=== PATIENT | male | born 1950 | race Caucasian/White ===

== ENCOUNTER → 2017-12-21 10:46 | Outpatient (CLI) | payer OTHER, SELFPAY | PROVIDERS: PCP Internal Medicine; Visit Provider Internal Medicine Pulmonary Disease | DX: R05 Cough (principal); J47.9 Bronchiectasis, uncomplicated | CPT/HCPCS: 87070; 87116; 87205 ==

== ENCOUNTER 2018-02-10 09:55 | Emergency (ER) | payer OTHER, SELFPAY ==
[2018-02-10 10:18] VITALS: BP 127/76; PULSE 91; RESP 18; TEMP 37.2; O2SAT 96; BMI 28.5
[2018-02-10 12:12] VITALS: BP 132/64; PULSE 65; RESP 16; O2SAT 98
--- NOTE | 2018-02-10 12:30 | ED.SKABFB ---
HPI - Skin/Abscess/Foreign Bdy <NIURKA Nair - Last Filed: 02/10/18 21:26> General Chief complaint: Skin/Abscess/Foreign Body Stated complaint: finger laceration Time Seen by Provider: 02/10/18 12:32 Source: patient Mode of arrival: ambulatory Limitations: no limitations History of Present Illness HPI narrative: 67-year-old male here for complaint of laceration to his left index finger. He states that he was cutting shrubs when the blade he was using slipped and caused a laceration to his left index finger slightly prior to arrival. He denies any other injuries. He does report that his tetanus is up-to-date as he just had his tetanus given to him last year. Bleeding is controlled. No other concerns or complaints at this time. MD complaint: laceration Related Data Previous Rx's Medication Instructions Recorded atorvastatin [Lipitor] 20 mg PO HS #90 10/28/12 azithromycin [Zithromax] 250 mg PO QDAY 5 Days #0 tab 02/10/16 ondansetron [Zofran ODT] 4 mg SUBLINGUAL Q6HP PRN #20 odt 02/10/16 doxycycline hyclate 100 mg PO Q12H 7 Days #0 cap 11/29/16 Allergies Allergy/AdvReac Type Severity Reaction Status Date / Time amoxicillin AdvReac Mild NAUSEA Verified 02/10/18 10:22 levofloxacin AdvReac Mild GI UPSET Verified 02/10/18 10:22 Review of Systems <NIURKA Nair - Last Filed: 02/10/18 21:26> Constitutional Denies chills, Denies fever(s), Denies lethargy and Denies weakness Eyes Denies change in vision, Denies eye discharge, Denies irritation and Denies loss of vision ENT Ears, Nose, Mouth, and Throat: Denies change in voice, Denies neck pain and Denies sore throat Cardiovascular Denies chest pain, Denies irregular heart rhythm, Denies lightheadedness, Denies palpitations, Denies dyspnea, Denies dyspnea on exertion and Denies orthopnea Respiratory Denies cough, Denies dyspnea, Denies dyspnea on exertion and Denies wheezing Gastrointestinal Gastrointestinal: Denies abdominal pain, Denies change in bowel habits, Denies diarrhea, Denies nausea and Denies vomiting Genitourinary Denies hematuria, Denies flank pain, Denies urinary incontinence and Denies urinary urgency Musculoskeletal Denies neck pain Comments: Laceration to left index finger Integumentary/Breasts Denies pruritus, Denies erythema, Denies rash and Denies wounds Neurologic Denies confusion, Denies loss of vision and Denies weakness Psychiatric Denies anxiety, Denies confusion, Denies depression, Denies homicidal ideation and Denies suicidal ideation Endocrine Denies palpitations Allergic/Immunologic Denies wheezing Exam <NIURKA Nair - Last Filed: 02/10/18 21:26> Initial Vital Signs Initial Vital Signs: Vital Signs Temperature 98.9 F 02/10/18 10:18 Pulse Rate 91 H 02/10/18 10:18 Respiratory Rate 18 02/10/18 10:18 Blood Pressure 127/76 H 02/10/18 10:18 Pulse Oximetry 96 02/10/18 10:18 Const General: cooperative and well developed Nutritional Appearance: well nourished Orientation: alert, awake, oriented x3 and not confused HENMT Mouth: oral mucosae normal and moist mucous membranes Eyes Conjunctivae: conjunctivae normal Sclera: sclerae normal Pupils: PERRL EOM: EOM intact bilaterally Resp Effort & Inspection: normal respiratory effort, able to speak in complete sentences, no respiratory distress and no use of accessory muscles Auscultation: clear to auscultation bilaterally, no rales, no rhonchi and no wheezes Cardio Rate: regular rate Rhythm: regular rhythm Heart Sounds: no click, no gallops, no murmurs and no rubs Pulses: normal peripheral pulses Skin General: No jaundice and No petechiae Neuro General: alert, oriented x3, gait normal and no focal motor deficits Speech: speech normal Extrem Other: 3 cm laceration to the left index finger radial aspect. Distal sensation is intact. Full range of motion. Distal cap refill less than 2 sec. <Pedro Rodriguez MD - Last Filed: 02/11/18 08:41> Initial Vital Signs Initial Vital Signs: Vital Signs Temperature 98.9 F 02/10/18 10:18 Pulse Rate 91 H 02/10/18 10:18 Respiratory Rate 18 02/10/18 10:18 Blood Pressure 127/76 H 02/10/18 10:18 Pulse Oximetry 96 02/10/18 10:18 Procedures <NIURKA Nair - Last Filed: 02/10/18 21:26> Laceration Repair Laceration 1: Site: other (Left index finger) Side (If applicable): left Size (cm): 3 Description: irregular Depth: simple, single layer Local Anesthetic: lidocaine 1% Amount of anesthesia used (mL): 2.5 Pre-repair: wound explored and irrigated extensively Skin layer closed with: nylon Size (cm): 5-0 Number of sutures: 9 Technique: simple, interrupted Course <NIURKA Nair - Last Filed: 02/10/18 21:26> Vital Signs - 8 hr 02/10/18 13:30 Pulse Rate 83 Respiratory Rate 16 Blood Pressure [Right Arm] 131/83 H Pulse Oximetry 98 <Pedro Rodriguez MD - Last Filed: 02/11/18 08:41> Vital Signs - 8 hr 02/10/18 13:30 Pulse Rate 83 Respiratory Rate 16 Blood Pressure [Right Arm] 131/83 H Pulse Oximetry 98 MDM - Skin/Abscess/Foreign Bdy <NIURKA Nair - Last Filed: 02/10/18 21:26> MDM Narrative Medical decision making narrative: Laceration of left index finger was closed with 9 5-0 nylon sutures with good wound closure obtained. Wound dressed with bacitracin and a dressing. Keep her original dressing on clean and dry for the next 36 hr. After this timeframe a shower briefly. Pat wound dry after shower and redressed with bacitracin dressing. Dress wound daily with bacitracin and dressing until healed. Sutures removed in 7-10 days. No swimming or baths until healed. Follow up with primary care provider. Tetanus is up-to-date. [id number] Tylenol Motrin as needed for any discomfort. Return emergency room for any worsening symptoms. Discharge Plan Departure Patient Disposition: Home Clinical Impression: Laceration of left index finger Discharge Date/Time: 02/10/18 13:43 Interventions: ED Discharge Assessment Last Done: 02/10/18 13:42 Instructions: DI for Laceration Repair -- Finger Activity Restrictions/Additional Instructions: Laceration of left index finger was closed with 9 sutures. Keep her original dressing on clean and dry for the next 36 hr. After this timeframe you may shower briefly. Pat wound dry after shower and redress with bacitracin and dressing. Dress wound daily with bacitracin and dressing until healed. Sutures removed in 7-10 days. No swimming or baths until healed. Follow up with primary care provider. Tetanus is up-to-date. [id number] Tylenol Motrin as needed for any discomfort. Return emergency room for any worsening symptoms. Prescriptions: No Action atorvastatin [Lipitor] 20 MG tablet 20 mg PO HS Qty: 90 RF: 3 azithromycin [Zithromax] 250 MG tablet 250 mg PO QDAY 5 Days Qty: 0 RF: 0 ondansetron [Zofran ODT] 4 MG tablet,disintegrating 4 mg Sublingual Q6HP PRNQty: 20 RF: 0 doxycycline hyclate 100 MG capsule 100 mg PO Q12H 7 Days Qty: 0 RF: 0 Referrals: Carolina Pepper MD [Primary Care Provider] - <Pedro Rodriguez MD - Last Filed: 02/11/18 08:41> Sign Out Provider Sign Out Attestation: The PA/UNDER WATER ASSISTANT functioned independently for the care of this pt, I was available, but not asked to participate in care. I am unable to determine appropriateness of management without personally examining the pt.
[2018-02-10 13:30] VITALS: BP 131/83; PULSE 83; RESP 16; O2SAT 98
== END 2018-02-10 13:43 | disposition home or self-care (01) ==
PROVIDERS: Emergency Provider Nurse Practitioner Family; Family Provider Internal Medicine; PCP Internal Medicine
DX: S61.211A Laceration without foreign body of left index finger without damage to nail, initial encounter (principal); W26.9XXA Contact with unspecified sharp object(s), initial encounter
CPT/HCPCS: 12002; 99282; 99283

== ENCOUNTER 2018-03-09 16:27 | Emergency (ER) | payer OTHER, SELFPAY ==
[2018-03-09 16:30] VITALS: BP 114/73; PULSE 97; RESP 20; TEMP 36.7; O2SAT 96; BMI 28.5
--- NOTE | 2018-03-09 17:05 | DI.RAD.S_ITS ---
PROCEDURE: XR CHEST 1V INDICATIONS: pain in chest and neck TECHNIQUE: One view of the chest was acquired. COMPARISON: [facility], CT, CT CHEST WO CON, 06/22/2015, 13:15. [facility], CR, CHEST 1 VIEW, 02/10/2016, 3:45. FINDINGS: Surgical changes and devices: None. Lungs and pleura: Opacity in the left lower lobe may be consolidation or atelectasis. The apical scars are present. There is right basilar atelectasis. No pleural effusions or pneumothorax. Mediastinum: Mediastinal contours appear normal. Heart size is normal. Bones and chest wall: No suspicious bony lesions. Overlying soft tissues appear unremarkable. IMPRESSION: 1. Left basilar opacity may be pneumonia or atelectasis. 2. Biapical scars and left lower lobe atelectasis. Dictated by: Samuel Aquino M.D. on 03/09/2018 at 17:53 Approved by: Samuel Aquino M.D. on 03/09/2018 at 17:56
[2018-03-09 17:10] VITALS: BP 116/89; PULSE 143; RESP 17; O2SAT 96
--- NOTE | 2018-03-09 17:17 | ED.CHESTPAIN ---
HPI - Chest Pain General Chief Complaint: Chest Pain Stated Complaint: PAIN IN CHEST AND NECK Time Seen by Provider: 03/09/18 17:05 Related Data Previous Rx's Medication Instructions Recorded atorvastatin [Lipitor] 20 mg PO HS #90 10/28/12 azithromycin [Zithromax] 250 mg PO QDAY 5 Days #0 tab 02/10/16 ondansetron [Zofran ODT] 4 mg SUBLINGUAL Q6HP PRN #20 odt 02/10/16 doxycycline hyclate 100 mg PO Q12H 7 Days #0 cap 11/29/16 Allergies Allergy/AdvReac Type Severity Reaction Status Date / Time amoxicillin AdvReac Mild NAUSEA Verified 02/10/18 10:22 levofloxacin AdvReac Mild GI UPSET Verified 02/10/18 10:22 PFS Social History Smoking Status: Never smoker Exam Initial Vital Signs Initial Vital Signs: Vital Signs Temperature 98.0 F 03/09/18 16:30 Pulse Rate 97 H 03/09/18 16:30 Respiratory Rate 20 03/09/18 16:30 Blood Pressure 114/73 03/09/18 16:30 Pulse Oximetry 96 03/09/18 16:30 Course Orders Ordered: ED Orders 03/09/18 17:05 XR chest 1V Stat Basic Metabolic Panel Stat Complete Blood Count AUTO DIFF Stat Magnesium Stat Partial Thromboplastin Time Stat Prothrombin Time INR Stat Thyroid Stimulating Hormone Stat Troponin & CK Cardiac Panel Stat EKG-12 Lead Stat Sodium Chloride (Normal Saline 0.9%) 1,000 mls @ 150 mls/hr IV CONT RAKESH Sodium Chloride (Normal Saline 0.9%) 1,000 mls @ 1,000 mls/hr IV BOLUS ONE Stop: 03/09/18 18:11 Discontinued Medications Aspirin (Aspirin Chew) 324 mg PO NOW ONE Stop: 03/09/18 17:06 Diltiazem HCl (Cardizem) 10 mg IV NOW ONE Stop: 03/09/18 17:13 Vital Signs - 8 hr 03/09/18 16:30 Temperature 98.0 F Pulse Rate 97 H Respiratory Rate 20 Blood Pressure 114/73 Pulse Oximetry 96 Discharge Plan Departure Prescriptions: No Action atorvastatin [Lipitor] 20 MG tablet 20 mg PO HS Qty: 90 RF: 3 azithromycin [Zithromax] 250 MG tablet 250 mg PO QDAY 5 Days Qty: 0 RF: 0 ondansetron [Zofran ODT] 4 MG tablet,disintegrating 4 mg Sublingual Q6HP PRNQty: 20 RF: 0 doxycycline hyclate 100 MG capsule 100 mg PO Q12H 7 Days Qty: 0 RF: 0
[2018-03-09] MEDS: SODIUM CHLORIDE 0.9% 1,000 ML 1000 ML IV (17:55)
[2018-03-09 18:00] VITALS: BP 130/79; PULSE 91; RESP 13; O2SAT 97
[2018-03-09 18:13] LABS: Hemoglobin 13.1 g/dL (13.5-17.5); Mean Corpuscular HGB Conc 33.4 % (30-36); Mean Corpuscular Hemoglobin 31.7 PG (26-34); Mean Corpuscular Volume 94.7 fL (80-100); Platelet Count 195 X10^3/uL (150-400); Red Blood Cell Count 4.12 X10^6/uL (4.5-5.9); Red Cell Distribution Width 17.9 % (11.6-14.8); White Blood Cell Count 9.4 X10^3/uL (4.5-11.0)
[2018-03-09 18:14] LABS: Prothrombin Time 10.8 SECONDS (10.1-12.7)
[2018-03-09 18:16] LABS: BUN Creatinine Ratio 21.7 (6-22); Blood Urea Nitrogen 26 mg/dL (9-20); Carbon Dioxide 26 mmol/L (22-32); Chloride 104 mmol/L (98-107); Creatine Kinase 59 U/L (55-170); Estimated Glomerular Filt Rate > 60.0 mL/min (>60); Glucose 199 mg/dL (80-110); HEMOLYSIS 22 (0-50); Magnesium 2.1 mg/dL (1.6-2.3); Potassium 4.6 mmol/L (3.4-5.1); Sodium 142 mmol/L (137-145)
--- NOTE | 2018-03-09 18:16 | ED_ITS ---
HPI - Chest Pain General Chief Complaint: Chest Pain Stated Complaint: PAIN IN CHEST AND NECK Time Seen by Provider: 03/09/18 17:05 Source: patient Mode of arrival: ambulatory Limitations: no limitations History of Present Illness HPI narrative: Patient is a 67-year-old male with a history of coronary artery disease and stent placement without a history of atrial fibrillation here for evaluation of palpitations. Patient states that sometimes prior to arrival he started feeling like his heart was beating fast. States he felt a pressure and also radiation to his neck. Unsure exactly how long the symptoms lasted. Has had a stent placed in the plaster has never had a heart attack. No prior history of atrial fibrillation. Related Data Previous Rx's Medication Instructions Recorded atorvastatin [Lipitor] 20 mg PO HS #90 10/28/12 azithromycin [Zithromax] 250 mg PO QDAY 5 Days #0 tab 02/10/16 ondansetron [Zofran ODT] 4 mg SUBLINGUAL Q6HP PRN #20 odt 02/10/16 doxycycline hyclate 100 mg PO Q12H 7 Days #0 cap 11/29/16 Allergies Allergy/AdvReac Type Severity Reaction Status Date / Time amoxicillin AdvReac Mild NAUSEA Verified 02/10/18 10:22 levofloxacin AdvReac Mild GI UPSET Verified 02/10/18 10:22 Review of Systems Constitutional Denies chills and Denies fever(s) ENT Ears, Nose, Mouth, and Throat: Denies vertigo and Denies dizziness Cardiovascular Reports chest pain, Denies diaphoresis, Denies syncope, Reports rapid heart rate , Denies lightheadedness, Reports palpitations and Denies dyspnea Respiratory Denies chest congestion and Denies dyspnea Gastrointestinal Gastrointestinal: Denies abdominal pain, Denies nausea and Denies vomiting Musculoskeletal Denies myalgias and Denies arthralgias Integumentary/Breasts Denies lesions and Denies rash Neurologic Denies vertigo, Denies dizziness and Denies syncope Endocrine Reports palpitations Hematologic/Lymphatic Denies easy bleeding and Denies easy bruising [facility] Medical History Kidney stone (Acute) Coronary artery disease (Acute) Surgical History History of coronary artery stent placement (Acute) Social History Smoking Status: Never smoker Exam Initial Vital Signs Initial Vital Signs: Vital Signs Temperature 98.0 F 03/09/18 16:30 Pulse Rate 97 H 03/09/18 16:30 Respiratory Rate 20 03/09/18 16:30 Blood Pressure 114/73 03/09/18 16:30 Pulse Oximetry 96 03/09/18 16:30 Const General: cooperative, healthy appearing, comfortable, well developed and well groomed Orientation: alert, awake and oriented x3 HENMT Head: normal to inspection and normocephalic Resp Effort & Inspection: normal respiratory effort Auscultation: clear to auscultation bilaterally Cardio Rate: regular rate Rhythm: regular rhythm Heart Sounds: no murmurs Pulses: radial pulses present GI Inspection: non-distended Palpation: soft and No tender Skin Lesions: no lesions Rashes: no rashes Neuro General: alert, awake and oriented x3 Extrem General: normal to inspection, capillary refill normal and No edema Psych Appearance: grossly normal and well kempt Course Orders Ordered: ED Orders 03/09/18 21:03 Troponin I Stat 03/09/18 23:55 Troponin I Stat Discontinued Medications Aspirin (Aspirin Chew) 324 mg PO NOW ONE Stop: 03/09/18 17:06 Last Admin: 03/09/18 18:20 Dose: Diltiazem HCl (Cardizem) 10 mg IV NOW ONE Stop: 03/09/18 17:13 Last Admin: 03/09/18 18:31 Dose: Sodium Chloride (Normal Saline 0.9%) 1,000 mls @ 150 mls/hr IV CONT RAKESH Last Admin: 03/09/18 18:31 Dose: Sodium Chloride (Normal Saline 0.9%) 1,000 mls @ 1,000 mls/hr IV BOLUS ONE Stop: 03/09/18 18:11 Last Infusion: 03/09/18 18:59 Dose: 0 mls/hr Admin: 03/09/18 17:55 Dose: 1,000 mls/hr Vital Signs - 8 hr 03/09/18 19:58 03/09/18 21:30 03/09/18 23:29 Temperature Pulse Rate 72 65 79 Respiratory Rate 16 13 16 Blood Pressure Blood Pressure [Left Arm] 119/72 132/76 140/84 Pulse Oximetry 99 97 97 03/10/18 00:18 03/10/18 00:56 Temperature 98.4 F Pulse Rate 78 85 Respiratory Rate 15 22 Blood Pressure 146/74 H Blood Pressure [Left Arm] 144/78 H Pulse Oximetry 98 98 MDM - Chest Pain Lab Data Attestation: I reviewed the patient's lab results. Result diagrams: 03/09/18 17:55 03/09/18 17:55 Lab Results 03/09/18 03/09/18 03/09/18 Range/Units 17:55 17:55 17:55 WBC 9.4 (4.5-11.0) X10^3/uL RBC 4.12 L (4.5-5.9) X10^6/uL Hgb 13.1 L (13.5-17.5) g/dL Hct 39.0 L (41-53) % MCV 94.7 (80-100) fL MCH 31.7 (26-34) PG MCHC 33.4 (30-36) % RDW 17.9 H (11.6-14.8) % Plt Count 195 (150-400) X10^3/uL Neut % (Auto) Not Reportable Lymph % (Auto) Not Reportable [place] % (Auto) Not Reportable Eos % (Auto) Not Reportable Baso % (Auto) Not Reportable Total Counted 100 Seg Neutrophils % 76.0 H (38-70) % Band Neutrophils % 8.0 H (3-7) % Lymphocytes % (Manual) 6.0 L (25-45) % Monocytes % (Manual) 6.0 (2-11) % Eosinophils % (Manual) 1.0 L (2-4) % Basophils % (Manual) 1.0 (0-1) % Metamyelocytes % 2.0 H (-0) % Neutrophils # (Manual) 7896 H (3163-0817) /uL RBC Morphology Normal morphology PT 10.8 (10.1-12.7) SECONDS INR 1.0 (0.9-1.3) APTT 27 (26.4-36.2) SECONDS Sodium 142 (137-145) mmol/L Potassium 4.6 (3.4-5.1) mmol/L Chloride 104 (98-107) mmol/L Carbon Dioxide 26 (22-32) mmol/L BUN 26 H (9-20) mg/dL Creatinine 1.20 (0.66-1.25) mg/dL Estimated GFR > 60.0 (>60) mL/min BUN/Creatinine Ratio 21.7 (6-22) Glucose 199 H (80-110) mg/dL Calcium 10.0 (8.4-10.2) mg/dL Magnesium 2.1 (1.6-2.3) mg/dL Total Creatine Kinase 59 (55-170) U/L CK-MB (CK-2) TNP Troponin I < 0.012 (0.01-0.034) ng/mL TSH (0.47-4.68) uIU/mL 03/09/18 03/09/18 03/09/18 Range/Units 17:55 21:03 23:55 WBC (4.5-11.0) X10^3/uL RBC (4.5-5.9) X10^6/uL Hgb (13.5-17.5) g/dL Hct (41-53) % MCV (80-100) fL MCH (26-34) PG MCHC (30-36) % RDW (11.6-14.8) % Plt Count (150-400) X10^3/uL Neut % (Auto) Lymph % (Auto) [place] % (Auto) Eos % (Auto) Baso % (Auto) Total Counted Seg Neutrophils % (38-70) % Band Neutrophils % (3-7) % Lymphocytes % (Manual) (25-45) % Monocytes % (Manual) (2-11) % Eosinophils % (Manual) (2-4) % Basophils % (Manual) (0-1) % Metamyelocytes % (-0) % Neutrophils # (Manual) (2376-3121) /uL RBC Morphology PT (10.1-12.7) SECONDS INR (0.9-1.3) APTT (26.4-36.2) SECONDS Sodium (137-145) mmol/L Potassium (3.4-5.1) mmol/L Chloride (98-107) mmol/L Carbon Dioxide (22-32) mmol/L BUN (9-20) mg/dL Creatinine (0.66-1.25) mg/dL Estimated GFR (>60) mL/min BUN/Creatinine Ratio (6-22) Glucose (80-110) mg/dL Calcium (8.4-10.2) mg/dL Magnesium (1.6-2.3) mg/dL Total Creatine Kinase (55-170) U/L CK-MB (CK-2) Troponin I 0.015 0.016 (0.01-0.034) ng/mL TSH 1.79 (0.47-4.68) uIU/mL Imaging Data Chest x-ray: Radiologist's impression: [address] [address] XRay Report Signed Patient: Deangelo Hudson [facility]#: [id number] : 9Acct:[id number] Age/Sex: 67 / MDate of Service: 03/09/18 Loc: ED Accession Number: [id number] Procedure: XR chest 1V Ordering Provider: Dior Ureña D.O. PROCEDURE: XR CHEST 1V INDICATIONS: pain in chest and neck TECHNIQUE: One view of the chest was acquired. COMPARISON: [facility]ed [facility], CT, CT CHEST WO CON, 06/22/2015, 13:15. [facility], CR, CHEST 1 VIEW, 02/10/2016, 3:45. FINDINGS: Surgical changes and devices: None. Lungs and pleura: Opacity in the left lower lobe may be consolidation or atelectasis. The apical scars are present. There is right basilar atelectasis. No pleural effusions or pneumothorax. Mediastinum: Mediastinal contours appear normal. Heart size is normal. Bones and chest wall: No suspicious bony lesions. Overlying soft tissues appear unremarkable. IMPRESSION: 1. Left basilar opacity may be pneumonia or atelectasis. 2. Biapical scars and left lower lobe atelectasis. Dictated by: Samuel Aquino M.D. on 03/09/2018 at 17:53 Approved by: Samuel Aquino M.D. on 03/09/2018 at 17:56 ECG Data Attestation: I personally reviewed and interpreted this ECG as follows: Prior ECG tracings: not available for review Interpretation: 09 March time 0434 p.m. Atrial fibrillation Ventricular rate of 147 Normal QRS Normal QTC Normal axis No ST T wave changes Repeat EKG time 1823 hr Sinus rhythm Ventricular rate of 94 As needed oval 153 milliseconds Normal QRS Normal QTC No ST T wave changes MDM Narrative Medical decision making narrative: Patient converted to sinus rhythm without intervention here in the emergency department. Has not had any chest pain or neck pain since the symptoms started earlier this afternoon. Initial troponin was negative. Given his history of coronary artery disease and stent placement and the fact that he was having chest pain he was kept here for repeat troponin. The 2nd troponin was in the detectable but negative range. After discussion he did agree to stay here for 3rd troponin which again was in the detectable but negative range in unchanged from the 2nd. He has remained in normal sinus rhythm and asymptomatic since being here in the emergency department. When a long discussion with his symptoms. He does have a healthcare interpreter in the area. No signs of heart failure. Doubt ACS currently. Patient was given return precautions. He will contact his healthcare interpreter primary doctor on Sunday for follow-up. Patient expressed understanding and agreement with plan. Discharge Plan Departure Patient Disposition: Home Clinical Impression: New onset a-fib Discharge Date/Time: 03/10/18 00:55 Interventions: ED Discharge Assessment Last Done: 03/10/18 00:56 Instructions: DI for Atrial Fibrillation Activity Restrictions/Additional Instructions: On Sunday recommend you contact your primary care doctor and also your healthcare interpreter to discuss follow-up. Return to the emergency department for any new or worsening symptoms Prescriptions: No Action atorvastatin [Lipitor] 20 MG tablet 20 mg PO HS Qty: 90 RF: 3 azithromycin [Zithromax] 250 MG tablet 250 mg PO QDAY 5 Days Qty: 0 RF: 0 ondansetron [Zofran ODT] 4 MG tablet,disintegrating 4 mg Sublingual Q6HP PRNQty: 20 RF: 0 doxycycline hyclate 100 MG capsule 100 mg PO Q12H 7 Days Qty: 0 RF: 0
[2018-03-09 18:17] LABS: PTT Partial Thromboplastin Tim 27 SECONDS (26.4-36.2)
[2018-03-09 18:29] LABS: Troponin I < 0.012 ng/mL (0.01-0.034)
[2018-03-09 18:32] LABS: Add Manual Diff / Slide Review YES
[2018-03-09 18:33] LABS: Neutrophils Absolute Manual 7896 /uL (3000-5900); Total Cells Counted 100
[2018-03-09 18:34] LABS: RBC Morphology Normal Morphology
[2018-03-09 19:12] LABS: Thyroid Stimulating Hormone 1.79 uIU/mL (0.47-4.68)
[2018-03-09 19:58] VITALS: BP 119/72; PULSE 72; RESP 16; O2SAT 99
[2018-03-09 21:30] VITALS: BP 132/76; PULSE 65; RESP 13; O2SAT 97
[2018-03-09 21:31] LABS: Troponin I 0.015 ng/mL (0.01-0.034)
[2018-03-09 23:29] VITALS: BP 140/84; PULSE 79; RESP 16; O2SAT 97
[2018-03-10 00:18] VITALS: BP 144/78; PULSE 78; RESP 15; O2SAT 98
[2018-03-10 00:27] LABS: Troponin I 0.016 ng/mL (0.01-0.034)
[2018-03-10 00:56] VITALS: BP 146/74; PULSE 85; RESP 22; TEMP 36.9; O2SAT 98
== END 2018-03-10 00:55 | disposition home or self-care (01) ==
PROVIDERS: Emergency Medicine; Emergency Provider Emergency Medicine; Family Provider Internal Medicine; PCP Internal Medicine
DX: I48.91 Unspecified atrial fibrillation (principal)
CPT/HCPCS: 36415; 36591; 71045; 80048; 82550; 83735; 84443; 84484; 85025; 85610; 85730; 93005; 96360; 99284; 99285

== ENCOUNTER → 2018-04-19 09:37 | Outpatient (CLI) | payer OTHER, SELFPAY ==
[2018-04-19 10:28] LABS: Alanine Aminotransferase 27 IU/L (21-72); Aspartate Aminotransferase 17 IU/L (17-59); BUN Creatinine Ratio 24.7 (6-22); Blood Urea Nitrogen 37 mg/dL (9-20); Calcium 10.1 mg/dL (8.4-10.2); Carbon Dioxide 29 mmol/L (22-32); Chloride 103 mmol/L (98-107); Cholesterol 161 mg/dL (140-199); Estimated Glomerular Filt Rate 46.4 mL/min (>60); Glucose 93 mg/dL (80-110); HDL Cholesterol 45 mg/dL (40-60); HEMOLYSIS < 15 (0-50); LDL Cholesterol Calculated 83 mg/dL (<100); Potassium 3.8 mmol/L (3.4-5.1); Sodium 142 mmol/L (137-145); Triglycerides 165 mg/dL (35-150)
== END ==
PROVIDERS: Family Provider Internal Medicine; PCP Internal Medicine; Visit Provider Internal Medicine
DX: I10 Essential (primary) hypertension (principal); E78.5 Hyperlipidemia, unspecified
CPT/HCPCS: 36415; 80048; 80061; 84450; 84460

== ENCOUNTER → 2018-05-22 10:03 | Outpatient (CLI) | payer OTHER, SELFPAY ==
[2018-05-22 11:24] LABS: BUN Creatinine Ratio 22.1 (6-22); Blood Urea Nitrogen 31 mg/dL (9-20); Calcium 9.9 mg/dL (8.4-10.2); Carbon Dioxide 27 mmol/L (22-32); Chloride 100 mmol/L (98-107); Estimated Glomerular Filt Rate 50.2 mL/min (>60); Glucose 108 mg/dL (80-110); HEMOLYSIS < 15 (0-50); Potassium 3.7 mmol/L (3.4-5.1); Sodium 137 mmol/L (137-145)
== END ==
PROVIDERS: PCP Internal Medicine; Visit Provider Nurse Practitioner
DX: I10 Essential (primary) hypertension (principal)
CPT/HCPCS: 36415; 80048

== ENCOUNTER → 2018-08-09 09:49 | Outpatient (CLI) | payer OTHER, SELFPAY ==
[2018-08-09 11:10] LABS: BUN Creatinine Ratio 17.7 (6-22); Blood Urea Nitrogen 23 mg/dL (9-20); Calcium 9.4 mg/dL (8.4-10.2); Carbon Dioxide 25 mmol/L (22-32); Chloride 102 mmol/L (98-107); Estimated Glomerular Filt Rate 54.7 mL/min (>60); Glucose 159 mg/dL (80-110); HEMOLYSIS < 15 (0-50); Potassium 3.6 mmol/L (3.4-5.1); Sodium 136 mmol/L (137-145)
== END ==
PROVIDERS: Family Provider Internal Medicine; PCP Internal Medicine; Visit Provider Internal Medicine Pulmonary Disease
DX: D64.9 Anemia, unspecified (principal); J47.9 Bronchiectasis, uncomplicated; R07.9 Chest pain, unspecified; R05 Cough
CPT/HCPCS: 36415; 80048

== ENCOUNTER → 2018-09-13 16:09 | Outpatient (CLI) | payer OTHER, SELFPAY ==
--- NOTE | 2018-09-13 | DI.RAD.S_ITS ---
PROCEDURE: XR CHEST 2V INDICATIONS: DYSPNEA ON EXERTION TECHNIQUE: 2 views of the chest were acquired. COMPARISON: [facility], CR, XR CHEST 1V, 03/09/2018, 17:18. FINDINGS: Surgical changes and devices: None. Lungs and pleura: No acute consolidation. Scattered subsegmental atelectasis and/or scarring. Left apical presumed scarring unchanged. Platelike atelectasis projects in the left lung base as before. No pleural effusions or pneumothorax. Mediastinum: Mediastinal contours are normal. Heart size is normal. Bones and chest wall: No suspicious bony abnormalities. Soft tissues appear unremarkable. IMPRESSION: No acute disease or interval change. Scattered scarring/atelectasis as before. Dictated by: Anibal Erickson M.D. on 09/13/2018 at 16:48 Approved by: Anibal Erickson M.D. on 09/13/2018 at 16:49
[2018-09-13 16:58] LABS: BUN Creatinine Ratio 18.6 (6-22); Blood Urea Nitrogen 26 mg/dL (9-20); Calcium 10.3 mg/dL (8.4-10.2); Carbon Dioxide 27 mmol/L (22-32); Chloride 101 mmol/L (98-107); Estimated Glomerular Filt Rate 50.2 mL/min (>60); Glucose 144 mg/dL (80-110); HEMOLYSIS < 15 (0-50); Hematocrit 38.5 % (41-53); Hemoglobin 12.3 g/dL (13.5-17.5); Mean Corpuscular HGB Conc 31.8 % (30-36); Mean Corpuscular Hemoglobin 30.9 PG (26-34); Mean Corpuscular Volume 97.1 fL (80-100); Platelet Count 173 X10^3/uL (150-400); Potassium 4.3 mmol/L (3.4-5.1); Red Blood Cell Count 3.97 X10^6/uL (4.5-5.9); Red Cell Distribution Width 14.5 % (11.6-14.8); Sodium 138 mmol/L (137-145); White Blood Cell Count 10.1 X10^3/uL (4.5-11.0)
[2018-09-13 16:59] LABS: Add Manual Diff / Slide Review YES
[2018-09-13 17:20] LABS: B Type Natriuretic Peptide < 100 (<100)
[2018-09-13 17:25] LABS: RBC Morphology Normal Morphology
== END ==
PROVIDERS: PCP Internal Medicine; Visit Provider Internal Medicine
DX: R06.09 Other forms of dyspnea (principal)
CPT/HCPCS: 36415; 71046; 80048; 83880; 85025

== ENCOUNTER → 2018-11-26 15:55 | Outpatient (CLI) | payer OTHER, SELFPAY ==
--- NOTE | 2018-11-26 | DI.MRI.S_ITS ---
PROCEDURE: MR ORBITS FACE NECK WO/W CON INDICATIONS: LOCALIZED SWELLLING, MASS AND LUMP - NECK TECHNIQUE: Sagittal/axial/coronal T1 spin echo and STIR. After the administration of contrast, axial/coronal/sagittal T1 fast spin echo with fat saturation through the neck. COMPARISON: None. FINDINGS: Image quality: This examination is limited by involuntary motion artifact. Lymph nodes: No enlarged nodes are seen throughout the neck. Vessels: Visualized vasculature appears normal, with normal flow voids and enhancement. Neck spaces: In this patient with this given history, scrutiny is given to the area of clinical concern involving the anterior neck just superior to the manubrium. No masses or abnormal enhancement can be seen at this site. The oropharynx, nasopharynx and pharynx are unremarkable, without mucosal lesions seen. Vocal cords, false vocal cords, pyriform sinuses, epiglottis, vallecula, and tongue base all appear normal. Extramucosal spaces of the neck also appear unremarkable. Glands: The parotid and submandibular glands appear normal. Thyroid gland demonstrates no significant MRI abnormality. Miscellaneous: Visualized brain and orbits appear normal. Lung apices appear clear. Superficial soft tissues appear normal. Visualized sinuses and mastoids appear clear. Bones: Marrow has normal overall signal. Age-appropriate bony degenerative changes are seen. IMPRESSION: Limited study, without an imaging explanation found for the patient's clinical lump just superior to the manubrium. If clinically appropriate, please consider a dedicated neck CT with IV contrast for further evaluation. Dictated by: Carlitos Camp M.D. on 11/26/2018 at 17:12 Approved by: Carlitos Camp M.D. on 11/26/2018 at 17:14
== END ==
PROVIDERS: PCP Internal Medicine; Visit Provider Internal Medicine
DX: R22.1 Localized swelling, mass and lump, neck (principal)
CPT/HCPCS: 70543; A9579

== ENCOUNTER → 2019-03-18 12:51 | Outpatient (CLI) | payer OTHER, SELFPAY ==
[2019-03-18 13:26] LABS: Add Manual Diff / Slide Review NO; Basophils Absolute Auto 100 /uL (0-100); Basophils Percent Auto 0.6 % (0-2); Eosinophils Absolute Auto 200 /uL (0-450); Eosinophils Percent Auto 2.2 % (2-4); Hemoglobin 12.8 g/dL (13.5-17.5); Lymphocytes Absolute Auto 1300 /uL (1100-4500); Lymphocytes Percent Auto 12.2 % (25-40); Mean Corpuscular HGB Conc 32.9 % (30-36); Mean Corpuscular Hemoglobin 30.4 PG (26-34); Mean Corpuscular Volume 92.3 fL (80-100); Monocytes Absolute Auto 900 /uL (0-900); Monocytes Percent Auto 8.5 % (3-14); Neutrophils Absolute Auto 8300 /uL (1500-7000); Neutrophils Percent Auto 76.5 % (50-75); Platelet Count 175 X10^3/uL (150-400); Red Blood Cell Count 4.22 X10^6/uL (4.5-5.9); Red Cell Distribution Width 15.2 % (11.6-14.8); White Blood Cell Count 10.9 X10^3/uL (4.5-11.0)
[2019-03-18 14:04] LABS: Carbon Dioxide 27 mmol/L (22-32); Chloride 101 mmol/L (98-107); HEMOLYSIS < 15 (0-50); Potassium 3.9 mmol/L (3.4-5.1); Sodium 139 mmol/L (137-145)
== END ==
PROVIDERS: PCP Internal Medicine; Visit Provider Orthopaedic Surgery
DX: Z01.818 Encounter for other preprocedural examination (principal); Z01.812 Encounter for preprocedural laboratory examination
CPT/HCPCS: 36415; 80051; 85025; 93005; 93010

== ENCOUNTER 2019-04-04 09:44 | Day surgery (SDC) | payer OTHER, SELFPAY ==
[2019-04-02 14:44] VITALS: BMI 30.4
[2019-04-04] VITALS (14 sets, daily range): BP systolic 95–156; BP diastolic 59–101; PULSE 85–119; RESP 14–20; TEMP 36–37.6; O2SAT 92–96; BMI 28.6
--- NOTE | 2019-04-04 06:00 | DI.RAD.S_ITS ---
PROCEDURE: XR KNEE RT 1TO2V INDICATIONS: post op films TECHNIQUE: 3 view(s) of the knee acquired. COMPARISON: [facility], [facility], XR KNEE ARTHRITIC SERIES RT, 01/03/2019, 9:28. FINDINGS: Bones: Patient is status post knee joint medial hemiarthroplasty. Hardware components are in expected positions. Visualized bony structures are intact. Soft tissues: Overlying postoperative changes are noted. IMPRESSION: Right knee prosthesis in anatomic alignment. Dictated by: Samuel Aquion M.D. on 04/04/2019 at 18:03 Approved by: Samuel Aquino M.D. on 04/04/2019 at 18:04
--- NOTE | 2019-04-04 10:01 | P.OP_ITS ---
Operative Date/Time/Diagnoses Date of procedure: 04/04/19 Time of procedure: 12:09 Pre-op diagnosis: Right knee medial compartment osteoarthritis Post-op diagnosis: same Procedure & Clinicians Procedure: Right knee medial compartment arthroplasty Same procedure as scheduled: Yes Indications: The patient presents today for medial compartment knee arthroplasty after failure of conservative treatment. The nature of the procedure including the risks and benefits, alternatives, postoperative course and expected outcome were discussed and all questions answered. Consent was obtained. Operative site confirmed and marked. Surgeon: Airel Farris Chief Knowledge Officer: Jean Marie Boo Anesthesia Type: General Operative Notes Findings: Severe medial compartment osteoarthritis. Closure Type: primary Specimen(s): none sent Prosthetic devices, grafts, tissues, transplants, or devices: ZUK E femoral component, 3 tibial compartment and 10 mm polyethylene spacer. Applied: implant(s) Estimated Blood Loss (mL): 5 Blood products transfused: none Tourniquet time (min): 37 Procedure in detail: The patient was taken to the operative suite and placed under general anesthesia. The patient received prophylactic antibiotics 1 g of IV tranexamic acid prior to surgery. The lateral aspect of the leg was prepped and the knee injected with 20 mL of 1% lidocaine with epinephrine. The leg was prepped and draped in usual sterile fashion. The leg was exsanguinated with an Esmarch dressing and the tourniquet raised to 250 torr. A 10 cm medial parapatellar incision and arthrotomy was then made. The anterior aspect of the fat pad and medial meniscus was resected. A small amount of anterior tibial boss was resected with a oscillating saw. The knee was then extended and the alignment guide placed. The distal femoral and proximal tibial cutting guides were then pinned into place. The distal femoral cut was made in extension. The proximal tibial cut was made in flexion. All remaining meniscus was excised. Gaps were checked with blocks. Soft tissues were then injected with a combination of 40 mL of quarter percent Marcaine with epinephrine, 20 mL of Expa rel. The femur was sized and the appropriate cutting guide placed. The peg holes were drilled and chamfer cuts made. Next the tibia was sized and drilled. Trial components were then placed. The knee had good yazidism of soft tissue tension without over correction. Range of motion was full. The trial components were removed. The knee was cleansed with Pulsavac irrigation and dried. The components were then cemented with high viscosity vacuum mixed bone cement. The knee was held in extension until the cement had adequately cured. The knee was then irrigated and inspected for any further debris. The extensor mechanism was closed at 90? of flexion with a few interrupted #1 Vicryl sutures and a running O V-LOC suture. The knee was then filled with 50 mL of solution containing 1 g of tranexamic acid and 10 mL of 0.5% Marcaine. The subcutaneous tissue was closed with 2-0 Vicryl. The skin was closed with a running 3 0 V-LOC suture and surgical adhesive. An Aquacel dressing was applied. The leg was then wrapped with an Bert which will be kept on for the first 24 hours. The patient tolerated the procedure well and was returned to recovery room in good condition. Complications: none Post-operative Condition: stable Disposition: same day surgery Plan for aftercare: Routine postoperative protocol for medial compartment arthroplasty.
--- NOTE | 2019-04-04 10:01 | PM.PREOP ---
Pre-operative Note Interval Note History & Physical reviewed/Exam performed by Physician: Yes Changes to H&P: No
[2019-04-04] MEDS: LACTATED RINGERS 1,000 ML 42 ML IV (10:05)
[2019-04-04] MEDS: PREGABALIN 75 MG CAPSULE PO (10:24)
[2019-04-04] MEDS: ACETAMINOPHEN 325 MG TABLET 975 MG PO (10:24)
[2019-04-04] MEDS: CELECOXIB 200 MG CAPSULE PO (10:24)
[2019-04-04] MEDS: ALBUTEROL 2.5 MG/3 ML NEB (ADULT) INH (10:54)
[2019-04-04] MEDS: CEFAZOLIN 2 GM/100 ML FROZ.PIGGY IV (11:05)
[2019-04-04] MEDS: TRANEXAMIC ACID 1,000 MG VIAL 1000 MG INJ (11:20)
[2019-04-04] MEDS: LIDOCAINE 1% W/EPI 20 ML INJ (11:20)
--- NOTE | 2019-04-04 11:30 | SUR.OPER ---
Supine on padded OR bed. Pillow under head, arms secured on padded armboards <90 degree abduction. Safety belt across torso. Non-operative leg secured with tape over blanket over lower leg. Operative leg secured in DeMayo/Carlitos positioner. Foam padded brace at thigh of operative leg.
[2019-04-04] MEDS: BUPIVACAINE 0.5% W/ EPI (PF) 20 ML, BUPIVACAINE LIPOSOME 266 MG, SODIUM CHLORIDE 0.9% 2... INJ (11:35)
[2019-04-04] MEDS: BUPIVACAINE 0.5% W/ EPI (PF) 10 ML, TRANEXAMIC ACID 1,000 MG, SODIUM CHLORIDE 0.9% 20 ML INJ (11:36)
[2019-04-04] MEDS: SODIUM CHLORIDE IRRIG SOLUTION 250 ML, POVIDONE-IODINE SPONGE STICKS 1 APPLIC IRR (11:37)
--- NOTE | 2019-04-04 12:28 | SUR.PHASEI ---
Report given to Fabian
--- NOTE | 2019-04-04 12:50 | SUR.PHASEI ---
metoprolol 5mg IV per Dr. Bae.
[2019-04-04] MEDS: OXYCODONE IR 5 MG TABLET PO (14:59)
--- NOTE | 2019-04-04 15:38 | SUR.PHASEII ---
pt ambulated to restroom to get dressed with sba. No difficulties observed, pt tolerated well.
== END 2019-04-04 15:30 | disposition home or self-care (01) ==
PROVIDERS: PCP Internal Medicine; Visit Provider Orthopaedic Surgery
PROC: (CPT 27446; principal; 2019-04-04 11:45)
DX: M17.11 Unilateral primary osteoarthritis, right knee (principal); I10 Essential (primary) hypertension; I25.10 Atherosclerotic heart disease of native coronary artery without angina pectoris
CPT/HCPCS: 27446; 73560; C1776; C9290; J0690; J1100; J2250; J2405; J2704; J3010; J7613

== ENCOUNTER 2019-06-01 14:20 | Emergency (ER) | payer OTHER, SELFPAY ==
--- NOTE | 2019-06-01 14:57 | DI.RAD.S_ITS ---
PROCEDURE: XR CHEST 2V INDICATIONS: shortness of breath TECHNIQUE: 2 views of the chest were acquired. COMPARISON: [facility], CR, CHEST 2 VIEW, 09/15/2013, 11:33. [facility], CT, CT CHEST WO CON, 06/22/2015, 13:15. [facility], CR, XR CHEST 1V, 03/09/2018, 17:18. [facility], CR, CHEST 1 VIEW, 02/10/2016, 3:45. [facility], CR, XR CHEST 2V, 09/13/2018, 16:23. FINDINGS: Surgical changes and devices: None. Lungs and pleura: Linear opacities consistent with scarring redemonstrated in the lung bases, left greater than right. There is mild interstitial prominence which appears unchanged and is likely chronic. There is apical scarring redemonstrated bilaterally, with asymmetric thickening in the left apex again noted. There is hyperinflation of the lungs with flattening of the hemidiaphragms compatible with COPD. No pleural effusions or pneumothorax. Mediastinum: Mediastinal contours are unchanged. Heart size is normal. Bones and chest wall: No suspicious bony abnormalities. Soft tissues appear unremarkable. IMPRESSION: 1. Bilateral scarring redemonstrated in the lung bases and apices. This includes asymmetric thickening in the left apex which appears similar to the prior studies. 2. Findings compatible with COPD redemonstrated. 3. Mild interstitial prominence likely represent chronic changes. Dictated by: Ariel Hernandez M.D. on 06/01/2019 at 14:59 Approved by: Ariel Hernandez M.D. on 06/01/2019 at 15:04
[2019-06-01 14:58] VITALS: BP 142/88; PULSE 124; RESP 18; TEMP 37.3; O2SAT 96; BMI 31.5
[2019-06-01 15:19] VITALS: PULSE 112; RESP 31; O2SAT 99
[2019-06-01] MEDS: ALBUTEROL 2.5 MG/3 ML NEB (ADULT) INH (15:19)
[2019-06-01 15:35] LABS: Add Manual Diff / Slide Review NO; Alanine Aminotransferase 20 IU/L (<50); Albumin 4.4 g/dL (3.5-5.0); Albumin Globulin Ratio 1.6 (1.0-2.8); Alkaline Phosphatase 65 U/L (38-126); Aspartate Aminotransferase 22 IU/L (17-59); BUN Creatinine Ratio 13.3 (6-22); Basophils Absolute Auto 100 /uL (0-100); Basophils Percent Auto 0.6 % (0-2); Bilirubin Total 0.7 mg/dL (0.2-1.3); Blood Urea Nitrogen 16 mg/dL (9-20); Calcium 10.7 mg/dL (8.4-10.2); Carbon Dioxide 26 mmol/L (22-32); Chloride 102 mmol/L (98-107); Eosinophils Absolute Auto 100 /uL (0-450); Eosinophils Percent Auto 0.7 % (2-4); Estimated Glomerular Filt Rate 59.9 mL/min (>60); Globulin 2.7 g/dL (1.7-4.1); Glucose 124 mg/dL (80-110); HEMOLYSIS < 15 (0-50); Hematocrit 37.3 % (41-53); Hemoglobin 12.3 g/dL (13.5-17.5); Lymphocytes Absolute Auto 1000 /uL (1100-4500); Lymphocytes Percent Auto 8.5 % (25-40); Mean Corpuscular HGB Conc 32.8 % (30-36); Mean Corpuscular Hemoglobin 30.3 PG (26-34); Mean Corpuscular Volume 92.2 fL (80-100); Monocytes Absolute Auto 700 /uL (0-900); Monocytes Percent Auto 6.4 % (3-14); Neutrophils Absolute Auto 9700 /uL (1500-7000); Neutrophils Percent Auto 83.8 % (50-75); Platelet Count 165 X10^3/uL (150-400); Potassium 4.2 mmol/L (3.4-5.1); Red Blood Cell Count 4.05 X10^6/uL (4.5-5.9); Red Cell Distribution Width 15.7 % (11.6-14.8); Sodium 137 mmol/L (137-145); Total Protein 7.1 g/dL (6.3-8.2); White Blood Cell Count 11.6 X10^3/uL (4.5-11.0)
[2019-06-01 16:25] VITALS: BP 161/94; PULSE 125; RESP 26; O2SAT 97
--- NOTE | 2019-06-01 17:39 | ED.SOB ---
HPI - SOB/Dyspnea General Chief Complaint: Shortness of Breath/Dyspnea Stated Complaint: sob/ lung congestion/ poss pneumonia Time Seen by Provider: 06/01/19 15:18 Source: patient and family Mode of arrival: Ambulatory Limitations: no limitations History of Present Illness HPI Narrative: Patient comes emergency department complaining of shortness of breath and worsening cough over the last several days. Patient has a history of Catia's granulomatosis and bronchiectasis. He states he was started on antibiotics in the form of doxycycline 3 weeks ago for a bronchitis. He states that his shortness of breath is slightly worse than his baseline but not much. He states he is mainly concerned because the cough seems to be worse than usual and he is afraid he may need antibiotics again. 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 He states that his supervisor covering and lining has mild low dose of steroid, but does not like him to be on a higher dose unless absolutely necessary. He denies fevers or chills. No chest pain. No abdominal pain, nausea or vomiting. No other complaints at this time. Related Data Home Medications Medication Instructions Recorded Confirmed Eliquis 5 mg PO BID 04/02/19 04/04/19 atorvastatin [Lipitor] 40 mg PO HS 04/02/19 04/04/19 diphenhydramine-acetaminophen 2 tab PO BEDTIME PRN 04/02/19 04/04/19 [Tylenol PM Extra Strength] doxazosin 8 mg PO DAILY 04/02/19 04/04/19 fluticasone propionate 1 spray INTRANASAL DAILY 04/02/19 04/04/19 folic acid 2 mg PO DAILY 04/02/19 04/04/19 levalbuterol tartrate [Xopenex HFA] 1 puff INHALATION Q4-6H PRN 04/02/19 04/04/19 levofloxacin 500 mg PO DAILY 04/02/19 04/04/19 meloxicam [Mobic] 15 mg PO DAILY 04/02/19 04/04/19 metoprolol succinate 50 mg PO DAILY 04/02/19 04/04/19 omeprazole 40 mg PO DAILY 04/02/19 04/04/19 prednisone 10 mg PO DAILY 04/02/19 04/04/19 sulfamethoxazole-trimethoprim 1 tab PO QMWF 04/02/19 04/04/19 [Bactrim DS] tramadol 100 mg PO BEDTIME 04/02/19 04/04/19 Previous Rx's Medication Instructions Recorded oxycodone 10 mg PO Q4H PRN #40 tab 04/04/19 azithromycin [Zithromax Z-Lamonte] See Rx Instructions .ROUTE 06/01/19 .COMPLEX #6 tab Allergies Allergy/AdvReac Type Severity Reaction Status Date / Time amoxicillin AdvReac Mild NAUSEA Verified 02/10/18 10:22 levofloxacin AdvReac Mild GI UPSET Verified 02/10/18 10:22 Review of Systems Constitutional Constitutional: Denies chills, Denies fatigue, Denies fever(s), Denies frequent falls, Denies lethargy and Denies weakness Eyes Eyes: Denies change in vision, Denies eye discharge, Denies irritation and Denies loss of vision ENT Ears, Nose, Mouth, and Throat: Denies change in voice, Denies dizziness, Denies neck pain, Denies sore throat and Denies throat swelling Cardiovascular Cardiovascular: Denies chest pain, Denies irregular heart rhythm, Denies lightheadedness, Denies palpitations, Reports dyspnea, Reports dyspnea on exertion and Denies orthopnea Respiratory Respiratory: Reports cough, Reports dyspnea, Reports dyspnea on exertion and Denies wheezing Gastrointestinal Gastrointestinal: Denies abdominal pain, Denies change in bowel habits, Denies diarrhea, Denies nausea and Denies vomiting Genitourinary Genitourinary: Denies hematuria, Denies flank pain, Denies urinary incontinence and Denies urinary urgency Musculoskeletal Musculoskeletal: Denies back pain, Denies muscle weakness, Denies neck pain, Denies numbness and Denies tingling Integumentary/Breasts Skin/Breast: Denies pruritus, Denies erythema, Denies rash and Denies wounds Neurologic Neurologic: Denies behavioral changes, Denies confusion, Denies dizziness, Denies frequent falls, Denies loss of vision, Denies numbness, Denies tingling and Denies weakness Psychiatric Psychiatric: Denies anxiety, Denies behavioral changes, Denies confusion, Denies depression, Denies homicidal ideation and Denies suicidal ideation Endocrine Endocrine: Denies fatigue, Denies flushing and Denies palpitations Hematologic/Lymphatic Hematologic/Lymphatic: Denies easy bruising Allergic/Immunologic Allergic/Immunologic: Denies urticaria, Denies throat swelling and Denies wheezing Patient History Medical History (Updated 06/01/19 @ 17:38 by Kyung Moses MD) Arthritis (Acute) Atypical chest pain (Acute) BPH (benign prostatic hyperplasia) (Acute) Bronchiectasis (Acute) Coronary artery disease (Acute) DJD (degenerative joint disease) (Acute) Dyspnea (Acute) GERD (gastroesophageal reflux disease) (Acute) Kidney stone (Acute ~2016) Microscopic polyangiitis (Acute) Mycobacterium chelonae infection (Acute) Non-productive cough (Acute) Paroxysmal A-fib (Acute 03/09/18) Pneumonia (Acute ~07/2013) Vasculitis (Acute) Surgical History (Updated 04/02/19 @ 15:10 by Mikayla Lamb RN) History of colonoscopy (Acute ~2015) History of coronary artery stent placement (Acute ~06/2012) Social History household members: spouse Smoking Status: Never smoker alcohol intake: current Smoking Status: Never smoker alcohol intake frequency: holidays/special occasions only Substance Use Type: does not use Exam Initial Vital Signs Initial Vital Signs: Vital Signs Temperature 99.1 F 06/01/19 14:58 Pulse Rate 124 H 06/01/19 14:58 Respiratory Rate 18 06/01/19 14:58 Blood Pressure 142/88 H 06/01/19 14:58 Pulse Oximetry 96 06/01/19 14:58 Const General: cooperative and well developed Nutritional Appearance: well nourished Orientation: alert, awake, oriented x3 and not confused [facility] Head: normocephalic and atraumatic Ears: external ears normal and TM's normal bilaterally Nose: external nose normal and No nasal discharge Face and sinus: sinuses nontender, face symmetric, no sinus tenderness and No dry mucous membranes Mouth: oral mucosae normal and moist mucous membranes Teeth and gingiva: dentition normal Throat: tonsils normal and uvula midline Eyes General: appearance normal, both eyes and all related structures Eyelids: eyelids normal Conjunctivae: conjunctivae normal Sclera: sclerae normal Pupils: PERRL EOM: EOM intact bilaterally Neck Neck: normal visual inspection, trachea midline, No lymphadenopathy, No midline deformity and No JVD Lymphatic: No lymphedema Chest Chest: normal inspection of the chest Resp Effort & Inspection: able to speak in complete sentences, labored (Mild), no respiratory distress and no use of accessory muscles Auscultation: clear to auscultation bilaterally, no rales, no rhonchi and no wheezes Cardio Rate: regular rate Rhythm: regular rhythm Heart Sounds: no click, no gallops, no murmurs and no rubs Pulses: normal peripheral pulses GI Inspection: non-distended Palpation: soft, no hepatosplenomegaly, No guarding, No pulsatile mass and No tender Auscultation: normal bowel sounds Back/Spine/Pelvis Back: No CVA tenderness Cervical Spine: cervical ROM normal and No pain with cervical ROM Thoracic/Lumbar Spine: thoracic and lumbar spine normal to inspection Skin General: no rashes or lesions noted, No jaundice and No petechiae Neuro General: alert, oriented x3, gait normal and no focal motor deficits Speech: speech normal Extrem General: full ROM, no clubbing, cyanosis or edema, no pedal edema and no calf tenderness Psych Appearance: well kempt Mental Status: mental status grossly normal Attitude: cooperative Thought Content: normal and suicidality Judgment: judgment good Course Course Course Narrative: Patient was worked up with labs, and chest x-ray, all of which were unremarkable. I did place the patient on Zithromax, as he states this has worked well for him in the past and the patient does have significant risk for bacterial infection, given his bronchiectasis history. The patient was advised to call his supervisor covering and lining to discuss his progressively worsening sense of shortness of breath. The patient and his are agreeable to this plan. Orders Ordered: Discontinued Medications Albuterol (Ventolin) 2.5 mg INH NOW ONE Stop: 06/01/19 15:16 Last Admin: 06/01/19 15:19 Dose: 2.5 mg Documented by: SHRUTI Azithromycin (Zithromax) 500 mg PO NOW ONE Stop: 06/01/19 17:36 Last Admin: 06/01/19 17:42 Dose: 500 mg Documented by: ZACHARY Vital Signs Vital signs: Vital Signs - 8 hr 06/01/19 14:58 06/01/19 15:19 06/01/19 16:25 Temperature 99.1 F Pulse Rate 124 H 112 H 125 H Respiratory Rate 18 31 H 26 H Blood Pressure 142/88 H Blood Pressure [Left Arm] 161/94 H Pulse Oximetry 96 99 97 MDM - SOB/Dyspnea Medical Records Attestation: I reviewed the patient's medical records. Lab Data Attestation: I reviewed the patient's lab results. Result diagrams: 06/01/19 15:00 06/01/19 15:00 Labs: Lab Results 06/01/19 06/01/19 06/01/19 Range/Units 15:00 15:00 15:00 WBC 11.6 H (4.5-11.0) X10^3/uL RBC 4.05 L (4.5-5.9) X10^6/uL Hgb 12.3 L (13.5-17.5) g/dL Hct 37.3 L (41-53) % MCV 92.2 (80-100) fL MCH 30.3 (26-34) PG MCHC 32.8 (30-36) % RDW 15.7 H (11.6-14.8) % Plt Count 165 (150-400) X10^3/uL Neut % (Auto) 83.8 H (50-75) % Lymph % (Auto) 8.5 L (25-40) % [place] % (Auto) 6.4 (3-14) % Eos % (Auto) 0.7 L (2-4) % Baso % (Auto) 0.6 (0-2) % Neut # (Auto) 9700 H (9236-7247) /uL Lymph # (Auto) 1000 L (4046-3126) /uL [place] # (Auto) 700 (0-900) /uL Eos # (Auto) 100 (0-450) /uL Baso # (Auto) 100 (0-100) /uL Sodium 137 (137-145) mmol/L Potassium 4.2 (3.4-5.1) mmol/L Chloride 102 (98-107) mmol/L Carbon Dioxide 26 (22-32) mmol/L BUN 16 (9-20) mg/dL Creatinine 1.20 (0.66-1.25) mg/dL Estimated GFR 59.9 L (>60) mL/min BUN/Creatinine Ratio 13.3 (6-22) Glucose 124 H (80-110) mg/dL Lactate 2.0 (0.7-2.1) mmol/L Calcium 10.7 H (8.4-10.2) mg/dL Total Bilirubin 0.7 (0.2-1.3) mg/dL AST 22 (17-59) IU/L ALT 20 (<50) IU/L Alkaline Phosphatase 65 (38-126) U/L Total Protein 7.1 (6.3-8.2) g/dL Albumin 4.4 (3.5-5.0) g/dL Globulin 2.7 (1.7-4.1) g/dL Albumin/Globulin Ratio 1.6 (1.0-2.8) Imaging Data Chest x-ray: Radiologist's impression: PROCEDURE: XR CHEST 2V INDICATIONS: shortness of breath TECHNIQUE: 2 views of the chest were acquired. COMPARISON: [facility], CR, CHEST 2 VIEW, 09/15/2013, 11:33. [facility], CT, CT CHEST WO CON, 06/22/2015, 13:15. [facility], CR, XR CHEST 1V, 03/09/2018, 17:18. [facility], CR, CHEST 1 VIEW, 02/10/2016, 3:45. [facility], CR, XR CHEST 2V, 09/13/2018, 16:23. FINDINGS: Surgical changes and devices: None. Lungs and pleura: Linear opacities consistent with scarring redemonstrated in the lung bases, left greater than right. There is mild interstitial prominence which appears unchanged and is likely chronic. There is apical scarring redemonstrated bilaterally, with asymmetric thickening in the left apex again noted. There is hyperinflation of the lungs with flattening of the hemidiaphragms compatible with COPD. No pleural effusions or pneumothorax. Mediastinum: Mediastinal contours are unchanged. Heart size is normal. Bones and chest wall: No suspicious bony abnormalities. Soft tissues appear unremarkable. IMPRESSION: 1. Bilateral scarring redemonstrated in the lung bases and apices. This includes asymmetric thickening in the left apex which appears similar to the prior studies. 2. Findings compatible with COPD redemonstrated. 3. Mild interstitial prominence likely represent chronic changes. Dictated by: Ariel Hernandez M.D. on 06/01/2019 at 14:59 Approved by: Ariel Hernandez M.D. on 06/01/2019 at 15:04 Discharge Plan Departure Patient Disposition: Home Clinical Impression: Bronchitis Discharge Date/Time: 12/08/19 18:16 Instructions: DI for Acute Bronchitis Activity Restrictions/Additional Instructions: Your chest x-ray does not show any evidence of pneumonia at this time. Your white blood cell count is slightly elevated at 11.6. We will start you on azithromycin to treat the presumed bronchitis. Please call your supervisor covering and lining 1st thing tomorrow morning to set up a follow-up appointment and come up with a plan for after your antibiotic course is done. Prescriptions: New azithromycin [Zithromax Z-Lamonte] 250 mg tablet See Rx Instructions .ROUTE .COMPLEX Qty: 6 RF: 0 No Action prednisone 10 mg Tablet 10 mg PO DAILY RF: 0 metoprolol succinate 50 mg Tablet Extended Release 24 Hr 50 mg PO DAILY RF: 0 meloxicam [Mobic] 15 mg Tablet 15 mg PO DAILY RF: 0 sulfamethoxazole-trimethoprim [Bactrim DS] 800-160 mg Tablet 1 tab PO QMWF RF: 0 omeprazole 40 mg Capsule,Delayed Release(Dr/Ec) 40 mg PO DAILY RF: 0 tramadol 50 mg Tablet 100 mg PO BEDTIME RF: 0 doxazosin 8 mg Tablet 8 mg PO DAILY RF: 0 folic acid 1 mg Tablet 2 mg PO DAILY RF: 0 levofloxacin 500 mg Tablet 500 mg PO DAILY RF: 0 diphenhydramine-acetaminophen [Tylenol PM Extra Strength] 25-500 mg Tablet 2 tab PO BEDTIME PRN (Reason: Sleep) RF: 0 fluticasone propionate 50 mcg/actuation [place],Suspension 1 spray INTRANASAL DAILY RF: 0 levalbuterol tartrate [Xopenex HFA] 45 mcg/actuation Hfa Aerosol Inhaler 1 puff INHALATION Q4-6H PRN (Reason: Shortness Of Breath) RF: 0 Eliquis 5 mg Tablet 5 mg PO BID RF: 0 atorvastatin [Lipitor] 20 MG tablet 40 mg PO HS RF: 0 oxycodone 10 mg tablet 10 mg PO Q4H PRN (Reason: pain) Qty: 40 RF: 0 Referrals: Carolina Pepper MD [Primary Care Provider] -
[2019-06-01] MEDS: AZITHROMYCIN 250 MG TABLET 500 MG PO (17:42)
[2019-06-01 18:16] VITALS: BP 139/74; PULSE 104; RESP 16; O2SAT 97
== END 2019-06-01 18:16 | disposition home or self-care (01) ==
PROVIDERS: Emergency Provider Emergency Medicine; PCP Internal Medicine
DX: J40 Bronchitis, not specified as acute or chronic (principal); R06.02 Shortness of breath
CPT/HCPCS: 36415; 71046; 80053; 83605; 85025; 93005; 93010; 94150; 94640; 99283; 99285; J7613

== ENCOUNTER → 2019-07-28 19:00 | Outpatient (CLI) | payer OTHER, SELFPAY ==
[2019-07-31 15:12] LABS: PSA Free % 18 % (calc) (> 25); PSA, Total 2.2 ng/mL (< 4.1)
== END ==
PROVIDERS: PCP Internal Medicine; Visit Provider Internal Medicine
DX: Z12.5 Encounter for screening for malignant neoplasm of prostate (principal)
CPT/HCPCS: 84153; 84154

== ENCOUNTER 2019-08-20 09:18 | Emergency (ER) | payer OTHER, SELFPAY ==
[2019-08-20 09:31] VITALS: BP 112/63; PULSE 103; RESP 18; TEMP 36.5; O2SAT 95
--- NOTE | 2019-08-20 09:52 | PC.NURSE ---
pt takes eliquis
--- NOTE | 2019-08-20 10:55 | ED.EPISTAXIS ---
HPI - Epistaxis General Chief complaint: Nasal Problem Stated complaint: Intermittent nosebleed 4 days Time Seen by Provider: 08/20/19 10:54 Source: patient Mode of arrival: Ambulatory Limitations: no limitations History of Present Illness HPI Narrative: 68-year-old male comes emergency department complaint of intermittent nose bleed for 4 days most prolonged episode was for 4 hours by the time he arrived here it had stopped. He states mostly from the right side but occasionally from the left. Most recent episode he states large amount of blood came out. He states usually it is a very small trickle he can stop the little digital pressure. Patient is healthy felt a little fatigued but denies any other symptoms. No recent upper respiratory congestion no pain. He is on Eliquis which he takes for AFib. Patient states he has not had any intranasal dryness. He has not had any chest pain shortness of breath or lightheadedness. He has not had major nose bleeds in the past this is kind of the 1st episode. No recent trauma or digital trauma. Related Data Home Medications Medication Instructions Recorded Confirmed Eliquis 5 mg PO BID 04/02/19 04/04/19 atorvastatin [Lipitor] 40 mg PO HS 04/02/19 04/04/19 diphenhydramine-acetaminophen 2 tab PO BEDTIME PRN 04/02/19 04/04/19 [Tylenol PM Extra Strength] doxazosin 8 mg PO DAILY 04/02/19 04/04/19 fluticasone propionate 1 spray INTRANASAL DAILY 04/02/19 04/04/19 folic acid 2 mg PO DAILY 04/02/19 04/04/19 levalbuterol tartrate [Xopenex HFA] 1 puff INHALATION Q4-6H PRN 04/02/19 04/04/19 levofloxacin 500 mg PO DAILY 04/02/19 04/04/19 meloxicam [Mobic] 15 mg PO DAILY 04/02/19 04/04/19 metoprolol succinate 50 mg PO DAILY 04/02/19 04/04/19 omeprazole 40 mg PO DAILY 04/02/19 04/04/19 prednisone 10 mg PO DAILY 04/02/19 04/04/19 sulfamethoxazole-trimethoprim 1 tab PO QMWF 04/02/19 04/04/19 [Bactrim DS] tramadol 100 mg PO BEDTIME 04/02/19 04/04/19 Previous Rx's Medication Instructions Recorded oxycodone 10 mg PO Q4H PRN #40 tab 04/04/19 azithromycin [Zithromax Z-Lamonte] See Rx Instructions .ROUTE 06/01/19 .COMPLEX #6 tab Allergies Allergy/AdvReac Type Severity Reaction Status Date / Time amoxicillin AdvReac Mild NAUSEA Verified 02/10/18 10:22 levofloxacin AdvReac Mild GI UPSET Verified 02/10/18 10:22 Review of Systems Review of Systems ROS Unobtainable: All systems reviewed & are unremarkable except as noted in HPI and below Patient History Medical History Arthritis (Acute) Atypical chest pain (Acute) BPH (benign prostatic hyperplasia) (Acute) Bronchiectasis (Acute) Coronary artery disease (Acute) DJD (degenerative joint disease) (Acute) Dyspnea (Acute) GERD (gastroesophageal reflux disease) (Acute) Kidney stone (Acute ~2015) Microscopic polyangiitis (Acute) Mycobacterium chelonae infection (Acute) Non-productive cough (Acute) Paroxysmal A-fib (Acute 03/09/18) Pneumonia (Acute ~07/2013) Vasculitis (Acute) Surgical History History of colonoscopy (Acute ~2015) History of coronary artery stent placement (Acute ~06/2012) Social History household members: spouse Smoking Status: Never smoker alcohol intake: current Smoking Status: Never smoker alcohol intake frequency: holidays/special occasions only Substance Use Type: does not use Exam Narrative Exam Narrative: GEN: well nourished, well appearing male, alert and oriented x 3, patient appears to be in mild distress. HEENT: Atraumatic, pupils are equal round reactive to light, extraocular movements are intact, right ear has dried blood, no active bleeding but patient does have some vessels close to the skin on the septum and the outer air. Does noted on the left, TMs are clear with no fluid, there is no conjunctival pallor. Throat is clear without any exudates, erythema, tonsillar enlargement or uvular deviation HEART: Regular rate and rhythm without murmur, clicks, rubs. Pulses are equal in upper and lower extremities LUNGS:Lungs clear to auscultation, no wheezes, rales, crackles, chest moves symmetrically ABD:bowel sounds normal, soft, non-tender, no guarding, rebound, rigidity, no masses noted, no hepatosplenomegaly :No CVA tenderness MSCL: Non-tender, no muscle atrophy, full range of motion NEURO:CN 2-12 intact, sensation normal. SKIN: No rashes or skin changes noted. Initial Vital Signs Initial Vital Signs: Vital Signs Temperature 97.7 F 08/20/19 09:31 Pulse Rate 103 H 08/20/19 09:31 Respiratory Rate 18 08/20/19 09:31 Blood Pressure 112/63 08/20/19 09:31 Pulse Oximetry 95 08/20/19 09:31 Course Orders Ordered: ED Orders 08/20/19 10:02 EKG-12 Lead Stat Discontinued Medications Oxymetazoline HCl (Afrin) 2 sprays NASAL NOW ONE Stop: 08/20/19 11:08 Last Admin: 08/20/19 11:10 Dose: 2 sprays Documented by: KIRSTIN Vital Signs Vital signs: Vital Signs - 8 hr 08/20/19 11:04 08/20/19 11:50 Pulse Rate 91 H 93 H Respiratory Rate 18 Blood Pressure 145/91 H Blood Pressure [Left Arm] 138/82 Pulse Oximetry 96 97 MDM - Epistaxis Lab Data Result diagrams: 08/20/19 09:47 08/20/19 09:47 Labs: Lab Results 08/20/19 08/20/19 08/20/19 Range/Units 09:47 09:47 09:47 WBC 9.1 (4.5-11.0) X10^3/uL RBC 3.64 L (4.5-5.9) X10^6/uL Hgb 11.0 L (13.5-17.5) g/dL Hct 33.6 L (41-53) % MCV 92.2 (80-100) fL MCH 30.3 (26-34) PG MCHC 32.9 (30-36) % RDW 14.8 (11.6-14.8) % Plt Count 192 (150-400) X10^3/uL Neut % (Auto) Not Reportable Lymph % (Auto) Not Reportable Gila % (Auto) Not Reportable Eos % (Auto) Not Reportable Baso % (Auto) Not Reportable Lymph # (Auto) Not Reportable Gila # (Auto) Not Reportable Baso # (Auto) Not Reportable Total Counted 100 Seg Neutrophils % 56.0 (38-70) % Band Neutrophils % 1.0 L (3-7) % Lymphocytes % (Manual) 24.0 L (25-45) % Atypical Lymphs % 8.0 H ( - 0) % Monocytes % (Manual) 6.0 (2-11) % Eosinophils % (Manual) 2.0 (2-4) % Myelocytes % 3.0 H (-0) % Neutrophils # (Manual) 5187 (6780-4772) /uL RBC Morphology Normal morphology PT 13.3 H (10.1-12.7) SECONDS INR 1.2 (0.9-1.3) APTT 30 D (26.4-36.2) SECONDS Sodium 140 (137-145) mmol/L Potassium 3.4 (3.4-5.1) mmol/L Chloride 103 (98-107) mmol/L Carbon Dioxide 28 (22-32) mmol/L BUN 25 H (9-20) mg/dL Creatinine 1.10 (0.66-1.25) mg/dL Estimated GFR > 60.0 (>60) mL/min BUN/Creatinine Ratio 22.7 H (6-22) Glucose 133 H (80-110) mg/dL Calcium 9.6 (8.4-10.2) mg/dL Blood Type Antibody Screen 08/20/19 Range/Units 09:47 WBC (4.5-11.0) X10^3/uL RBC (4.5-5.9) X10^6/uL Hgb (13.5-17.5) g/dL Hct (41-53) % MCV (80-100) fL MCH (26-34) PG MCHC (30-36) % RDW (11.6-14.8) % Plt Count (150-400) X10^3/uL Neut % (Auto) Lymph % (Auto) Gila % (Auto) Eos % (Auto) Baso % (Auto) Lymph # (Auto) Gila # (Auto) Baso # (Auto) Total Counted Seg Neutrophils % (38-70) % Band Neutrophils % (3-7) % Lymphocytes % (Manual) (25-45) % Atypical Lymphs % ( - 0) % Monocytes % (Manual) (2-11) % Eosinophils % (Manual) (2-4) % Myelocytes % (-0) % Neutrophils # (Manual) ([id number]) /uL RBC Morphology PT (10.1-12.7) SECONDS INR (0.9-1.3) APTT (26.4-36.2) SECONDS Sodium (137-145) mmol/L Potassium (3.4-5.1) mmol/L Chloride (98-107) mmol/L Carbon Dioxide (22-32) mmol/L BUN (9-20) mg/dL Creatinine (0.66-1.25) mg/dL Estimated GFR (>60) mL/min BUN/Creatinine Ratio (6-22) Glucose (80-110) mg/dL Calcium (8.4-10.2) mg/dL Blood Type A Negative Antibody Screen Negative MDM Narrative Medical decision making narrative: Patient's bleeding is stopped Afrin was given. Patient had about 4 hours of bleeding plus other episodes in on Eliquis felt a little fatigued very mildly tachycardic some basic labs were ordered. CBC shows mild anemia hemoglobin was 12.3 is 11 today comparison to May. Coags negative, BUN 25 with otherwise normal labs. Patient states he is feeling fine at this time he has not had any more epistaxis did have several sprays of Afrin to the nose. Given a clamp for home return precautions and into story guidance for his epistaxis. 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 Discharge Plan Departure Patient Disposition: Home Clinical Impression: Epistaxis Discharge Date/Time: 08/20/19 11:51 Instructions: DI for Nosebleed Activity Restrictions/Additional Instructions: Follow-up with the ENT specialist provided. Follow directions as noted below. Return to emergency department if self-care directions do not work and urine able to stop the bleeding, or if you become lightheaded, began vomiting. Use medications as directed. Nosebleed self-care - With the right self-care, most nosebleeds stop on their own. Here's what you should do: 1. Blow your nose. This might increase the bleeding for a moment, but that's OK. 2. Sit or stand while bending forward a little at the waist. DO NOT lie down or tilt your head back. 3. Pinch the soft area towards the bottom of your nose, below the bone (picture 1). DO NOT animal humane agent supervisor the bridge of your nose between your eyes. That will not work. DO NOT press on just 1 side, even if the bleeding is only on 1 side. That will not work either. 4. Squeeze your nose shut for at least 15 minutes. (In children, squeeze for only 5 minutes.) Use a clock to time yourself. Do not release the pressure before the time is up to check if the bleeding has stopped. If you keep checking, you will ruin your chances of getting the bleeding to stop. If you follow these steps, and your nose keeps bleeding, repeat all the steps once more. Apply pressure for a total of at least 30 minutes (or 10 minutes for children). If you are still bleeding, go to the emergency room or an urgent care clinic. What if I get repeated nosebleeds? - Frequent nosebleeds can be caused by: Breathing dry air all the time Using cold or allergy nasal sprays too much Frequent colds Snorting drugs into your nose, such as cocaine In some cases, repeat nosebleeds can be a sign that your blood does not clot like it should. If that is the case, there are often other clues. For instance, people with clotting problems bruise easily and might bleed more than you would expect after a small cut or scrape. Nosebleed treatment - If you end up seeing a doctor or nurse for your nosebleed, he or she will make sure you can breathe OK. Then he or she will try to get the bleeding to stop. To do that, he or she might have to put a device or some packing material up your nose. What can I do to keep from getting nosebleeds? - You can: Use a humidifier (a machine that makes the air less dry) in your bedroom when you sleep Keep the inside of your nose moist with a nasal saline spray or gel Not pick your nose, or at least clip your nails before you do to avoid injury Prescriptions: No Action azithromycin [Zithromax Z-Lamonte] 250 mg tablet See Rx Instructions .ROUTE .COMPLEX Qty: 6 RF: 0 prednisone 10 mg Tablet 10 mg PO DAILY RF: 0 metoprolol succinate 50 mg Tablet Extended Release 24 Hr 50 mg PO DAILY RF: 0 meloxicam [Mobic] 15 mg Tablet 15 mg PO DAILY RF: 0 sulfamethoxazole-trimethoprim [Bactrim DS] 800-160 mg Tablet 1 tab PO QMWF RF: 0 omeprazole 40 mg Capsule,Delayed Release(Dr/Ec) 40 mg PO DAILY RF: 0 tramadol 50 mg Tablet 100 mg PO BEDTIME RF: 0 doxazosin 8 mg Tablet 8 mg PO DAILY RF: 0 folic acid 1 mg Tablet 2 mg PO DAILY RF: 0 levofloxacin 500 mg Tablet 500 mg PO DAILY RF: 0 diphenhydramine-acetaminophen [Tylenol PM Extra Strength] 25-500 mg Tablet 2 tab PO BEDTIME PRN (Reason: Sleep) RF: 0 fluticasone propionate 50 mcg/actuation [place],Suspension 1 spray INTRANASAL DAILY RF: 0 levalbuterol tartrate [Xopenex HFA] 45 mcg/actuation Hfa Aerosol Inhaler 1 puff INHALATION Q4-6H PRN (Reason: Shortness Of Breath) RF: 0 Eliquis 5 mg Tablet 5 mg PO BID RF: 0 atorvastatin [Lipitor] 20 MG tablet 40 mg PO HS RF: 0 oxycodone 10 mg tablet 10 mg PO Q4H PRN (Reason: pain) Qty: 40 RF: 0 Referrals: Greg Ross MD [Physician] - Carolina Pepper MD [Primary Care Provider] -
[2019-08-20 11:04] VITALS: BP 138/82; PULSE 91; RESP 18; O2SAT 96
[2019-08-20 11:06] LABS: INR 1.2 (0.9-1.3); Prothrombin Time 13.3 SECONDS (10.1-12.7)
[2019-08-20 11:08] LABS: PTT Partial Thromboplastin Tim 30 SECONDS (26.4-36.2)
[2019-08-20 11:10] LABS: BUN Creatinine Ratio 22.7 (6-22); Blood Urea Nitrogen 25 mg/dL (9-20); Calcium 9.6 mg/dL (8.4-10.2); Carbon Dioxide 28 mmol/L (22-32); Chloride 103 mmol/L (98-107); Estimated Glomerular Filt Rate > 60.0 mL/min (>60); Glucose 133 mg/dL (80-110); HEMOLYSIS < 15 (0-50); Potassium 3.4 mmol/L (3.4-5.1); Sodium 140 mmol/L (137-145)
[2019-08-20] MEDS: OXYMETAZOLINE NASAL SPRAY 30 ML 2 SPRAYS NASAL (11:10)
[2019-08-20 11:15] LABS: Hematocrit 33.6 % (41-53); Mean Corpuscular HGB Conc 32.9 % (30-36); Mean Corpuscular Hemoglobin 30.3 PG (26-34); Mean Corpuscular Volume 92.2 fL (80-100); Platelet Count 192 X10^3/uL (150-400); Red Blood Cell Count 3.64 X10^6/uL (4.5-5.9); Red Cell Distribution Width 14.8 % (11.6-14.8); White Blood Cell Count 9.1 X10^3/uL (4.5-11.0)
[2019-08-20 11:17] LABS: Add Manual Diff / Slide Review YES
[2019-08-20 11:50] VITALS: BP 145/91; PULSE 93; O2SAT 97
[2019-08-20 11:54] LABS: Neutrophils Absolute Manual 5187 /uL (3000-5900); RBC Morphology Normal Morphology; Total Cells Counted 100
== END 2019-08-20 11:51 | disposition home or self-care (01) ==
PROVIDERS: Emergency Provider Emergency Medicine; PCP Internal Medicine
DX: R04.0 Epistaxis (principal); R53.83 Other fatigue; R00.0 Tachycardia, unspecified
CPT/HCPCS: 36415; 80048; 85025; 85610; 85730; 86850; 86900; 86901; 93005; 99284

== ENCOUNTER → 2019-08-21 15:39 | Outpatient (CLI) | payer OTHER, SELFPAY ==
--- NOTE | 2019-08-21 | DI.MRI.S_ITS ---
PROCEDURE: MR LUMBAR SPINE WO CON INDICATIONS: Low back pain TECHNIQUE: Noncontrast sagittal T1 spin echo and T2 fast echo, sagittal STIR, axial T1 and T2 fast spin echo through the lumbar spine. In cases with scoliosis, additional coronal T2 fast spin echo may be performed. COMPARISON: [facility], CR, XR LUMBAR SPINE 2 OR 3 VIEWS, 08/14/2019, 10:24. [facility], CR, L-SPINE 2-3 VIEWS, 11/11/2011, 22:40. FINDINGS: Image quality: Excellent. Alignment and Curvature: There is normal bony alignment. Bone Marrow: There is a moderate acute or subacute superior endplate compression fracture of the superior endplate of T12, with approximately 30% anterior vertebral body height loss. There is no significant bony retropulsion. There is no canal stenosis. No other compression fractures are seen. Bone marrow signal is otherwise unremarkable. Spinal Cord: Conus medullaris terminates at the L1 level. Visualized cord demonstrates normal signal and size. Paraspinous Soft Tissues: No paravertebral masses. T12-L1: Mild disc bulge. No canal stenosis or foraminal stenosis. L1-L2: Mild disc bulge. No canal stenosis or foraminal stenosis. L2-L3: Mild disc height loss. Mild disc bulge. Mild canal stenosis. No significant foraminal stenosis. L3-L4: Mild disc height loss. Mild disc bulge. Mild facet ligament hypertrophy. Mild canal stenosis. Mild bilateral foraminal narrowing. L4-L5: Moderate disc height loss. Mild disc bulge. Facet and ligament hypertrophy. Moderate canal stenosis. Mild to moderate right foraminal narrowing. L5-S1: Mild disc bulge. Facet and ligament hypertrophy. No significant canal stenosis. Mild left foraminal narrowing. IMPRESSION: 1. Acute or subacute T12 superior endplate compression fracture with approximately 30% anterior vertebral body height loss and no associated canal stenosis. 2. Multilevel degenerative change. 3. Central canal stenosis is mild at L2-L3, mild at L3-L4, and moderate at L4-L5. Dictated by: Franklyn Garcia M.D. on 08/21/2019 at 16:35 Approved by: Franklyn Garcia M.D. on 08/21/2019 at 16:41
== END ==
PROVIDERS: PCP Internal Medicine; Referring Provider Orthopaedic Surgery; Visit Provider Orthopaedic Surgery
DX: M54.5 Low back pain (principal); M48.54XA Collapsed vertebra, not elsewhere classified, thoracic region, initial encounter for fracture; M47.816 Spondylosis without myelopathy or radiculopathy, lumbar region; M47.817 Spondylosis without myelopathy or radiculopathy, lumbosacral region; M48.061 Spinal stenosis, lumbar region without neurogenic claudication
CPT/HCPCS: 72148

== ENCOUNTER 2019-09-15 12:05 | Emergency (ER) | payer OTHER, SELFPAY ==
[2019-09-15 12:12] VITALS: BP 143/96; PULSE 109; RESP 19; TEMP 36.7; O2SAT 95; BMI 29.2
--- NOTE | 2019-09-15 12:18 | ED.BACK ---
HPI - Back Pain/Injury <Nery Austin PA-C - Last Filed: 09/15/19 17:11> General Chief Complaint: Fall Stated Complaint: GLF Time Seen by Provider: 09/15/19 12:08 Source: patient and EMS Mode of arrival: EMS Limitations: no limitations History of Present Illness HPI Narrative: This 68-year-old male with known history of spinal fracture about a month ago comes to ED via EMS secondary to worsening pain after GLF this morning. He states that he has been having increasing pain (taking Flexeril but out of pain medication while awaiting appointment with Orthopedics) gradually since this occurred. He states he has been using a walker which is difficult for him, and this morning it slid out from under him, causing him to pitch forward. He landed on his knees, then his hands, then hit the front of his head on tile. He states his scalp is a little sore where he bumped it, otherwise no headache. He denies nausea, vomiting, or vision change. He states he did not hit his back directly, however has increased pain due to being jolted. He could not get in the car with assistance so EMS was called. He states that he does not have pain in his neck, thinks pain now is mostly in his low back. He states he has not noted weakness in his legs, and thinks difficulty with movement is secondary to pain. He denies any weakness since he fell. He denies any bowel or bladder changes. He he states that the fall was due to slipping, denies any new dyspnea, chest pain, abdominal pain. He denies any other new symptoms on systems review, notes some ongoing left lower scalp area pain for about a month. He had been taking oxycodone along with Flexeril at home previously for pain. Ketamine was given by EMS which did help the temporarily, he states pain is starting to recur Related Data Home Medications Medication Instructions Recorded Confirmed Eliquis 5 mg PO BID 04/02/19 04/04/19 atorvastatin [Lipitor] 40 mg PO HS 04/02/19 04/04/19 diphenhydramine-acetaminophen 2 tab PO BEDTIME PRN 04/02/19 04/04/19 [Tylenol PM Extra Strength] doxazosin 8 mg PO DAILY 04/02/19 04/04/19 fluticasone propionate 1 spray INTRANASAL DAILY 04/02/19 04/04/19 folic acid 2 mg PO DAILY 04/02/19 04/04/19 levalbuterol tartrate [Xopenex HFA] 1 puff INHALATION Q4-6H PRN 04/02/19 04/04/19 levofloxacin 500 mg PO DAILY 04/02/19 04/04/19 meloxicam [Mobic] 15 mg PO DAILY 04/02/19 04/04/19 metoprolol succinate 50 mg PO DAILY 04/02/19 04/04/19 omeprazole 40 mg PO DAILY 04/02/19 04/04/19 prednisone 10 mg PO DAILY 04/02/19 04/04/19 sulfamethoxazole-trimethoprim 1 tab PO QMWF 04/02/19 04/04/19 [Bactrim DS] tramadol 100 mg PO BEDTIME 04/02/19 04/04/19 Previous Rx's Medication Instructions Recorded oxycodone 10 mg PO Q4H PRN #40 tab 04/04/19 azithromycin [Zithromax Z-Lamonte] See Rx Instructions .ROUTE 06/01/19 .COMPLEX #6 tab cyclobenzaprine 10 mg PO Q8H PRN #10 tab 09/15/19 oxycodone 5 mg PO Q6H PRN #14 tab 09/15/19 Allergies Allergy/AdvReac Type Severity Reaction Status Date / Time amoxicillin AdvReac Mild NAUSEA Verified 02/10/18 10:22 levofloxacin AdvReac Mild GI UPSET Verified 02/10/18 10:22 Review of Systems <Nery Austin PA-C - Last Filed: 09/15/19 17:11> Review of Systems ROS Unobtainable: All systems reviewed & are unremarkable except as noted in HPI and below Patient History <Nery Austin PA-C - Last Filed: 09/15/19 17:11> Medical History Arthritis (Acute) Atypical chest pain (Acute) BPH (benign prostatic hyperplasia) (Acute) Bronchiectasis (Acute) Coronary artery disease (Acute) DJD (degenerative joint disease) (Acute) Dyspnea (Acute) GERD (gastroesophageal reflux disease) (Acute) Kidney stone (Acute ~2016) Microscopic polyangiitis (Acute) Mycobacterium chelonae infection (Acute) Non-productive cough (Acute) Paroxysmal A-fib (Acute 03/09/18) Pneumonia (Acute ~07/2013) Vasculitis (Acute) Surgical History History of colonoscopy (Acute ~2015) History of coronary artery stent placement (Acute ~06/2012) Social History household members: spouse Smoking Status: Never smoker alcohol intake: current Smoking Status: Never smoker alcohol intake frequency: holidays/special occasions only Substance Use Type: does not use Exam <Nery Austin PA-C - Last Filed: 09/15/19 17:11> Narrative Exam Narrative: GENERAL APPEARANCE: Patient resting comfortably, in no distress. HEENT: No scalp hematoma or tenderness, PERRL, EOMI, normal nasal and oral mucosa and external ears NECK: Supple PULMONARY: Lungs clear to auscultation bilaterally CV: Regular rhythm regular without murmur, normal S1 and S2, no S3 or S4 MUSCULOSKELETAL: No point tenderness over the thoracic spine. Moderate tenderness over the mid lumbar spine. Tender with trunk movement for exam Lower extremity strength 5/5 bilateral hip flexors, knee extensors, foot plantar flexion. Negative modified straight leg raise NEUROLOGIC: Lower extremity sensation grossly intact Initial Vital Signs Initial Vital Signs: Vital Signs Temperature 98.1 F 09/15/19 12:12 Pulse Rate 109 H 09/15/19 12:12 Respiratory Rate 19 09/15/19 12:12 Blood Pressure 143/96 H 09/15/19 12:12 Pulse Oximetry 95 09/15/19 12:12 <Phil Soriano DO - Last Filed: 09/15/19 17:13> Initial Vital Signs Initial Vital Signs: Vital Signs Temperature 98.1 F 09/15/19 12:12 Pulse Rate 109 H 09/15/19 12:12 Respiratory Rate 19 09/15/19 12:12 Blood Pressure 143/96 H 09/15/19 12:12 Pulse Oximetry 95 09/15/19 12:12 Course <Nery Austin PA-C - Last Filed: 09/15/19 17:11> Course Additional Information: Patient had initial improvement with oxycodone. He has been taking this with Flexeril previously, initially not given Flexeril however after sitting up for a bit he felt like he would have difficulty getting in the car at discharge. He was given Flexeril in addition to his oxycodone. He worked with physical therapy and was feeling much more comfortable and able to ambulate with walker prior to discharge. We did obtain an orthopedics appointment for him in less than 48 hours. Return precautions given. Orders Ordered: ED Orders 09/15/19 12:30 CT head/brain wo con Stat CT lumbar spine wo con Stat CT thoracic spine wo con Stat 09/15/19 14:24 Consult to Physical Therapy Evaluate & Treat Discontinued Medications Cyclobenzaprine HCl (Flexeril) 10 mg PO NOW ONE Stop: 09/15/19 14:10 Last Admin: 09/15/19 14:18 Dose: 10 mg Documented by: JAZMYN Oxycodone HCl (Percolone) 10 mg PO NOW ONE Stop: 09/15/19 12:33 Last Admin: 09/15/19 13:04 Dose: 10 mg Documented by: ABIGAIL Oxycodone HCl (Percolone) 5 mg PO NOW ONE Stop: 09/15/19 14:10 Last Admin: 09/15/19 14:18 Dose: 5 mg Documented by: JAZMYN Vital Signs Vital signs: Vital Signs - 8 hr 09/15/19 12:12 09/15/19 12:30 09/15/19 13:00 Temperature 98.1 F Pulse Rate 109 H 105 H 108 H Respiratory Rate 19 Blood Pressure 143/96 H Blood Pressure [Left Arm] 144/95 H 160/90 H Pulse Oximetry 95 93 92 <Phil Soriano, - Last Filed: 09/15/19 17:13> Orders Ordered: ED Orders 09/15/19 12:30 CT head/brain wo con Stat CT lumbar spine wo con Stat CT thoracic spine wo con Stat 09/15/19 14:24 Consult to Physical Therapy Evaluate & Treat Discontinued Medications Cyclobenzaprine HCl (Flexeril) 10 mg PO NOW ONE Stop: 09/15/19 14:10 Last Admin: 09/15/19 14:18 Dose: 10 mg Documented by: JAZMYN Oxycodone HCl (Percolone) 10 mg PO NOW ONE Stop: 09/15/19 12:33 Last Admin: 09/15/19 13:04 Dose: 10 mg Documented by: ABIGAIL Oxycodone HCl (Percolone) 5 mg PO NOW ONE Stop: 09/15/19 14:10 Last Admin: 09/15/19 14:18 Dose: 5 mg Documented by: JAZMYN Vital Signs Vital signs: Vital Signs - 8 hr 09/15/19 12:12 09/15/19 12:30 09/15/19 13:00 Temperature 98.1 F Pulse Rate 109 H 105 H 108 H Respiratory Rate 19 Blood Pressure 143/96 H Blood Pressure [Left Arm] 144/95 H 160/90 H Pulse Oximetry 95 93 92 Discharge Plan Departure Patient Disposition: Home Clinical Impression: Thoracolumbar back pain, Fall from ground level Compression fx, thoracic spine Qualifiers: Encounter type: initial encounter Thoracic vertebra fracture level: T12 Qualified Code(s): S22.080A - Wedge compression fracture of T11-T12 vertebra, initial encounter for closed fracture Discharge Date/Time: 09/15/19 14:48 Instructions: DI for Vertebral Fracture Activity Restrictions/Additional Instructions: I think that your back pain is explained by the midback fracture (T12 level) that you already knew about, and being out of your pain medication. Your the fall today likely exacerbated the pain, but on your imaging studies no new fracture or other problem was found. Your brain imaging did not show any bleeding or acute problems. Please resume taking your oxycodone (I have prescribed a little bit of this to you to restart while you are waiting to see Orthopedics), along with your Flexeril as needed. As we talked about, you should return if you have any new symptoms such as weakness in your extremities, difficulty urinating, vision change, severe headache, vomiting, etc.. Otherwise please follow-up with orthopedics as soon as you can, and if needed talk with your PCP about refilling pain medication in the interim if you cannot be seen prior to running out of medication We have made an appointment for both you with Dr. Gutierrez (he is a network desktop support specialist) with [facility] for 12:20 on Sunday, 09/16. They will call you to confirm Prescriptions: New oxycodone 5 mg tablet 5 mg PO Q6H PRN (Reason: spine fracture pain) Qty: 14 RF: 0 cyclobenzaprine 5 mg tablet 10 mg PO Q8H PRN (Reason: muscle spasm/back pain) Qty: 10 RF: 0 No Action azithromycin [Zithromax Z-Lamonte] 250 mg tablet See Rx Instructions .ROUTE .COMPLEX Qty: 6 RF: 0 prednisone 10 mg Tablet 10 mg PO DAILY RF: 0 metoprolol succinate 50 mg Tablet Extended Release 24 Hr 50 mg PO DAILY RF: 0 meloxicam [Mobic] 15 mg Tablet 15 mg PO DAILY RF: 0 sulfamethoxazole-trimethoprim [Bactrim DS] 800-160 mg Tablet 1 tab PO QMWF RF: 0 omeprazole 40 mg Capsule,Delayed Release(Dr/Ec) 40 mg PO DAILY RF: 0 tramadol 50 mg Tablet 100 mg PO BEDTIME RF: 0 doxazosin 8 mg Tablet 8 mg PO DAILY RF: 0 folic acid 1 mg Tablet 2 mg PO DAILY RF: 0 levofloxacin 500 mg Tablet 500 mg PO DAILY RF: 0 diphenhydramine-acetaminophen [Tylenol PM Extra Strength] 25-500 mg Tablet 2 tab PO BEDTIME PRN (Reason: Sleep) RF: 0 fluticasone propionate 50 mcg/actuation [place],Suspension 1 spray INTRANASAL DAILY RF: 0 levalbuterol tartrate [Xopenex HFA] 45 mcg/actuation Hfa Aerosol Inhaler 1 puff INHALATION Q4-6H PRN (Reason: Shortness Of Breath) RF: 0 Eliquis 5 mg Tablet 5 mg PO BID RF: 0 atorvastatin [Lipitor] 20 MG tablet 40 mg PO HS RF: 0 oxycodone 10 mg tablet 10 mg PO Q4H PRN (Reason: pain) Qty: 40 RF: 0 Referrals: Carolina Pepper MD [Primary Care Provider] - <Phil Soriano DO - Last Filed: 09/15/19 17:13> [facility] ED Attending [facility], [place] Attestation: Dr Soriano Co-Sign Statement: I was available for consultation during this patient's emergency department visit. This chart is signed by myself for administrative purposes only. I did not have direct contact with this patient during this visit. They were seen independently by the APC.
[2019-09-15 12:30] VITALS: BP 144/95; PULSE 105; O2SAT 93
--- NOTE | 2019-09-15 12:30 | DI.CT.S_ITS ---
PROCEDURE: CT HEAD/BRAIN WO CON INDICATIONS: fall, head contusion, eliquis TECHNIQUE: Noncontrast 4.5 mm thick angled axial sections acquired from the foramen magnum to the vertex, with coronal and sagittal reformats. For radiation dose reduction, the following was used: automated exposure control, adjustment of mA and/or kV according to patient size. COMPARISON: [facility], CT, SINUS SCREEN WO CONTRAST, 10/23/2014, 8:21. [facility], CT, CT THORACIC SPINE WO CON, 09/15/2019, 12:32. [facility], CT, CT LUMBAR SPINE WO CON, 09/15/2019, 12:32. [facility], MR, MR ORBITS FACE NECK WO/W CON, 11/26/2018, 16:24. FINDINGS: Image quality: Excellent. CSF spaces: Basal cisterns are patent. No extra-axial fluid collections. The ventricles are symmetric in size and shape. Brain: No intracranial bleeds or masses. There is cerebral volume loss for age, with resultant ventricular and sulcal prominence. There are periventricular and deep white matter chronic small vessel ischemic changes. There is intracranial internal carotid artery atherosclerosis. Skull and face: Calvarium and visualized facial bones appear intact, without suspicious lesions. A right lens replacement is incidentally noted. Sinuses: Visualized sinuses and mastoids are clear. IMPRESSION: No acute intracranial hemorrhage is seen. No acute intracranial process is seen. Dictated by: Carlitos Camp M.D. on 09/15/2019 at 12:12 Approved by: Carlitos Camp M.D. on 09/15/2019 at 12:14
--- NOTE | 2019-09-15 12:30 | DI.CT.S_ITS ---
PROCEDURE: CT LUMBAR SPINE WO CON INDICATIONS: mid lumbar pain s/p fall TECHNIQUE: Noncontrast 3 mm thick sections acquired from the T12 level to the sacrum. Sagittal and coronal reformats were constructed. For radiation dose reduction, the following was used: automated exposure control. COMPARISON: [facility], CT, ABDOMEN/PELVIS WITH CONTRAST, 03/08/2015, 9:07. [facility], CT, THORAX WITHOUT CONTRAST, 03/19/2014, 11:38. [facility], CT, CT HEAD/BRAIN WO CON, 09/15/2019, 12:32. [facility], CT, CT THORACIC SPINE WO CON, 09/15/2019, 12:32. [facility], MR, MR LUMBAR SPINE WO CON, 08/21/2019, 15:50. FINDINGS: Image quality: Excellent. Bones: No acute vertebral body compression fractures. There is a stable anterior wedge deformity of T12 noted. No suspicious lytic or blastic bony lesions. Central spinal caliber is of normal overall caliber. No pars defects. Mild levoconvex scoliotic curvature is noted. Multiple levels of degenerative change are seen, which are most prominent at the L4-L5 level and are similar to the prior recent MRI examination. Soft tissues: No retroperitoneal masses or hematomas. Visualized aorta is normal in caliber. A simple cyst at the inferior pole the left kidney is partially seen. Nonobstructing left-sided kidney stones are seen, which measure up to 6 mm. IMPRESSION: No acute fractures are seen. Stable anterior wedge deformity of T12. Degenerative changes are seen, which are most prominent at L4-L5. Incidental note is made of: Simple appearing left renal cyst Nonobstructing left-sided kidney stones Dictated by: Carlitos Camp M.D. on 09/15/2019 at 12:14 Approved by: Carlitos Camp M.D. on 09/15/2019 at 12:18
--- NOTE | 2019-09-15 12:30 | DI.CT.S_ITS ---
PROCEDURE: CT THORACIC SPINE WO CON INDICATIONS: pain s/p fall, h/o T12 fx TECHNIQUE: Noncontrast 3 mm thick sections acquired through the region of interest in the thoracic spine. Sagittal and coronal reformats were then constructed. For radiation dose reduction, the following was used: automated exposure control. COMPARISON: [facility], CT, CT HEAD/BRAIN WO CON, 09/15/2019, 12:32. [facility], CT, CT LUMBAR SPINE WO CON, 09/15/2019, 12:32. [facility], MR, MR LUMBAR SPINE WO CON, 08/21/2019, 15:50. [facility], CT, ABDOMEN/PELVIS WITH CONTRAST, 03/08/2015, 9:07. [facility], CT, PE STUDY (CTA CHEST), 08/31/2013, 13:29. FINDINGS: Image quality: Excellent. Bones: There is normal overall bony alignment. There is again seen an anterior wedge deformity of T12, with 30% loss of height anteriorly, which is stable compared to the prior recent MRI examination. No acute vertebral body compression fractures. No suspicious sclerotic or lytic bony lesions. Central spinal canal is of normal overall caliber. Age-appropriate bony degenerative changes are seen. Soft tissues: No paravertebral masses or hematomas. Mild dependent atelectasis is seen. Atherosclerotic calcification can be seen, including coronary artery calcification. IMPRESSION: No acute fractures are seen. Stable anterior wedge deformity of T12. Dictated by: Carlitos Camp M.D. on 09/15/2019 at 12:18 Approved by: Carlitos Camp M.D. on 09/15/2019 at 12:19
[2019-09-15 13:00] VITALS: BP 160/90; PULSE 108; O2SAT 92
[2019-09-15] MEDS: OXYCODONE IR 5 MG TABLET 10 MG PO (13:04)
[2019-09-15] MEDS: OXYCODONE IR 5 MG TABLET PO (14:18)
[2019-09-15] MEDS: CYCLOBENZAPRINE 10 MG TABLET PO (14:18)
--- NOTE | 2019-09-15 15:02 | PT.IIE ---
Surgical History (Last Reviewed 09/15/19 @ 12:43 by Nery Austin PA-C) History of colonoscopy (Acute ~2015) History of coronary artery stent placement (Acute ~06/2012) Medical History (Last Reviewed 09/15/19 @ 12:43 by Nery Austin PA-C) Arthritis (Acute) Atypical chest pain (Acute) BPH (benign prostatic hyperplasia) (Acute) Bronchiectasis (Acute) Coronary artery disease (Acute) DJD (degenerative joint disease) (Acute) Dyspnea (Acute) GERD (gastroesophageal reflux disease) (Acute) Kidney stone (Acute ~2015) Microscopic polyangiitis (Acute) Mycobacterium chelonae infection (Acute) Non-productive cough (Acute) Paroxysmal A-fib (Acute 03/09/18) Pneumonia (Acute ~07/2013) Vasculitis (Acute) Physical Therapy Inpatient Evaluation/Re-Eval M1 PT/OT-IP Prior Functional Status Start: 09/15/19 14:47 Freq: Status: Discharge Protocol: Document 09/15/19 14:30 DCW (Rec: 09/15/19 15:02 DCW [id number]) Medical Review Prior Functional Status Medical History Reviewed Yes Communication WNL Mobility and Gait Began using a 4WW yesterday due to difficulty walking secondary to back pain. Social History Household Members spouse Home Equipment Four Wheel Walker M2 PT-IP Current Condition Start: 09/15/19 14:47 Freq: Status: Discharge Protocol: Document 09/15/19 14:30 DCW (Rec: 09/15/19 15:02 DCW [id number]) Physical Therapy Current Condition Current Condition Evaluation Date 09/15/19 Treatment Diagnosis Gait difficulty, pain Onset Date 09/15/19 Weight Bearing Status Weight Bearing Status Weight Bear as Tolerated M3 PT-IP Subjective Start: 09/15/19 14:47 Freq: Status: Discharge Protocol: Document 09/15/19 14:30 DCW (Rec: 09/15/19 15:02 DCW [id number]) Subjective Physical Therapy Visit Type Type Initial Evaluation Visit Start Time 14:30 Visit Stop Time 14:48 Total Visit Minutes 18 Notes Pt in ED following a GLF earlier today. Pt suffered a spinal fracture ~1 month ago, and is currently waiting for an ortho consult regarding surgical intervention. Pt reports he was using his new 4WW this morning when it got away from me, slid out in front of him, and he suffered a fall. Physical Therapy Visit Comments Patient Comments I didn't really think there was anything to learn about using a walker, but I guess I was wrong. Therapy Pain Assessment Pain When Pain Assessed During Mobility Pain Present Pain Present Pain Reported Location Lower Back Intensity 7 Scale Used Numeric (1 - 10) M4 PT-IP Mobility and Gait Start: 09/15/19 14:47 Freq: Status: Discharge Protocol: Document 09/15/19 14:30 DCW (Rec: 09/15/19 15:02 DCW [id number]) PT-Transfer Assessment Sit to and From Stand Sit to and from Stand Standby Assistance Equipment Transfer Assistive Device Bed Rail,Gait Belt Gait Assessment Gait Gait Assistance Required: Standby Assistance Distance (Feet) 70 Able to Maintain Weight Bearing Status Yes During Gait Assistive Devices Assistive Device Gait Belt,Front Wheeled Walker Gait Deviations General Gait Pattern Antalgic,Flexed Trunk Factors Limiting Gait Function Factors Limiting Gait Function Pain Comments Gait Comments Pt ambulated with facial wincing secondary to back pain . M5 PT-IP Objective Assessments Start: 09/15/19 14:47 Freq: Status: Discharge Protocol: Document 09/15/19 14:30 DCW (Rec: 09/15/19 15:02 DC [id number]) Orientation Orientation/Cognition Level of Alertness Alert Language Function Ability No Deficits Noted Safety Awareness Understands Safety Issues Memory Description No Deficits Noted Gross Range of Motion Lower Extremity ROM Assessment Bilaterally Impaired Impairments Limited secondary to pain Strength Lower Extremity Strength Assessment Within Functional Limits Hip 4+/5 Knee 4+/5 M7 PT-IP Assessment and Plan Start: 09/15/19 14:47 Freq: Status: Discharge Protocol: Document 09/15/19 14:30 DCW (Rec: 09/15/19 15:02 DC [id number]) PT Summary Assessment and Plan Summary Assessment Summary Pt underwent training for FWW and 4WW use, educated on keeping walker handles at proper height, staying inside handles, not overusing UE to push down, which can lead to falling if the walker gets too far ahead. Pt appeared to understand all education, and verbalized appreciation of new knowledge. Pt will likely discharge home later this afternoon, no further in- patient pt indicated at this time. Frequency of Treatment Frequency Of Treatment Discharge Discharge Recommendations PT Discharge Recommendations Home Transportation Needs at Discharge Private Vehicle
== END 2019-09-15 14:48 | disposition home or self-care (01) ==
PROVIDERS: Emergency Provider Internal Medicine; PCP Internal Medicine
DX: S22.080S Wedge compression fracture of T11-T12 vertebra, sequela (principal); M54.6 Pain in thoracic spine; W18.30XA Fall on same level, unspecified, initial encounter; S00.93XA Contusion of unspecified part of head, initial encounter; Z79.01 Long term (current) use of anticoagulants
CPT/HCPCS: 70450; 72128; 72131; 97161; 99283; 99284

== ENCOUNTER 2019-09-23 08:18 | Day surgery (SDC) | payer OTHER, SELFPAY ==
[2019-09-23] VITALS (12 sets, daily range): BP systolic 152–175; BP diastolic 89–99; PULSE 85–96; RESP 13–20; TEMP 36.1–36.8; O2SAT 20–95; BMI 29.8
--- NOTE | 2019-09-23 | PATH_ITS ---
[facility] Accession Number: [id number] . 01 Material submitted: . bone - T-12 BIOPSY . 01 Clinical history: . KYPHOPLASTY . 02 Diagnosis: T12 Vertebrae, Biopsy: Fragments of bone with no diagnostic abnormality. Bone marrow with maturing trilineage hematopoiesis. No evidence of neoplasm. [facility] 09/24/2019 1235 Local . 02 Electronically signed: . Ronal Townsend MD, PhD, Pathologist NPI- [id number] . 01 Gross description: . Received one formalin-filled container, labeled with the patient's name and labeled #1. T-12 biopsy. Scraped from Telfa paper are two johnson-cody portions of possible bone. The first measures 0.2 x 0.2 x 0.2 cm, and the second measures 0.4 x 0.3 x 0.3 cm. The specimen is entirely submitted in one cassette and will be placed in decal for softening. ([id number]) /[facility] 09/24/20197 Local . 02 Pathologist provided ICD-10: S22.080A, M54.5 . 02 CPT . 856246 Performed at: 01 [facility] [address], [place], [place] [id number] MD Ariel Bennett MD Phone: [phone] Performed at: [address] [facility] [address] [place], [place] [id number] MD Maeve Peck MD Phone: [phone]
--- NOTE | 2019-09-23 | DI.RAD.S_ITS ---
PROCEDURE: XR THORACIC SPINE 3V INDICATIONS: T12 KYPHO FINDINGS: 2 limited intraoperative fluoroscopically stored images of the thoracolumbar spine were obtained for intraoperative hardware localization purposes. These images are not meant for diagnostic purposes. Intraoperative findings related to a single level kyphoplasty at the thoracolumbar junction are present. IMPRESSION: Intraoperative images obtained during the patient's kyphoplasty procedure. Dictated by: Willi Mcdonald M.D. on 09/23/2019 at 13:40 Approved by: Willi Mcdonald M.D. on 09/23/2019 at 13:41
[2019-09-23] MEDS: LACTATED RINGERS 1,000 ML 42 ML IV ×2 (09:15→12:55)
--- NOTE | 2019-09-23 12:10 | PM.PREOP ---
Pre-operative Note Interval Note History & Physical reviewed/Exam performed by Physician: Yes Changes to H&P: No
[2019-09-23] MEDS: CEFAZOLIN 1 GM VIAL 2 GM IV (12:51)
--- NOTE | 2019-09-23 12:59 | SUR.OPER ---
Prone on spine table, head in foam head support, padded chest and pelvic supports, gel pad at knees, lower legs supported by pillows; nipples, genitalia and toes free of pressure, arms secured on foam padded arm boards at <90 degrees abduction. Tape over blanket chest and at thigh secured to table.
[2019-09-23] MEDS: BUPIVACAINE 0.25% W/ EPI 30 ML VIAL INJ (13:11)
--- NOTE | 2019-09-23 13:26 | PM.OP.1 ---
Operative Date/Time/Diagnoses Date of procedure: 09/23/19 Time of procedure: 13:26 Pre-op diagnosis: T12 acute compression fracture with back pain Post-op diagnosis: same Procedure & Clinicians Procedure: T12 kyphoplasty Same procedure as scheduled: Yes Indications: 68-year-old male with intractable pain from an acute T12 compression fracture. He had failed 6 weeks conservative management and requested operative intervention. Risks and benefits of surgery discussed and appropriate consent obtained. Surgeon: Dario Gutierrez Click Yes if Unassisted: Yes Anesthesia Type: MAC +/- and Local Operative Notes Findings: None Closure Type: primary Specimen(s): other Prosthetic devices, grafts, tissues, transplants, or devices: T12 biopsy Estimated Blood Loss (mL): 5 Procedure in detail: The patient was brought to the operating room and intubated on the table. They were then rolled over to the well-padded prone position. Time-out was performed. We confirmed positioning with two fluoroscopy views. The back was prepped and draped in the standard sterile fashion. Preoperative antibiotics were given. Using fluoroscopic guidance, the planned incision site was infiltrated with Marcaine with epinephrine and injected down to the entry site of the left pedicle of T12. A small stab incision was made and we advanced a Jamshiedi needle down the left pedicle into the vertebral body. A bone biopsy was harvested from this and sent to pathology. We then passed the DFine osteotome and opened it up to create a void inside the vertebral body. We then began injecting the cement. This was done with frequent fluoroscopy imaging. There was no extravasation, but was not crossing the midline. We then used Marcaine and then a stab incision and under fluoroscopic guidance placed a Jamshidi needle down the right pedicle of T12. We again created a void with the osteotome. We then injected cement from the right side. Once we had good fill of the T12 vertebral body the injection was stopped and the trocars were removed. Final x-rays were taken. The wound was cleaned. Steri-Strips and sterile dressing were placed. Patient was rolled over, extubated, and brought to recovery without complications. Complications: none Post-operative Condition: stable Disposition: PACU Plan for aftercare: Outpatient. Activity as tolerated.
[2019-09-23] MEDS: OXYCODONE IR 5 MG TABLET PO (13:51)
--- NOTE | 2019-09-23 14:09 | SUR.PHASEI ---
Patient awake and alert. States it only hurts when I move. Gave po pain medication for when patient starts moving around.
== END 2019-09-23 14:55 | disposition home or self-care (01) ==
PROVIDERS: PCP Internal Medicine; Referring Provider Orthopaedic Surgery; Visit Provider Orthopaedic Surgery
PROC: (CPT 22513; principal; 2019-09-23 10:00)
DX: S22.080A Wedge compression fracture of T11-T12 vertebra, initial encounter for closed fracture (principal); M54.9 Dorsalgia, unspecified; M19.90 Unspecified osteoarthritis, unspecified site; I10 Essential (primary) hypertension; I25.10 Atherosclerotic heart disease of native coronary artery without angina pectoris
CPT/HCPCS: 22513; 72074; 76000; C1776; J0690; J2704

== ENCOUNTER 2019-11-10 14:10 | Emergency (ER) | payer OTHER, SELFPAY ==
[2019-11-10 14:28] VITALS: BP 135/95; PULSE 116; RESP 20; TEMP 36.9; O2SAT 98
--- NOTE | 2019-11-10 14:37 | ED.GENADULT ---
HPI - General Adult General Chief complaint: Abdominal Pain Stated complaint: ABD Px Time Seen by Provider: 11/10/19 14:18 Source: patient Mode of arrival: Ambulatory Limitations: no limitations History of Present Illness HPI narrative: 68-year-old male here for evaluation of right lower quadrant abdominal pain. Patient states this is been going on for the past 2 weeks. He states that it has been daily however does come and go. Does not seem to be associated with eating or urinating. Does not seem to be associated with having a bowel movement however he does report having looser than normal bowel movements over the past several days/weeks. No fevers. At the start of the symptoms stated that he did think that he had a ?bowel blockage ?he took a [id number] laxative which per his report allowed him to have multiple bowel movements. He denies any urinary symptoms. No vomiting. No prior abdominal surgeries. No testicular pain. Is worse with palpation. Not worse with movement. Related Data Home Medications Medication Instructions Recorded Confirmed Eliquis 5 mg PO BID 04/02/19 09/23/19 atorvastatin [Lipitor] 40 mg PO HS 04/02/19 09/23/19 diphenhydramine-acetaminophen 2 tab PO BEDTIME PRN 04/02/19 09/23/19 [Tylenol PM Extra Strength] doxazosin 8 mg PO DAILY 04/02/19 09/23/19 fluticasone propionate 1 spray INTRANASAL DAILY 04/02/19 09/23/19 folic acid 2 mg PO DAILY 04/02/19 09/23/19 levalbuterol tartrate [Xopenex HFA] 1 puff INHALATION Q4-6H PRN 04/02/19 09/23/19 levofloxacin 500 mg PO DAILY 04/02/19 09/23/19 meloxicam [Mobic] 15 mg PO DAILY 04/02/19 09/23/19 metoprolol succinate 50 mg PO DAILY 04/02/19 09/23/19 omeprazole 40 mg PO DAILY 04/02/19 09/23/19 prednisone 10 mg PO DAILY 04/02/19 09/23/19 sulfamethoxazole-trimethoprim 1 tab PO QMWF 04/02/19 09/23/19 [Bactrim DS] tramadol 100 mg PO BEDTIME 04/02/19 09/23/19 Previous Rx's Medication Instructions Recorded oxycodone 10 mg PO Q4H PRN #40 tab 04/04/19 cyclobenzaprine 10 mg PO Q8H PRN #10 tab 09/15/19 oxycodone 5 mg PO Q6H PRN #14 tab 09/15/19 oxycodone 5 mg PO Q4H PRN #10 tab 09/23/19 Allergies Allergy/AdvReac Type Severity Reaction Status Date / Time amoxicillin AdvReac Mild NAUSEA Verified 09/23/19 08:55 levofloxacin AdvReac Mild GI UPSET Verified 09/23/19 08:55 Review of Systems Constitutional Constitutional: Denies fever(s) Cardiovascular Cardiovascular: Denies chest pain and Denies dyspnea Respiratory Respiratory: Denies dyspnea Gastrointestinal Gastrointestinal: Reports abdominal pain, Denies nausea and Denies vomiting Comments: Loose bowel movements Genitourinary Genitourinary: Denies flank pain, Denies testicular pain, Denies urinary frequency and Denies urinary hesitancy Musculoskeletal Musculoskeletal: Denies myalgias and Denies arthralgias Integumentary/Breasts Skin/Breast: Denies rash Neurologic Neurologic: Denies behavioral changes Psychiatric Psychiatric: Denies behavioral changes Hematologic/Lymphatic Hematologic/Lymphatic: Denies easy bleeding and Denies easy bruising Allergic/Immunologic Allergic/Immunologic: Denies urticaria Patient History Medical History Arthritis (Acute) Atypical chest pain (Acute) BPH (benign prostatic hyperplasia) (Acute) Bronchiectasis (Acute) Coronary artery disease (Acute) DJD (degenerative joint disease) (Acute) Dyspnea (Acute) GERD (gastroesophageal reflux disease) (Acute) Kidney stone (Acute ~2015) Microscopic polyangiitis (Acute) Mycobacterium chelonae infection (Acute) Non-productive cough (Acute) Paroxysmal A-fib (Acute 03/09/18) Pneumonia (Acute ~07/2013) Vasculitis (Acute) Social History household members: spouse Smoking Status: Never smoker alcohol intake: current Smoking Status: Never smoker alcohol intake frequency: holidays/special occasions only Substance Use Type: does not use Exam Initial Vital Signs Initial Vital Signs: Vital Signs Temperature 98.4 F 11/10/19 14:28 Pulse Rate 116 H 11/10/19 14:28 Respiratory Rate 20 11/10/19 14:28 Blood Pressure 135/95 H 11/10/19 14:28 Pulse Oximetry 98 11/10/19 14:28 Const General: cooperative, comfortable and well developed Limitations: mental status not altered HENMT Head: normal to inspection and normocephalic Resp Effort & Inspection: normal respiratory effort Auscultation: clear to auscultation bilaterally Cardio Rate: regular rate Rhythm: regular rhythm GI Inspection: non-distended Palpation: soft, No firm and tender (Right lower quadrant tenderness) Rectal Exam: visual inspection normal, normal sphincter tone, No hemorrhoids, No mass and No tenderness Penis: normal penis Scrotum: scrotum normal Testes: normal Other: No inguinal hernia Back/Spine/Pelvis Back: No CVA tenderness Skin Lesions: no lesions Rashes: no rashes Neuro General: alert and awake Cognition: normal cognition Speech: speech normal Extrem General: normal to inspection and capillary refill normal Psych Appearance: grossly normal and well kempt Scores GCS [place] coma scale eye opening: Spontaneous [place] coma scale verbal response: Orientated [place] coma scale motor response: Obey commands [place] coma scale total score: 15 Course Orders Ordered: ED Orders 11/10/19 14:20 Complete Blood Count AUTO DIFF Stat Comprehensive Metabolic Panel Stat Lipase Stat Partial Thromboplastin Time Stat Prothrombin Time INR Stat 11/10/19 14:32 Lactate (Lactic Acid) Stat 11/10/19 14:38 CT abdomen pelvis w con Stat Discontinued Medications Sodium Chloride (Normal Saline 0.9%) 1,000 mls @ 1,000 mls/hr IV BOLUS ONE Stop: 11/10/19 15:17 Last Infusion: 11/10/19 16:28 Dose: 0 mls/hr Documented by: Admin: 11/10/19 14:39 Dose: 1,000 mls/hr Documented by: [place] Vital Signs Vital signs: Vital Signs - 8 hr 11/10/19 14:28 Temperature 98.4 F Pulse Rate 116 H Respiratory Rate 20 Blood Pressure 135/95 H Pulse Oximetry 98 Medical Decision Making Medical Records Medical records reviewed: Yes I reviewed the patient's medical records. Lab Data Lab results reviewed: Yes I reviewed the patient's lab results. Result diagrams: 11/10/19 14:20 11/10/19 14:20 Labs: Lab Results 11/10/19 11/10/19 11/10/19 Range/Units 14:20 14:20 14:20 WBC 11.8 H (4.5-11.0) X10^3/uL RBC 4.36 L (4.5-5.9) X10^6/uL Hgb 12.2 L (13.5-17.5) g/dL Hct 37.4 L (41-53) % MCV 85.7 (80-100) fL MCH 28.1 (26-34) PG MCHC 32.7 (30-36) % RDW 16.5 H (11.6-14.8) % Plt Count 228 (150-400) X10^3/uL Neut % (Auto) 75.7 H (50-75) % Lymph % (Auto) 16.4 L (25-40) % [place] % (Auto) 6.5 (3-14) % Eos % (Auto) 1.0 L (2-4) % Baso % (Auto) 0.4 (0-2) % Neut # (Auto) 9000 H (0032-3554) /uL Lymph # (Auto) 1900 (5236-9605) /uL [place] # (Auto) 800 (0-900) /uL Eos # (Auto) 100 (0-450) /uL Baso # (Auto) 0 (0-100) /uL PT 12.7 (10.1-12.7) SECONDS INR 1.1 (0.9-1.3) APTT 28 D (26.4-36.2) SECONDS Sodium 138 (137-145) mmol/L Potassium 3.4 (3.4-5.1) mmol/L Chloride 101 (98-107) mmol/L Carbon Dioxide 28 (22-32) mmol/L BUN 19 (9-20) mg/dL Creatinine 1.26 H (0.66-1.25) mg/dL Estimated GFR 56.6 L (>60) mL/min BUN/Creatinine Ratio 15.1 (6-22) Glucose 152 H (80-110) mg/dL Lactate (0.7-2.1) mmol/L Calcium 10.3 H (8.4-10.2) mg/dL Total Bilirubin 0.4 (0.2-1.3) mg/dL AST 24 (17-59) IU/L ALT 21 (<50) IU/L Alkaline Phosphatase 112 (38-126) U/L Total Protein 7.4 (6.3-8.2) g/dL Albumin 4.2 (3.5-5.0) g/dL Globulin 3.2 (1.7-4.1) g/dL Albumin/Globulin Ratio 1.3 (1.0-2.8) Lipase 87 (23-300) U/L /18/20 Range/Units 14:32 WBC (4.5-11.0) X10^3/uL RBC (4.5-5.9) X10^6/uL Hgb (13.5-17.5) g/dL Hct (41-53) % MCV (80-100) fL MCH (26-34) PG MCHC (30-36) % RDW (11.6-14.8) % Plt Count (150-400) X10^3/uL Neut % (Auto) (50-75) % Lymph % (Auto) (25-40) % [place] % (Auto) (3-14) % Eos % (Auto) (2-4) % Baso % (Auto) (0-2) % Neut # (Auto) (9647-6427) /uL Lymph # (Auto) (9222-8886) /uL [place] # (Auto) (0-900) /uL Eos # (Auto) (0-450) /uL Baso # (Auto) (0-100) /uL PT (10.1-12.7) SECONDS INR (0.9-1.3) APTT (26.4-36.2) SECONDS Sodium (137-145) mmol/L Potassium (3.4-5.1) mmol/L Chloride (98-107) mmol/L Carbon Dioxide (22-32) mmol/L BUN (9-20) mg/dL Creatinine (0.66-1.25) mg/dL Estimated GFR (>60) mL/min BUN/Creatinine Ratio (6-22) Glucose (80-110) mg/dL Lactate 1.4 (0.7-2.1) mmol/L Calcium (8.4-10.2) mg/dL Total Bilirubin (0.2-1.3) mg/dL AST (17-59) IU/L ALT (<50) IU/L Alkaline Phosphatase (38-126) U/L Total Protein (6.3-8.2) g/dL Albumin (3.5-5.0) g/dL Globulin (1.7-4.1) g/dL Albumin/Globulin Ratio (1.0-2.8) Lipase (23-300) U/L Imaging Data CT scan - abdomen/pelvis: Radiologist's Impression: [address] [address] [address] Scan Report Signed Patient: Deangelo Hudson [facility]#: [id number] : 9Acct:[id number] Age/Sex: 68 / MDate of Service: 11/10/19 Loc: ED Accession Number: [id number] Procedure: CT abdomen pelvis w con Ordering Provider: Phil Soriano D.O. PROCEDURE: CT ABDOMEN PELVIS W CON INDICATIONS: Right lower quadrant abdominal pain TECHNIQUE: After the administration of intravenous contrast, 5 mm thick sections acquired from the diaphragm to the symphysis. 5 mm coronal and sagittal reformats were acquired. For radiation dose reduction, the following was used: automated exposure control, adjustment of mA and/or kV according to patient size. COMPARISON: [facility], CT, ABDOMEN/PELVIS WITH CONTRAST, 03/08/2015, 9:07. FINDINGS: Image quality: Excellent. ABDOMEN: Lung bases: Lung bases are abnormal with mild patchy pneumonia present within the medial right lung base, moderate alveolar consolidation appears present within the left lung base posteriorly, and cylindrical and varicoid bronchiectasis can be again seen within the lingular segment left upper lobe near the left ventricular apex.. Heart size is normal. Solid organs: Liver is normal in size and enhancement. Gallbladder appears normal. Biliary system is non dilated. Pancreas enhances normally. Spleen is normal in size and enhancement. No adrenal nodules. Kidneys demonstrate normal size and enhancement, without hydronephrosis the liver there is a lower pole exophytic 5.4 cm left renal cortical cysts and a immediate adjacent punctate 2 mm calculus posteriorly, nonobstructive. Peritoneum and bowel: Bowel loops demonstrate normal wall thickness and caliber. No free fluid or air. Nodes and vessels: No retroperitoneal or mesenteric adenopathy by size criteria. Aorta and inferior vena cava are normal in size. Miscellaneous: No ventral hernias. PELVIS: Genitourinary: Bladder wall thickness is normal. Miscellaneous: No inguinal hernias or adenopathy. Bones: No suspicious bony lesions. No vertebral body compression fractures. IMPRESSION: There is a mild patchy pneumonia pattern in the small portion of the lung bases visualized, left greater than right, and also what appears to be chronic lung disease with cylindrical and varicoid bronchiectasis seen at the lingular segment left upper lobe. Beneath the diaphragm no inflammatory process is seen. No diverticulitis is suspected. An exophytic left renal cortical cyst is present without adjacent inflammation or internal hemorrhage. Normal appendix found. Dictated by: Nhan Moon M.D. on 11/10/2019 at 16:05 Approved by: Nhan Moon M.D. on 11/10/2019 at 16:14 MDM Narrative Medical decision making narrative: Patient has had 2 weeks of right lower quadrant abdominal pain. His CT scan today shows no acute pathology. The lung issues seen on the CT scanner not new. I have low suspicion for pneumonia. He is already on a baseline azithromycin on a daily basis for his underlying lung issues. His exam is not consistent with testicular torsion. No hernias were felt on exam. No skin changes. No indication for antibiotics. No indication for surgical consultation. Labs are unremarkable. Unsure the exact etiology is abdominal pain but does not appear to be an emergent surgical or infectious issue. I did discuss this with him. Patient also states that he occasionally has a ?protrusion ?from his rectum when he has bowel movements. He states this is not painful to him. He does have to push it back in. he occasionally gets blood in his stool. He states that he is up-to-date on his colonoscopy. He was told that he needed to come back in 5 years. He does not know when that 5 year fredrick was. Rectal exam today I do not feel any external or internal hemorrhoids. Some concern that potentially this is a non thrombosed internal hemorrhoid verses a rectal prolapse. I do not feel that this is related to his right lower quadrant abdominal pain today. Did inform him that he should contact his primary provider for follow-up to discuss further workup. We did discuss return precautions. He expressed understanding and agreement. Discharge Plan Departure Patient Disposition: Home Clinical Impression: Abdominal pain Qualifiers: Abdominal location: right lower quadrant Qualified Code(s): R10.31 - Right lower quadrant pain Instructions: DI for Abdominal Pain-Adult Activity Restrictions/Additional Instructions: Recommend you contact your primary provider for follow-up return to the emergency department for any new or worsening symptoms like we discussed. Prescriptions: No Action oxycodone 5 mg tablet 5 mg PO Q4H PRN (Reason: pain) Qty: 10 RF: 0 prednisone 10 mg Tablet 10 mg PO DAILY RF: 0 metoprolol succinate 50 mg Tablet Extended Release 24 Hr 50 mg PO DAILY RF: 0 meloxicam [Mobic] 15 mg Tablet 15 mg PO DAILY RF: 0 sulfamethoxazole-trimethoprim [Bactrim DS] 800-160 mg Tablet 1 tab PO QMWF RF: 0 omeprazole 40 mg Capsule,Delayed Release(Dr/Ec) 40 mg PO DAILY RF: 0 tramadol 50 mg Tablet 100 mg PO BEDTIME RF: 0 doxazosin 8 mg Tablet 8 mg PO DAILY RF: 0 folic acid 1 mg Tablet 2 mg PO DAILY RF: 0 levofloxacin 500 mg Tablet 500 mg PO DAILY RF: 0 diphenhydramine-acetaminophen [Tylenol PM Extra Strength] 25-500 mg Tablet 2 tab PO BEDTIME PRN (Reason: Sleep) RF: 0 fluticasone propionate 50 mcg/actuation [place],Suspension 1 spray INTRANASAL DAILY RF: 0 levalbuterol tartrate [Xopenex HFA] 45 mcg/actuation Hfa Aerosol Inhaler 1 puff INHALATION Q4-6H PRN (Reason: Shortness Of Breath) RF: 0 Eliquis 5 mg Tablet 5 mg PO BID RF: 0 atorvastatin [Lipitor] 20 MG tablet 40 mg PO HS RF: 0 oxycodone 10 mg tablet 10 mg PO Q4H PRN (Reason: pain) Qty: 40 RF: 0 oxycodone 5 mg tablet 5 mg PO Q6H PRN (Reason: spine fracture pain) Qty: 14 RF: 0 cyclobenzaprine 5 mg tablet 10 mg PO Q8H PRN (Reason: muscle spasm/back pain) Qty: 10 RF: 0 Referrals: Carolina Pepper MD [Primary Care Provider] -
[2019-11-10 14:39] LABS: INR 1.1 (0.9-1.3); Prothrombin Time 12.7 SECONDS (10.1-12.7)
[2019-11-10] MEDS: SODIUM CHLORIDE 0.9% 1,000 ML 1000 ML IV (14:39)
[2019-11-10 14:42] LABS: PTT Partial Thromboplastin Tim 28 SECONDS (26.4-36.2)
[2019-11-10 14:44] LABS: Add Manual Diff / Slide Review NO; Alanine Aminotransferase 21 IU/L (<50); Albumin 4.2 g/dL (3.5-5.0); Albumin Globulin Ratio 1.3 (1.0-2.8); Alkaline Phosphatase 112 U/L (38-126); Aspartate Aminotransferase 24 IU/L (17-59); BUN Creatinine Ratio 15.1 (6-22); Basophils Absolute Auto 0 /uL (0-100); Basophils Percent Auto 0.4 % (0-2); Bilirubin Total 0.4 mg/dL (0.2-1.3); Blood Urea Nitrogen 19 mg/dL (9-20); Calcium 10.3 mg/dL (8.4-10.2); Carbon Dioxide 28 mmol/L (22-32); Chloride 101 mmol/L (98-107); Eosinophils Absolute Auto 100 /uL (0-450); Estimated Glomerular Filt Rate 56.6 mL/min (>60); Globulin 3.2 g/dL (1.7-4.1); Glucose 152 mg/dL (80-110); HEMOLYSIS < 15 (0-50); Hematocrit 37.4 % (41-53); Hemoglobin 12.2 g/dL (13.5-17.5); Lipase 87 U/L (23-300); Lymphocytes Absolute Auto 1900 /uL (1100-4500); Lymphocytes Percent Auto 16.4 % (25-40); Mean Corpuscular HGB Conc 32.7 % (30-36); Mean Corpuscular Hemoglobin 28.1 PG (26-34); Mean Corpuscular Volume 85.7 fL (80-100); Monocytes Absolute Auto 800 /uL (0-900); Monocytes Percent Auto 6.5 % (3-14); Neutrophils Absolute Auto 9000 /uL (1500-7000); Neutrophils Percent Auto 75.7 % (50-75); Platelet Count 228 X10^3/uL (150-400); Potassium 3.4 mmol/L (3.4-5.1); Red Blood Cell Count 4.36 X10^6/uL (4.5-5.9); Red Cell Distribution Width 16.5 % (11.6-14.8); Sodium 138 mmol/L (137-145); Total Protein 7.4 g/dL (6.3-8.2); White Blood Cell Count 11.8 X10^3/uL (4.5-11.0)
[2019-11-10 14:55] LABS: Lactate (Lactic Acid) 1.4 mmol/L (0.7-2.1)
[2019-11-10 16:45] VITALS: BP 135/95; PULSE 91; RESP 14; O2SAT 94
== END 2019-11-10 16:48 | disposition home or self-care (01) ==
PROVIDERS: Emergency Provider Emergency Medicine; PCP Internal Medicine
DX: R10.31 Right lower quadrant pain (principal)
CPT/HCPCS: 36415; 74177; 80053; 83605; 83690; 85025; 85610; 85730; 96360; 96361; 99284; Q9967

== ENCOUNTER → 2019-11-13 10:26 | Outpatient (CLI) | payer OTHER, SELFPAY ==
[2019-11-13 12:20] LABS: Add Manual Diff / Slide Review NO; Basophils Absolute Auto 100 /uL (0-100); Basophils Percent Auto 0.6 % (0-2); Eosinophils Absolute Auto 100 /uL (0-450); Hematocrit 36.1 % (41-53); Lymphocytes Absolute Auto 1700 /uL (1100-4500); Lymphocytes Percent Auto 15.6 % (25-40); Mean Corpuscular HGB Conc 33.3 % (30-36); Mean Corpuscular Hemoglobin 28.5 PG (26-34); Mean Corpuscular Volume 85.7 fL (80-100); Monocytes Absolute Auto 700 /uL (0-900); Monocytes Percent Auto 6.2 % (3-14); Neutrophils Absolute Auto 8300 /uL (1500-7000); Neutrophils Percent Auto 76.6 % (50-75); Platelet Count 209 X10^3/uL (150-400); Red Blood Cell Count 4.21 X10^6/uL (4.5-5.9); Red Cell Distribution Width 16.5 % (11.6-14.8); White Blood Cell Count 10.8 X10^3/uL (4.5-11.0)
== END ==
PROVIDERS: PCP Internal Medicine; Referring Provider Internal Medicine; Visit Provider Internal Medicine
DX: R19.7 Diarrhea, unspecified (principal); R10.31 Right lower quadrant pain
CPT/HCPCS: 36415; 85025

== ENCOUNTER 2020-05-31 18:29 | Emergency (ER) | payer OTHER, SELFPAY ==
[2020-05-31] VITALS (51 sets, daily range): BP systolic 112–143; BP diastolic 64–86; PULSE 71–156; RESP 14–29; TEMP 36.8; O2SAT 92–98; BMI 28.5
--- NOTE | 2020-05-31 18:58 | DI.RAD.S_ITS ---
PROCEDURE: XR CHEST 1V INDICATIONS: SOB, CP TECHNIQUE: One view of the chest was acquired. COMPARISON: [facility], CR, XR CHEST 2V, 06/01/2019, 15:34. FINDINGS: Surgical changes and devices: None. Lungs and pleura: There is trace left pleural effusion with bibasilar scarring/atelectasis. Chronic appearing right lateral pleural thickening is again seen and unchanged from prior study. No gross pneumothorax. Mediastinum: Mediastinal contours appear normal. Heart size is normal. Bones and chest wall: No suspicious bony lesions. Overlying soft tissues appear unremarkable. IMPRESSION: Trace left pleural effusion and bibasilar scarring/atelectasis. No definite focal infiltrate. No gross pneumothorax. Dictated by: Carlos Bruno M.D. on 05/31/2020 at 18:15 Approved by: Carlos Bruno M.D. on 05/31/2020 at 18:17
--- NOTE | 2020-05-31 18:59 | ED_ITS ---
HPI - Arrhythmia/Palpitations General Chief Complaint: Arrhythmia/Palpitations Stated Complaint: AFIB Time Seen by Provider: 05/31/20 18:45 Source: patient and family Mode of arrival: Wheelchair Limitations: no limitations History of Present Illness HPI narrative: 69-year-old male nonsmoker with history of AFib on Eliquis, coronary artery disease status post stent (2012 without subsequent provocative testing) and pulmonary vasculitis presents with a chief complaint of a sudden onset chest pressure and shortness of breath that started while at rest at about noon. He denies any obvious provocation or palliation. He denies nausea, vomiting or unexplained diaphoresis. He states he feels as if his heart rate is up and he is likely in AFib. Last week he had a bronchoscopy at [facility] and had been off his Eliquis for 3 days. He denies any obvious exposure to known COVID. MD complaint: rapid heart beat, heart racing, palpitations, irregular heart beat and atrial fibrillation Onset (ago): hour(s) Duration: constant Severity: moderate Context: occurred during rest Arrhythmia history: atrial fibrillation and on anti-coagulants Associated symptoms: chest pain and shortness of breath Related Data Home Medications Medication Instructions Recorded Confirmed Eliquis 5 mg PO BID 04/02/19 09/23/19 atorvastatin [Lipitor] 40 mg PO HS 04/02/19 09/23/19 diphenhydramine-acetaminophen 2 tab PO BEDTIME PRN 04/02/19 09/23/19 [Tylenol PM Extra Strength] doxazosin 8 mg PO DAILY 04/02/19 09/23/19 fluticasone propionate 1 spray INTRANASAL DAILY 04/02/19 09/23/19 folic acid 2 mg PO DAILY 04/02/19 09/23/19 levalbuterol tartrate [Xopenex HFA] 1 puff INHALATION Q4-6H PRN 04/02/19 09/23/19 levofloxacin 500 mg PO DAILY 04/02/19 09/23/19 meloxicam [Mobic] 15 mg PO DAILY 04/02/19 09/23/19 metoprolol succinate 50 mg PO DAILY 04/02/19 09/23/19 omeprazole 40 mg PO DAILY 04/02/19 09/23/19 prednisone 10 mg PO DAILY 04/02/19 09/23/19 sulfamethoxazole-trimethoprim 1 tab PO QMWF 04/02/19 09/23/19 [Bactrim DS] tramadol 100 mg PO BEDTIME 04/02/19 09/23/19 Previous Rx's Medication Instructions Recorded oxycodone 10 mg PO Q4H PRN #40 tab 04/04/19 cyclobenzaprine 10 mg PO Q8H PRN #10 tab 09/15/19 oxycodone 5 mg PO Q6H PRN #14 tab 09/15/19 oxycodone 5 mg PO Q4H PRN #10 tab 09/23/19 Allergies Allergy/AdvReac Type Severity Reaction Status Date / Time amoxicillin AdvReac Mild NAUSEA Verified 09/23/19 08:55 levofloxacin AdvReac Mild GI UPSET Verified 09/23/19 08:55 Review of Systems Constitutional Constitutional: Denies chills, Denies fatigue, Denies fever(s), Denies frequent falls, Denies lethargy and Denies weakness Eyes Eyes: Denies change in vision, Denies eye discharge, Denies irritation and Denies loss of vision ENT Ears, Nose, Mouth, and Throat: Denies change in voice, Denies dizziness, Denies neck pain, Denies sore throat and Denies throat swelling Cardiovascular Cardiovascular: Reports chest pain, Reports irregular heart rhythm, Reports lightheadedness, Reports palpitations, Reports dyspnea, Reports dyspnea on exer tion and Denies orthopnea Respiratory Respiratory: Reports cough, Reports dyspnea, Reports dyspnea on exertion and Denies wheezing Gastrointestinal Gastrointestinal: Denies abdominal pain, Denies change in bowel habits, Denies diarrhea, Denies nausea and Denies vomiting Musculoskeletal Musculoskeletal: Denies neck pain and Denies numbness Integumentary/Breasts Skin/Breast: Denies pruritus, Denies erythema, Denies rash and Denies wounds Neurologic Neurologic: Denies behavioral changes, Denies confusion, Denies dizziness, Denies frequent falls, Denies loss of vision, Denies numbness and Denies weak ness Psychiatric Psychiatric: Denies anxiety, Denies behavioral changes, Denies confusion, Denies depression, Denies homicidal ideation and Denies suicidal ideation Endocrine Endocrine: Denies fatigue, Denies flushing and Reports palpitations Hematologic/Lymphatic Hematologic/Lymphatic: Denies easy bruising Allergic/Immunologic Allergic/Immunologic: Denies urticaria, Denies throat swelling and Denies wheezing Patient History Medical History (Updated 06/01/20 @ 00:27 by Monroe Bhatti DO) Arthritis Atypical chest pain BPH (benign prostatic hyperplasia) Bronchiectasis Coronary artery disease DJD (degenerative joint disease) Dyspnea GERD (gastroesophageal reflux disease) Kidney stone (~2015) Microscopic polyangiitis Mycobacterium chelonae infection Non-productive cough Paroxysmal A-fib (03/09/18) Pneumonia (~07/2013) Vasculitis Surgical History History of colonoscopy (~2015) History of coronary artery stent placement (~06/2012) Social History household members: spouse Smoking Status: Never smoker alcohol intake: current Smoking Status: Never smoker alcohol intake frequency: holidays/special occasions only Substance Use Type: does not use Exam Narrative Exam Narrative: GENERAL: [69] year old patient appears stated age. Well- nourished, well-developed patient, in mild distress. HEAD: Atraumatic. Normocephalic. EYES: Pupils equal round and reactive. Extraocular motions intact. No scleral icterus. No injection or drainage. ENT: Nose without bleeding, purulent drainage. Throat without erythema, tonsillar hypertrophy or exudate. Airway patent. NECK: Trachea midline. Non tender CARDIOVASCULAR: Rapid and irregular rhythm without murmurs, gallops, or rubs. RESPIRATORY: Clear to auscultation. Breath sounds equal bilaterally. No wheezes, rales, or rhonchi. GASTROINTESTINAL: Abdomen soft, non-tender, nondistended. EXTREMITIES: No edema or joint tenderness. BACK: Nontender without deformity or crepitance. No flank tenderness. NEURO: AOx3. SKIN: No rash or erythema of visible areas Initial Vital Signs Initial Vital Signs: Vital Signs Temperature 98.3 F 05/31/20 18:53 Pulse Rate 147 H 05/31/20 18:53 Respiratory Rate 20 05/31/20 18:53 Blood Pressure 121/83 05/31/20 18:53 Pulse Oximetry 94 05/31/20 18:53 Course Course Course Narrative: symptoms completely resolved with conversion of AFib to a normal sinus rhythm. He has been asymptomatic for many hours. Chest pressure most likely due to increased HR. CTA without significant findings. Multiple non- ischemic EKGs. Troponin x2 negative. Orders Ordered: ED Orders 05/31/20 20:28 CT angio chest PE protocol Stat 05/31/20 22:00 Troponin I Stat Discontinued Medications Diltiazem HCl (Diltiazem 5 Mg/Ml Sdv) 20 mg IV NOW ONE Stop: 05/31/20 18:59 Last Admin: 05/31/20 19:09 Dose: 20 mg Documented by: LEONIE DILTIAZEM (Diltiazem 125 Mg/125 Ml-D5w) 125 mg in 125 mls @ 5 mls/hr IV TITRATE RAKESH; Protocol Last Titration: 06/01/20 00:01 Dose: 0 mg/hr, 0 mls/hr Documented by: Admin: 05/31/20 19:16 Dose: 5 mg/hr, 5 mls/hr Documented by: LEONIE Sodium Chloride (Normal Saline 0.9%) 1,000 mls @ 150 mls/hr IV CONT RAKESH Last Infusion: 06/01/20 00:50 Dose: 150 mls/hr Documented by: Admin: 05/31/20 19:17 Dose: 150 mls/hr Documented by: LEONIE Vital Signs Vital signs: Vital Signs - 8 hr 05/31/20 20:10 05/31/20 20:15 05/31/20 20:20 Pulse Rate 85 84 83 Respiratory Rate 24 27 H 24 Blood Pressure 129/75 130/75 123/71 Pulse Oximetry 97 97 97 05/31/20 20:25 05/31/20 20:30 05/31/20 20:35 Pulse Rate 82 84 83 Respiratory Rate 27 H 24 29 H Blood Pressure 114/74 125/69 123/67 Pulse Oximetry 98 97 97 05/31/20 20:40 05/31/20 20:45 05/31/20 20:50 Pulse Rate 84 82 81 Respiratory Rate 24 29 H 22 Blood Pressure 125/69 126/76 119/68 Pulse Oximetry 95 96 98 05/31/20 20:55 05/31/20 21:13 05/31/20 21:30 Pulse Rate 80 115 H 75 Respiratory Rate 21 27 H Blood Pressure 120/67 Pulse Oximetry 98 92 95 05/31/20 22:00 05/31/20 22:08 05/31/20 22:11 Pulse Rate 73 73 71 Respiratory Rate 25 H 23 24 Blood Pressure 131/76 125/73 Pulse Oximetry 96 95 96 05/31/20 22:15 05/31/20 22:20 05/31/20 22:25 Pulse Rate 72 71 71 Respiratory Rate 24 21 22 Blood Pressure 126/79 125/76 131/80 Pulse Oximetry 96 96 96 05/31/20 22:30 05/31/20 22:35 05/31/20 22:40 Pulse Rate 72 74 74 Respiratory Rate 28 H 23 24 Blood Pressure 134/80 135/78 134/78 Pulse Oximetry 95 95 96 05/31/20 22:45 05/31/20 22:50 05/31/20 22:55 Pulse Rate 74 75 76 Respiratory Rate 27 H 26 H 14 Blood Pressure 126/79 134/80 122/72 Pulse Oximetry 96 98 93 05/31/20 23:00 05/31/20 23:05 05/31/20 23:10 Pulse Rate 76 77 77 Respiratory Rate 22 23 26 H Blood Pressure 133/79 134/76 137/78 Pulse Oximetry 96 96 96 05/31/20 23:15 05/31/20 23:20 05/31/20 23:25 Pulse Rate 78 78 78 Respiratory Rate 23 25 H 25 H Blood Pressure 132/78 140/86 135/80 Pulse Oximetry 96 96 96 05/31/20 23:30 05/31/20 23:35 05/31/20 23:40 Pulse Rate 79 79 79 Respiratory Rate 26 H 23 23 Blood Pressure 133/79 143/81 H 135/84 Pulse Oximetry 96 96 96 05/31/20 23:45 05/31/20 23:50 05/31/20 23:55 Pulse Rate 81 81 81 Respiratory Rate 26 H 24 23 Blood Pressure 138/86 138/86 135/82 Pulse Oximetry 97 96 95 06/01/20 00:00 06/01/20 00:05 06/01/20 00:10 Pulse Rate 81 82 82 Respiratory Rate 25 H 23 21 Blood Pressure 136/81 140/85 133/80 Pulse Oximetry 96 97 96 06/01/20 00:15 06/01/20 00:20 06/01/20 00:25 Pulse Rate 83 84 87 Respiratory Rate 22 19 19 Blood Pressure 145/87 H 138/85 138/86 Pulse Oximetry 94 95 94 06/01/20 00:30 06/01/20 00:31 06/01/20 00:36 Pulse Rate 87 89 90 Respiratory Rate 23 22 20 Blood Pressure 155/85 H 153/86 H Pulse Oximetry 94 94 95 06/01/20 00:40 06/01/20 00:42 06/01/20 00:43 Pulse Rate 91 H 110 H Respiratory Rate 25 H 88 H Blood Pressure 148/82 H 156/84 H Pulse Oximetry 95 MDM - Arrhythmia/Palpitations Lab Data Result diagrams: 05/31/20 18:56 05/31/20 18:56 Labs: Lab Results 05/31/20 05/31/20 05/31/20 Range/Units 18:56 18:56 18:56 WBC 14.6 H (4.5-11.0) X10^3/uL RBC 4.55 (4.5-5.9) X10^6/uL Hgb 13.0 L (13.5-17.5) g/dL Hct 39.8 L (41-53) % MCV 87.5 (80-100) fL MCH 28.5 (26-34) PG MCHC 32.6 (30-36) % RDW 15.5 H (11.6-14.8) % Plt Count 246 (150-400) X10^3/uL Neut % (Auto) 76.5 H (50-75) % Lymph % (Auto) 14.5 L (25-40) % [place] % (Auto) 7.3 (3-14) % Eos % (Auto) 1.0 L (2-4) % Baso % (Auto) 0.7 (0-2) % Neut # (Auto) 36496 H (6323-8453) /uL Lymph # (Auto) 2100 (8980-9262) /uL [place] # (Auto) 1100 H (0-900) /uL Eos # (Auto) 200 (0-450) /uL Baso # (Auto) 100 (0-100) /uL Sodium 135 L (137-145) mmol/L Potassium 3.9 (3.4-5.1) mmol/L Chloride 100 (98-107) mmol/L Carbon Dioxide 28 (22-32) mmol/L BUN 24 H (9-20) mg/dL Creatinine 1.20 (0.66-1.25) mg/dL Estimated GFR 59.7 L (>60) mL/min BUN/Creatinine Ratio 20.0 (6-22) Glucose 197 H (80-110) mg/dL Calcium 10.4 H (8.4-10.2) mg/dL Magnesium 1.8 (1.6-2.3) mg/dL Total Creatine Kinase 26 L (55-170) U/L CK-MB (CK-2) TNP CK-MB (CK-2) Rel Index TNP Troponin I < 0.012 (0.01-0.034) ng/mL TSH 3.94 (0.47-4.68) uIU/mL 05/31/20 Range/Units 22:00 WBC (4.5-11.0) X10^3/uL RBC (4.5-5.9) X10^6/uL Hgb (13.5-17.5) g/dL Hct (41-53) % MCV (80-100) fL MCH (26-34) PG MCHC (30-36) % RDW (11.6-14.8) % Plt Count (150-400) X10^3/uL Neut % (Auto) (50-75) % Lymph % (Auto) (25-40) % [place] % (Auto) (3-14) % Eos % (Auto) (2-4) % Baso % (Auto) (0-2) % Neut # (Auto) (8371-6076) /uL Lymph # (Auto) (6120-9223) /uL [place] # (Auto) (0-900) /uL Eos # (Auto) (0-450) /uL Baso # (Auto) (0-100) /uL Sodium (137-145) mmol/L Potassium (3.4-5.1) mmol/L Chloride (98-107) mmol/L Carbon Dioxide (22-32) mmol/L BUN (9-20) mg/dL Creatinine (0.66-1.25) mg/dL Estimated GFR (>60) mL/min BUN/Creatinine Ratio (6-22) Glucose (80-110) mg/dL Calcium (8.4-10.2) mg/dL Magnesium (1.6-2.3) mg/dL Total Creatine Kinase (55-170) U/L CK-MB (CK-2) CK-MB (CK-2) Rel Index Troponin I < 0.012 (0.01-0.034) ng/mL TSH (0.47-4.68) uIU/mL Imaging Data CT scan - chest: Radiologist's Impresson: [facility] [place] [id number] Scan ReportSigned Patient: Deangelo Hudson SMR#: [id number]: 9Acct:[id number]/Sex: 69 / MDate of Service: 05/31/20Loc: EDAccession Number: [id number] Procedure: CT angio chest PE protocol Ordering Provider: Monroe Bhatti D.O. PROCEDURE: CT ANGIO CHEST PE PROTOCOL INDICATIONS: short of breath, cough with blood, recent procedure TECHNIQUE: After the administration of intravenous contrast, 2 mm thick sections acquired from the pulmonary apices to the posterior costophrenic angles. 3-dimensional maximum intensity projection (MIP) coronal and sagittal reformats were then acquired through the thorax. For radiation dose reduction, the following was used: automated exposure control, adjustment of mA and/or kV according to patient size. COMPARISON: [facility], CR, XR CHEST 1V, 05/31/2020, 19:03. FINDINGS: Image quality: Excellent. Pulmonary arteries: Pulmonary arteries are normal in size, and demonstrate no intraluminal filling defects to suggest central pulmonary embolism. Lungs and pleura: Bilateral lower lobe peribronchial thickening and distal small airways occlusion in the posteromedial right lower lobe. Consolidative changes along the left diaphragm surface and minimally along the right diaphragm. There are no pleural effusions. Patchy biapical pleural plaquing, most extensive on the left where there is slight architectural distortion and small airways traction bronchiectasis. Posterior right lower lobe subpleural atelectatic or gravitational changes. Mediastinum: Heart size is normal, without pericardial effusion. Moderate coronary artery calcification. No mediastinal or hilar adenopathy. Thoracic aorta is normal in caliber and enhancement. Esophagus is normal in caliber, without hiatal hernia. Bones and chest wall: No suspicious bony lesions. There are vertebroplasty changes in the T12 vertebral body. Diffuse demineralization throughout the rest of the osseous structures. Thyroid gland is normal . No axillary or supraclavicular adenopathy. Abdomen: Visualized upper abdominal solid organs appear normal in the early arterial phase of enhancement. IMPRESSION: 1. No pulmonary embolus. 2. Bilateral lower lobe peribronchial thickening with right lower lobe distal airway occlusion and horizontal left lung base consolidation. 3. Biapical pleural plaquing, particularly at the left lung apex. Consider one year follow-up chest CT if the patient is high risk for lung cancer. 4. Moderate coronary artery calcification. Dictated by: Dee David M.D. on 05/31/2020 at 21:47 Approved by: Dee David M.D. on 05/31/2020 at 21:58 [facility] Narrative Medical decision making narrative: 69M with chest pressure over many hours. Presents in rapid A fib, not candidate for cardioversion given 3 day drug holiday last week for bronchoscopy. He is rate controlled and converts to NSR at which point his symptoms completely resolved. CTA orderd to rule out PE or post interventional complications. Troponin x2 unremarkable. Patient given return precautions and had questions answered to his apparent satisfaction Discharge Plan Departure Patient Disposition: Home Clinical Impression: Atrial fibrillation Qualifiers: Atrial fibrillation type: paroxysmal Qualified Code(s): I48.0 - Paroxysmal atrial fibrillation Instructions: DI for Atrial Fibrillation Activity Restrictions/Additional Instructions: *You have been diagnosed with [ chest pain due to rapid atrial fibrillation (resolved) ] *What to do: *Continue to take medications as directed *Follow up with your primary care provider in 2-3 days, call for an appointment. Let them know you were seen in the Emergency Department and that we ask that you be seen in follow up *Return to ER if you should have any new, worsening or concerning symptoms Prescriptions: No Action oxycodone 5 mg tablet 5 mg PO Q4H PRN (Reason: pain) Qty: 10 RF: 0 prednisone 10 mg Tablet 10 mg PO DAILY RF: 0 metoprolol succinate 50 mg Tablet Extended Release 24 Hr 50 mg PO DAILY RF: 0 meloxicam [Mobic] 15 mg Tablet 15 mg PO DAILY RF: 0 sulfamethoxazole-trimethoprim [Bactrim DS] 800-160 mg Tablet 1 tab PO QMWF RF: 0 omeprazole 40 mg Capsule,Delayed Release(Dr/Ec) 40 mg PO DAILY RF: 0 tramadol 50 mg Tablet 100 mg PO BEDTIME RF: 0 doxazosin 8 mg Tablet 8 mg PO DAILY RF: 0 folic acid 1 mg Tablet 2 mg PO DAILY RF: 0 levofloxacin 500 mg Tablet 500 mg PO DAILY RF: 0 diphenhydramine-acetaminophen [Tylenol PM Extra Strength] 25-500 mg Tablet 2 tab PO BEDTIME PRN (Reason: Sleep) RF: 0 fluticasone propionate 50 mcg/actuation [place],Suspension 1 spray INTRANASAL DAILY RF: 0 levalbuterol tartrate [Xopenex HFA] 45 mcg/actuation Hfa Aerosol Inhaler 1 puff INHALATION Q4-6H PRN (Reason: Shortness Of Breath) RF: 0 Eliquis 5 mg Tablet 5 mg PO BID RF: 0 atorvastatin [Lipitor] 20 MG tablet 40 mg PO HS RF: 0 oxycodone 10 mg tablet 10 mg PO Q4H PRN (Reason: pain) Qty: 40 RF: 0 oxycodone 5 mg tablet 5 mg PO Q6H PRN (Reason: spine fracture pain) Qty: 14 RF: 0 cyclobenzaprine 5 mg tablet 10 mg PO Q8H PRN (Reason: muscle spasm/back pain) Qty: 10 RF: 0 Referrals: Carolina Pepper MD [Primary Care Provider] -
[2020-05-31 19:07] LABS: Add Manual Diff / Slide Review NO; Basophils Absolute Auto 100 /uL (0-100); Basophils Percent Auto 0.7 % (0-2); Eosinophils Absolute Auto 200 /uL (0-450); Hematocrit 39.8 % (41-53); Lymphocytes Absolute Auto 2100 /uL (1100-4500); Lymphocytes Percent Auto 14.5 % (25-40); Mean Corpuscular HGB Conc 32.6 % (30-36); Mean Corpuscular Hemoglobin 28.5 PG (26-34); Mean Corpuscular Volume 87.5 fL (80-100); Monocytes Absolute Auto 1100 /uL (0-900); Monocytes Percent Auto 7.3 % (3-14); Neutrophils Absolute Auto 11200 /uL (1500-7000); Neutrophils Percent Auto 76.5 % (50-75); Platelet Count 246 X10^3/uL (150-400); Red Blood Cell Count 4.55 X10^6/uL (4.5-5.9); Red Cell Distribution Width 15.5 % (11.6-14.8); White Blood Cell Count 14.6 X10^3/uL (4.5-11.0)
[2020-05-31] MEDS: dilTIAZem 5 MG/ML SDV 20 MG IV (19:09)
[2020-05-31] MEDS: DILTIAZEM 125 MG/125 ML PIGGYBACK IV (19:16)
[2020-05-31] MEDS: SODIUM CHLORIDE 0.9% 1,000 ML 150 ML IV (19:17)
[2020-05-31 19:23] LABS: Blood Urea Nitrogen 24 mg/dL (9-20); Calcium 10.4 mg/dL (8.4-10.2); Carbon Dioxide 28 mmol/L (22-32); Chloride 100 mmol/L (98-107); Creatine Kinase 26 U/L (55-170); Estimated Glomerular Filt Rate 59.7 mL/min (>60); Glucose 197 mg/dL (80-110); HEMOLYSIS < 15 (0-50); Magnesium 1.8 mg/dL (1.6-2.3); Potassium 3.9 mmol/L (3.4-5.1); Sodium 135 mmol/L (137-145)
[2020-05-31 19:35] LABS: Troponin I < 0.012 ng/mL (0.01-0.034)
[2020-05-31 20:00] LABS: Thyroid Stimulating Hormone 3.94 uIU/mL (0.47-4.68)
--- NOTE | 2020-05-31 20:28 | DI.CT.S_ITS ---
PROCEDURE: CT ANGIO CHEST PE PROTOCOL INDICATIONS: short of breath, cough with blood, recent procedure TECHNIQUE: After the administration of intravenous contrast, 2 mm thick sections acquired from the pulmonary apices to the posterior costophrenic angles. 3-dimensional maximum intensity projection (MIP) coronal and sagittal reformats were then acquired through the thorax. For radiation dose reduction, the following was used: automated exposure control, adjustment of mA and/or kV according to patient size. COMPARISON: [facility], CR, XR CHEST 1V, 05/31/2020, 19:03. FINDINGS: Image quality: Excellent. Pulmonary arteries: Pulmonary arteries are normal in size, and demonstrate no intraluminal filling defects to suggest central pulmonary embolism. Lungs and pleura: Bilateral lower lobe peribronchial thickening and distal small airways occlusion in the posteromedial right lower lobe. Consolidative changes along the left diaphragm surface and minimally along the right diaphragm. There are no pleural effusions. Patchy biapical pleural plaquing, most extensive on the left where there is slight architectural distortion and small airways traction bronchiectasis. Posterior right lower lobe subpleural atelectatic or gravitational changes. Mediastinum: Heart size is normal, without pericardial effusion. Moderate coronary artery calcification. No mediastinal or hilar adenopathy. Thoracic aorta is normal in caliber and enhancement. Esophagus is normal in caliber, without hiatal hernia. Bones and chest wall: No suspicious bony lesions. There are vertebroplasty changes in the T12 vertebral body. Diffuse demineralization throughout the rest of the osseous structures. Thyroid gland is normal . No axillary or supraclavicular adenopathy. Abdomen: Visualized upper abdominal solid organs appear normal in the early arterial phase of enhancement. IMPRESSION: 1. No pulmonary embolus. 2. Bilateral lower lobe peribronchial thickening with right lower lobe distal airway occlusion and horizontal left lung base consolidation. 3. Biapical pleural plaquing, particularly at the left lung apex. Consider one year follow-up chest CT if the patient is high risk for lung cancer. 4. Moderate coronary artery calcification. Dictated by: Dee David M.D. on 05/31/2020 at 21:47 Approved by: Dee David M.D. on 05/31/2020 at 21:58
[2020-05-31 22:38] LABS: Troponin I < 0.012 ng/mL (0.01-0.034)
[2020-06-01] VITALS (12 sets, daily range): BP systolic 133–156; BP diastolic 80–87; PULSE 81–110; RESP 19–88; O2SAT 94–97
--- NOTE | 2020-06-01 00:33 | PC.NURSE ---
Diltiazem drip off since midnight, pt remains sinus rhythm. Cleared for discharge by Dr Bhatti.
== END 2020-06-01 00:58 | disposition home or self-care (01) ==
PROVIDERS: Emergency Provider Emergency Medicine; PCP Internal Medicine
DX: I48.0 Paroxysmal atrial fibrillation (principal); Z79.01 Long term (current) use of anticoagulants; I25.10 Atherosclerotic heart disease of native coronary artery without angina pectoris; Z95.5 Presence of coronary angioplasty implant and graft; I28.8 Other diseases of pulmonary vessels; R00.2 Palpitations; R07.9 Chest pain, unspecified
CPT/HCPCS: 36415; 71045; 71275; 80048; 82550; 83735; 84443; 84484; 85025; 93005; 93010; 96365; 96366; 96375; 99284; Q9967

== ENCOUNTER → 2020-07-28 13:07 | Outpatient (CLI) | payer OTHER, SELFPAY ==
[2020-07-28] MEDS: COVID-19 VACC #1, MRNA(MOD) 100 MCG/0.5 ML VIAL IM (13:13)
== END ==
PROVIDERS: PCP Internal Medicine; Visit Provider Internal Medicine
DX: Z23 Encounter for immunization (principal)
CPT/HCPCS: 0011A; 91301

== ENCOUNTER → 2020-08-23 15:33 | Outpatient (CLI) | payer OTHER, SELFPAY | PROVIDERS: PCP Internal Medicine; Referring Provider Internal Medicine Rheumatology; Visit Provider Internal Medicine Rheumatology | DX: J47.9 Bronchiectasis, uncomplicated (principal) | CPT/HCPCS: 87070; 87077; 87186; 87205 ==

== ENCOUNTER → 2020-08-26 15:03 | Outpatient (CLI) | payer OTHER, SELFPAY ==
[2020-08-26] MEDS: COVID-19 VACC #2, MRNA(MOD) 100 MCG/0.5 ML VIAL IM (15:11)
== END ==
PROVIDERS: PCP Internal Medicine; Visit Provider Internal Medicine
DX: Z23 Encounter for immunization (principal)
CPT/HCPCS: 0012A; 91301

== ENCOUNTER → 2020-12-28 09:03 | Outpatient (CLI) | payer OTHER, SELFPAY | PROVIDERS: PCP Internal Medicine; Referring Provider Internal Medicine; Visit Provider Internal Medicine | DX: R05 Cough (principal) | CPT/HCPCS: 87070; 87077; 87186; 87205 ==

== ENCOUNTER 2021-10-11 18:03 | Emergency (ER) | payer OTHER, SELFPAY ==
[2021-10-11] VITALS (14 sets, daily range): BP systolic 114–145; BP diastolic 59–72; PULSE 95–113; RESP 22–38; TEMP 36.6; O2SAT 91–96; BMI 27.9
--- NOTE | 2021-10-11 18:28 | DI.RAD.S_ITS ---
PROCEDURE: XR CHEST 1V INDICATIONS: suspected sepsis TECHNIQUE: One view of the chest was acquired. COMPARISON: [facility], CR, XR CHEST 1V, 05/31/2020, 19:03. FINDINGS: Surgical changes and devices: None. Lungs and pleura: There is left basilar density likely representing a combination of pleural fluid and atelectasis. Cannot exclude a basilar lung mass. Right basilar atelectasis versus scarring. Mediastinum: Mediastinal contours appear normal. Heart size is normal. Bones and chest wall: No suspicious bony lesions. Overlying soft tissues appear unremarkable. IMPRESSION: Ill left basilar density likely represents a combination of pleural fluid and atelectasis. Cannot exclude a basilar lung mass. There is right basilar atelectasis versus scarring. Comment: Consider chest CT with contrast. Dictated by: Franklyn Garcia M.D. on 10/11/2021 at 19:28 Approved by: Franklyn Garcia M.D. on 10/11/2021 at 19:31
[2021-10-11 19:08] LABS: Add Manual Diff / Slide Review NO; Basophils Absolute Auto 100 /uL (0-100); Basophils Percent Auto 0.9 % (0-2); Eosinophils Absolute Auto 100 /uL (0-450); Eosinophils Percent Auto 0.6 % (2-4); Hematocrit 38.4 % (41-53); Hemoglobin 12.4 g/dL (13.5-17.5); Lymphocytes Absolute Auto 1800 /uL (1100-4500); Lymphocytes Percent Auto 10.9 % (25-40); Mean Corpuscular HGB Conc 32.3 % (30-36); Mean Corpuscular Hemoglobin 29.2 PG (26-34); Mean Corpuscular Volume 90.4 fL (80-100); Monocytes Absolute Auto 1100 /uL (0-900); Monocytes Percent Auto 6.8 % (3-14); Neutrophils Absolute Auto 13100 /uL (1500-7000); Neutrophils Percent Auto 80.8 % (50-75); Platelet Count 201 X10^3/uL (150-400); Red Blood Cell Count 4.24 X10^6/uL (4.5-5.9); Red Cell Distribution Width 17.4 % (11.6-14.8); White Blood Cell Count 16.2 X10^3/uL (4.5-11.0)
[2021-10-11 19:17] LABS: INR 1.5 (0.9-1.3); Prothrombin Time 16.8 SECONDS (10.1-12.7)
[2021-10-11 19:20] LABS: PTT Partial Thromboplastin Tim 35 SECONDS (26.4-36.2)
[2021-10-11 19:21] LABS: Lactate (Lactic Acid) 2.6 mmol/L (0.7-2.1)
[2021-10-11 19:22] LABS: Alanine Aminotransferase 15 IU/L (<50); Albumin 4.2 g/dL (3.5-5.0); Albumin Globulin Ratio 1.2 (1.0-2.8); Alkaline Phosphatase 61 U/L (38-126); Aspartate Aminotransferase 18 IU/L (17-59); BUN Creatinine Ratio 12.9 (6-22); Bilirubin Total 1.2 mg/dL (0.2-1.3); Blood Urea Nitrogen 17 mg/dL (9-20); Calcium 9.6 mg/dL (8.4-10.2); Carbon Dioxide 26 mmol/L (22-32); Chloride 100 mmol/L (98-107); Estimated Glomerular Filt Rate 57 mL/min (>60); Globulin 3.4 g/dL (1.7-4.1); Glucose 101 mg/dL (80-110); HEMOLYSIS < 15 (0-50); Lipase 73 U/L (23-300); Potassium 3.9 mmol/L (3.4-5.1); Sodium 135 mmol/L (137-145); Total Protein 7.6 g/dL (6.3-8.2)
[2021-10-11 19:30] LABS: D Dimer 344 ng/mL (<230)
[2021-10-11] MEDS: SODIUM CHLORIDE 0.9% 934.4 ML IV (19:30)
--- NOTE | 2021-10-11 19:37 | ED.SOB ---
HPI - SOB/Dyspnea <Monroe Nunezan, DO - Last Filed: 10/17/21 08:13> General Chief Complaint: Shortness of Breath/Dyspnea Stated Complaint: SOB Time Seen by Provider: 10/11/21 18:55 Source: patient Mode of arrival: Ambulatory Limitations: no limitations History of Present Illness HPI Narrative: 70-year-old male nonsmoker with history of bronchiectasis and followed by pulmonology at [facility] has been on Levaquin for quite some time and 5 L of oxygen by nasal cannula. He presents with a chief complaint of worsening symptoms over the past few days. He has an appointment tomorrow with his payroll and benefits coordinator but did not think he could make it. He has increasing harsh cough with production of sputum. He feels fatigued in feverish with chills. He is nauseated but denies any vomiting. He has felt increasingly short of breath but denies changing his oxygen at home though he has been using more of his breathing treatment. Related Data Home Medications Medication Instructions Recorded Confirmed apixaban 5 mg tablet (Eliquis) 5 mg PO BID 04/02/19 10/12/21 omeprazole 40 mg capsule,delayed 40 mg PO DAILY 04/02/19 10/12/21 release prednisone 10 mg tablet 10 mg PO DAILY 04/02/19 10/12/21 Tobramycin 10/12/21 alendronate 70 mg tablet (Fosamax) 70 mg PO QWEEK 10/12/21 10/12/21 amlodipine 10 mg tablet 10 mg PO DAILY 10/12/21 10/12/21 atorvastatin 80 mg tablet 80 mg PO QPM 10/12/21 10/12/21 azithromycin 250 mg tablet 250 mg PO DAILY 10/12/21 10/12/21 carvedilol 25 mg tablet 25 mg PO BID 10/12/21 10/12/21 fluticasone propionate 115 2 puff INHALATION BID 10/12/21 10/12/21 mcg-salmeterol 21 mcg/actuation HFA inhaler (Advair HFA) fluticasone propionate 50 1 spray INTRANASAL DAILY 10/12/21 10/12/21 mcg/actuation nasal spray,suspension hydrochlorothiazide 12.5 mg capsule 12.5 mg PO DAILY 10/12/21 10/12/21 irbesartan 75 mg tablet 75 mg PO ONCE PM 10/12/21 10/12/21 levalbuterol HCl 0.63 mg/3 mL 0.63 mg INHALATION TID 10/12/21 10/12/21 solution for nebulization (Xopenex) tramadol 100 mg tablet,extended 100 mg PO BEDTIME 10/12/21 10/12/21 release 24 hr zolpidem 5 mg tablet 5 mg PO BEDTIME PRN 10/12/21 10/12/21 Previous Rx's Medication Instructions Recorded cyclobenzaprine 5 mg tablet 10 mg PO Q8H PRN #10 tab 09/15/19 Allergies Allergy/AdvReac Type Severity Reaction Status Date / Time amoxicillin AdvReac Mild NAUSEA Verified 09/23/19 08:55 levofloxacin AdvReac Mild GI UPSET Verified 09/23/19 08:55 Review of Systems <Monroe Bhatti DO - Last Filed: 10/17/21 08:13> Review of Systems Narrative: GENERAL: See HPI HEENT see HPI RESPIRATORY: See HPI CARDIOVASCULAR: Denies chest pain, palpitations, orthopnea, edema, GASTROINTESTINAL: Denies nausea, vomiting, abdominal pain, diarrhea, constipation, melena. : Denies dysuria, frequency, incontinence, hematuria, urinary retention. MUSCULOSKELETAL: denies weakness, joint pain, or bony pain SKIN: Denies rash, skin lesions, or other NEUROLOGIC: Denies weakness, headache, numbness, change in speech, confusion, seizures, incoordination. PSYCHIATRIC: No concerning psychosocial issues. 12 point review of systems is negative except for those stated above Patient History <Monroe Bhatti DO - Last Filed: 10/17/21 08:13> Medical History (Updated 10/28/21 @ 00:00 by ) Arthritis Atypical chest pain BPH (benign prostatic hyperplasia) Bronchiectasis Coronary artery disease DJD (degenerative joint disease) Dyspnea GERD (gastroesophageal reflux disease) Kidney stone (~2015) Microscopic polyangiitis Mycobacterium chelonae infection Non-productive cough Paroxysmal A-fib (03/09/18) Pneumonia (~07/2013) Vasculitis Surgical History History of colonoscopy (~2015) History of coronary artery stent placement (~06/2012) Social History household members: spouse Smoking Status: Never smoker alcohol intake: current Smoking Status: Never smoker alcohol intake frequency: holidays/special occasions only Substance Use Type: does not use Exam <Monroe Bhatti DO - Last Filed: 10/17/21 08:13> Narrative Exam Narrative: GENERAL: [70] year old patient appears stated age. Well-developed patient, in moderate distress, laying on his side with frequent harsh cough HEAD: Atraumatic. Normocephalic. EYES: Pupils equal round and reactive. Extraocular motions intact. No scleral icterus. No injection or drainage. ENT: Nose without bleeding, purulent drainage. Throat without erythema, tonsillar hypertrophy or exudate. Airway patent. NECK: Trachea midline. Non tender CARDIOVASCULAR: Regular rate and rhythm without murmurs, gallops, or rubs. RESPIRATORY: Increased rate of breathing, wet sounding cough, harsh lung sounds throughout, decreased sounds in left base GASTROINTESTINAL: Abdomen soft, non-tender, nondistended. EXTREMITIES: No edema or joint tenderness. BACK: Nontender without deformity or crepitance. No flank tenderness. NEURO: AOx3. SKIN: No rash or erythema of visible areas Initial Vital Signs Initial Vital Signs: Vital Signs Temperature 97.9 F 10/11/21 18:23 Pulse Rate 101 H 10/11/21 18:23 Respiratory Rate 28 H 10/11/21 18:23 Blood Pressure 114/59 L 10/11/21 18:23 Pulse Oximetry 94 10/11/21 18:23 <Kyler Ly MD - Last Filed: 11/08/21 18:12> Initial Vital Signs Initial Vital Signs: Vital Signs Temperature 97.9 F 10/11/21 18:23 Pulse Rate 101 H 10/11/21 18:23 Respiratory Rate 28 H 10/11/21 18:23 Blood Pressure 114/59 L 10/11/21 18:23 Pulse Oximetry 94 10/11/21 18:23 <Phil Soriano DO - Last Filed: 10/13/21 06:52> Initial Vital Signs Initial Vital Signs: Vital Signs Temperature 97.9 F 10/11/21 18:23 Pulse Rate 101 H 10/11/21 18:23 Respiratory Rate 28 H 10/11/21 18:23 Blood Pressure 114/59 L 10/11/21 18:23 Pulse Oximetry 94 10/11/21 18:23 Course <Monroe Bhatti DO - Last Filed: 10/17/21 08:13> Orders Ordered: Discontinued Medications Acetaminophen (Acetaminophen 325 Mg Tablet) 650 mg PO Q6HR PRN PRN Reason: Fever/Mild Pain (1-3) Last Admin: 10/12/21 13:58 Dose: 650 mg Documented by: Admin: 10/12/21 06:57 Dose: 650 mg Documented by: Admin: 10/12/21 01:01 Dose: 650 mg Documented by: VISHAL Albuterol/Ipratropium (Albuterol/Ipratropium 3 Ml Ampul) 3 ml INH NOW ONE Stop: 10/12/21 07:16 Last Admin: 10/12/21 07:19 Dose: 3 ml Documented by: MINAL Albuterol/Ipratropium (Albuterol/Ipratropium 3 Ml Ampul) 3 ml INH NOW ONE Stop: 10/13/21 14:23 Last Admin: 10/13/21 14:25 Dose: 3 ml Documented by: MINAL Amlodipine Besylate (Amlodipine 5 Mg Tablet) 10 mg PO NOW ONE Stop: 10/12/21 12:58 Last Admin: 10/12/21 13:58 Dose: 10 mg Documented by: JANET Amlodipine Besylate (Amlodipine 5 Mg Tablet) 10 mg PO DAILY [facility] Last Admin: 10/13/21 09:16 Dose: 10 mg Documented by: SARTHAK Apixaban (Apixaban 5 Mg Tablet) 5 mg PO NOW ONE Stop: 10/12/21 12:58 Last Admin: 10/12/21 13:58 Dose: 5 mg Documented by: JANET Apixaban (Apixaban 5 Mg Tablet) 5 mg PO BID [facility] Stop: 10/14/21 21:01 Apixaban (Apixaban 5 Mg Tablet) 5 mg PO BID [facility] Stop: 10/14/21 21:01 Last Admin: 10/13/21 21:17 Dose: 5 mg Documented by: Admin: 10/13/21 09:17 Dose: 5 mg Documented by: Admin: 10/13/21 00:08 Dose: 5 mg Documented by: JANET Atorvastatin Calcium (Atorvastatin 20 Mg Tablet) 80 mg PO NOW ONE Stop: 10/12/21 12:58 Last Admin: 10/12/21 13:57 Dose: 80 mg Documented by: JANET Atorvastatin Calcium (Atorvastatin 20 Mg Tablet) 80 mg PO BEDTIME [facility] Last Admin: 10/13/21 21:16 Dose: 80 mg Documented by: Admin: 10/13/21 00:09 Dose: 80 mg Documented by: JANET Carvedilol (Carvedilol 12.5 Mg Tablet) 25 mg PO NOW ONE Stop: 10/12/21 12:58 Last Admin: 10/12/21 13:57 Dose: 25 mg Documented by: JANET Carvedilol (Carvedilol 12.5 Mg Tablet) 25 mg PO BID [facility] Last Admin: 10/13/21 21:17 Dose: 25 mg Documented by: Admin: 10/13/21 09:16 Dose: 25 mg Documented by: Admin: 10/13/21 00:07 Dose: 25 mg Documented by: JANET Cyclobenzaprine HCl (Cyclobenzaprine 10 Mg Tablet) 10 mg PO NOW ONE Stop: 10/12/21 12:58 Last Admin: 10/12/21 13:58 Dose: 10 mg Documented by: JANET Guaifenesin/Codeine Phosphate (Codeine/Guaifenesin Liquid 5ml Udc) 10 ml PO NOW ONE Stop: 10/12/21 00:46 Last Admin: 10/12/21 01:01 Dose: 10 ml Documented by: VISHAL Guaifenesin/Codeine Phosphate (Codeine/Guaifenesin Liquid 5ml Udc) 10 ml PO NOW ONE Stop: 10/12/21 05:21 Last Admin: 10/12/21 05:33 Dose: 10 ml Documented by: VISHAL Guaifenesin/Codeine Phosphate (Codeine/Guaifenesin Liquid 5ml Udc) 10 ml PO NOW ONE Stop: 10/12/21 05:22 Last Admin: 10/12/21 05:37 Dose: Not Given Documented by: VISHAL Hydrochlorothiazide (Hydrochlorothiazide 25 Mg Tablet) 12.5 mg PO NOW ONE Stop: 10/12/21 12:58 Last Admin: 10/12/21 13:59 Dose: 12.5 mg Documented by: JANET Hydrochlorothiazide (Hydrochlorothiazide 25 Mg Tablet) 12.5 mg PO DAILY [facility] Last Admin: 10/13/21 09:15 Dose: 12.5 mg Documented by: ADELEXTO Hydromorphone HCl (Hydromorphone 0.5 Mg Inj) 0.5 mg IV NOW ONE Stop: 10/12/21 07:17 Last Admin: 10/12/21 09:45 Dose: 0.5 mg Documented by: EASTON Hydromorphone HCl (Hydromorphone 0.5 Mg Inj) 0.5 mg IV NOW ONE Stop: 10/12/21 14:10 Last Admin: 10/12/21 14:16 Dose: 0.5 mg Documented by: JANET Hydromorphone HCl (Hydromorphone 0.5 Mg Inj) 0.5 mg IV NOW ONE Stop: 10/13/21 13:27 Last Admin: 10/13/21 13:37 Dose: 0.5 mg Documented by: SARTHAK Sodium Chloride (Normal Saline 0.9%) 1,000 mls @ 1,000 mls/hr IV BOLUS ONE Stop: 10/11/21 19:27 Last Admin: 10/11/21 19:59 Dose: Not Given Documented by: VISHAL Sodium Chloride (Normal Saline 0.9%) 2,803.2 mls @ 934.4 mls/hr 30 ml/kg infuse over 3 hr (2803.2 ml) IV NOW ONE Stop: 10/11/21 22:44 Last Infusion: 10/11/21 23:06 Dose: 0 mls/hr Documented by: Admin: 10/11/21 19:30 Dose: 934.4 mls/hr Documented by: CHAY Ceftriaxone Sodium 2,000 mg/ (Sodium Chloride) 100 mls @ 200 mls/hr IV NOW ONE Stop: 10/11/21 19:46 Last Infusion: 10/11/21 20:59 Dose: 0 mls/hr Documented by: Admin: 10/11/21 20:17 Dose: 200 mls/hr Documented by: DUY Piperacillin Sod/Tazobactam (Sod 4.5 gm/ Sodium Chloride) 100 mls @ 200 mls/hr IV NOW ONE Stop: 10/12/21 01:44 Last Infusion: 10/12/21 02:45 Dose: 0 mls/hr Documented by: Admin: 10/12/21 01:57 Dose: 200 mls/hr Documented by: VISHAL Piperacillin Sod/Tazobactam (Sod 4.5 gm/ Sodium Chloride) 100 mls @ 200 mls/hr IV NOW ONE Stop: 10/12/21 15:25 Last Infusion: 10/12/21 16:47 Dose: 0 mls/hr Documented by: Admin: 10/12/21 16:12 Dose: 200 mls/hr Documented by: JANET Piperacillin Sod/Tazobactam (Sod 4.5 gm/ Sodium Chloride) 100 mls @ 200 mls/hr IV Q8HR [facility] Last Infusion: 10/13/21 06:38 Dose: 0 mls/hr Documented by: Admin: 10/13/21 06:01 Dose: 200 mls/hr Documented by: Infusion: 10/13/21 00:55 Dose: 0 mls/hr Documented by: Admin: 10/13/21 00:25 Dose: 200 mls/hr Documented by: JANET Piperacillin Sod/Tazobactam (Sod 3.375 gm/ Sodium Chloride) 100 mls @ 200 mls/hr IV Q8HR [facility] Last Infusion: 10/13/21 21:45 Dose: 0 mls/hr Documented by: Admin: 10/13/21 21:18 Dose: 200 mls/hr Documented by: Infusion: 10/13/21 15:05 Dose: 0 mls/hr Documented by: Admin: 10/13/21 13:38 Dose: 200 mls/hr Documented by: SARTHAK Ondansetron HCl (Ondansetron 4 Mg/2 Ml Inj) 4 mg IV NOW ONE Stop: 10/11/21 20:11 Last Admin: 10/11/21 20:16 Dose: 4 mg Documented by: DUY Pantoprazole Sodium (Pantoprazole Dr 20 Mg Tablet) 20 mg PO NOW ONE Stop: 10/12/21 13:01 Last Admin: 10/12/21 13:58 Dose: 20 mg Documented by: JANET Pantoprazole Sodium (Pantoprazole Dr 20 Mg Tablet) 20 mg PO DAILY [facility] Last Admin: 10/13/21 09:15 Dose: 20 mg Documented by: [email or web address] Prednisone (Prednisone 20 Mg Tablet) 10 mg PO NOW ONE Stop: 10/12/21 13:01 Last Admin: 10/12/21 13:59 Dose: 10 mg Documented by: JANET Prednisone (Prednisone 5 Mg Tablet) 10 mg PO DAILY [facility] Last Admin: 10/13/21 09:16 Dose: 10 mg Documented by: [email or web address] Tramadol HCl (Tramadol 50 Mg Tablet) 100 mg PO BEDTIME [facility] Last Admin: 10/13/21 21:16 Dose: 100 mg Documented by: Admin: 10/13/21 00:09 Dose: 100 mg Documented by: JANET Reevaluation(s) Reevaluation #1: patient with increased cough, slight increased work of breathing, SpO2 89-90% on Venturi. Call to RT to switch to heated hi tristan Consultations Consultation #1: discussed with hospitalist. Given complexity of lung diagnosis and history, with septic picture and loculated effusion he is most appropriately cared for at a tertiary care center Consultation #2: calls to , [facility]. No beds tonight. 0630 - continuing to work on bed. Vital Signs Vital signs: Vital Signs - 8 hr 10/13/21 10:30 10/13/21 11:00 10/13/21 11:30 Pulse Rate 81 84 85 Respiratory Rate 29 H 24 24 Blood Pressure 114/64 122/63 Pulse Oximetry 94 98 96 10/13/21 12:00 10/13/21 12:30 10/13/21 13:00 Pulse Rate 82 79 84 Respiratory Rate 20 20 21 Blood Pressure 132/67 116/68 112/65 Pulse Oximetry 95 95 96 10/13/21 13:30 10/13/21 14:00 10/13/21 14:30 Pulse Rate 80 79 81 Respiratory Rate 21 18 15 Blood Pressure 112/57 L 111/55 L 111/60 Pulse Oximetry 94 95 97 10/13/21 14:53 10/13/21 15:00 10/13/21 15:30 Pulse Rate 79 76 Respiratory Rate 24 24 Blood Pressure 113/63 114/61 Pulse Oximetry 96 97 96 10/13/21 16:00 10/13/21 16:30 10/13/21 17:00 Pulse Rate 77 78 81 Respiratory Rate 24 21 19 Blood Pressure 115/69 120/66 124/70 Pulse Oximetry 97 98 91 10/13/21 17:30 10/13/21 18:00 Pulse Rate 81 88 Respiratory Rate 21 Blood Pressure 129/76 121/63 Pulse Oximetry 92 94 <Kyler Ly MD - Last Filed: 11/08/21 18:12> Course Course Narrative: The patient is under the care of payroll and benefits coordinator for chronic bronchiectasis. He is on 5 L of oxygen at home, he takes Levaquin daily. He presented here with acute exacerbation dyspnea. He is found to have bilateral pneumonia. Sputum sample revealed a Gram-negative organism, presumed to be Pseudomonas. Zosyn was started. He is requiring high-flow oxygen. He notes he is feeling much better after treatment. He can talk in full sentences, although requiring the oxygen. ABGs are acceptable with the oxygen. His vitals are stable. Patient's lungs show bilateral coarse rales/rhonchi. He feels he has improved after receiving DuoNeb. He also received Zosyn. The patient's payroll and benefits coordinator is affiliated with [facility] in [place]. I discussed the patient's situation with the hospitalist, Dr. Leavitt. She has accepted the patient transfer. We are waiting an available bed. I have given the patient his daily meds, as well as continued Zosyn and breathing treatments as needed. The patient has been clinically showing signs of improvement throughout the day, requiring oxygen and his medications. He is able to eat and drink. He is at bedside. He is talking with comfort. Patient's care/disposition will transfer to Dr. Soriano with shift change. The patient has been accepted for transfer. Jen Anderson MD 18:22, 10/12/21. The patient was under the care of Dr. Soriano last night, awaiting transfer. The the course of my shift today there is still no bed available. The patient continues to receive Zosyn. He is on O2 10 L nasal cannula. He reports feeling better. The dyspnea has improved. I gave him a DuoNeb, peak flow was 250 before and after the treatment. He has decrease breath sounds in the bases of both lungs, rales throughout. There are no beds available again today. Care will be again transitioned to Dr. Soriano at the end of my shift. Misty HALL 18:24, 10/13/21. Orders Ordered: Discontinued Medications Acetaminophen (Acetaminophen 325 Mg Tablet) 650 mg PO Q6HR PRN PRN Reason: Fever/Mild Pain (1-3) Last Admin: 10/12/21 13:58 Dose: 650 mg Documented by: Admin: 10/12/21 06:57 Dose: 650 mg Documented by: Admin: 10/12/21 01:01 Dose: 650 mg Documented by: VISHAL Albuterol/Ipratropium (Albuterol/Ipratropium 3 Ml Ampul) 3 ml INH NOW ONE Stop: 10/12/21 07:16 Last Admin: 10/12/21 07:19 Dose: 3 ml Documented by: MINAL Albuterol/Ipratropium (Albuterol/Ipratropium 3 Ml Ampul) 3 ml INH NOW ONE Stop: 10/13/21 14:23 Last Admin: 10/13/21 14:25 Dose: 3 ml Documented by: MINAL Amlodipine Besylate (Amlodipine 5 Mg Tablet) 10 mg PO NOW ONE Stop: 10/12/21 12:58 Last Admin: 10/12/21 13:58 Dose: 10 mg Documented by: JANET Amlodipine Besylate (Amlodipine 5 Mg Tablet) 10 mg PO DAILY [facility] Last Admin: 10/13/21 09:16 Dose: 10 mg Documented by: SARTHAK Apixaban (Apixaban 5 Mg Tablet) 5 mg PO NOW ONE Stop: 10/12/21 12:58 Last Admin: 10/12/21 13:58 Dose: 5 mg Documented by: JANET Apixaban (Apixaban 5 Mg Tablet) 5 mg PO BID [facility] Stop: 10/14/21 21:01 Apixaban (Apixaban 5 Mg Tablet) 5 mg PO BID [facility] Stop: 10/14/21 21:01 Last Admin: 10/13/21 21:17 Dose: 5 mg Documented by: Admin: 10/13/21 09:17 Dose: 5 mg Documented by: Admin: 10/13/21 00:08 Dose: 5 mg Documented by: JANET Atorvastatin Calcium (Atorvastatin 20 Mg Tablet) 80 mg PO NOW ONE Stop: 10/12/21 12:58 Last Admin: 10/12/21 13:57 Dose: 80 mg Documented by: JANET Atorvastatin Calcium (Atorvastatin 20 Mg Tablet) 80 mg PO BEDTIME [facility] Last Admin: 10/13/21 21:16 Dose: 80 mg Documented by: Admin: 10/13/21 00:09 Dose: 80 mg Documented by: JANET Carvedilol (Carvedilol 12.5 Mg Tablet) 25 mg PO NOW ONE Stop: 10/12/21 12:58 Last Admin: 10/12/21 13:57 Dose: 25 mg Documented by: JANET Carvedilol (Carvedilol 12.5 Mg Tablet) 25 mg PO BID [facility] Last Admin: 10/13/21 21:17 Dose: 25 mg Documented by: Admin: 10/13/21 09:16 Dose: 25 mg Documented by: Admin: 10/13/21 00:07 Dose: 25 mg Documented by: JANET Cyclobenzaprine HCl (Cyclobenzaprine 10 Mg Tablet) 10 mg PO NOW ONE Stop: 10/12/21 12:58 Last Admin: 10/12/21 13:58 Dose: 10 mg Documented by: JANET Guaifenesin/Codeine Phosphate (Codeine/Guaifenesin Liquid 5ml Udc) 10 ml PO NOW ONE Stop: 10/12/21 00:46 Last Admin: 10/12/21 01:01 Dose: 10 ml Documented by: VISHAL Guaifenesin/Codeine Phosphate (Codeine/Guaifenesin Liquid 5ml Udc) 10 ml PO NOW ONE Stop: 10/12/21 05:21 Last Admin: 10/12/21 05:33 Dose: 10 ml Documented by: VISHAL Guaifenesin/Codeine Phosphate (Codeine/Guaifenesin Liquid 5ml Udc) 10 ml PO NOW ONE Stop: 10/12/21 05:22 Last Admin: 10/12/21 05:37 Dose: Not Given Documented by: VISHAL Hydrochlorothiazide (Hydrochlorothiazide 25 Mg Tablet) 12.5 mg PO NOW ONE Stop: 10/12/21 12:58 Last Admin: 10/12/21 13:59 Dose: 12.5 mg Documented by: JANET Hydrochlorothiazide (Hydrochlorothiazide 25 Mg Tablet) 12.5 mg PO DAILY [facility] Last Admin: 10/13/21 09:15 Dose: 12.5 mg Documented by: ADELEXTLee Hydromorphone HCl (Hydromorphone 0.5 Mg Inj) 0.5 mg IV NOW ONE Stop: 10/12/21 07:17 Last Admin: 10/12/21 09:45 Dose: 0.5 mg Documented by: EASTON Hydromorphone HCl (Hydromorphone 0.5 Mg Inj) 0.5 mg IV NOW ONE Stop: 10/12/21 14:10 Last Admin: 10/12/21 14:16 Dose: 0.5 mg Documented by: JANET Hydromorphone HCl (Hydromorphone 0.5 Mg Inj) 0.5 mg IV NOW ONE Stop: 10/13/21 13:27 Last Admin: 10/13/21 13:37 Dose: 0.5 mg Documented by: SARTHAK Sodium Chloride (Normal Saline 0.9%) 1,000 mls @ 1,000 mls/hr IV BOLUS ONE Stop: 10/11/21 19:27 Last Admin: 10/11/21 19:59 Dose: Not Given Documented by: VISHAL Sodium Chloride (Normal Saline 0.9%) 2,803.2 mls @ 934.4 mls/hr 30 ml/kg infuse over 3 hr (2803.2 ml) IV NOW ONE Stop: 10/11/21 22:44 Last Infusion: 10/11/21 23:06 Dose: 0 mls/hr Documented by: Admin: 10/11/21 19:30 Dose: 934.4 mls/hr Documented by: CHAY Ceftriaxone Sodium 2,000 mg/ (Sodium Chloride) 100 mls @ 200 mls/hr IV NOW ONE Stop: 10/11/21 19:46 Last Infusion: 10/11/21 20:59 Dose: 0 mls/hr Documented by: Admin: 10/11/21 20:17 Dose: 200 mls/hr Documented by: DUY Piperacillin Sod/Tazobactam (Sod 4.5 gm/ Sodium Chloride) 100 mls @ 200 mls/hr IV NOW ONE Stop: 10/12/21 01:44 Last Infusion: 10/12/21 02:45 Dose: 0 mls/hr Documented by: Admin: 10/12/21 01:57 Dose: 200 mls/hr Documented by: VISHAL Piperacillin Sod/Tazobactam (Sod 4.5 gm/ Sodium Chloride) 100 mls @ 200 mls/hr IV NOW ONE Stop: 10/12/21 15:25 Last Infusion: 10/12/21 16:47 Dose: 0 mls/hr Documented by: Admin: 10/12/21 16:12 Dose: 200 mls/hr Documented by: JANET Piperacillin Sod/Tazobactam (Sod 4.5 gm/ Sodium Chloride) 100 mls @ 200 mls/hr IV Q8HR [facility] Last Infusion: 10/13/21 06:38 Dose: 0 mls/hr Documented by: Admin: 10/13/21 06:01 Dose: 200 mls/hr Documented by: Infusion: 10/13/21 00:55 Dose: 0 mls/hr Documented by: Admin: 10/13/21 00:25 Dose: 200 mls/hr Documented by: JANET Piperacillin Sod/Tazobactam (Sod 3.375 gm/ Sodium Chloride) 100 mls @ 200 mls/hr IV Q8HR [facility] Last Infusion: 10/13/21 21:45 Dose: 0 mls/hr Documented by: Admin: 10/13/21 21:18 Dose: 200 mls/hr Documented by: Infusion: 10/13/21 15:05 Dose: 0 mls/hr Documented by: Admin: 10/13/21 13:38 Dose: 200 mls/hr Documented by: SARTHAK Ondansetron HCl (Ondansetron 4 Mg/2 Ml Inj) 4 mg IV NOW ONE Stop: 10/11/21 20:11 Last Admin: 10/11/21 20:16 Dose: 4 mg Documented by: DUY Pantoprazole Sodium (Pantoprazole Dr 20 Mg Tablet) 20 mg PO NOW ONE Stop: 10/12/21 13:01 Last Admin: 10/12/21 13:58 Dose: 20 mg Documented by: JANET Pantoprazole Sodium (Pantoprazole Dr 20 Mg Tablet) 20 mg PO DAILY [facility] Last Admin: 10/13/21 09:15 Dose: 20 mg Documented by: ADELEXTLee Prednisone (Prednisone 20 Mg Tablet) 10 mg PO NOW ONE Stop: 10/12/21 13:01 Last Admin: 10/12/21 13:59 Dose: 10 mg Documented by: JANET Prednisone (Prednisone 5 Mg Tablet) 10 mg PO DAILY [facility] Last Admin: 10/13/21 09:16 Dose: 10 mg Documented by: SARTHAK Tramadol HCl (Tramadol 50 Mg Tablet) 100 mg PO BEDTIME [facility] Last Admin: 10/13/21 21:16 Dose: 100 mg Documented by: Admin: 10/13/21 00:09 Dose: 100 mg Documented by: JANET Vital Signs Vital signs: Vital Signs - 8 hr 10/13/21 10:30 10/13/21 11:00 10/13/21 11:30 Pulse Rate 81 84 85 Respiratory Rate 29 H 24 24 Blood Pressure 114/64 122/63 Pulse Oximetry 94 98 96 10/13/21 12:00 10/13/21 12:30 10/13/21 13:00 Pulse Rate 82 79 84 Respiratory Rate 20 20 21 Blood Pressure 132/67 116/68 112/65 Pulse Oximetry 95 95 96 10/13/21 13:30 10/13/21 14:00 10/13/21 14:30 Pulse Rate 80 79 81 Respiratory Rate 21 18 15 Blood Pressure 112/57 L 111/55 L 111/60 Pulse Oximetry 94 95 97 10/13/21 14:53 10/13/21 15:00 10/13/21 15:30 Pulse Rate 79 76 Respiratory Rate 24 24 Blood Pressure 113/63 114/61 Pulse Oximetry 96 97 96 10/13/21 16:00 10/13/21 16:30 10/13/21 17:00 Pulse Rate 77 78 81 Respiratory Rate 24 21 19 Blood Pressure 115/69 120/66 124/70 Pulse Oximetry 97 98 91 10/13/21 17:30 10/13/21 18:00 Pulse Rate 81 88 Respiratory Rate 21 Blood Pressure 129/76 121/63 Pulse Oximetry 92 94 <Phil Soriano DO - Last Filed: 10/13/21 06:52> Orders Ordered: Discontinued Medications Acetaminophen (Acetaminophen 325 Mg Tablet) 650 mg PO Q6HR PRN PRN Reason: Fever/Mild Pain (1-3) Last Admin: 10/12/21 13:58 Dose: 650 mg Documented by: Admin: 10/12/21 06:57 Dose: 650 mg Documented by: Admin: 10/12/21 01:01 Dose: 650 mg Documented by: VISHAL Albuterol/Ipratropium (Albuterol/Ipratropium 3 Ml Ampul) 3 ml INH NOW ONE Stop: 10/12/21 07:16 Last Admin: 10/12/21 07:19 Dose: 3 ml Documented by: MINAL Albuterol/Ipratropium (Albuterol/Ipratropium 3 Ml Ampul) 3 ml INH NOW ONE Stop: 10/13/21 14:23 Last Admin: 10/13/21 14:25 Dose: 3 ml Documented by: MINAL Amlodipine Besylate (Amlodipine 5 Mg Tablet) 10 mg PO NOW ONE Stop: 10/12/21 12:58 Last Admin: 10/12/21 13:58 Dose: 10 mg Documented by: JANET Amlodipine Besylate (Amlodipine 5 Mg Tablet) 10 mg PO DAILY [facility] Last Admin: 10/13/21 09:16 Dose: 10 mg Documented by: SARTHAK Apixaban (Apixaban 5 Mg Tablet) 5 mg PO NOW ONE Stop: 10/12/21 12:58 Last Admin: 10/12/21 13:58 Dose: 5 mg Documented by: JANET Apixaban (Apixaban 5 Mg Tablet) 5 mg PO BID [facility] Stop: 10/14/21 21:01 Apixaban (Apixaban 5 Mg Tablet) 5 mg PO BID [facility] Stop: 10/14/21 21:01 Last Admin: 10/13/21 21:17 Dose: 5 mg Documented by: Admin: 10/13/21 09:17 Dose: 5 mg Documented by: Admin: 10/13/21 00:08 Dose: 5 mg Documented by: JANET Atorvastatin Calcium (Atorvastatin 20 Mg Tablet) 80 mg PO NOW ONE Stop: 10/12/21 12:58 Last Admin: 10/12/21 13:57 Dose: 80 mg Documented by: JANET Atorvastatin Calcium (Atorvastatin 20 Mg Tablet) 80 mg PO BEDTIME [facility] Last Admin: 10/13/21 21:16 Dose: 80 mg Documented by: Admin: 10/13/21 00:09 Dose: 80 mg Documented by: JANET Carvedilol (Carvedilol 12.5 Mg Tablet) 25 mg PO NOW ONE Stop: 10/12/21 12:58 Last Admin: 10/12/21 13:57 Dose: 25 mg Documented by: JANET Carvedilol (Carvedilol 12.5 Mg Tablet) 25 mg PO BID [facility] Last Admin: 10/13/21 21:17 Dose: 25 mg Documented by: Admin: 10/13/21 09:16 Dose: 25 mg Documented by: Admin: 10/13/21 00:07 Dose: 25 mg Documented by: JANET Cyclobenzaprine HCl (Cyclobenzaprine 10 Mg Tablet) 10 mg PO NOW ONE Stop: 10/12/21 12:58 Last Admin: 10/12/21 13:58 Dose: 10 mg Documented by: JANET Guaifenesin/Codeine Phosphate (Codeine/Guaifenesin Liquid 5ml Udc) 10 ml PO NOW ONE Stop: 10/12/21 00:46 Last Admin: 10/12/21 01:01 Dose: 10 ml Documented by: VISHAL Guaifenesin/Codeine Phosphate (Codeine/Guaifenesin Liquid 5ml Udc) 10 ml PO NOW ONE Stop: 10/12/21 05:21 Last Admin: 10/12/21 05:33 Dose: 10 ml Documented by: VISHAL Guaifenesin/Codeine Phosphate (Codeine/Guaifenesin Liquid 5ml Udc) 10 ml PO NOW ONE Stop: 10/12/21 05:22 Last Admin: 10/12/21 05:37 Dose: Not Given Documented by: VISHAL Hydrochlorothiazide (Hydrochlorothiazide 25 Mg Tablet) 12.5 mg PO NOW ONE Stop: 10/12/21 12:58 Last Admin: 10/12/21 13:59 Dose: 12.5 mg Documented by: JANET Hydrochlorothiazide (Hydrochlorothiazide 25 Mg Tablet) 12.5 mg PO DAILY [facility] Last Admin: 10/13/21 09:15 Dose: 12.5 mg Documented by: SARTHAK Hydromorphone HCl (Hydromorphone 0.5 Mg Inj) 0.5 mg IV NOW ONE Stop: 10/12/21 07:17 Last Admin: 10/12/21 09:45 Dose: 0.5 mg Documented by: EASTON Hydromorphone HCl (Hydromorphone 0.5 Mg Inj) 0.5 mg IV NOW ONE Stop: 10/12/21 14:10 Last Admin: 10/12/21 14:16 Dose: 0.5 mg Documented by: JANET Hydromorphone HCl (Hydromorphone 0.5 Mg Inj) 0.5 mg IV NOW ONE Stop: 10/13/21 13:27 Last Admin: 10/13/21 13:37 Dose: 0.5 mg Documented by: ADELEXTLee Sodium Chloride (Normal Saline 0.9%) 1,000 mls @ 1,000 mls/hr IV BOLUS ONE Stop: 10/11/21 19:27 Last Admin: 10/11/21 19:59 Dose: Not Given Documented by: VISHAL Sodium Chloride (Normal Saline 0.9%) 2,803.2 mls @ 934.4 mls/hr 30 ml/kg infuse over 3 hr (2803.2 ml) IV NOW ONE Stop: 10/11/21 22:44 Last Infusion: 10/11/21 23:06 Dose: 0 mls/hr Documented by: Admin: 10/11/21 19:30 Dose: 934.4 mls/hr Documented by: CHAY Ceftriaxone Sodium 2,000 mg/ (Sodium Chloride) 100 mls @ 200 mls/hr IV NOW ONE Stop: 10/11/21 19:46 Last Infusion: 10/11/21 20:59 Dose: 0 mls/hr Documented by: Admin: 10/11/21 20:17 Dose: 200 mls/hr Documented by: DUY Piperacillin Sod/Tazobactam (Sod 4.5 gm/ Sodium Chloride) 100 mls @ 200 mls/hr IV NOW ONE Stop: 10/12/21 01:44 Last Infusion: 10/12/21 02:45 Dose: 0 mls/hr Documented by: Admin: 10/12/21 01:57 Dose: 200 mls/hr Documented by: KPETERSON Piperacillin Sod/Tazobactam (Sod 4.5 gm/ Sodium Chloride) 100 mls @ 200 mls/hr IV NOW ONE Stop: 10/12/21 15:25 Last Infusion: 10/12/21 16:47 Dose: 0 mls/hr Documented by: Admin: 10/12/21 16:12 Dose: 200 mls/hr Documented by: JANET Piperacillin Sod/Tazobactam (Sod 4.5 gm/ Sodium Chloride) 100 mls @ 200 mls/hr IV Q8HR [facility] Last Infusion: 10/13/21 06:38 Dose: 0 mls/hr Documented by: Admin: 10/13/21 06:01 Dose: 200 mls/hr Documented by: Infusion: 10/13/21 00:55 Dose: 0 mls/hr Documented by: Admin: 10/13/21 00:25 Dose: 200 mls/hr Documented by: JANET Piperacillin Sod/Tazobactam (Sod 3.375 gm/ Sodium Chloride) 100 mls @ 200 mls/hr IV Q8HR [facility] Last Infusion: 10/13/21 21:45 Dose: 0 mls/hr Documented by: Admin: 10/13/21 21:18 Dose: 200 mls/hr Documented by: Infusion: 10/13/21 15:05 Dose: 0 mls/hr Documented by: Admin: 10/13/21 13:38 Dose: 200 mls/hr Documented by: SARTHAK Ondansetron HCl (Ondansetron 4 Mg/2 Ml Inj) 4 mg IV NOW ONE Stop: 10/11/21 20:11 Last Admin: 10/11/21 20:16 Dose: 4 mg Documented by: DUY Pantoprazole Sodium (Pantoprazole Dr 20 Mg Tablet) 20 mg PO NOW ONE Stop: 10/12/21 13:01 Last Admin: 10/12/21 13:58 Dose: 20 mg Documented by: JANET Pantoprazole Sodium (Pantoprazole Dr 20 Mg Tablet) 20 mg PO DAILY [facility] Last Admin: 10/13/21 09:15 Dose: 20 mg Documented by: SARTHAK Prednisone (Prednisone 20 Mg Tablet) 10 mg PO NOW ONE Stop: 10/12/21 13:01 Last Admin: 10/12/21 13:59 Dose: 10 mg Documented by: JANET Prednisone (Prednisone 5 Mg Tablet) 10 mg PO DAILY [facility] Last Admin: 10/13/21 09:16 Dose: 10 mg Documented by: SARTHAK Tramadol HCl (Tramadol 50 Mg Tablet) 100 mg PO BEDTIME [facility] Last Admin: 10/13/21 21:16 Dose: 100 mg Documented by: Admin: 10/13/21 00:09 Dose: 100 mg Documented by: JANET Vital Signs Vital signs: Vital Signs - 8 hr 10/13/21 10:30 10/13/21 11:00 10/13/21 11:30 Pulse Rate 81 84 85 Respiratory Rate 29 H 24 24 Blood Pressure 114/64 122/63 Pulse Oximetry 94 98 96 10/13/21 12:00 10/13/21 12:30 10/13/21 13:00 Pulse Rate 82 79 84 Respiratory Rate 20 20 21 Blood Pressure 132/67 116/68 112/65 Pulse Oximetry 95 95 96 10/13/21 13:30 10/13/21 14:00 10/13/21 14:30 Pulse Rate 80 79 81 Respiratory Rate 21 18 15 Blood Pressure 112/57 L 111/55 L 111/60 Pulse Oximetry 94 95 97 10/13/21 14:53 10/13/21 15:00 10/13/21 15:30 Pulse Rate 79 76 Respiratory Rate 24 24 Blood Pressure 113/63 114/61 Pulse Oximetry 96 97 96 10/13/21 16:00 10/13/21 16:30 10/13/21 17:00 Pulse Rate 77 78 81 Respiratory Rate 24 21 19 Blood Pressure 115/69 120/66 124/70 Pulse Oximetry 97 98 91 10/13/21 17:30 10/13/21 18:00 Pulse Rate 81 88 Respiratory Rate 21 Blood Pressure 129/76 121/63 Pulse Oximetry 92 94 MDM - SOB/Dyspnea <Monroe Bhatti DO - Last Filed: 10/17/21 08:13> Lab Data Result diagrams: 10/13/21 09:10 10/13/21 09:10 Labs: Lab Results 10/11/21 10/11/21 10/11/21 Range/Units 19:00 19:00 19:00 WBC 16.2 H (4.5-11.0) X10^3/uL RBC 4.24 L (4.5-5.9) X10^6/uL Hgb 12.4 L (13.5-17.5) g/dL Hct 38.4 L (41-53) % MCV 90.4 (80-100) fL MCH 29.2 (26-34) PG MCHC 32.3 (30-36) % RDW 17.4 H (11.6-14.8) % Plt Count 201 (150-400) X10^3/uL Neut % (Auto) 80.8 H (50-75) % Lymph % (Auto) 10.9 L (25-40) % [place] % (Auto) 6.8 (3-14) % Eos % (Auto) 0.6 L (2-4) % Baso % (Auto) 0.9 (0-2) % Neut # (Auto) 70578 H (4203-9471) /uL Lymph # (Auto) 1800 (7328-6801) /uL [place] # (Auto) 1100 H (0-900) /uL Eos # (Auto) 100 (0-450) /uL Baso # (Auto) 100 (0-100) /uL PT 16.8 H (10.1-12.7) SECONDS INR 1.5 H (0.9-1.3) APTT 35 D (26.4-36.2) SECONDS D-Dimer (<230) ng/mL ABG pH (7.35-7.45) ABG pCO2 (35-45) mmHg ABG pO2 (80-100) mmHg ABG HCO3 (22-26) mmol/L ABG Total CO2 (21-31) mmol/L ABG O2 Saturation (95-100) % ABG Base Excess (-2-2) mmol/L FiO2 Sodium 135 L (137-145) mmol/L Potassium 3.9 (3.4-5.1) mmol/L Chloride 100 (98-107) mmol/L Carbon Dioxide 26 (22-32) mmol/L BUN 17 (9-20) mg/dL Creatinine 1.32 H (0.66-1.25) mg/dL Estimated GFR 57 L (>60) mL/min BUN/Creatinine Ratio 12.9 (6-22) Glucose 101 (80-110) mg/dL Lactate (0.7-2.1) mmol/L Calcium 9.6 (8.4-10.2) mg/dL Total Bilirubin 1.2 (0.2-1.3) mg/dL AST 18 (17-59) IU/L ALT 15 (<50) IU/L Alkaline Phosphatase 61 (38-126) U/L Total Protein 7.6 (6.3-8.2) g/dL Albumin 4.2 (3.5-5.0) g/dL Globulin 3.4 (1.7-4.1) g/dL Albumin/Globulin Ratio 1.2 (1.0-2.8) Lipase 73 (23-300) U/L Procalcitonin 1.50 H (<0.5) ng/mL Urine RBC (0-5/HPF) Urine WBC (0-5/HPF) Urine Bacteria (None) Ur Culture Indicated? Micro UA Comment SARS-CoV-2 (PCR) (Negative) 10/11/21 10/11/21 10/11/21 Range/Units 19:00 19:00 21:23 WBC (4.5-11.0) X10^3/uL RBC (4.5-5.9) X10^6/uL Hgb (13.5-17.5) g/dL Hct (41-53) % MCV (80-100) fL MCH (26-34) PG MCHC (30-36) % RDW (11.6-14.8) % Plt Count (150-400) X10^3/uL Neut % (Auto) (50-75) % Lymph % (Auto) (25-40) % [place] % (Auto) (3-14) % Eos % (Auto) (2-4) % Baso % (Auto) (0-2) % Neut # (Auto) (2607-9313) /uL Lymph # (Auto) (6336-2052) /uL [place] # (Auto) (0-900) /uL Eos # (Auto) (0-450) /uL Baso # (Auto) (0-100) /uL PT (10.1-12.7) SECONDS INR (0.9-1.3) APTT (26.4-36.2) SECONDS D-Dimer 344 H (<230) ng/mL ABG pH (7.35-7.45) ABG pCO2 (35-45) mmHg ABG pO2 (80-100) mmHg ABG HCO3 (22-26) mmol/L ABG Total CO2 (21-31) mmol/L ABG O2 Saturation (95-100) % ABG Base Excess (-2-2) mmol/L FiO2 Sodium (137-145) mmol/L Potassium (3.4-5.1) mmol/L Chloride (98-107) mmol/L Carbon Dioxide (22-32) mmol/L BUN (9-20) mg/dL Creatinine (0.66-1.25) mg/dL Estimated GFR (>60) mL/min BUN/Creatinine Ratio (6-22) Glucose (80-110) mg/dL Lactate 2.6 H 0.8 (0.7-2.1) mmol/L Calcium (8.4-10.2) mg/dL Total Bilirubin (0.2-1.3) mg/dL AST (17-59) IU/L ALT (<50) IU/L Alkaline Phosphatase (38-126) U/L Total Protein (6.3-8.2) g/dL Albumin (3.5-5.0) g/dL Globulin (1.7-4.1) g/dL Albumin/Globulin Ratio (1.0-2.8) Lipase (23-300) U/L Procalcitonin (<0.5) ng/mL Urine RBC (0-5/HPF) Urine WBC (0-5/HPF) Urine Bacteria (None) Ur Culture Indicated? Micro UA Comment SARS-CoV-2 (PCR) (Negative) 10/11/21 10/11/21 10/11/21 Range/Units 21:30 21:40 23:21 WBC (4.5-11.0) X10^3/uL RBC (4.5-5.9) X10^6/uL Hgb (13.5-17.5) g/dL Hct (41-53) % MCV (80-100) fL MCH (26-34) PG MCHC (30-36) % RDW (11.6-14.8) % Plt Count (150-400) X10^3/uL Neut % (Auto) (50-75) % Lymph % (Auto) (25-40) % [place] % (Auto) (3-14) % Eos % (Auto) (2-4) % Baso % (Auto) (0-2) % Neut # (Auto) (0870-6127) /uL Lymph # (Auto) (6247-7328) /uL [place] # (Auto) (0-900) /uL Eos # (Auto) (0-450) /uL Baso # (Auto) (0-100) /uL PT (10.1-12.7) SECONDS INR (0.9-1.3) APTT (26.4-36.2) SECONDS D-Dimer (<230) ng/mL ABG pH 7.40 (7.35-7.45) ABG pCO2 41.1 (35-45) mmHg ABG pO2 79 L (80-100) mmHg ABG HCO3 25 (22-26) mmol/L ABG Total CO2 26 (21-31) mmol/L ABG O2 Saturation 96 (95-100) % ABG Base Excess 0.0 (-2-2) mmol/L FiO2 35 Sodium (137-145) mmol/L Potassium (3.4-5.1) mmol/L Chloride (98-107) mmol/L Carbon Dioxide (22-32) mmol/L BUN (9-20) mg/dL Creatinine (0.66-1.25) mg/dL Estimated GFR (>60) mL/min BUN/Creatinine Ratio (6-22) Glucose (80-110) mg/dL Lactate (0.7-2.1) mmol/L Calcium (8.4-10.2) mg/dL Total Bilirubin (0.2-1.3) mg/dL AST (17-59) IU/L ALT (<50) IU/L Alkaline Phosphatase (38-126) U/L Total Protein (6.3-8.2) g/dL Albumin (3.5-5.0) g/dL Globulin (1.7-4.1) g/dL Albumin/Globulin Ratio (1.0-2.8) Lipase (23-300) U/L Procalcitonin (<0.5) ng/mL Urine RBC None seen (0-5/HPF) Urine WBC None seen (0-5/HPF) Urine Bacteria None seen (None) Ur Culture Indicated? Cult not indicated Micro UA Comment Microscopic normal SARS-CoV-2 (PCR) Negative (Negative) 10/12/21 10/12/21 10/12/21 Range/Units 07:50 07:50 10:22 WBC 13.8 H (4.5-11.0) X10^3/uL RBC 3.54 L (4.5-5.9) X10^6/uL Hgb 10.4 L (13.5-17.5) g/dL Hct 32.3 L (41-53) % MCV 91.3 (80-100) fL MCH 29.5 (26-34) PG MCHC 32.3 (30-36) % RDW 17.6 H (11.6-14.8) % Plt Count 152 (150-400) X10^3/uL Neut % (Auto) 81.6 H (50-75) % Lymph % (Auto) 8.7 L (25-40) % [place] % (Auto) 8.4 (3-14) % Eos % (Auto) 1.0 L (2-4) % Baso % (Auto) 0.3 (0-2) % Neut # (Auto) 28860 H (6072-3921) /uL Lymph # (Auto) 1200 (9427-8226) /uL [place] # (Auto) 1200 H (0-900) /uL Eos # (Auto) 100 (0-450) /uL Baso # (Auto) 0 (0-100) /uL PT (10.1-12.7) SECONDS INR (0.9-1.3) APTT (26.4-36.2) SECONDS D-Dimer (<230) ng/mL ABG pH 7.36 (7.35-7.45) ABG pCO2 44.0 (35-45) mmHg ABG pO2 115 H (80-100) mmHg ABG HCO3 25 (22-26) mmol/L ABG Total CO2 26 (21-31) mmol/L ABG O2 Saturation 98 (95-100) % ABG Base Excess 0.0 (-2-2) mmol/L FiO2 64 Sodium 135 L (137-145) mmol/L Potassium 3.9 (3.4-5.1) mmol/L Chloride 105 (98-107) mmol/L Carbon Dioxide 25 (22-32) mmol/L BUN 14 (9-20) mg/dL Creatinine 1.05 (0.66-1.25) mg/dL Estimated GFR > 60 (>60) mL/min BUN/Creatinine Ratio 13.3 (6-22) Glucose 96 (80-110) mg/dL Lactate (0.7-2.1) mmol/L Calcium 8.1 L (8.4-10.2) mg/dL Total Bilirubin 0.7 (0.2-1.3) mg/dL AST 18 (17-59) IU/L ALT 12 (<50) IU/L Alkaline Phosphatase 62 (38-126) U/L Total Protein 6.0 L (6.3-8.2) g/dL Albumin 3.1 L (3.5-5.0) g/dL Globulin 2.9 (1.7-4.1) g/dL Albumin/Globulin Ratio 1.1 (1.0-2.8) Lipase (23-300) U/L Procalcitonin 74.7 H (<0.5) ng/mL Urine RBC (0-5/HPF) Urine WBC (0-5/HPF) Urine Bacteria (None) Ur Culture Indicated? Micro UA Comment SARS-CoV-2 (PCR) (Negative) 10/13/21 10/13/21 Range/Units 09:10 09:10 WBC 10.9 (4.5-11.0) X10^3/uL RBC 3.31 L (4.5-5.9) X10^6/uL Hgb 10.0 L (13.5-17.5) g/dL Hct 29.9 L (41-53) % MCV 90.2 (80-100) fL MCH 30.1 (26-34) PG MCHC 33.3 (30-36) % RDW 17.4 H (11.6-14.8) % Plt Count 164 (150-400) X10^3/uL Neut % (Auto) 82.5 H (50-75) % Lymph % (Auto) 8.1 L (25-40) % [place] % (Auto) 8.5 (3-14) % Eos % (Auto) 0.8 L (2-4) % Baso % (Auto) 0.1 (0-2) % Neut # (Auto) 9000 H (0781-2417) /uL Lymph # (Auto) 900 L (2264-4220) /uL [place] # (Auto) 900 (0-900) /uL Eos # (Auto) 100 (0-450) /uL Baso # (Auto) 0 (0-100) /uL PT (10.1-12.7) SECONDS INR (0.9-1.3) APTT (26.4-36.2) SECONDS D-Dimer (<230) ng/mL ABG pH (7.35-7.45) ABG pCO2 (35-45) mmHg ABG pO2 (80-100) mmHg ABG HCO3 (22-26) mmol/L ABG Total CO2 (21-31) mmol/L ABG O2 Saturation (95-100) % ABG Base Excess (-2-2) mmol/L FiO2 Sodium 134 L (137-145) mmol/L Potassium 3.7 (3.4-5.1) mmol/L Chloride 104 (98-107) mmol/L Carbon Dioxide 29 (22-32) mmol/L BUN 15 (9-20) mg/dL Creatinine 1.13 (0.66-1.25) mg/dL Estimated GFR > 60 (>60) mL/min BUN/Creatinine Ratio 13.3 (6-22) Glucose 169 H (80-110) mg/dL Lactate (0.7-2.1) mmol/L Calcium 8.9 (8.4-10.2) mg/dL Total Bilirubin (0.2-1.3) mg/dL AST (17-59) IU/L ALT (<50) IU/L Alkaline Phosphatase (38-126) U/L Total Protein (6.3-8.2) g/dL Albumin (3.5-5.0) g/dL Globulin (1.7-4.1) g/dL Albumin/Globulin Ratio (1.0-2.8) Lipase (23-300) U/L Procalcitonin 56.0 H (<0.5) ng/mL Urine RBC (0-5/HPF) Urine WBC (0-5/HPF) Urine Bacteria (None) Ur Culture Indicated? Micro UA Comment SARS-CoV-2 (PCR) (Negative) Urine Dip Bedside Urine Glucose Negative Bedside Urine Bilirubin - Negative Bedside Urine Ketone - Negative Urine Specific [place] 1.010 Bedside Urine Occult Blood - Negative Bedside Urine pH 7.0 Bedside Urine Protein +/- 15 Bedside Urine Urobilinogen - Negative Bedside Urine Nitrite - Negative Bedside Urine Leukocytes - Negative Esterase ABG Data ABG results: @2321 pH 7.396 CO2 41.1 O2 79 HCO3 25.2 Imaging Data Chest x-ray: Radiologist's Impression: Launch?Image [address] [address] XRay Report Signed Patient: Deangelo Hudson MR#: [id number] : 1950 Acct:[id number] Age/Sex: 70 / M Date of Service: 10/11/21 Loc: ED Accession Number: [id number] ?? Procedure: XR chest 1V Ordering Provider: Monroe Bhatti D.O. PROCEDURE:? XR CHEST 1V ? INDICATIONS:? suspected sepsis ? TECHNIQUE:? One view of the chest was acquired.? ? COMPARISON:? [facility], CR, XR CHEST 1V, 05/31/2020, 19:03. ? FINDINGS:? ? Surgical changes and devices:? None.? ? Lungs and pleura:? There is left basilar density likely representing a combination of pleural fluid and atelectasis.? Cannot exclude a basilar lung mass.? Right basilar atelectasis versus scarring. ? Mediastinum:? Mediastinal contours appear normal.? Heart size is normal.? ? Bones and chest wall:? No suspicious bony lesions.? Overlying soft tissues appear unremarkable.? ? IMPRESSION:? Ill left basilar density likely represents a combination of pleural fluid and atelectasis.? Cannot exclude a basilar lung mass.? There is right basilar atelectasis versus scarring. ? Comment:? Consider chest CT with contrast. ? ? Dictated by: Franklyn Garcia M.D. on 10/11/2021 at 19:28 ? ? Approved by: Franklyn Garcia M.D. on 10/11/2021 at 19:31 ? CT scan - chest: Radiologist's Impression: [address] [address] [address] Scan Report Signed Patient: Deangelo Hudson MR#: [id number] : 1950 Acct:[id number] Age/Sex: 70 / M Date of Service: 10/11/21 Loc: ED Accession Number: [id number] ?? Procedure: CT angio chest PE protocol Ordering Provider: Monroe Bhatti D.O. PROCEDURE:? CT ANGIO CHEST PE PROTOCOL ? INDICATIONS:? pneumonia sepsis, hypoxemia ? TECHNIQUE:? After the administration of intravenous contrast, 2 mm thick sections acquired from the pulmonary apices to the posterior costophrenic angles.? 3-dimensional maximum intensity projection (MIP) coronal and sagittal reformats were then acquired through the thorax.? For radiation dose reduction, the following was used:? automated exposure control, adjustment of mA and/or kV according to patient size.? ? COMPARISON:? [facility], CT, CT ANGIO CHEST PE PROTOCOL, 05/31/2020, 21:01. ? FINDINGS:? Image quality:? Excellent.? ? Pulmonary arteries:? Pulmonary arteries are normal in size, and demonstrate no intraluminal filling defects to suggest central pulmonary embolism.? ? Lungs and pleura:? There is dense atelectasis and consolidation involving the left lower lobe.? Question small pulmonary abscess in the extreme left lung base.? It is low density, but without air-fluid levels.? There is a relatively small multiloculated left pleural effusion.? There is dense consolidation in the extreme right lung base.? There is bibasilar bronchial wall thickening present. ? Mediastinum:? Heart size is normal, without pericardial effusion.? Severe atherosclerotic coronary artery calcifications.? No mediastinal or hilar adenopathy.? Thoracic aorta is normal in caliber and enhancement.? Esophagus is normal in caliber, without hiatal hernia.? ? Bones and chest wall:? No suspicious bony lesions.? Remote percutaneous cement fixation of T12.? Ribs and thoracic spine appear intact throughout.? Thyroid gland is unremarkable as visualized.? No axillary or supraclavicular adenopathy.? ? Abdomen:? Visualized upper abdominal solid organs appear normal in the early arterial phase of enhancement.? ? IMPRESSION:? ? 1. No evidence acute pulmonary emboli. ? 2.? Left basilar atelectasis, pneumonia, and question small pulmonary abscess. ? 3. Small multiloculated left pleural effusion. ? 4. Right basilar pneumonia. ? 5. Bibasilar bronchial wall thickening.? ? 6. Severe coronary artery disease.? ? Dictated by: Franklyn Garcia M.D. on 10/11/2021 at 20:21 ? ? Approved by: Franklyn Garcia M.D. on 10/11/2021 at 20:27 ? <Kyler Ly MD - Last Filed: 11/08/21 18:12> Lab Data Labs: Lab Results 10/11/21 10/11/21 10/11/21 Range/Units 19:00 19:00 19:00 WBC 16.2 H (4.5-11.0) X10^3/uL RBC 4.24 L (4.5-5.9) X10^6/uL Hgb 12.4 L (13.5-17.5) g/dL Hct 38.4 L (41-53) % MCV 90.4 (80-100) fL MCH 29.2 (26-34) PG MCHC 32.3 (30-36) % RDW 17.4 H (11.6-14.8) % Plt Count 201 (150-400) X10^3/uL Neut % (Auto) 80.8 H (50-75) % Lymph % (Auto) 10.9 L (25-40) % [place] % (Auto) 6.8 (3-14) % Eos % (Auto) 0.6 L (2-4) % Baso % (Auto) 0.9 (0-2) % Neut # (Auto) 14430 H (1135-6253) /uL Lymph # (Auto) 1800 (4827-9246) /uL [place] # (Auto) 1100 H (0-900) /uL Eos # (Auto) 100 (0-450) /uL Baso # (Auto) 100 (0-100) /uL PT 16.8 H (10.1-12.7) SECONDS INR 1.5 H (0.9-1.3) APTT 35 D (26.4-36.2) SECONDS D-Dimer (<230) ng/mL ABG pH (7.35-7.45) ABG pCO2 (35-45) mmHg ABG pO2 (80-100) mmHg ABG HCO3 (22-26) mmol/L ABG Total CO2 (21-31) mmol/L ABG O2 Saturation (95-100) % ABG Base Excess (-2-2) mmol/L FiO2 Sodium 135 L (137-145) mmol/L Potassium 3.9 (3.4-5.1) mmol/L Chloride 100 (98-107) mmol/L Carbon Dioxide 26 (22-32) mmol/L BUN 17 (9-20) mg/dL Creatinine 1.32 H (0.66-1.25) mg/dL Estimated GFR 57 L (>60) mL/min BUN/Creatinine Ratio 12.9 (6-22) Glucose 101 (80-110) mg/dL Lactate (0.7-2.1) mmol/L Calcium 9.6 (8.4-10.2) mg/dL Total Bilirubin 1.2 (0.2-1.3) mg/dL AST 18 (17-59) IU/L ALT 15 (<50) IU/L Alkaline Phosphatase 61 (38-126) U/L Total Protein 7.6 (6.3-8.2) g/dL Albumin 4.2 (3.5-5.0) g/dL Globulin 3.4 (1.7-4.1) g/dL Albumin/Globulin Ratio 1.2 (1.0-2.8) Lipase 73 (23-300) U/L Procalcitonin 1.50 H (<0.5) ng/mL Urine RBC (0-5/HPF) Urine WBC (0-5/HPF) Urine Bacteria (None) Ur Culture Indicated? Micro UA Comment SARS-CoV-2 (PCR) (Negative) 10/11/21 10/11/21 10/11/21 Range/Units 19:00 19:00 21:23 WBC (4.5-11.0) X10^3/uL RBC (4.5-5.9) X10^6/uL Hgb (13.5-17.5) g/dL Hct (41-53) % MCV (80-100) fL MCH (26-34) PG MCHC (30-36) % RDW (11.6-14.8) % Plt Count (150-400) X10^3/uL Neut % (Auto) (50-75) % Lymph % (Auto) (25-40) % [place] % (Auto) (3-14) % Eos % (Auto) (2-4) % Baso % (Auto) (0-2) % Neut # (Auto) (9816-4745) /uL Lymph # (Auto) (5154-9561) /uL [place] # (Auto) (0-900) /uL Eos # (Auto) (0-450) /uL Baso # (Auto) (0-100) /uL PT (10.1-12.7) SECONDS INR (0.9-1.3) APTT (26.4-36.2) SECONDS D-Dimer 344 H (<230) ng/mL ABG pH (7.35-7.45) ABG pCO2 (35-45) mmHg ABG pO2 (80-100) mmHg ABG HCO3 (22-26) mmol/L ABG Total CO2 (21-31) mmol/L ABG O2 Saturation (95-100) % ABG Base Excess (-2-2) mmol/L FiO2 Sodium (137-145) mmol/L Potassium (3.4-5.1) mmol/L Chloride (98-107) mmol/L Carbon Dioxide (22-32) mmol/L BUN (9-20) mg/dL Creatinine (0.66-1.25) mg/dL Estimated GFR (>60) mL/min BUN/Creatinine Ratio (6-22) Glucose (80-110) mg/dL Lactate 2.6 H 0.8 (0.7-2.1) mmol/L Calcium (8.4-10.2) mg/dL Total Bilirubin (0.2-1.3) mg/dL AST (17-59) IU/L ALT (<50) IU/L Alkaline Phosphatase (38-126) U/L Total Protein (6.3-8.2) g/dL Albumin (3.5-5.0) g/dL Globulin (1.7-4.1) g/dL Albumin/Globulin Ratio (1.0-2.8) Lipase (23-300) U/L Procalcitonin (<0.5) ng/mL Urine RBC (0-5/HPF) Urine WBC (0-5/HPF) Urine Bacteria (None) Ur Culture Indicated? Micro UA Comment SARS-CoV-2 (PCR) (Negative) 10/11/21 10/11/21 10/11/21 Range/Units 21:30 21:40 23:21 WBC (4.5-11.0) X10^3/uL RBC (4.5-5.9) X10^6/uL Hgb (13.5-17.5) g/dL Hct (41-53) % MCV (80-100) fL MCH (26-34) PG MCHC (30-36) % RDW (11.6-14.8) % Plt Count (150-400) X10^3/uL Neut % (Auto) (50-75) % Lymph % (Auto) (25-40) % [place] % (Auto) (3-14) % Eos % (Auto) (2-4) % Baso % (Auto) (0-2) % Neut # (Auto) (7134-4411) /uL Lymph # (Auto) (0579-0978) /uL [place] # (Auto) (0-900) /uL Eos # (Auto) (0-450) /uL Baso # (Auto) (0-100) /uL PT (10.1-12.7) SECONDS INR (0.9-1.3) APTT (26.4-36.2) SECONDS D-Dimer (<230) ng/mL ABG pH 7.40 (7.35-7.45) ABG pCO2 41.1 (35-45) mmHg ABG pO2 79 L (80-100) mmHg ABG HCO3 25 (22-26) mmol/L ABG Total CO2 26 (21-31) mmol/L ABG O2 Saturation 96 (95-100) % ABG Base Excess 0.0 (-2-2) mmol/L FiO2 35 Sodium (137-145) mmol/L Potassium (3.4-5.1) mmol/L Chloride (98-107) mmol/L Carbon Dioxide (22-32) mmol/L BUN (9-20) mg/dL Creatinine (0.66-1.25) mg/dL Estimated GFR (>60) mL/min BUN/Creatinine Ratio (6-22) Glucose (80-110) mg/dL Lactate (0.7-2.1) mmol/L Calcium (8.4-10.2) mg/dL Total Bilirubin (0.2-1.3) mg/dL AST (17-59) IU/L ALT (<50) IU/L Alkaline Phosphatase (38-126) U/L Total Protein (6.3-8.2) g/dL Albumin (3.5-5.0) g/dL Globulin (1.7-4.1) g/dL Albumin/Globulin Ratio (1.0-2.8) Lipase (23-300) U/L Procalcitonin (<0.5) ng/mL Urine RBC None seen (0-5/HPF) Urine WBC None seen (0-5/HPF) Urine Bacteria None seen (None) Ur Culture Indicated? Cult not indicated Micro UA Comment Microscopic normal SARS-CoV-2 (PCR) Negative (Negative) 10/12/21 10/12/21 10/12/21 Range/Units 07:50 07:50 10:22 WBC 13.8 H (4.5-11.0) X10^3/uL RBC 3.54 L (4.5-5.9) X10^6/uL Hgb 10.4 L (13.5-17.5) g/dL Hct 32.3 L (41-53) % MCV 91.3 (80-100) fL MCH 29.5 (26-34) PG MCHC 32.3 (30-36) % RDW 17.6 H (11.6-14.8) % Plt Count 152 (150-400) X10^3/uL Neut % (Auto) 81.6 H (50-75) % Lymph % (Auto) 8.7 L (25-40) % [place] % (Auto) 8.4 (3-14) % Eos % (Auto) 1.0 L (2-4) % Baso % (Auto) 0.3 (0-2) % Neut # (Auto) 33281 H (0080-5727) /uL Lymph # (Auto) 1200 (0650-0507) /uL [place] # (Auto) 1200 H (0-900) /uL Eos # (Auto) 100 (0-450) /uL Baso # (Auto) 0 (0-100) /uL PT (10.1-12.7) SECONDS INR (0.9-1.3) APTT (26.4-36.2) SECONDS D-Dimer (<230) ng/mL ABG pH 7.36 (7.35-7.45) ABG pCO2 44.0 (35-45) mmHg ABG pO2 115 H (80-100) mmHg ABG HCO3 25 (22-26) mmol/L ABG Total CO2 26 (21-31) mmol/L ABG O2 Saturation 98 (95-100) % ABG Base Excess 0.0 (-2-2) mmol/L FiO2 64 Sodium 135 L (137-145) mmol/L Potassium 3.9 (3.4-5.1) mmol/L Chloride 105 (98-107) mmol/L Carbon Dioxide 25 (22-32) mmol/L BUN 14 (9-20) mg/dL Creatinine 1.05 (0.66-1.25) mg/dL Estimated GFR > 60 (>60) mL/min BUN/Creatinine Ratio 13.3 (6-22) Glucose 96 (80-110) mg/dL Lactate (0.7-2.1) mmol/L Calcium 8.1 L (8.4-10.2) mg/dL Total Bilirubin 0.7 (0.2-1.3) mg/dL AST 18 (17-59) IU/L ALT 12 (<50) IU/L Alkaline Phosphatase 62 (38-126) U/L Total Protein 6.0 L (6.3-8.2) g/dL Albumin 3.1 L (3.5-5.0) g/dL Globulin 2.9 (1.7-4.1) g/dL Albumin/Globulin Ratio 1.1 (1.0-2.8) Lipase (23-300) U/L Procalcitonin 74.7 H (<0.5) ng/mL Urine RBC (0-5/HPF) Urine WBC (0-5/HPF) Urine Bacteria (None) Ur Culture Indicated? Micro UA Comment SARS-CoV-2 (PCR) (Negative) 10/13/21 10/13/21 Range/Units 09:10 09:10 WBC 10.9 (4.5-11.0) X10^3/uL RBC 3.31 L (4.5-5.9) X10^6/uL Hgb 10.0 L (13.5-17.5) g/dL Hct 29.9 L (41-53) % MCV 90.2 (80-100) fL MCH 30.1 (26-34) PG MCHC 33.3 (30-36) % RDW 17.4 H (11.6-14.8) % Plt Count 164 (150-400) X10^3/uL Neut % (Auto) 82.5 H (50-75) % Lymph % (Auto) 8.1 L (25-40) % [place] % (Auto) 8.5 (3-14) % Eos % (Auto) 0.8 L (2-4) % Baso % (Auto) 0.1 (0-2) % Neut # (Auto) 9000 H (6326-6484) /uL Lymph # (Auto) 900 L (1442-3913) /uL [place] # (Auto) 900 (0-900) /uL Eos # (Auto) 100 (0-450) /uL Baso # (Auto) 0 (0-100) /uL PT (10.1-12.7) SECONDS INR (0.9-1.3) APTT (26.4-36.2) SECONDS D-Dimer (<230) ng/mL ABG pH (7.35-7.45) ABG pCO2 (35-45) mmHg ABG pO2 (80-100) mmHg ABG HCO3 (22-26) mmol/L ABG Total CO2 (21-31) mmol/L ABG O2 Saturation (95-100) % ABG Base Excess (-2-2) mmol/L FiO2 Sodium 134 L (137-145) mmol/L Potassium 3.7 (3.4-5.1) mmol/L Chloride 104 (98-107) mmol/L Carbon Dioxide 29 (22-32) mmol/L BUN 15 (9-20) mg/dL Creatinine 1.13 (0.66-1.25) mg/dL Estimated GFR > 60 (>60) mL/min BUN/Creatinine Ratio 13.3 (6-22) Glucose 169 H (80-110) mg/dL Lactate (0.7-2.1) mmol/L Calcium 8.9 (8.4-10.2) mg/dL Total Bilirubin (0.2-1.3) mg/dL AST (17-59) IU/L ALT (<50) IU/L Alkaline Phosphatase (38-126) U/L Total Protein (6.3-8.2) g/dL Albumin (3.5-5.0) g/dL Globulin (1.7-4.1) g/dL Albumin/Globulin Ratio (1.0-2.8) Lipase (23-300) U/L Procalcitonin 56.0 H (<0.5) ng/mL Urine RBC (0-5/HPF) Urine WBC (0-5/HPF) Urine Bacteria (None) Ur Culture Indicated? Micro UA Comment SARS-CoV-2 (PCR) (Negative) Urine Dip Bedside Urine Glucose Negative Bedside Urine Bilirubin - Negative Bedside Urine Ketone - Negative Urine Specific [place] 1.010 Bedside Urine Occult Blood - Negative Bedside Urine pH 7.0 Bedside Urine Protein +/- 15 Bedside Urine Urobilinogen - Negative Bedside Urine Nitrite - Negative Bedside Urine Leukocytes - Negative Esterase <Phil Soriano DO - Last Filed: 10/13/21 06:52> Lab Data Labs: Lab Results 10/11/21 10/11/21 10/11/21 Range/Units 19:00 19:00 19:00 WBC 16.2 H (4.5-11.0) X10^3/uL RBC 4.24 L (4.5-5.9) X10^6/uL Hgb 12.4 L (13.5-17.5) g/dL Hct 38.4 L (41-53) % MCV 90.4 (80-100) fL MCH 29.2 (26-34) PG MCHC 32.3 (30-36) % RDW 17.4 H (11.6-14.8) % Plt Count 201 (150-400) X10^3/uL Neut % (Auto) 80.8 H (50-75) % Lymph % (Auto) 10.9 L (25-40) % [place] % (Auto) 6.8 (3-14) % Eos % (Auto) 0.6 L (2-4) % Baso % (Auto) 0.9 (0-2) % Neut # (Auto) 76874 H (4968-2976) /uL Lymph # (Auto) 1800 (7797-9177) /uL [place] # (Auto) 1100 H (0-900) /uL Eos # (Auto) 100 (0-450) /uL Baso # (Auto) 100 (0-100) /uL PT 16.8 H (10.1-12.7) SECONDS INR 1.5 H (0.9-1.3) APTT 35 D (26.4-36.2) SECONDS D-Dimer (<230) ng/mL ABG pH (7.35-7.45) ABG pCO2 (35-45) mmHg ABG pO2 (80-100) mmHg ABG HCO3 (22-26) mmol/L ABG Total CO2 (21-31) mmol/L ABG O2 Saturation (95-100) % ABG Base Excess (-2-2) mmol/L FiO2 Sodium 135 L (137-145) mmol/L Potassium 3.9 (3.4-5.1) mmol/L Chloride 100 (98-107) mmol/L Carbon Dioxide 26 (22-32) mmol/L BUN 17 (9-20) mg/dL Creatinine 1.32 H (0.66-1.25) mg/dL Estimated GFR 57 L (>60) mL/min BUN/Creatinine Ratio 12.9 (6-22) Glucose 101 (80-110) mg/dL Lactate (0.7-2.1) mmol/L Calcium 9.6 (8.4-10.2) mg/dL Total Bilirubin 1.2 (0.2-1.3) mg/dL AST 18 (17-59) IU/L ALT 15 (<50) IU/L Alkaline Phosphatase 61 (38-126) U/L Total Protein 7.6 (6.3-8.2) g/dL Albumin 4.2 (3.5-5.0) g/dL Globulin 3.4 (1.7-4.1) g/dL Albumin/Globulin Ratio 1.2 (1.0-2.8) Lipase 73 (23-300) U/L Procalcitonin 1.50 H (<0.5) ng/mL Urine RBC (0-5/HPF) Urine WBC (0-5/HPF) Urine Bacteria (None) Ur Culture Indicated? Micro UA Comment SARS-CoV-2 (PCR) (Negative) 10/11/21 10/11/21 10/11/21 Range/Units 19:00 19:00 21:23 WBC (4.5-11.0) X10^3/uL RBC (4.5-5.9) X10^6/uL Hgb (13.5-17.5) g/dL Hct (41-53) % MCV (80-100) fL MCH (26-34) PG MCHC (30-36) % RDW (11.6-14.8) % Plt Count (150-400) X10^3/uL Neut % (Auto) (50-75) % Lymph % (Auto) (25-40) % [place] % (Auto) (3-14) % Eos % (Auto) (2-4) % Baso % (Auto) (0-2) % Neut # (Auto) (2150-3185) /uL Lymph # (Auto) (9534-5416) /uL [place] # (Auto) (0-900) /uL Eos # (Auto) (0-450) /uL Baso # (Auto) (0-100) /uL PT (10.1-12.7) SECONDS INR (0.9-1.3) APTT (26.4-36.2) SECONDS D-Dimer 344 H (<230) ng/mL ABG pH (7.35-7.45) ABG pCO2 (35-45) mmHg ABG pO2 (80-100) mmHg ABG HCO3 (22-26) mmol/L ABG Total CO2 (21-31) mmol/L ABG O2 Saturation (95-100) % ABG Base Excess (-2-2) mmol/L FiO2 Sodium (137-145) mmol/L Potassium (3.4-5.1) mmol/L Chloride (98-107) mmol/L Carbon Dioxide (22-32) mmol/L BUN (9-20) mg/dL Creatinine (0.66-1.25) mg/dL Estimated GFR (>60) mL/min BUN/Creatinine Ratio (6-22) Glucose (80-110) mg/dL Lactate 2.6 H 0.8 (0.7-2.1) mmol/L Calcium (8.4-10.2) mg/dL Total Bilirubin (0.2-1.3) mg/dL AST (17-59) IU/L ALT (<50) IU/L Alkaline Phosphatase (38-126) U/L Total Protein (6.3-8.2) g/dL Albumin (3.5-5.0) g/dL Globulin (1.7-4.1) g/dL Albumin/Globulin Ratio (1.0-2.8) Lipase (23-300) U/L Procalcitonin (<0.5) ng/mL Urine RBC (0-5/HPF) Urine WBC (0-5/HPF) Urine Bacteria (None) Ur Culture Indicated? Micro UA Comment SARS-CoV-2 (PCR) (Negative) 10/11/21 10/11/21 10/11/21 Range/Units 21:30 21:40 23:21 WBC (4.5-11.0) X10^3/uL RBC (4.5-5.9) X10^6/uL Hgb (13.5-17.5) g/dL Hct (41-53) % MCV (80-100) fL MCH (26-34) PG MCHC (30-36) % RDW (11.6-14.8) % Plt Count (150-400) X10^3/uL Neut % (Auto) (50-75) % Lymph % (Auto) (25-40) % [place] % (Auto) (3-14) % Eos % (Auto) (2-4) % Baso % (Auto) (0-2) % Neut # (Auto) (5197-7363) /uL Lymph # (Auto) (5095-0861) /uL [place] # (Auto) (0-900) /uL Eos # (Auto) (0-450) /uL Baso # (Auto) (0-100) /uL PT (10.1-12.7) SECONDS INR (0.9-1.3) APTT (26.4-36.2) SECONDS D-Dimer (<230) ng/mL ABG pH 7.40 (7.35-7.45) ABG pCO2 41.1 (35-45) mmHg ABG pO2 79 L (80-100) mmHg ABG HCO3 25 (22-26) mmol/L ABG Total CO2 26 (21-31) mmol/L ABG O2 Saturation 96 (95-100) % ABG Base Excess 0.0 (-2-2) mmol/L FiO2 35 Sodium (137-145) mmol/L Potassium (3.4-5.1) mmol/L Chloride (98-107) mmol/L Carbon Dioxide (22-32) mmol/L BUN (9-20) mg/dL Creatinine (0.66-1.25) mg/dL Estimated GFR (>60) mL/min BUN/Creatinine Ratio (6-22) Glucose (80-110) mg/dL Lactate (0.7-2.1) mmol/L Calcium (8.4-10.2) mg/dL Total Bilirubin (0.2-1.3) mg/dL AST (17-59) IU/L ALT (<50) IU/L Alkaline Phosphatase (38-126) U/L Total Protein (6.3-8.2) g/dL Albumin (3.5-5.0) g/dL Globulin (1.7-4.1) g/dL Albumin/Globulin Ratio (1.0-2.8) Lipase (23-300) U/L Procalcitonin (<0.5) ng/mL Urine RBC None seen (0-5/HPF) Urine WBC None seen (0-5/HPF) Urine Bacteria None seen (None) Ur Culture Indicated? Cult not indicated Micro UA Comment Microscopic normal SARS-CoV-2 (PCR) Negative (Negative) 10/12/21 10/12/21 10/12/21 Range/Units 07:50 07:50 10:22 WBC 13.8 H (4.5-11.0) X10^3/uL RBC 3.54 L (4.5-5.9) X10^6/uL Hgb 10.4 L (13.5-17.5) g/dL Hct 32.3 L (41-53) % MCV 91.3 (80-100) fL MCH 29.5 (26-34) PG MCHC 32.3 (30-36) % RDW 17.6 H (11.6-14.8) % Plt Count 152 (150-400) X10^3/uL Neut % (Auto) 81.6 H (50-75) % Lymph % (Auto) 8.7 L (25-40) % [place] % (Auto) 8.4 (3-14) % Eos % (Auto) 1.0 L (2-4) % Baso % (Auto) 0.3 (0-2) % Neut # (Auto) 69856 H (1278-7285) /uL Lymph # (Auto) 1200 (5609-9203) /uL [place] # (Auto) 1200 H (0-900) /uL Eos # (Auto) 100 (0-450) /uL Baso # (Auto) 0 (0-100) /uL PT (10.1-12.7) SECONDS INR (0.9-1.3) APTT (26.4-36.2) SECONDS D-Dimer (<230) ng/mL ABG pH 7.36 (7.35-7.45) ABG pCO2 44.0 (35-45) mmHg ABG pO2 115 H (80-100) mmHg ABG HCO3 25 (22-26) mmol/L ABG Total CO2 26 (21-31) mmol/L ABG O2 Saturation 98 (95-100) % ABG Base Excess 0.0 (-2-2) mmol/L FiO2 64 Sodium 135 L (137-145) mmol/L Potassium 3.9 (3.4-5.1) mmol/L Chloride 105 (98-107) mmol/L Carbon Dioxide 25 (22-32) mmol/L BUN 14 (9-20) mg/dL Creatinine 1.05 (0.66-1.25) mg/dL Estimated GFR > 60 (>60) mL/min BUN/Creatinine Ratio 13.3 (6-22) Glucose 96 (80-110) mg/dL Lactate (0.7-2.1) mmol/L Calcium 8.1 L (8.4-10.2) mg/dL Total Bilirubin 0.7 (0.2-1.3) mg/dL AST 18 (17-59) IU/L ALT 12 (<50) IU/L Alkaline Phosphatase 62 (38-126) U/L Total Protein 6.0 L (6.3-8.2) g/dL Albumin 3.1 L (3.5-5.0) g/dL Globulin 2.9 (1.7-4.1) g/dL Albumin/Globulin Ratio 1.1 (1.0-2.8) Lipase (23-300) U/L Procalcitonin 74.7 H (<0.5) ng/mL Urine RBC (0-5/HPF) Urine WBC (0-5/HPF) Urine Bacteria (None) Ur Culture Indicated? Micro UA Comment SARS-CoV-2 (PCR) (Negative) 10/13/21 10/13/21 Range/Units 09:10 09:10 WBC 10.9 (4.5-11.0) X10^3/uL RBC 3.31 L (4.5-5.9) X10^6/uL Hgb 10.0 L (13.5-17.5) g/dL Hct 29.9 L (41-53) % MCV 90.2 (80-100) fL MCH 30.1 (26-34) PG MCHC 33.3 (30-36) % RDW 17.4 H (11.6-14.8) % Plt Count 164 (150-400) X10^3/uL Neut % (Auto) 82.5 H (50-75) % Lymph % (Auto) 8.1 L (25-40) % [place] % (Auto) 8.5 (3-14) % Eos % (Auto) 0.8 L (2-4) % Baso % (Auto) 0.1 (0-2) % Neut # (Auto) 9000 H (6974-6002) /uL Lymph # (Auto) 900 L (5244-4831) /uL [place] # (Auto) 900 (0-900) /uL Eos # (Auto) 100 (0-450) /uL Baso # (Auto) 0 (0-100) /uL PT (10.1-12.7) SECONDS INR (0.9-1.3) APTT (26.4-36.2) SECONDS D-Dimer (<230) ng/mL ABG pH (7.35-7.45) ABG pCO2 (35-45) mmHg ABG pO2 (80-100) mmHg ABG HCO3 (22-26) mmol/L ABG Total CO2 (21-31) mmol/L ABG O2 Saturation (95-100) % ABG Base Excess (-2-2) mmol/L FiO2 Sodium 134 L (137-145) mmol/L Potassium 3.7 (3.4-5.1) mmol/L Chloride 104 (98-107) mmol/L Carbon Dioxide 29 (22-32) mmol/L BUN 15 (9-20) mg/dL Creatinine 1.13 (0.66-1.25) mg/dL Estimated GFR > 60 (>60) mL/min BUN/Creatinine Ratio 13.3 (6-22) Glucose 169 H (80-110) mg/dL Lactate (0.7-2.1) mmol/L Calcium 8.9 (8.4-10.2) mg/dL Total Bilirubin (0.2-1.3) mg/dL AST (17-59) IU/L ALT (<50) IU/L Alkaline Phosphatase (38-126) U/L Total Protein (6.3-8.2) g/dL Albumin (3.5-5.0) g/dL Globulin (1.7-4.1) g/dL Albumin/Globulin Ratio (1.0-2.8) Lipase (23-300) U/L Procalcitonin 56.0 H (<0.5) ng/mL Urine RBC (0-5/HPF) Urine WBC (0-5/HPF) Urine Bacteria (None) Ur Culture Indicated? Micro UA Comment SARS-CoV-2 (PCR) (Negative) Urine Dip Bedside Urine Glucose Negative Bedside Urine Bilirubin - Negative Bedside Urine Ketone - Negative Urine Specific [place] 1.010 Bedside Urine Occult Blood - Negative Bedside Urine pH 7.0 Bedside Urine Protein +/- 15 Bedside Urine Urobilinogen - Negative Bedside Urine Nitrite - Negative Bedside Urine Leukocytes - Negative Esterase MDM Narrative Medical decision making narrative: Dr Soriano: Received turnover. Reviewed patient's history and physical exam. Patient continues to be stable. He has been accepted at [facility] however we are just waiting for a bed assignment which [facility] states would not be this evening. They advised that we recontact them in the morning. Patient was given another dose of Zosyn. Repeat labs ordered for morning. His normal daily medications were ordered. Will continue to monitor. Care turned over to Dr. Ureña to follow up with labs and disposition. Discharge Plan Departure Patient Disposition: [facility] Clinical Impression: Bilateral pneumonia, Bronchiectasis Prescriptions: No Action prednisone 10 mg Tablet 10 mg PO DAILY 0RF omeprazole 40 mg Capsule,Delayed Release(Dr/Ec) 40 mg PO DAILY 0RF Eliquis 5 mg Tablet 5 mg PO BID 0RF cyclobenzaprine 5 mg tablet 10 mg PO Q8H PRN (Reason: muscle spasm/back pain) Qty: 10 0RF Rx Instructions: do not drive atorvastatin 80 mg Tablet 80 mg PO QPM 0RF carvedilol 25 mg Tablet 25 mg PO BID 0RF Rx Instructions: must administer with a meal/food azithromycin 250 mg Tablet 250 mg PO DAILY 0RF Rx Instructions: start on day 2 of therapy levalbuterol HCl [Xopenex] 0.63 mg/3 mL Solution For Nebulization 0.63 mg INHALATION TID 0RF alendronate [Fosamax] 70 mg Tablet 70 mg PO QWEEK 0RF amlodipine 10 mg Tablet 10 mg PO DAILY 0RF hydrochlorothiazide 12.5 mg Capsule 12.5 mg PO DAILY 0RF irbesartan 75 mg Tablet 75 mg PO ONCE PM 0RF zolpidem 5 mg Tablet 5 mg PO BEDTIME PRN (Reason: Sleep) 0RF fluticasone propionate 50 mcg/actuation [place],Suspension 1 spray INTRANASAL DAILY 0RF Rx Instructions: administer into each nostril tramadol 100 mg Tablet Extended Release 24 Hr 100 mg PO BEDTIME 0RF Advair HFA 115-21 mcg/actuation Hfa Aerosol Inhaler 2 puff INHALATION BID 0RF Tobramycin 75 mg 0RF Rx Instructions: Tobramycin 75mg/ml, 4ml BID via Nebulizer Referrals: Carolina Pepper MD [Primary Care Provider] -
--- NOTE | 2021-10-11 19:45 | DI.CT.S_ITS ---
PROCEDURE: CT ANGIO CHEST PE PROTOCOL INDICATIONS: pneumonia sepsis, hypoxemia TECHNIQUE: After the administration of intravenous contrast, 2 mm thick sections acquired from the pulmonary apices to the posterior costophrenic angles. 3-dimensional maximum intensity projection (MIP) coronal and sagittal reformats were then acquired through the thorax. For radiation dose reduction, the following was used: automated exposure control, adjustment of mA and/or kV according to patient size. COMPARISON: [facility], CT, CT ANGIO CHEST PE PROTOCOL, 05/31/2020, 21:01. FINDINGS: Image quality: Excellent. Pulmonary arteries: Pulmonary arteries are normal in size, and demonstrate no intraluminal filling defects to suggest central pulmonary embolism. Lungs and pleura: There is dense atelectasis and consolidation involving the left lower lobe. Question small pulmonary abscess in the extreme left lung base. It is low density, but without air-fluid levels. There is a relatively small multiloculated left pleural effusion. There is dense consolidation in the extreme right lung base. There is bibasilar bronchial wall thickening present. Mediastinum: Heart size is normal, without pericardial effusion. Severe atherosclerotic coronary artery calcifications. No mediastinal or hilar adenopathy. Thoracic aorta is normal in caliber and enhancement. Esophagus is normal in caliber, without hiatal hernia. Bones and chest wall: No suspicious bony lesions. Remote percutaneous cement fixation of T12. Ribs and thoracic spine appear intact throughout. Thyroid gland is unremarkable as visualized. No axillary or supraclavicular adenopathy. Abdomen: Visualized upper abdominal solid organs appear normal in the early arterial phase of enhancement. IMPRESSION: 1. No evidence acute pulmonary emboli. 2. Left basilar atelectasis, pneumonia, and question small pulmonary abscess. 3. Small multiloculated left pleural effusion. 4. Right basilar pneumonia. 5. Bibasilar bronchial wall thickening. 6. Severe coronary artery disease. Dictated by: Franklyn Garcia M.D. on 10/11/2021 at 20:21 Approved by: Franklyn Garcia M.D. on 10/11/2021 at 20:27
[2021-10-11] MEDS: ONDANSETRON 4 MG/2 ML INJ IV (20:16)
[2021-10-11] MEDS: cefTRIAXone 2,000 MG in SODIUM CHLORIDE 0.9% 100 ML 200 ML IV (20:17)
[2021-10-11 21:03] LABS: Reflexed Lactate in 2 Hours Y
[2021-10-11 21:44] LABS: Lactate 2HR (Lactic Acid Rflx) 0.8 mmol/L (0.7-2.1)
[2021-10-11 21:59] LABS: COVID19 -Nasal RAPID Negative (Negative)
[2021-10-11 22:35] LABS: Bacteria Urine None Seen; RBC Urine None Seen (0-5/HPF); Urine Comments Microscopic Normal; WBC Urine None Seen (0-5/HPF)
[2021-10-11 22:37] LABS: Culture Indicated Urine Cult Not Indicated
--- NOTE | 2021-10-11 23:38 | RT ---
abg results taken while pt is on 35% venti mask . ph 7.396 , co2 41.1, po2 79, be 0, hco3 25.2 tco2 26 , so2 96%
[2021-10-12] VITALS (54 sets, daily range): BP systolic 94–143; BP diastolic 52–83; PULSE 75–103; RESP 18–36; O2SAT 86–98
[2021-10-12] MEDS: CODEINE/GUAIFENESIN LIQUID 5ML UDC 10 ML PO ×2 (01:01→05:33)
[2021-10-12] MEDS: ACETAMINOPHEN 325 MG TABLET 650 MG PO ×3 (01:01→13:58)
[2021-10-12] MEDS: PIPERACILLIN/TAZO 4.5 GM in SODIUM CHLORIDE 0.9% 100 ML 200 ML IV ×2 (01:57→16:12)
[2021-10-12 06:35] LABS: HCO3 ABG 25 mmol/L (22-26); Oxygen Saturation ABG 96 % (95-100); PCO2 ABG 41.1 mmHg (35-45); PO2 ABG 79 mmHg (80-100); TCO2 ABG 26 mmol/L (21-31)
[2021-10-12 06:36] LABS: Fractionated Inspired Oxygen 35
[2021-10-12] MEDS: ALBUTEROL/IPRATROPIUM 3 ML AMPUL INH (07:19)
[2021-10-12 08:18] LABS: Add Manual Diff / Slide Review NO; Basophils Absolute Auto 0 /uL (0-100); Basophils Percent Auto 0.3 % (0-2); Eosinophils Absolute Auto 100 /uL (0-450); Hematocrit 32.3 % (41-53); Hemoglobin 10.4 g/dL (13.5-17.5); Lymphocytes Absolute Auto 1200 /uL (1100-4500); Lymphocytes Percent Auto 8.7 % (25-40); Mean Corpuscular HGB Conc 32.3 % (30-36); Mean Corpuscular Hemoglobin 29.5 PG (26-34); Mean Corpuscular Volume 91.3 fL (80-100); Monocytes Absolute Auto 1200 /uL (0-900); Monocytes Percent Auto 8.4 % (3-14); Neutrophils Absolute Auto 11200 /uL (1500-7000); Neutrophils Percent Auto 81.6 % (50-75); Platelet Count 152 X10^3/uL (150-400); Red Blood Cell Count 3.54 X10^6/uL (4.5-5.9); Red Cell Distribution Width 17.6 % (11.6-14.8); White Blood Cell Count 13.8 X10^3/uL (4.5-11.0)
[2021-10-12 08:30] LABS: Alanine Aminotransferase 12 IU/L (<50); Albumin 3.1 g/dL (3.5-5.0); Albumin Globulin Ratio 1.1 (1.0-2.8); Alkaline Phosphatase 62 U/L (38-126); Aspartate Aminotransferase 18 IU/L (17-59); BUN Creatinine Ratio 13.3 (6-22); Bilirubin Total 0.7 mg/dL (0.2-1.3); Blood Urea Nitrogen 14 mg/dL (9-20); Calcium 8.1 mg/dL (8.4-10.2); Carbon Dioxide 25 mmol/L (22-32); Chloride 105 mmol/L (98-107); Estimated Glomerular Filt Rate > 60 mL/min (>60); Globulin 2.9 g/dL (1.7-4.1); Glucose 96 mg/dL (80-110); HEMOLYSIS < 15 (0-50); Potassium 3.9 mmol/L (3.4-5.1); Sodium 135 mmol/L (137-145)
[2021-10-12 08:47] LABS: Procalcitonin 74.7 ng/mL (<0.5)
[2021-10-12] MEDS: HYDROMORPHONE 0.5 MG INJ IV ×2 (09:45→14:16)
[2021-10-12 10:34] LABS: HCO3 ABG 25 mmol/L (22-26); PO2 ABG 115 mmHg (80-100); TCO2 ABG 26 mmol/L (21-31); pH ABG 7.36 (7.35-7.45)
[2021-10-12 10:35] LABS: Fractionated Inspired Oxygen 64; Oxygen Saturation ABG 98 % (95-100)
[2021-10-12] MEDS: carvediloL 12.5 MG TABLET 25 MG PO (13:57)
[2021-10-12] MEDS: ATORVASTATIN 20 MG TABLET 80 MG PO (13:57)
[2021-10-12] MEDS: AMLODIPINE 5 MG TABLET 10 MG PO (13:58)
[2021-10-12] MEDS: PANTOPRAZOLE DR 20 MG TABLET PO (13:58)
[2021-10-12] MEDS: CYCLOBENZAPRINE 10 MG TABLET PO (13:58)
[2021-10-12] MEDS: APIXABAN 5 MG TABLET PO (13:58)
[2021-10-12] MEDS: predniSONE 20 MG TABLET 10 MG PO (13:59)
[2021-10-12] MEDS: hydroCHLOROthiazide 25 MG TABLET 12.5 MG PO (13:59)
--- NOTE | 2021-10-12 14:29 | PC.NURSE ---
Rec'd report from KALLIE Livingston. Pt resting in bed at this time on side--position of comfort. remains on high flow humidified O2 at 10L. tolerating well with sat 89-94%. Speaking in full sentences and intermittently coughing. HR 95-101 NSR/ST. Awaiting bed status update for where pt sees Banquet Director Dr Pond. Pt had an in office visit scheduled for today with Dr Pond and his office and transfer center made aware of hospitalization. Pt ordered lunch tray and ate about 45-50%. Given all home medications--see MAR. at bedside. Will continue to monitor.
--- NOTE | 2021-10-12 21:42 | PC.NURSE ---
Pt has been lying down resting for the majority of the day. Appears to be in NAD. Remains on 10L humidified O2 via NC. Intermittent periods of desaturation while sleeping and intermittent periods of coughing. No lower than 87%--upon assessment pt states that he feels fine and work of breathing remains the same despite saturation number. Pt ate 90% dinner tray. Easy to rouse. Received call from at 2130 that there are no available beds tonight for patient. Pt being placed on a inpatient bed for comfort.
[2021-10-13] VITALS (55 sets, daily range): BP systolic 92–143; BP diastolic 51–87; PULSE 72–99; RESP 15–41; O2SAT 91–99
[2021-10-13] MEDS: carvediloL 12.5 MG TABLET 25 MG PO ×3 (00:07→21:17)
[2021-10-13] MEDS: APIXABAN 5 MG TABLET PO ×3 (00:08→21:17)
[2021-10-13] MEDS: TRAMADOL 50 MG TABLET 100 MG PO ×2 (00:09→21:16)
[2021-10-13] MEDS: ATORVASTATIN 20 MG TABLET 80 MG PO ×2 (00:09→21:16)
[2021-10-13] MEDS: PIPERACILLIN/TAZO 4.5 GM in SODIUM CHLORIDE 0.9% 100 ML 200 ML IV ×2 (00:25→06:01)
[2021-10-13] MEDS: PANTOPRAZOLE DR 20 MG TABLET PO (09:15)
[2021-10-13] MEDS: hydroCHLOROthiazide 25 MG TABLET 12.5 MG PO (09:15)
[2021-10-13] MEDS: AMLODIPINE 5 MG TABLET 10 MG PO (09:16)
[2021-10-13] MEDS: predniSONE 5 MG TABLET 10 MG PO (09:16)
[2021-10-13 09:29] LABS: Add Manual Diff / Slide Review NO; Basophils Absolute Auto 0 /uL (0-100); Basophils Percent Auto 0.1 % (0-2); Eosinophils Absolute Auto 100 /uL (0-450); Eosinophils Percent Auto 0.8 % (2-4); Hematocrit 29.9 % (41-53); Lymphocytes Absolute Auto 900 /uL (1100-4500); Lymphocytes Percent Auto 8.1 % (25-40); Mean Corpuscular HGB Conc 33.3 % (30-36); Mean Corpuscular Hemoglobin 30.1 PG (26-34); Mean Corpuscular Volume 90.2 fL (80-100); Monocytes Absolute Auto 900 /uL (0-900); Monocytes Percent Auto 8.5 % (3-14); Neutrophils Absolute Auto 9000 /uL (1500-7000); Neutrophils Percent Auto 82.5 % (50-75); Platelet Count 164 X10^3/uL (150-400); Red Blood Cell Count 3.31 X10^6/uL (4.5-5.9); Red Cell Distribution Width 17.4 % (11.6-14.8); White Blood Cell Count 10.9 X10^3/uL (4.5-11.0)
[2021-10-13 09:37] LABS: BUN Creatinine Ratio 13.3 (6-22); Blood Urea Nitrogen 15 mg/dL (9-20); Calcium 8.9 mg/dL (8.4-10.2); Carbon Dioxide 29 mmol/L (22-32); Chloride 104 mmol/L (98-107); Estimated Glomerular Filt Rate > 60 mL/min (>60); Glucose 169 mg/dL (80-110); HEMOLYSIS < 15 (0-50); Potassium 3.7 mmol/L (3.4-5.1); Sodium 134 mmol/L (137-145)
[2021-10-13] MEDS: HYDROMORPHONE 0.5 MG INJ IV (13:37)
[2021-10-13] MEDS: PIPERACILLIN/TAZO 3.375 GM in SODIUM CHLORIDE 0.9% 100 ML 200 ML IV ×2 (13:38→21:18)
[2021-10-13] MEDS: ALBUTEROL/IPRATROPIUM 3 ML AMPUL INH (14:25)
--- NOTE | 2021-10-13 19:30 | PC.NURSE ---
pt resting quietly without any c/o
== END 2021-10-13 23:15 | disposition short-term general hospital (02) ==
PROVIDERS: Emergency Medicine; Emergency Provider Emergency Medicine; PCP Internal Medicine
DX: J18.9 Pneumonia, unspecified organism (principal); J47.0 Bronchiectasis with acute lower respiratory infection; Z99.81 Dependence on supplemental oxygen; Z88.1 Allergy status to other antibiotic agents; Z88.0 Allergy status to penicillin; Z20.822 Contact with and (suspected) exposure to COVID-19
CPT/HCPCS: 36415; 36600; 71045; 71275; 80048; 80053; 81003; 81015; 82805; 83605; 83690; 84145; 85025; 85379; 85610; 85730; 87040; 87070; 87077; 87186; 87205; 87635; 93005; 94150; 94640; 96361; 96365; 96366; 96367; 96375; 96376; 99285; C9803; J0696; J1170; J2405; J2543; Q9967

== ENCOUNTER → 2021-10-28 15:25 | Outpatient (ROUT) | payer OTHER, SELFPAY ==
[2021-10-28 15:30] LABS: Hematocrit 33.9 % (41-53); Mean Corpuscular HGB Conc 32.4 % (30-36); Mean Corpuscular Hemoglobin 28.9 PG (26-34); Platelet Count 329 X10^3/uL (150-400); Red Cell Distribution Width 16.9 % (11.6-14.8); White Blood Cell Count 11.7 X10^3/uL (4.5-11.0)
[2021-10-28 15:33] LABS: Add Manual Diff / Slide Review YES
[2021-10-28 15:42] LABS: Alanine Aminotransferase 27 IU/L (<50); Albumin 4.1 g/dL (3.5-5.0); Albumin Globulin Ratio 1.2 (1.0-2.8); Alkaline Phosphatase 66 U/L (38-126); Aspartate Aminotransferase 25 IU/L (17-59); BUN Creatinine Ratio 23.9 (6-22); Bilirubin Total 0.3 mg/dL (0.2-1.3); Blood Urea Nitrogen 28 mg/dL (9-20); C-Reactive Protein Quant 0.6 mg/dL (<1.0); Calcium 10.5 mg/dL (8.4-10.2); Carbon Dioxide 26 mmol/L (22-32); Chloride 104 mmol/L (98-107); Estimated Glomerular Filt Rate > 60 mL/min (>60); Globulin 3.4 g/dL (1.7-4.1); Glucose 126 mg/dL (80-110); HEMOLYSIS < 15 (0-50); Potassium 3.8 mmol/L (3.4-5.1); Sodium 137 mmol/L (137-145); Total Protein 7.5 g/dL (6.3-8.2)
[2021-10-28 15:49] LABS: Erythrocyte Sedimentation Rate 63 MM/HR (0-15)
[2021-10-28 16:08] LABS: Neutrophils Absolute Manual 9711 /uL (3000-5900); Nucleated Red Blood Cells 1 #/Diff; Total Cells Counted 100
[2021-10-28 16:09] LABS: Anisocytosis 1+
== END ==
PROVIDERS: PCP Internal Medicine; Visit Provider Internal Medicine
DX: J85.1 Abscess of lung with pneumonia (principal); J85.2 Abscess of lung without pneumonia
CPT/HCPCS: 80053; 85007; 85025; 85651; 86140

== ENCOUNTER → 2021-11-04 14:35 | Outpatient (CLI) | payer OTHER, SELFPAY ==
[2021-11-04 16:41] LABS: Hematocrit 34.3 % (41-53); Hemoglobin 11.1 g/dL (13.5-17.5); Mean Corpuscular HGB Conc 32.2 % (30-36); Mean Corpuscular Hemoglobin 29.3 PG (26-34); Mean Corpuscular Volume 90.9 fL (80-100); Platelet Count 194 X10^3/uL (150-400); Red Blood Cell Count 3.77 X10^6/uL (4.5-5.9); Red Cell Distribution Width 16.6 % (11.6-14.8); White Blood Cell Count 10.4 X10^3/uL (4.5-11.0)
[2021-11-04 16:42] LABS: Add Manual Diff / Slide Review YES
[2021-11-04 16:44] LABS: Neutrophils Absolute Manual 8320 /uL (3000-5900); RBC Morphology Normal Morphology; Total Cells Counted 100
[2021-11-04 16:46] LABS: Anisocytosis 1+; Macrocytosis 1+; Platelet Estimate NOTE; Polychromasia 1+
== END ==
PROVIDERS: PCP Internal Medicine; Referring Provider Internal Medicine Pulmonary Disease; Visit Provider Internal Medicine Pulmonary Disease
DX: J47.9 Bronchiectasis, uncomplicated (principal); R05.9 Cough, unspecified; R06.02 Shortness of breath; I77.2 Rupture of artery
CPT/HCPCS: 36415; 85007; 85025

== ENCOUNTER 2021-11-16 02:56 | Emergency (ER) | payer OTHER, SELFPAY ==
[2021-11-16] VITALS (63 sets, daily range): BP systolic 103–227; BP diastolic 61–148; PULSE 64–101; RESP 15–47; TEMP 36.6; O2SAT 90–99; BMI 27.1
[2021-11-16] MEDS: SODIUM CHLORIDE 0.9% 1,000 ML 1000 ML IV (03:24)
[2021-11-16] MEDS: HYDROMORPHONE 0.5 MG INJ IV (03:25)
[2021-11-16] MEDS: PANTOPRAZOLE 40 MG VIAL IV (03:25)
[2021-11-16] MEDS: ONDANSETRON 4 MG/2 ML INJ IV (03:25)
--- NOTE | 2021-11-16 03:27 | ED_ITS ---
HPI - Abdominal Pain General Chief Complaint: Abdominal Pain Stated Complaint: sepsis, iv pickline and stomache hurts Time Seen by Provider: 11/16/21 02:58 Source: patient and family Mode of arrival: Wheelchair History of Present Illness HPI narrative: 71-year-old male nonsmoker with history of bronchiectasis on 5 L home oxygen with history of mycobacterium and recurrent Pseudomonas as well as coronary artery disease, AFib presents with family in the chief complaint of a relatively sudden onset severe abdominal pain with nausea and vomiting and altered sensorium. states that he has been very much at his baseline and doing quite well since he was discharged from the hospital a few weeks ago. He had been seen and evaluated here with increased cough and shortness of breath and was found to have multifocal pneumonia with sepsis and possibly a lung abscess. Given his history of care at [facility] he was transferred there and admitted for 1 week before finally being discharged with a PICC line in place. He receives IV antibiotics multiple times daily at home and has a nurse come once weekly. He has been taking his medications as directed, denies any recent travel or bad food. He has severe generalized abdominal pain that is made worse by moving and vomiting. He has had the occasional loose stool but denies any significant constipation or other GI symptoms. He has had no dysuria, frequency or urgency. He did start coughing again yesterday. He has not had any fever but he has had chills per the Related Data Home Medications Medication Instructions Recorded Confirmed apixaban 5 mg tablet (Eliquis) 5 mg PO BID 04/02/19 10/12/21 omeprazole 40 mg capsule,delayed 40 mg PO DAILY 04/02/19 10/12/21 release prednisone 10 mg tablet 10 mg PO DAILY 04/02/19 10/12/21 Tobramycin 10/12/21 alendronate 70 mg tablet (Fosamax) 70 mg PO QWEEK 10/12/21 10/12/21 amlodipine 10 mg tablet 10 mg PO DAILY 10/12/21 10/12/21 atorvastatin 80 mg tablet 80 mg PO QPM 10/12/21 10/12/21 azithromycin 250 mg tablet 250 mg PO DAILY 10/12/21 10/12/21 carvedilol 25 mg tablet 25 mg PO BID 10/12/21 10/12/21 fluticasone propionate 115 2 puff INHALATION BID 10/12/21 10/12/21 mcg-salmeterol 21 mcg/actuation HFA inhaler (Advair HFA) fluticasone propionate 50 1 spray INTRANASAL DAILY 10/12/21 10/12/21 mcg/actuation nasal spray,suspension hydrochlorothiazide 12.5 mg capsule 12.5 mg PO DAILY 10/12/21 10/12/21 irbesartan 75 mg tablet 75 mg PO ONCE PM 10/12/21 10/12/21 levalbuterol HCl 0.63 mg/3 mL 0.63 mg INHALATION TID 10/12/21 10/12/21 solution for nebulization (Xopenex) tramadol 100 mg tablet,extended 100 mg PO BEDTIME 10/12/21 10/12/21 release 24 hr zolpidem 5 mg tablet 5 mg PO BEDTIME PRN 10/12/21 10/12/21 Previous Rx's Medication Instructions Recorded cyclobenzaprine 5 mg tablet 10 mg PO Q8H PRN #10 tab 09/15/19 Allergies Allergy/AdvReac Type Severity Reaction Status Date / Time amoxicillin AdvReac Mild NAUSEA Verified 09/23/19 08:55 levofloxacin AdvReac Mild GI UPSET Verified 09/23/19 08:55 Patient History Medical History (Updated 11/16/21 @ 05:36 by Monroe Bhatti DO) Arthritis Atypical chest pain BPH (benign prostatic hyperplasia) Bronchiectasis Coronary artery disease DJD (degenerative joint disease) Dyspnea GERD (gastroesophageal reflux disease) Kidney stone (~2015) Microscopic polyangiitis Mycobacterium chelonae infection Non-productive cough Paroxysmal A-fib (03/09/18) Pneumonia (~07/2013) Vasculitis Surgical History History of colonoscopy (~2015) History of coronary artery stent placement (~06/2012) Social History household members: spouse Smoking Status: Never smoker alcohol intake: current Smoking Status: Never smoker alcohol intake frequency: holidays/special occasions only Substance Use Type: does not use Exam Initial Vital Signs Initial Vital Signs: Vital Signs Temperature 97.9 F 11/16/21 03:05 Pulse Rate 101 H 11/16/21 03:05 Respiratory Rate 26 H 11/16/21 03:05 Blood Pressure 171/77 H 11/16/21 03:05 Pulse Oximetry 99 11/16/21 03:05 Course Course Course Narrative: patient significantly improved after dilaudid and zofran. No longer writhing in pain, however BP still elevated. Labetalol ordered Little improvement after labetalol, imaging is back and without any significant abnormalities, patient continues to be encephalopathic and though this may very well be due to sepsis, acute kidney injury or both hypertensive emergency and intracranial hemorrhage her both considered, head CT obtained 05 -sepsis fluids, antibiotics, Haley catheter with your ROM in her ordered. Images pushed to Dana silva. Imaging would suggest against any obstructive uropathy, the patient is not obviously dry as he has moist mucous membranes and good skin turgor. 0517 - contacted to initiate transfer 0545 - Hospitalist (Dr. Billy) happy to accept pending repeat lactate, as long as it is not rising, and BP continues to improve. Patient has taken his home BP meds and now is in the 150s. Fractional Excretion of Sodium (FENa) from [facility] on 11/16/2021 All calculations should be rechecked by clinician prior to use RESULT SUMMARY: 5.9 % FENa Post-Renal/Obstructive e.g. BPH, bladder stone, bilateral ureter obstruction INPUTS: Serum sodium ?> 140 mEq/L Serum creatinine ?> 3.47 mg/dL Urine sodium ?> 105 mEq/L Urine creatinine ?> 44.1 mg/dL Orders Ordered: ED Orders 11/16/21 17:26 CBC Auto Diff [Complete Blood Count AUTO DIFF] Stat CMP [Comprehensive Metabolic Panel] Stat Lactate (Lactic Acid) Stat Magnesium Stat Piperacillin Sod/Tazobactam (Sod 3.375 gm/ Sodium Chloride) 100 mls @ 25 mls/hr IV Q8H [facility] Last Infusion: 11/16/21 16:13 Dose: 0 mls/hr Documented by: Admin: 11/16/21 12:03 Dose: 25 mls/hr Documented by: RENA Sodium Chloride (Normal Saline 0.9%) 1,000 mls @ 150 mls/hr IV CONT RAKESH Last Admin: 11/16/21 12:03 Dose: 150 mls/hr Documented by: RENA Discontinued Medications Al Hydrox/Mg Hydrox/Simethicone (Mag Hydrox/Alum/Simeth 30 Ml Udc) 30 ml PO NOW ONE Stop: 11/16/21 13:47 Last Admin: 11/16/21 13:52 Dose: 30 ml Documented by: VAL Amlodipine Besylate (Amlodipine 5 Mg Tablet) 10 mg PO NOW ONE Stop: 11/16/21 05:31 Last Admin: 11/16/21 05:58 Dose: 10 mg Documented by: CHIOMA Carvedilol (Carvedilol 12.5 Mg Tablet) 25 mg PO NOW ONE Stop: 11/16/21 05:31 Last Admin: 11/16/21 05:58 Dose: 25 mg Documented by: CHIOMA Diphenhydramine HCl (Diphenhydramine 50 Mg/Ml Vial) 25 mg IV NOW ONE Stop: 11/16/21 16:35 Last Admin: 11/16/21 16:44 Dose: 25 mg Documented by: [place] Hydromorphone HCl (Hydromorphone 0.5 Mg Inj) 0.5 mg IV NOW ONE Stop: 11/16/21 03:09 Last Admin: 11/16/21 03:25 Dose: 0.5 mg Documented by: CHIOMA Hydromorphone HCl (Hydromorphone 1 Mg Inj) 1 mg IV NOW ONE Stop: 11/16/21 17:11 Last Admin: 11/16/21 17:36 Dose: 1 mg Documented by: RENA Sodium Chloride (Normal Saline 0.9%) 1,000 mls @ 1,000 mls/hr IV BOLUS ONE Stop: 11/16/21 04:07 Last Infusion: 11/16/21 04:54 Dose: 0 mls/hr Documented by: Admin: 11/16/21 03:24 Dose: 1,000 mls/hr Documented by: CHIOMA Sodium Chloride (Normal Saline 0.9%) 2,721.54 mls @ 907.18 mls/hr 30 ml/kg infuse over 3 hr (2721.54 ml) IV NOW ONE Stop: 11/16/21 08:11 Last Infusion: 11/16/21 08:25 Dose: 0 mls/hr Documented by: Admin: 11/16/21 05:24 Dose: 907.18 mls/hr Documented by: [email or web address] Piperacillin Sod/Tazobactam (Sod 4.5 gm/ Sodium Chloride) 100 mls @ 200 mls/hr IV NOW ONE Stop: 11/16/21 05:15 Last Infusion: 11/16/21 06:44 Dose: 0 mls/hr Documented by: [email or web address] Admin: 11/16/21 05:23 Dose: 200 mls/hr Documented by: [email or web address] Labetalol HCl (Labetalol 20 Mg/4 Ml Syringe) 20 mg IV NOW ONE Stop: 11/16/21 04:07 Last Admin: 11/16/21 04:10 Dose: 20 mg Documented by: [email or web address] Lidocaine HCl (Lidocaine 2% (Glydo) 6 Ml Gel) 6 ml TOP NOW ONE Stop: 11/16/21 05:37 Last Admin: 11/16/21 06:45 Dose: 6 ml Documented by: [email or web address] Lorazepam (Lorazepam 2 Mg/Ml Inj) 1 mg IV NOW ONE Stop: 11/16/21 06:16 Last Admin: 11/16/21 06:18 Dose: 1 mg Documented by: CHIOMA Lorazepam (Lorazepam 2 Mg/Ml Inj) 1 mg IV NOW ONE Stop: 11/16/21 08:34 Last Admin: 11/16/21 08:37 Dose: 1 mg Documented by: VAL Metoclopramide HCl (Metoclopramide 10 Mg/2 Ml Inj) 10 mg IV NOW ONE Stop: 11/16/21 16:35 Last Admin: 11/16/21 16:44 Dose: 10 mg Documented by: [place] Ondansetron HCl (Ondansetron 4 Mg/2 Ml Inj) 4 mg IV NOW ONE Stop: 11/16/21 03:09 Last Admin: 11/16/21 03:25 Dose: 4 mg Documented by: CHIOMA Pantoprazole Sodium (Pantoprazole 40 Mg Vial) 40 mg IV NOW ONE Stop: 11/16/21 03:09 Last Admin: 11/16/21 03:25 Dose: 40 mg Documented by: CHIOMA Vital Signs Vital signs: Vital Signs - 8 hr 11/16/21 10:30 11/16/21 11:00 11/16/21 11:30 Temperature Pulse Rate 74 73 72 Respiratory Rate 18 26 H 20 Blood Pressure 146/83 H 155/77 H 134/64 Pulse Oximetry 93 93 93 11/16/21 11:59 11/16/21 12:00 11/16/21 12:15 Temperature 97.9 F Pulse Rate 80 79 Respiratory Rate 33 H 32 H Blood Pressure 142/77 H Pulse Oximetry 93 93 11/16/21 12:30 11/16/21 13:00 11/16/21 13:30 Temperature Pulse Rate 77 81 79 Respiratory Rate 18 29 H 27 H Blood Pressure 150/82 H 130/65 Pulse Oximetry 92 93 92 11/16/21 13:31 11/16/21 14:00 11/16/21 14:30 Temperature Pulse Rate 80 68 74 Respiratory Rate 30 H 20 19 Blood Pressure 151/86 H 163/79 H 139/83 Pulse Oximetry 93 93 92 11/16/21 15:00 11/16/21 15:30 11/16/21 16:00 Temperature Pulse Rate 82 71 78 Respiratory Rate 21 20 22 Blood Pressure 153/79 H 160/78 H 134/76 Pulse Oximetry 94 93 93 11/16/21 16:30 11/16/21 17:00 Temperature Pulse Rate 82 81 Respiratory Rate 24 27 H Blood Pressure 123/61 Pulse Oximetry 93 92 MDM - Abdominal Pain Lab Data Result diagrams: 11/16/21 17:26 11/16/21 17:26 Labs: Lab Results 11/16/21 11/16/21 11/16/21 Range/Units 03:20 03:20 03:20 WBC 12.3 H (4.5-11.0) X10^3/uL RBC 3.90 L (4.5-5.9) X10^6/uL Hgb 11.5 L (13.5-17.5) g/dL Hct 34.8 L (41-53) % MCV 89.2 (80-100) fL MCH 29.4 (26-34) PG MCHC 33.0 (30-36) % RDW 16.0 H (11.6-14.8) % Plt Count 122 L (150-400) X10^3/uL Neut % (Auto) 69.0 (50-75) % Lymph % (Auto) 17.2 L (25-40) % [place] % (Auto) 10.6 (3-14) % Eos % (Auto) 2.6 (2-4) % Baso % (Auto) 0.6 (0-2) % Neut # (Auto) 8500 H (1475-4516) /uL Lymph # (Auto) 2100 (2478-5382) /uL [place] # (Auto) 1300 H (0-900) /uL Eos # (Auto) 300 (0-450) /uL Baso # (Auto) 100 (0-100) /uL Sodium 140 (137-145) mmol/L Potassium 3.9 (3.4-5.1) mmol/L Chloride 109 H (98-107) mmol/L Carbon Dioxide 15 L (22-32) mmol/L BUN 67 H (9-20) mg/dL Creatinine 3.47 H (0.66-1.25) mg/dL Estimated GFR 18 L (>60) mL/min BUN/Creatinine Ratio 19.3 (6-22) Glucose 97 (80-110) mg/dL Lactate 2.5 H (0.7-2.1) mmol/L Calcium 9.7 (8.4-10.2) mg/dL Magnesium (1.6-2.3) mg/dL Total Bilirubin 0.7 (0.2-1.3) mg/dL AST 23 (17-59) IU/L ALT 18 (<50) IU/L Alkaline Phosphatase 45 (38-126) U/L Total Creatine Kinase (55-170) U/L CK-MB (CK-2) CK-MB (CK-2) Rel Index Troponin I (0.01-0.034) ng/mL Total Protein 7.3 (6.3-8.2) g/dL Albumin 4.3 (3.5-5.0) g/dL Globulin 3.0 (1.7-4.1) g/dL Albumin/Globulin Ratio 1.4 (1.0-2.8) Lipase 360 H (23-300) U/L Urine Color Urine Appearance Urine pH (4.5-8.0) Ur Specific [place] (1.000-1.035) Urine Protein (Negative) Urine Glucose (UA) (Negative) g/dL Urine Ketones (NEGATIVE) Urine Occult Blood (Negative) Urine Nitrate (Negative) Urine Bilirubin (NEGATIVE) Urine Urobilinogen (0.2) E.U./dL Ur Leukocyte Esterase (NEGATIVE) Urine RBC (0-5/HPF) Urine WBC (0-5/HPF) Urine Bacteria (None) Ur Culture Indicated? Ur Random Sodium (30-90) mmol/L Urine Creatinine mg/dL SARS-CoV-2 (PCR) (Negative) 11/16/21 11/16/21 11/16/21 Range/Units 03:20 03:20 05:40 WBC (4.5-11.0) X10^3/uL RBC (4.5-5.9) X10^6/uL Hgb (13.5-17.5) g/dL Hct (41-53) % MCV (80-100) fL MCH (26-34) PG MCHC (30-36) % RDW (11.6-14.8) % Plt Count (150-400) X10^3/uL Neut % (Auto) (50-75) % Lymph % (Auto) (25-40) % [place] % (Auto) (3-14) % Eos % (Auto) (2-4) % Baso % (Auto) (0-2) % Neut # (Auto) (9937-2578) /uL Lymph # (Auto) (3862-0531) /uL [place] # (Auto) (0-900) /uL Eos # (Auto) (0-450) /uL Baso # (Auto) (0-100) /uL Sodium (137-145) mmol/L Potassium (3.4-5.1) mmol/L Chloride (98-107) mmol/L Carbon Dioxide (22-32) mmol/L BUN (9-20) mg/dL Creatinine (0.66-1.25) mg/dL Estimated GFR (>60) mL/min BUN/Creatinine Ratio (6-22) Glucose (80-110) mg/dL Lactate (0.7-2.1) mmol/L Calcium (8.4-10.2) mg/dL Magnesium 1.7 (1.6-2.3) mg/dL Total Bilirubin (0.2-1.3) mg/dL AST (17-59) IU/L ALT (<50) IU/L Alkaline Phosphatase (38-126) U/L Total Creatine Kinase < 20 L (55-170) U/L CK-MB (CK-2) TNP CK-MB (CK-2) Rel Index TNP Troponin I 0.014 (0.01-0.034) ng/mL Total Protein (6.3-8.2) g/dL Albumin (3.5-5.0) g/dL Globulin (1.7-4.1) g/dL Albumin/Globulin Ratio (1.0-2.8) Lipase (23-300) U/L Urine Color Yellow Urine Appearance Clear Urine pH 6.5 (4.5-8.0) Ur Specific [place] 1.010 (1.000-1.035) Urine Protein 1+ H (Negative) Urine Glucose (UA) Negative (Negative) g/dL Urine Ketones Negative (NEGATIVE) Urine Occult Blood 1+ H (Negative) Urine Nitrate Negative (Negative) Urine Bilirubin Negative (NEGATIVE) Urine Urobilinogen 0.2 (0.2) E.U./dL Ur Leukocyte Esterase Negative (NEGATIVE) Urine RBC 1-5/hpf (0-5/HPF) Urine WBC 0-1/hpf (0-5/HPF) Urine Bacteria Few (2-10) H (None) Ur Culture Indicated? Cult not indicated Ur Random Sodium (30-90) mmol/L Urine Creatinine mg/dL SARS-CoV-2 (PCR) Negative (Negative) 11/16/21 11/16/21 11/16/21 Range/Units 05:45 06:38 17:26 WBC 7.9 (4.5-11.0) X10^3/uL RBC 3.33 L (4.5-5.9) X10^6/uL Hgb 10.0 L (13.5-17.5) g/dL Hct 29.7 L (41-53) % MCV 89.3 (80-100) fL MCH 30.1 (26-34) PG MCHC 33.7 (30-36) % RDW 15.8 H (11.6-14.8) % Plt Count 98 L (150-400) X10^3/uL Neut % (Auto) 70.0 (50-75) % Lymph % (Auto) 13.6 L (25-40) % [place] % (Auto) 10.6 (3-14) % Eos % (Auto) 5.0 H (2-4) % Baso % (Auto) 0.8 (0-2) % Neut # (Auto) 5500 (4023-4272) /uL Lymph # (Auto) 1100 (2814-4232) /uL [place] # (Auto) 800 (0-900) /uL Eos # (Auto) 400 (0-450) /uL Baso # (Auto) 100 (0-100) /uL Sodium (137-145) mmol/L Potassium (3.4-5.1) mmol/L Chloride (98-107) mmol/L Carbon Dioxide (22-32) mmol/L BUN (9-20) mg/dL Creatinine (0.66-1.25) mg/dL Estimated GFR (>60) mL/min BUN/Creatinine Ratio (6-22) Glucose (80-110) mg/dL Lactate 0.9 (0.7-2.1) mmol/L Calcium (8.4-10.2) mg/dL Magnesium (1.6-2.3) mg/dL Total Bilirubin (0.2-1.3) mg/dL AST (17-59) IU/L ALT (<50) IU/L Alkaline Phosphatase (38-126) U/L Total Creatine Kinase (55-170) U/L CK-MB (CK-2) CK-MB (CK-2) Rel Index Troponin I (0.01-0.034) ng/mL Total Protein (6.3-8.2) g/dL Albumin (3.5-5.0) g/dL Globulin (1.7-4.1) g/dL Albumin/Globulin Ratio (1.0-2.8) Lipase (23-300) U/L Urine Color Urine Appearance Urine pH (4.5-8.0) Ur Specific [place] (1.000-1.035) Urine Protein (Negative) Urine Glucose (UA) (Negative) g/dL Urine Ketones (NEGATIVE) Urine Occult Blood (Negative) Urine Nitrate (Negative) Urine Bilirubin (NEGATIVE) Urine Urobilinogen (0.2) E.U./dL Ur Leukocyte Esterase (NEGATIVE) Urine RBC (0-5/HPF) Urine WBC (0-5/HPF) Urine Bacteria (None) Ur Culture Indicated? Ur Random Sodium 105 H (30-90) mmol/L Urine Creatinine 44.1 mg/dL SARS-CoV-2 (PCR) (Negative) 05/25/22 05/25/22 Range/Units 17:26 17:26 WBC (4.5-11.0) X10^3/uL RBC (4.5-5.9) X10^6/uL Hgb (13.5-17.5) g/dL Hct (41-53) % MCV (80-100) fL MCH (26-34) PG MCHC (30-36) % RDW (11.6-14.8) % Plt Count (150-400) X10^3/uL Neut % (Auto) (50-75) % Lymph % (Auto) (25-40) % [place] % (Auto) (3-14) % Eos % (Auto) (2-4) % Baso % (Auto) (0-2) % Neut # (Auto) (9941-6212) /uL Lymph # (Auto) (8291-9673) /uL [place] # (Auto) (0-900) /uL Eos # (Auto) (0-450) /uL Baso # (Auto) (0-100) /uL Sodium 141 (137-145) mmol/L Potassium 3.5 (3.4-5.1) mmol/L Chloride 112 H (98-107) mmol/L Carbon Dioxide 18 L (22-32) mmol/L BUN 60 H (9-20) mg/dL Creatinine 3.45 H (0.66-1.25) mg/dL Estimated GFR 18 L (>60) mL/min BUN/Creatinine Ratio 17.4 (6-22) Glucose 90 (80-110) mg/dL Lactate 0.8 (0.7-2.1) mmol/L Calcium 8.1 L (8.4-10.2) mg/dL Magnesium 1.6 (1.6-2.3) mg/dL Total Bilirubin 0.6 (0.2-1.3) mg/dL AST 20 (17-59) IU/L ALT 14 (<50) IU/L Alkaline Phosphatase 36 L (38-126) U/L Total Creatine Kinase (55-170) U/L CK-MB (CK-2) CK-MB (CK-2) Rel Index Troponin I (0.01-0.034) ng/mL Total Protein 6.3 (6.3-8.2) g/dL Albumin 3.5 (3.5-5.0) g/dL Globulin 2.8 (1.7-4.1) g/dL Albumin/Globulin Ratio 1.3 (1.0-2.8) Lipase (23-300) U/L Urine Color Urine Appearance Urine pH (4.5-8.0) Ur Specific [place] (1.000-1.035) Urine Protein (Negative) Urine Glucose (UA) (Negative) g/dL Urine Ketones (NEGATIVE) Urine Occult Blood (Negative) Urine Nitrate (Negative) Urine Bilirubin (NEGATIVE) Urine Urobilinogen (0.2) E.U./dL Ur Leukocyte Esterase (NEGATIVE) Urine RBC (0-5/HPF) Urine WBC (0-5/HPF) Urine Bacteria (None) Ur Culture Indicated? Ur Random Sodium (30-90) mmol/L Urine Creatinine mg/dL SARS-CoV-2 (PCR) (Negative) Imaging Data CT scan - head: Radiologist's Impression: No acute intracranial abnormality CT scan - chest: Radiologist's Impression: Left lower lobe infiltrate. No evidence of colitis, diverticulitis, bowel obstruction, obstructive uropathy, or acute appendicitis Discharge Plan Departure Patient Disposition: [facility] Clinical Impression: Sepsis, Left lower lobe pneumonia, Acute kidney injury Prescriptions: No Action prednisone 10 mg Tablet 10 mg PO DAILY 0RF omeprazole 40 mg Capsule,Delayed Release(Dr/Ec) 40 mg PO DAILY 0RF Eliquis 5 mg Tablet 5 mg PO BID 0RF cyclobenzaprine 5 mg tablet 10 mg PO Q8H PRN (Reason: muscle spasm/back pain) Qty: 10 0RF Rx Instructions: do not drive atorvastatin 80 mg Tablet 80 mg PO QPM 0RF carvedilol 25 mg Tablet 25 mg PO BID 0RF Rx Instructions: must administer with a meal/food azithromycin 250 mg Tablet 250 mg PO DAILY 0RF Rx Instructions: start on day 2 of therapy levalbuterol HCl [Xopenex] 0.63 mg/3 mL Solution For Nebulization 0.63 mg INHALATION TID 0RF alendronate [Fosamax] 70 mg Tablet 70 mg PO QWEEK 0RF amlodipine 10 mg Tablet 10 mg PO DAILY 0RF hydrochlorothiazide 12.5 mg Capsule 12.5 mg PO DAILY 0RF irbesartan 75 mg Tablet 75 mg PO ONCE PM 0RF zolpidem 5 mg Tablet 5 mg PO BEDTIME PRN (Reason: Sleep) 0RF fluticasone propionate 50 mcg/actuation [place],Suspension 1 spray INTRANASAL DAILY 0RF Rx Instructions: administer into each nostril tramadol 100 mg Tablet Extended Release 24 Hr 100 mg PO BEDTIME 0RF Advair HFA 115-21 mcg/actuation Hfa Aerosol Inhaler 2 puff INHALATION BID 0RF Tobramycin 75 mg 0RF Rx Instructions: Tobramycin 75mg/ml, 4ml BID via Nebulizer Referrals: Carolina Pepper MD [Primary Care Provider] -
--- NOTE | 2021-11-16 03:30 | DI.CT.S_ITS ---
PROCEDURE: CT CHEST ABD PEL W CON INDICATIONS: severe abdominal pain, vomiting, known bronchiectasis and TECHNIQUE: After the administration of intravenous contrast, 5 mm thick sections acquired from the lung apices to the symphysis. 5 mm coronal and sagittal reformats were performed, with additional 7 mm MIP reformats through the lungs. For radiation dose reduction, the following was used: automated exposure control, adjustment of mA and/or kV according to patient size. COMPARISON: [facility], CT, CT ABDOMEN PELVIS W CON, 11/10/2019, 14:52. [facility], CT, CT ANGIO CHEST PE PROTOCOL, 10/11/2021, 19:53. FINDINGS: Image quality: Excellent. CHEST: Lungs and pleura: Continued, but significantly improved atelectasis and possible superimposed consolidation in the left lower lobe, versus the previous CT angiography from 10/11/2021. Resolution of previous left pleural fluid. There is no longer an appearance suggesting possible pulmonary abscess in the left base. Minimal right basilar atelectasis. Central and peripheral airways appear patent and normal in caliber. Mediastinum: Heart size is normal. No pericardial effusion. At least moderate coronary artery calcifications. No mediastinal or hilar adenopathy by size criteria. Thoracic aorta and central pulmonary arteries are normal in size. Esophagus is normal in caliber. No hiatal hernia. Chest wall: No axillary or supraclavicular adenopathy by size criteria. Thyroid gland is grossly unremarkable as visualized. Right arm PICC line terminates in the SVC right atrial junction region. ABDOMEN: Solid organs: Liver is normal in size and enhancement. Gallbladder is unremarkable . Biliary system is non dilated. Pancreas enhances normally. Spleen is normal in size and enhancement. No adrenal nodules. Kidneys demonstrate normal size and enhancement, without hydronephrosis. Nonobstructing left renal stones are again noted, as is a prominent exophytic cyst off the lower pole of the left kidney. Peritoneum and bowel: Bowel loops demonstrate normal wall thickness and caliber. No free fluid or air. Nodes and vessels: No retroperitoneal or mesenteric adenopathy by size criteria. Aorta and inferior vena cava are normal in size. Miscellaneous: No ventral hernias. PELVIS: Genitourinary: Bladder wall thickness is normal. Miscellaneous: Fat containing right inguinal hernia. No inguinal adenopathy. Bones: No suspicious bony lesions. Numerous old compression fractures, including a previously treated T12 compression. Other levels of chronic compression fracture include T9, L1, L2, L3, and L4. IMPRESSION: 1. Significant interval improvement in left basilar pneumonia and atelectasis. There is residual atelectasis in the extreme lung base with possible superimposed pneumonia. Previous probable pulmonary abscess has resolved, as has the left pleural effusion. 2. Coronary artery disease. 3. Severe osteoporosis with numerous old compression fractures. Comment: Recommend progress films to document further clearing of the left lower lobe process. Comment: Final report is concordant with preliminary interpretation provided by [facility]. Dictated by: Franklyn Garcia M.D. on 11/16/2021 at 7:54 Approved by: Franklyn Garcia M.D. on 11/16/2021 at 8:03
--- NOTE | 2021-11-16 03:36 | PC.NURSE ---
Pt arrives with through triage to ER for eval of altered mental status and general decline. Pt recently seen here and transferred to inpatient unit at [facility] for septic pnuemonia. Pt discharged with IV abx which the has been giving him via PICC line. Pt was last normal 2 days ago per . Pt appears in obvious distress, wide eyes and tachypnea as well as inability to follow simple commands or stand up and get in bed without 2 staff assist. Pt unable to cionfirm his date of and doesn't respond when asked toher orientation questions. Appears very disoriented. Pt will make brief eye contact and nod, but that's all. Pt right arm PICC line flushes well and draws blood. Pt nauseated and violently dry heaving on arrival. unsure about bowel/bladder habits of pt.
[2021-11-16 03:48] LABS: Add Manual Diff / Slide Review NO; Basophils Absolute Auto 100 /uL (0-100); Basophils Percent Auto 0.6 % (0-2); Eosinophils Absolute Auto 300 /uL (0-450); Eosinophils Percent Auto 2.6 % (2-4); Hematocrit 34.8 % (41-53); Hemoglobin 11.5 g/dL (13.5-17.5); Lymphocytes Absolute Auto 2100 /uL (1100-4500); Lymphocytes Percent Auto 17.2 % (25-40); Mean Corpuscular Hemoglobin 29.4 PG (26-34); Mean Corpuscular Volume 89.2 fL (80-100); Monocytes Absolute Auto 1300 /uL (0-900); Monocytes Percent Auto 10.6 % (3-14); Neutrophils Absolute Auto 8500 /uL (1500-7000); Platelet Count 122 X10^3/uL (150-400); White Blood Cell Count 12.3 X10^3/uL (4.5-11.0)
[2021-11-16 04:01] LABS: Lactate (Lactic Acid) 2.5 mmol/L (0.7-2.1)
[2021-11-16 04:02] LABS: Creatine Kinase < 20 U/L (55-170); Magnesium 1.7 mg/dL (1.6-2.3)
[2021-11-16] MEDS: LABETALOL 20 MG/4 ML SYRINGE IV (04:10)
[2021-11-16 04:13] LABS: Troponin I 0.014 ng/mL (0.01-0.034)
[2021-11-16 04:16] LABS: COVID19 -Nasal RAPID Negative (Negative)
[2021-11-16 04:19] LABS: Alanine Aminotransferase 18 IU/L (<50); Albumin 4.3 g/dL (3.5-5.0); Albumin Globulin Ratio 1.4 (1.0-2.8); Alkaline Phosphatase 45 U/L (38-126); Aspartate Aminotransferase 23 IU/L (17-59); BUN Creatinine Ratio 19.3 (6-22); Bilirubin Total 0.7 mg/dL (0.2-1.3); Blood Urea Nitrogen 67 mg/dL (9-20); Calcium 9.7 mg/dL (8.4-10.2); Carbon Dioxide 15 mmol/L (22-32); Chloride 109 mmol/L (98-107); Estimated Glomerular Filt Rate 18 mL/min (>60); Glucose 97 mg/dL (80-110); HEMOLYSIS < 15 (0-50); Lipase 360 U/L (23-300); Potassium 3.9 mmol/L (3.4-5.1); Sodium 140 mmol/L (137-145); Total Protein 7.3 g/dL (6.3-8.2)
--- NOTE | 2021-11-16 04:33 | PC.NURSE ---
Pt appears less restless in bed and is making more eye contact. Pt still confused and unsure about date/time/. Pt denies headache or vision changes. Pt is on Eliquis.
--- NOTE | 2021-11-16 04:54 | DI.CT.S_ITS ---
PROCEDURE: CT HEAD/BRAIN WO CON INDICATIONS: altered mental status TECHNIQUE: Noncontrast 4.5 mm thick angled axial sections acquired from the foramen magnum to the vertex, with coronal and sagittal reformats. For radiation dose reduction, the following was used: automated exposure control, adjustment of mA and/or kV according to patient size. COMPARISON: None. FINDINGS: Image quality: Excellent. CSF spaces: Basal cisterns are patent. No extra-axial fluid collections. The ventricles are symmetric in size and shape. Brain: Contrast material noted in the intracranial vasculature and the dural sinuses related to recent contrast CT scan of the chest abdomen and pelvis. No intracranial bleeds or masses. There is cerebral volume loss for age, with resultant ventricular and sulcal prominence. There are periventricular and deep white matter chronic small vessel ischemic changes. There is intracranial internal carotid artery and vertebral artery atherosclerosis. Skull and face: Calvarium and visualized facial bones appear intact, without suspicious lesions. Sinuses: Polypoid mucosal thickening noted in the visualized maxillary sinuses. Small air-fluid level in the left sphenoid sinus. The mastoids are clear. IMPRESSION: No acute intracranial disease process. If there is continued clinical concern for intracranial pathology, consider MRI of the brain for additional evaluation. Dictated by: Pretty He MD, PhD on 11/16/2021 at 7:38 Approved by: Pretty He MD, PhD on 11/16/2021 at 7:40
[2021-11-16] MEDS: PIPERACILLIN/TAZO 4.5 GM in SODIUM CHLORIDE 0.9% 100 ML IV (05:23)
[2021-11-16] MEDS: SODIUM CHLORIDE 0.9% 2,721.54 ML 907.18 ML IV (05:24)
[2021-11-16 05:40] LABS: Reflexed Lactate in 2 Hours Y
[2021-11-16] MEDS: carvediloL 12.5 MG TABLET 25 MG PO (05:58)
[2021-11-16] MEDS: AMLODIPINE 5 MG TABLET 10 MG PO (05:58)
[2021-11-16 06:08] LABS: Appearance Urine UA CLEAR; Bilirubin Urine UA NEGATIVE (NEGATIVE); Color Urine UA YELLOW; Glucose Urine UA NEGATIVE (Negative); Ketones Urine UA NEGATIVE (NEGATIVE); Leukocyte Esterase Urine UA NEGATIVE (NEGATIVE); Nitrite Urine UA NEGATIVE (Negative); Occult Blood Urine UA 1+ (Negative); Protein Urine UA 1+ (Negative); Urobilinogen Urine UA 0.2 E.U./dL (0.2); pH Urine UA 6.5 (4.5-8.0)
[2021-11-16 06:15] LABS: Creatinine Urine Random 44.1 mg/dL; Sodium Urine Random 105 mmol/L (30-90)
[2021-11-16] MEDS: LORazepam 2 MG/ML INJ 1 MG IV ×2 (06:18→08:37)
--- NOTE | 2021-11-16 06:20 | PC.NURSE ---
Per pt , he does not drink ETOH.
--- NOTE | 2021-11-16 06:25 | PC.NURSE ---
Throughout pt ER stay, pt has become ever-increasingly disoriented, agitated, and restless with tremors, especially after crow placement. Initial crow attempt unsuccessful. Second attempt with 16fr coude catheter successful with 600mL initial straw color urine output. Additional staff member presence required to keep pt still and stop grabbing at this RN as catheter insertion took place. Catheter secured and pt has to be reminded frequently by his that he has a catheter in and it is draining his bladder. Pt reporting intense pain at catheter site. , continuing education specialist, and this RN have inspected crow without visualizing evidence of catheter damage, traumatic insertion (bloody urine), or misplacement. Pt attempting to get out of bed and is frequently unable to focus on simple commands. Pt increasingly restless-provider aware and Ativan order placed. Will closely monitor pt. BP improving.
--- NOTE | 2021-11-16 06:36 | PC.NURSE ---
After ativan administration, pt calmer and able to focus on this RN and provider talking with him. Pt asking questions and seems to be thinking more clearly. Pt less restless but still reports pain in his penis/prostate area.
[2021-11-16 06:40] LABS: Bacteria Urine Few (2-10); Culture Indicated Urine Cult Not Indicated; RBC Urine 1-5/HPF (0-5/HPF); WBC Urine 0-1/HPF (0-5/HPF)
[2021-11-16] MEDS: LIDOCAINE 2% (GLYDO) 6 ML GEL TOP (06:45)
[2021-11-16 06:50] LABS: Lactate 2HR (Lactic Acid Rflx) 0.9 mmol/L (0.7-2.1)
[2021-11-16] MEDS: SODIUM CHLORIDE 0.9% 1,000 ML 150 ML IV (12:03)
[2021-11-16] MEDS: PIPERACILLIN/TAZO 3.375 GM in SODIUM CHLORIDE 0.9% 100 ML IV ×2 (12:03→19:27)
[2021-11-16] MEDS: MAG HYDROX/ALUM/SIMETH 30 ML UDC PO (13:52)
[2021-11-16] MEDS: METOCLOPRAMIDE 10 MG/2 ML INJ IV (16:44)
[2021-11-16] MEDS: diphenhydrAMINE 50 MG/ML VIAL 25 MG IV (16:44)
[2021-11-16 17:35] LABS: Add Manual Diff / Slide Review NO; Basophils Absolute Auto 100 /uL (0-100); Basophils Percent Auto 0.8 % (0-2); Eosinophils Absolute Auto 400 /uL (0-450); Hematocrit 29.7 % (41-53); Lymphocytes Absolute Auto 1100 /uL (1100-4500); Lymphocytes Percent Auto 13.6 % (25-40); Mean Corpuscular HGB Conc 33.7 % (30-36); Mean Corpuscular Hemoglobin 30.1 PG (26-34); Mean Corpuscular Volume 89.3 fL (80-100); Monocytes Absolute Auto 800 /uL (0-900); Monocytes Percent Auto 10.6 % (3-14); Neutrophils Absolute Auto 5500 /uL (1500-7000); Platelet Count 98 X10^3/uL (150-400); Red Blood Cell Count 3.33 X10^6/uL (4.5-5.9); Red Cell Distribution Width 15.8 % (11.6-14.8); White Blood Cell Count 7.9 X10^3/uL (4.5-11.0)
[2021-11-16] MEDS: HYDROMORPHONE 1 MG INJ IV ×2 (17:36→23:02)
[2021-11-16 17:46] LABS: Lactate (Lactic Acid) 0.8 mmol/L (0.7-2.1)
[2021-11-16 17:47] LABS: Alanine Aminotransferase 14 IU/L (<50); Albumin 3.5 g/dL (3.5-5.0); Albumin Globulin Ratio 1.3 (1.0-2.8); Alkaline Phosphatase 36 U/L (38-126); Aspartate Aminotransferase 20 IU/L (17-59); BUN Creatinine Ratio 17.4 (6-22); Bilirubin Total 0.6 mg/dL (0.2-1.3); Blood Urea Nitrogen 60 mg/dL (9-20); Calcium 8.1 mg/dL (8.4-10.2); Carbon Dioxide 18 mmol/L (22-32); Chloride 112 mmol/L (98-107); Estimated Glomerular Filt Rate 18 mL/min (>60); Globulin 2.8 g/dL (1.7-4.1); Glucose 90 mg/dL (80-110); HEMOLYSIS < 15 (0-50); Magnesium 1.6 mg/dL (1.6-2.3); Potassium 3.5 mmol/L (3.4-5.1); Sodium 141 mmol/L (137-145); Total Protein 6.3 g/dL (6.3-8.2)
== END 2021-11-16 23:10 | disposition short-term general hospital (02) ==
PROVIDERS: Emergency Medicine; Emergency Provider Emergency Medicine; PCP Internal Medicine
DX: A41.9 Sepsis, unspecified organism (principal); J18.9 Pneumonia, unspecified organism; N17.9 Acute kidney failure, unspecified; R11.2 Nausea with vomiting, unspecified; I10 Essential (primary) hypertension; Z20.822 Contact with and (suspected) exposure to COVID-19
CPT/HCPCS: 36415; 70450; 71260; 74177; 80053; 81001; 82550; 82570; 83605; 83690; 83735; 84300; 84484; 85025; 87040; 87635; 93005; 96361; 96365; 96366; 96375; 96376; 99285; C9803; C9113; J1170; J1200; J2060; J2405; J2543; J2765; Q9967

== ENCOUNTER → 2021-11-29 09:11 | Outpatient (CLI) | payer OTHER, SELFPAY ==
[2021-11-29 10:16] LABS: Hemoglobin 10.7 g/dL (13.5-17.5); Mean Corpuscular HGB Conc 32.5 % (30-36); Mean Corpuscular Hemoglobin 29.2 PG (26-34); Mean Corpuscular Volume 89.9 fL (80-100); Platelet Count 203 X10^3/uL (150-400); Red Blood Cell Count 3.67 X10^6/uL (4.5-5.9); Red Cell Distribution Width 15.8 % (11.6-14.8); White Blood Cell Count 10.7 X10^3/uL (4.5-11.0)
[2021-11-29 10:27] LABS: Add Manual Diff / Slide Review YES
[2021-11-29 11:55] LABS: Neutrophils Absolute Manual 7062 /uL (3000-5900); Total Cells Counted 100
[2021-11-29 11:56] LABS: RBC Morphology Normal Morphology
== END ==
PROVIDERS: PCP Internal Medicine; Referring Provider Internal Medicine Pulmonary Disease; Visit Provider Internal Medicine Pulmonary Disease
DX: J47.9 Bronchiectasis, uncomplicated (principal); R06.02 Shortness of breath; I77.2 Rupture of artery
CPT/HCPCS: 36415; 85007; 85025

== ENCOUNTER 2021-12-17 12:44 | Emergency (ER) | payer OTHER, SELFPAY ==
[2021-12-17] VITALS (7 sets, daily range): BP systolic 105–154; BP diastolic 56–95; PULSE 85–124; RESP 20–25; TEMP 36.1; O2SAT 93–98; BMI 27.1
--- NOTE | 2021-12-17 12:54 | DI.RAD.S_ITS ---
PROCEDURE: XR CHEST 1V INDICATIONS: chest pain TECHNIQUE: One view of the chest was acquired. COMPARISON: [facility], CT, CT CHEST ABD PEL W CON, 11/16/2021, 3:40. [facility], CT, CT ANGIO CHEST PE PROTOCOL, 10/11/2021, 19:53. [facility], CR, XR CHEST 1V, 10/11/2021, 18:56. FINDINGS: Surgical changes and devices: None. Lungs and pleura: Blunting of the left costophrenic angle may represent small pleural effusion or scarring. Streaky bibasilar airspace opacity representing a mixture of consolidation and atelectasis. No pneumothorax. Mediastinum: Mediastinal contours appear normal. Heart size is normal. Bones and chest wall: No suspicious bony lesions. Overlying soft tissues appear unremarkable. IMPRESSION: Left costophrenic angle blunting may represent scarring or small pleural effusion. Bibasilar admixed atelectasis and consolidation. Dictated by: Shan Panda M.D. on 12/17/2021 at 13:06 Approved by: Shan Panda M.D. on 12/17/2021 at 13:07
[2021-12-17 13:07] LABS: Add Manual Diff / Slide Review NO; Basophils Absolute Auto 100 /uL (0-100); Basophils Percent Auto 0.5 % (0-2); Eosinophils Absolute Auto 300 /uL (0-450); Eosinophils Percent Auto 2.3 % (2-4); Hematocrit 33.7 % (41-53); Hemoglobin 10.9 g/dL (13.5-17.5); Lymphocytes Absolute Auto 2300 /uL (1100-4500); Lymphocytes Percent Auto 17.6 % (25-40); Mean Corpuscular HGB Conc 32.4 % (30-36); Mean Corpuscular Hemoglobin 28.4 PG (26-34); Mean Corpuscular Volume 87.5 fL (80-100); Monocytes Absolute Auto 900 /uL (0-900); Monocytes Percent Auto 6.9 % (3-14); Neutrophils Absolute Auto 9500 /uL (1500-7000); Neutrophils Percent Auto 72.7 % (50-75); Platelet Count 260 X10^3/uL (150-400); Red Blood Cell Count 3.85 X10^6/uL (4.5-5.9); Red Cell Distribution Width 14.7 % (11.6-14.8); White Blood Cell Count 13.1 X10^3/uL (4.5-11.0)
--- NOTE | 2021-12-17 13:19 | ED.ARRPALP ---
HPI - Arrhythmia/Palpitations General Chief Complaint: Arrhythmia/Palpitations Stated Complaint: Afib,HR 178, BP 169/119 Time Seen by Provider: 12/17/21 13:04 Source: patient and family Mode of arrival: Wheelchair History of Present Illness HPI narrative: Patient is a 71-year-old male. Does have a history of atrial fibrillation however his last event was approximately 10 years ago. He also has known coronary artery disease. He states that last evening he started to feel somewhat poorly. Having some slight chest discomfort and some lightheadedness. He does have a way of checking his heart rate and rhythm at home and it was elevated. It has persisted till this morning. He is on anticoagulation and has been taking it on a regular basis. His also been taking the rest of his medications as directed. His also recently been treated for left lung infection. Related Data Home Medications Medication Instructions Recorded Confirmed apixaban 5 mg tablet (Eliquis) 5 mg PO BID 04/02/19 10/12/21 omeprazole 40 mg capsule,delayed 40 mg PO DAILY 04/02/19 10/12/21 release prednisone 10 mg tablet 10 mg PO DAILY 04/02/19 10/12/21 Tobramycin 10/12/21 alendronate 70 mg tablet (Fosamax) 70 mg PO QWEEK 10/12/21 10/12/21 amlodipine 10 mg tablet 10 mg PO DAILY 10/12/21 10/12/21 atorvastatin 80 mg tablet 80 mg PO QPM 10/12/21 10/12/21 azithromycin 250 mg tablet 250 mg PO DAILY 10/12/21 10/12/21 carvedilol 25 mg tablet 25 mg PO BID 10/12/21 10/12/21 fluticasone propionate 115 2 puff inhalation BID 10/12/21 10/12/21 mcg-salmeterol 21 mcg/actuation HFA inhaler (Advair HFA) fluticasone propionate 50 1 spray intranasal DAILY 10/12/21 10/12/21 mcg/actuation nasal spray,suspension hydrochlorothiazide 12.5 mg capsule 12.5 mg PO DAILY 10/12/21 10/12/21 irbesartan 75 mg tablet 75 mg PO ONCE PM 10/12/21 10/12/21 levalbuterol HCl 0.63 mg/3 mL 0.63 mg inhalation TID 10/12/21 10/12/21 solution for nebulization (Xopenex) tramadol 100 mg tablet,extended 100 mg PO BEDTIME 10/12/21 10/12/21 release 24 hr zolpidem 5 mg tablet 5 mg PO BEDTIME PRN Sleep 10/12/21 10/12/21 Previous Rx's Medication Instructions Recorded cyclobenzaprine 5 mg tablet 10 mg PO Q8H PRN muscle spasm/back 09/15/19 pain #10 tabs Allergies Allergy/AdvReac Type Severity Reaction Status Date / Time amoxicillin AdvReac Mild NAUSEA Verified 12/17/21 12:53 levofloxacin AdvReac Mild GI UPSET Verified 12/17/21 12:53 Review of Systems Constitutional Constitutional: Reports system reviewed and no additional complaints, except as documented Cardiovascular Cardiovascular: Reports as per HPI and Reports system reviewed and no additional complaints, except as documented Respiratory Respiratory: Reports as per HPI and Reports system reviewed and no additional complaints, except as documented Gastrointestinal Gastrointestinal: Reports system reviewed and no additional complaints, except as documented Musculoskeletal Musculoskeletal: Reports system reviewed and no additional complaints, except as documented Integumentary/Breasts Skin/Breast: Reports system reviewed and no additional complaints, except as documented Neurologic Neurologic: Reports system reviewed and no additional complaints, except as documented Hematologic/Lymphatic On Anticoagulants: No Allergic/Immunologic Allergic/Immunologic: Reports system reviewed and no additional complaints, except as documented Patient History Medical History Arthritis Atypical chest pain BPH (benign prostatic hyperplasia) Bronchiectasis Coronary artery disease DJD (degenerative joint disease) Dyspnea GERD (gastroesophageal reflux disease) Kidney stone (~2015) Microscopic polyangiitis Mycobacterium chelonae infection Non-productive cough Paroxysmal A-fib (03/09/18) Pneumonia (~07/2013) Vasculitis Surgical History History of colonoscopy (~2015) History of coronary artery stent placement (~06/2012) Social History household members: spouse Smoking Status: Never smoker alcohol intake: current Smoking Status: Never smoker alcohol intake frequency: holidays/special occasions only Substance Use Type: does not use Exam Initial Vital Signs Initial Vital Signs: Vital Signs Temperature 97.0 F L 12/17/21 12:50 Pulse Rate 120 H 12/17/21 12:50 Respiratory Rate 24 12/17/21 12:50 Blood Pressure 141/67 H 12/17/21 12:50 Pulse Oximetry 96 12/17/21 12:50 Oxygen Delivery Method 12/17/21 12:50 Const General: cooperative and comfortable HENMT Head: normal to inspection and normocephalic Resp Effort & Inspection: normal respiratory effort Auscultation: clear to auscultation bilaterally Cardio Rate: tachycardic Rhythm: abnormal rhythm GI Inspection: normal to inspection Skin General: no rashes or lesions noted Neuro General: patient alert, patient awake, patient oriented x3 and moves all extremities Extrem General: normal to inspection and capillary refill normal Psych Appearance: grossly normal and well kempt Course Orders Ordered: ED Orders 12/17/21 12:54 XR chest 1V Stat EKG-12 Lead Stat 12/17/21 12:57 Complete Blood Count AUTO DIFF Stat Comprehensive Metabolic Panel Stat Lipase Stat Magnesium Stat Troponin & CK Cardiac Panel Stat 12/17/21 13:20 EKG-12 Lead Stat Vital Signs Vital signs: Vital Signs - 8 hr 12/17/21 12:50 12/17/21 12:51 12/17/21 12:52 Temperature 97.0 F L Pulse Rate 120 H 124 H Respiratory Rate 24 25 H Blood Pressure 141/67 H 135/89 Pulse Oximetry 96 97 Oxygen Delivery Method Room Air 12/17/21 12:52 12/17/21 13:00 12/17/21 13:01 Temperature Pulse Rate 116 H 121 H Respiratory Rate 24 25 H Blood Pressure 105/56 L Pulse Oximetry 98 95 Oxygen Delivery Method 12/17/21 13:01 12/17/21 13:30 12/17/21 13:30 Temperature Pulse Rate 124 H 85 Respiratory Rate 25 H 20 Blood Pressure 154/95 H Pulse Oximetry 95 93 Oxygen Delivery Method 12/17/21 14:00 12/17/21 14:00 Temperature Pulse Rate 89 Respiratory Rate 20 Blood Pressure 141/92 H Pulse Oximetry 93 Oxygen Delivery Method MDM - Arrhythmia/Palpitations Lab Data Attestation: I reviewed the patient's lab results. Result diagrams: 12/17/21 12:57 12/17/21 12:57 Labs: Lab Results 12/17/21 12/17/21 Range/Units 12:57 12:57 WBC 13.1 H (4.5-11.0) X10^3/uL RBC 3.85 L (4.5-5.9) X10^6/uL Hgb 10.9 L (13.5-17.5) g/dL Hct 33.7 L (41-53) % MCV 87.5 (80-100) fL MCH 28.4 (26-34) PG MCHC 32.4 (30-36) % RDW 14.7 (11.6-14.8) % Plt Count 260 (150-400) X10^3/uL Neut % (Auto) 72.7 (50-75) % Lymph % (Auto) 17.6 L (25-40) % Armstrong % (Auto) 6.9 (3-14) % Eos % (Auto) 2.3 (2-4) % Baso % (Auto) 0.5 (0-2) % Neut # (Auto) 9500 H (1688-3974) /uL Lymph # (Auto) 2300 (2262-2765) /uL Armstrong # (Auto) 900 (0-900) /uL Eos # (Auto) 300 (0-450) /uL Baso # (Auto) 100 (0-100) /uL Sodium 138 (137-145) mmol/L Potassium 3.6 (3.4-5.1) mmol/L Chloride 103 (98-107) mmol/L Carbon Dioxide 27 (22-32) mmol/L BUN 25 H (9-20) mg/dL Creatinine 1.45 H (0.66-1.25) mg/dL Estimated GFR 51 L (>60) mL/min BUN/Creatinine Ratio 17.2 (6-22) Glucose 130 H (80-110) mg/dL Calcium 9.8 (8.4-10.2) mg/dL Magnesium 1.4 L (1.6-2.3) mg/dL Total Bilirubin 0.3 (0.2-1.3) mg/dL AST 24 (17-59) IU/L ALT 21 (<50) IU/L Alkaline Phosphatase 69 (38-126) U/L Total Creatine Kinase 32 L (55-170) U/L CK-MB (CK-2) TNP CK-MB (CK-2) Rel Index TNP Troponin I < 0.012 (0.01-0.034) ng/mL Total Protein 7.2 (6.3-8.2) g/dL Albumin 4.0 (3.5-5.0) g/dL Globulin 3.2 (1.7-4.1) g/dL Albumin/Globulin Ratio 1.3 (1.0-2.8) Lipase 94 (23-300) U/L Imaging Data Chest x-ray: Radiologist's Impresson: Close Chest X-Ray (Signed) Shan Panda - 12/17/[address] (Signed) Pretty He - 11/16/21 Chest/Abdomen/Pelvis CT (Signed) Franklyn Garcia - 11/16/21 Chest CTA (Signed) Franklyn Garcia - 10/11/21 Chest X-Ray (Signed) Franklyn Garcia - 10/11/21 Chest CTA (Signed) Dee David - 05/31/20 Chest X-Ray (Signed) Carlos Bruno - 05/31/20 Abdomen/Pelvis CT (Signed) Nhan Moon - 11/10/19 Thoracic Spine X-Ray (Signed) Willi Mcdonald - 09/23/[address] (Signed) Carlitos Camp - 09/15/[address] (Signed) Carlitos Camp - 09/15/[address] (Signed) Carlitos Camp - 09/15/19 Lumbar Spine MRI (Signed) Franklyn Garcia - 08/21/19 Chest X-Ray (Signed) Ariel Hernandez - 06/01/19 Knee X-Ray (Signed) Steve Aquino - 04/04/19 Orbits/Face/Neck MRI (Signed) Carlitos Camp - 11/26/18 Chest X-Ray (Signed) Anibal Erickson - 09/13/18 Outside DI 06/21/18 Chest X-Ray (Signed) Steve Aquino - 03/09/18 Launch?[address] [address] XRay Report Signed Patient: Deangelo Hudson MR#: [id number] : 1950 Acct:[id number] Age/Sex: 71 / M Date of Service: 12/17/21 Loc: ED Accession Number: [id number] ?? Procedure: XR chest 1V Ordering Provider: Phil Soriano D.O. PROCEDURE:? XR CHEST 1V ? INDICATIONS:? chest pain ? TECHNIQUE:? One view of the chest was acquired.? ? COMPARISON:? [facility], CT, CT CHEST ABD PEL W CON, 11/16/2021, 3:40.? [facility], CT, CT ANGIO CHEST PE PROTOCOL, 10/11/2021, 19:53.? [facility], CR, XR CHEST 1V, 10/11/2021, 18:56. ? FINDINGS:? ? Surgical changes and devices:? None.? ? Lungs and pleura:? Blunting of the left costophrenic angle may represent small pleural effusion or scarring.? Streaky bibasilar airspace opacity representing a mixture of consolidation and atelectasis.? No pneumothorax. ? Mediastinum:? Mediastinal contours appear normal.? Heart size is normal.? ? Bones and chest wall:? No suspicious bony lesions.? Overlying soft tissues appear unremarkable.? ? IMPRESSION:? Left costophrenic angle blunting may represent scarring or small pleural effusion.? Bibasilar admixed atelectasis and consolidation. ? Dictated by: Shan Panda M.D. on 12/17/2021 at 13:06 ? ? Approved by: Shan Panda M.D. on 12/17/2021 at 13:07?? ECG Data Attestation: I personally reviewed and interpreted this ECG as follows: Interpretation: Arrival EKG Atrial fibrillation Ventricular rate 114 Normal axis Normal QRS Nonspecific ST T wave changes Repeat EKG Sinus rhythm Ventricular rate 86 Normal axis Normal QRS Normal QTC No ST T wave changes MDM Narrative Medical decision making narrative: Patient did arrive in atrial fibrillation however he converted on his own without specific intervention here in the emergency department. After a period of time he stated that he did feel much better and all of his presenting symptoms have resolved. Will have him continue to take all of his medications as directed. He was given return precautions. He expressed understanding and agreement. Discharge Plan Departure Patient Disposition: Home Clinical Impression: Atrial fibrillation Instructions: DI for Atrial Fibrillation Activity Restrictions/Additional Instructions: Continue to take all of your medications as directed. Contact your primary doctor and also your manufacture specialist for a follow-up. Return to the emergency department for any new or worsening symptoms. Prescriptions: No Action prednisone 10 mg Tablet 10 mg PO DAILY omeprazole 40 mg Capsule,Delayed Release(Dr/Ec) 40 mg PO DAILY Eliquis 5 mg Tablet 5 mg PO BID cyclobenzaprine 5 mg tablet 10 mg PO Q8H PRN (Reason: muscle spasm/back pain) Qty: 10 0RF Rx Instructions: do not drive atorvastatin 80 mg Tablet 80 mg PO QPM carvedilol 25 mg Tablet 25 mg PO BID Rx Instructions: must administer with a meal/food azithromycin 250 mg Tablet 250 mg PO DAILY Rx Instructions: start on day 2 of therapy levalbuterol HCl [Xopenex] 0.63 mg/3 mL Solution For Nebulization 0.63 mg INHALATION TID alendronate [Fosamax] 70 mg Tablet 70 mg PO QWEEK amlodipine 10 mg Tablet 10 mg PO DAILY hydrochlorothiazide 12.5 mg Capsule 12.5 mg PO DAILY irbesartan 75 mg Tablet 75 mg PO ONCE PM zolpidem 5 mg Tablet 5 mg PO BEDTIME PRN (Reason: Sleep) fluticasone propionate 50 mcg/actuation [place],Suspension 1 spray INTRANASAL DAILY Rx Instructions: administer into each nostril tramadol 100 mg Tablet Extended Release 24 Hr 100 mg PO BEDTIME Advair HFA 115-21 mcg/actuation Hfa Aerosol Inhaler 2 puff INHALATION BID Tobramycin 75 mg Rx Instructions: Tobramycin 75mg/ml, 4ml BID via Nebulizer Referrals: Carolina Pepper MD [Primary Care Provider] - Visit Report Forms: Patient Portal/API
[2021-12-17 13:41] LABS: Alanine Aminotransferase 21 IU/L (<50); Albumin Globulin Ratio 1.3 (1.0-2.8); Alkaline Phosphatase 69 U/L (38-126); Aspartate Aminotransferase 24 IU/L (17-59); BUN Creatinine Ratio 17.2 (6-22); Bilirubin Total 0.3 mg/dL (0.2-1.3); Blood Urea Nitrogen 25 mg/dL (9-20); Calcium 9.8 mg/dL (8.4-10.2); Carbon Dioxide 27 mmol/L (22-32); Chloride 103 mmol/L (98-107); Creatine Kinase 32 U/L (55-170); Estimated Glomerular Filt Rate 51 mL/min (>60); Globulin 3.2 g/dL (1.7-4.1); Glucose 130 mg/dL (80-110); HEMOLYSIS < 15 (0-50); Lipase 94 U/L (23-300); Magnesium 1.4 mg/dL (1.6-2.3); Potassium 3.6 mmol/L (3.4-5.1); Sodium 138 mmol/L (137-145); Total Protein 7.2 g/dL (6.3-8.2)
[2021-12-17 13:51] LABS: Troponin I < 0.012 ng/mL (0.01-0.034)
== END 2021-12-17 14:25 | disposition home or self-care (01) ==
PROVIDERS: Emergency Provider Emergency Medicine; PCP Internal Medicine
DX: I48.91 Unspecified atrial fibrillation (principal); R42 Dizziness and giddiness; R07.9 Chest pain, unspecified
CPT/HCPCS: 36415; 71045; 80053; 82550; 83690; 83735; 84484; 85025; 93005; 99283; 99284

== ENCOUNTER → 2022-01-04 11:02 | Outpatient (CLI) | payer OTHER, SELFPAY ==
[2022-01-04 12:24] LABS: Add Manual Diff / Slide Review NO; Basophils Absolute Auto 100 /uL (0-100); Basophils Percent Auto 0.6 % (0-2); Eosinophils Absolute Auto 200 /uL (0-450); Eosinophils Percent Auto 1.7 % (2-4); Hematocrit 32.6 % (41-53); Lymphocytes Absolute Auto 1200 /uL (1100-4500); Lymphocytes Percent Auto 11.4 % (25-40); Mean Corpuscular HGB Conc 33.6 % (30-36); Mean Corpuscular Hemoglobin 29.4 PG (26-34); Mean Corpuscular Volume 87.5 fL (80-100); Monocytes Absolute Auto 800 /uL (0-900); Monocytes Percent Auto 7.1 % (3-14); Neutrophils Absolute Auto 8500 /uL (1500-7000); Neutrophils Percent Auto 79.2 % (50-75); Platelet Count 207 X10^3/uL (150-400); Red Blood Cell Count 3.73 X10^6/uL (4.5-5.9); Red Cell Distribution Width 15.2 % (11.6-14.8); White Blood Cell Count 10.7 X10^3/uL (4.5-11.0)
[2022-01-04 12:40] LABS: Erythrocyte Sedimentation Rate 36 MM/HR (0-15)
[2022-01-04 13:13] LABS: Alanine Aminotransferase 18 IU/L (<50); Albumin Globulin Ratio 1.6 (1.0-2.8); Alkaline Phosphatase 46 U/L (38-126); Aspartate Aminotransferase 20 IU/L (17-59); BUN Creatinine Ratio 14.2 (6-22); Bilirubin Total 0.4 mg/dL (0.2-1.3); Blood Urea Nitrogen 17 mg/dL (9-20); Calcium 9.4 mg/dL (8.4-10.2); Carbon Dioxide 25 mmol/L (22-32); Chloride 104 mmol/L (98-107); Cholesterol 141 mg/dL (140-199); Estimated Glomerular Filt Rate > 60 mL/min (>60); Globulin 2.5 g/dL (1.7-4.1); Glucose 153 mg/dL (80-110); HDL Cholesterol 50 mg/dL (40-60); HEMOLYSIS < 15 (0-50); LDL Cholesterol Calculated 57 mg/dL (<100); Magnesium 1.7 mg/dL (1.6-2.3); Potassium 3.8 mmol/L (3.4-5.1); Sodium 140 mmol/L (137-145); Total Protein 6.5 g/dL (6.3-8.2); Triglycerides 168 mg/dL (35-150)
[2022-01-04 13:21] LABS: NT-proBNP (BNP-Adult 18+) 463 pg/mL (<125)
[2022-01-04 13:47] LABS: Ferritin 21 ng/mL (18-464)
[2022-01-05 03:04] LABS: C-Reactive Protein Quant 0.6 mg/dL (<1.0)
[2022-01-05 03:12] LABS: LDL Cholesterol Direct 65 mg/dL (<100)
[2022-01-05 03:26] LABS: Iron 80 ug/dL (49-181)
[2022-01-05 03:40] LABS: Percent Iron Saturation 23 % (20-50); Total Iron Binding Capacity 343 ug/dL (261-462)
== END ==
PROVIDERS: PCP Internal Medicine; Referring Provider Internal Medicine Pulmonary Disease; Visit Provider Internal Medicine Pulmonary Disease
DX: I48.0 Paroxysmal atrial fibrillation (principal); I25.10 Atherosclerotic heart disease of native coronary artery without angina pectoris; E78.00 Pure hypercholesterolemia, unspecified; I50.32 Chronic diastolic (congestive) heart failure; J47.0 Bronchiectasis with acute lower respiratory infection; R06.02 Shortness of breath; R76.0 Raised antibody titer; J15.1 Pneumonia due to Pseudomonas; L95.9 Vasculitis limited to the skin, unspecified; J18.9 Pneumonia, unspecified organism; J44.9 Chronic obstructive pulmonary disease, unspecified; R53.83 Other fatigue
CPT/HCPCS: 36415; 80053; 80061; 82728; 83540; 83550; 83721; 83735; 83880; 84443; 85025; 85651; 86140

== ENCOUNTER 2022-03-02 13:23 | Emergency (ER) | payer OTHER, SELFPAY ==
[2022-03-02 13:28] VITALS: BP 111/59; PULSE 103; RESP 17; TEMP 36.8; O2SAT 94; BMI 26.4
[2022-03-02] MEDS: ONDANSETRON 4 MG/2 ML INJ IV (15:32)
--- NOTE | 2022-03-02 15:34 | ED_ITS ---
HPI - Male Genitourinary <Maeve Gayle [employer] - Last Filed: 03/02/22 19:24> General Chief complaint: Urogenital-Male Stated complaint: States kidney problems, back/abd pain Time Seen by Provider: 03/02/22 15:32 Source: patient Mode of arrival: Wheelchair History of Present Illness HPI Narrative: This is a 71-year-old male with history bronchiectasis on 5 L home oxygen with history of mycobacterium and recurrent Pseudomonas, as well as coronary artery disease, AFib on Eliquis who presents to the emergency department with right- sided groin and flank pain, states this is similar to when he had a kidney infection in October 2021. On chart review it appears that patient had a severe pneumonia and was hospitalized at [facility] for a week just prior to October, states he had recurrent pneumonia and to the emergency department late November with atrial fibrillation and was admitted again at [facility]. Patient's alterations workroom clerk is Dr. Sweeney at [facility], and his primary care provider is Dr. Carolina pepper. Patient states that he has felt unwell, denies any nausea or vomiting, denies fever but endorses having chills, denies any hematuria but endorses enlarged prostate with difficulty emptying. Patient denies any abdominal pain, diarrhea or constipation, rectal pain, or pain with bowel movements. He denies any dysuria, frequency or urgency. Related Data Home Medications Medication Instructions Recorded Confirmed apixaban 5 mg tablet (Eliquis) 5 mg PO BID 04/02/19 10/12/21 omeprazole 40 mg capsule,delayed 40 mg PO DAILY 04/02/19 10/12/21 release prednisone 10 mg tablet 10 mg PO DAILY 04/02/19 10/12/21 Tobramycin 10/12/21 alendronate 70 mg tablet (Fosamax) 70 mg PO QWEEK 10/12/21 10/12/21 amlodipine 10 mg tablet 10 mg PO DAILY 10/12/21 10/12/21 atorvastatin 80 mg tablet 80 mg PO QPM 10/12/21 10/12/21 azithromycin 250 mg tablet 250 mg PO DAILY 10/12/21 10/12/21 carvedilol 25 mg tablet 25 mg PO BID 10/12/21 10/12/21 fluticasone propionate 115 2 puff inhalation BID 10/12/21 10/12/21 mcg-salmeterol 21 mcg/actuation HFA inhaler (Advair HFA) fluticasone propionate 50 1 spray intranasal DAILY 10/12/21 10/12/21 mcg/actuation nasal spray,suspension hydrochlorothiazide 12.5 mg capsule 12.5 mg PO DAILY 10/12/21 10/12/21 irbesartan 75 mg tablet 75 mg PO ONCE PM 10/12/21 10/12/21 levalbuterol HCl 0.63 mg/3 mL 0.63 mg inhalation TID 10/12/21 10/12/21 solution for nebulization (Xopenex) tramadol 100 mg tablet,extended 100 mg PO BEDTIME 10/12/21 10/12/21 release 24 hr zolpidem 5 mg tablet 5 mg PO BEDTIME PRN Sleep 10/12/21 10/12/21 Previous Rx's Medication Instructions Recorded cyclobenzaprine 5 mg tablet 10 mg PO Q8H PRN muscle spasm/back 09/15/19 pain #10 tabs nirmatrelvir 150 mg-ritonavir 100 See Rx Instructions PO .COMPLEX #1 03/02/22 mg tablets in a dose pack (EUA) ea (Paxlovid) Allergies Allergy/AdvReac Type Severity Reaction Status Date / Time amoxicillin AdvReac Mild NAUSEA Verified 03/02/22 13:28 levofloxacin AdvReac Mild GI UPSET Verified 03/02/22 13:28 Review of Systems <NIURKA Fermin - Last Filed: 03/02/22 19:24> Review of Systems Narrative: Review of systems is negative for acute abnormalities unless otherwise noted in HPI Patient History <NIURKA Fermin - Last Filed: 03/02/22 19:24> Medical History (Updated 03/02/22 @ 18:56 by NIURKA Fermin) Arthritis Atypical chest pain BPH (benign prostatic hyperplasia) Bronchiectasis Coronary artery disease DJD (degenerative joint disease) Dyspnea GERD (gastroesophageal reflux disease) Kidney stone (~2015) Microscopic polyangiitis Mycobacterium chelonae infection Non-productive cough Paroxysmal A-fib (03/09/18) Pneumonia (~07/2013) Vasculitis Surgical History History of colonoscopy (~2015) History of coronary artery stent placement (~06/2012) Social History household members: spouse Smoking Status: Never smoker alcohol intake: current Smoking Status: Never smoker alcohol intake frequency: holidays/special occasions only Substance Use Type: does not use Exam <NIURKA Fermin - Last Filed: 03/02/22 19:24> Narrative Exam Narrative: Reviewed vitals signs and nursing notes. General: cooperative, appears fatigued and uncomfortable but is not in any acute distress, well groomed HEENT: symmetrical facial expressions, moist mucous membranes, EOMI, no scleral icterus Cardiovascular: regular rate and rhythm, no peripheral edema, warm extremities Respiratory: normal effort, able to speak in complete sentences, without wheezing, stridor, or abnormal breath sounds. No retractions or tachypnea. GI: abdomen soft, nontender to palpation, nondistended, without masses, rebound tenderness or exquisite tenderness with exam. CVA tenderness on the right without CVA tenderness on the left MSK: moves all extremities, neurovascularly intact, no weakness, normal tone Skin: brisk capillary refill, without pallor or erythema Neuro: normal speech and cognition, A&O x3, ambulatory, clear speech Psych: mental status is grossly normal, congruent mood, normal affect, pleasant and cooperative Initial Vital Signs Initial Vital Signs: Vital Signs Temperature 98.2 F 03/02/22 13:28 Pulse Rate 103 H 03/02/22 13:28 Respiratory Rate 17 03/02/22 13:28 Blood Pressure 111/59 L 03/02/22 13:28 Pulse Oximetry 94 03/02/22 13:28 Oxygen Delivery Method 03/02/22 13:28 <Dario Tijerina MD - Last Filed: 03/03/22 07:09> Initial Vital Signs Initial Vital Signs: Vital Signs Temperature 98.2 F 03/02/22 13:28 Pulse Rate 103 H 03/02/22 13:28 Respiratory Rate 17 03/02/22 13:28 Blood Pressure 111/59 L 03/02/22 13:28 Pulse Oximetry 94 03/02/22 13:28 Oxygen Delivery Method 03/02/22 13:28 Course <NIURKA Fermin - Last Filed: 03/02/22 19:24> Orders Ordered: Discontinued Medications Lactated Ringer's (Lactated Ringers) 1,000 mls @ 1,000 mls/hr IV BOLUS ONE Stop: 03/02/22 16:43 Last Infusion: 03/02/22 19:22 Dose: 0 mls/hr Documented By: Admin: 03/02/22 16:01 Dose: 1,000 mls/hr Documented By: AT Ondansetron HCl (Ondansetron 4 Mg/2 Ml Inj) 4 mg IV NOW ONE Stop: 03/02/22 15:23 Last Admin: 03/02/22 15:32 Dose: 4 mg Documented By: PANCHO Consultations Consultation #1: Consultation with Dr. Sweeney from [facility], patient's alterations workroom clerk, who recommends Paxlovid for patient at reduced dosing for patient's JOHNNA. He recommends holding patient's atorvastatin for 8 days and reduced Eliquis dosing while on medication. He will set up a follow-up appointment for the patient follow-up in his clinic next week. He encouraged patient to also follow-up with Dr. Pepper. Vital Signs Vital signs: Vital Signs - 8 hr 03/02/22 13:28 03/02/22 17:16 03/02/22 17:16 Temperature 98.2 F Pulse Rate 103 H 78 Respiratory Rate 17 Blood Pressure 111/59 L 142/83 H Pulse Oximetry 94 91 Oxygen Delivery Method Room Air <Dario Tijerina MD - Last Filed: 03/03/22 07:09> Orders Ordered: Discontinued Medications Lactated Ringer's (Lactated Ringers) 1,000 mls @ 1,000 mls/hr IV BOLUS ONE Stop: 03/02/22 16:43 Last Infusion: 03/02/22 19:22 Dose: 0 mls/hr Documented By: Admin: 03/02/22 16:01 Dose: 1,000 mls/hr Documented By: AT Ondansetron HCl (Ondansetron 4 Mg/2 Ml Inj) 4 mg IV NOW ONE Stop: 03/02/22 15:23 Last Admin: 03/02/22 15:32 Dose: 4 mg Documented By: PANCHO Vital Signs Vital signs: Vital Signs - 8 hr 03/02/22 13:28 03/02/22 17:16 03/02/22 17:16 Temperature 98.2 F Pulse Rate 103 H 78 Respiratory Rate 17 Blood Pressure 111/59 L 142/83 H Pulse Oximetry 94 91 Oxygen Delivery Method Room Air MDM - Male Genitourinary <Maeverafi Gayle, [facility] - Last Filed: 03/02/22 19:24> Lab Data Result diagrams: 03/02/22 15:25 03/02/22 15:25 Labs: Lab Results 03/02/22 03/02/22 03/02/22 Range/Units 15:25 15:25 15:25 WBC 7.5 (4.5-11.0) X10^3/uL RBC 4.38 L (4.5-5.9) X10^6/uL Hgb 12.2 L (13.5-17.5) g/dL Hct 37.3 L (41-53) % MCV 85.3 (80-100) fL MCH 27.9 (26-34) PG MCHC 32.8 (30-36) % RDW 15.5 H (11.6-14.8) % Plt Count 169 (150-400) X10^3/uL Neut % (Auto) 65.7 (50-75) % Lymph % (Auto) 18.4 L (25-40) % [place] % (Auto) 14.6 H (3-14) % Eos % (Auto) 0.8 L (2-4) % Baso % (Auto) 0.5 (0-2) % Neut # (Auto) 4900 (4554-6327) /uL Lymph # (Auto) 1400 (0372-7579) /uL [place] # (Auto) 1100 H (0-900) /uL Eos # (Auto) 100 (0-450) /uL Baso # (Auto) 0 (0-100) /uL ESR (0-15) MM/HR PT 17.4 H (10.1-12.7) SECONDS INR 1.5 H (0.9-1.3) APTT 35 (26-36) SECONDS Sodium 133 L (137-145) mmol/L Potassium 4.5 (3.4-5.1) mmol/L Chloride 101 (98-107) mmol/L Carbon Dioxide 20 L (22-32) mmol/L BUN 26 H (9-20) mg/dL Creatinine 1.77 H (0.66-1.25) mg/dL Estimated GFR 40 L (>60) mL/min BUN/Creatinine Ratio 14.7 (6-22) Glucose 132 H (80-110) mg/dL Lactate (0.7-2.1) mmol/L Calcium 9.4 (8.4-10.2) mg/dL Total Bilirubin 0.4 (0.2-1.3) mg/dL AST 41 (17-59) IU/L ALT 22 (<50) IU/L Alkaline Phosphatase 55 (38-126) U/L Total Creatine Kinase (55-170) U/L CK-MB (CK-2) CK-MB (CK-2) Rel Index Troponin I (0.01-0.034) ng/mL C-Reactive Protein (<1.0) mg/dL NT-Pro-B Natriuret Pep (<125) pg/mL Total Protein 7.5 (6.3-8.2) g/dL Albumin 4.2 (3.5-5.0) g/dL Globulin 3.3 (1.7-4.1) g/dL Albumin/Globulin Ratio 1.3 (1.0-2.8) Lipase 119 (23-300) U/L Procalcitonin (<0.5) ng/mL SARS-CoV-2 (PCR) (Negative) 03/02/22 03/02/22 03/02/22 Range/Units 15:25 15:25 15:25 WBC (4.5-11.0) X10^3/uL RBC (4.5-5.9) X10^6/uL Hgb (13.5-17.5) g/dL Hct (41-53) % MCV (80-100) fL MCH (26-34) PG MCHC (30-36) % RDW (11.6-14.8) % Plt Count (150-400) X10^3/uL Neut % (Auto) (50-75) % Lymph % (Auto) (25-40) % [place] % (Auto) (3-14) % Eos % (Auto) (2-4) % Baso % (Auto) (0-2) % Neut # (Auto) (7971-1262) /uL Lymph # (Auto) (6415-5587) /uL [place]son # (Auto) (0-900) /uL Eos # (Auto) (0-450) /uL Baso # (Auto) (0-100) /uL ESR 36 H (0-15) MM/HR PT (10.1-12.7) SECONDS INR (0.9-1.3) APTT (26-36) SECONDS Sodium (137-145) mmol/L Potassium (3.4-5.1) mmol/L Chloride (98-107) mmol/L Carbon Dioxide (22-32) mmol/L BUN (9-20) mg/dL Creatinine (0.66-1.25) mg/dL Estimated GFR (>60) mL/min BUN/Creatinine Ratio (6-22) Glucose (80-110) mg/dL Lactate 1.6 (0.7-2.1) mmol/L Calcium (8.4-10.2) mg/dL Total Bilirubin (0.2-1.3) mg/dL AST (17-59) IU/L ALT (<50) IU/L Alkaline Phosphatase (38-126) U/L Total Creatine Kinase 45 L (55-170) U/L CK-MB (CK-2) TNP CK-MB (CK-2) Rel Index TNP Troponin I 0.013 (0.01-0.034) ng/mL C-Reactive Protein 3.7 H (<1.0) mg/dL NT-Pro-B Natriuret Pep 239 H (<125) pg/mL Total Protein (6.3-8.2) g/dL Albumin (3.5-5.0) g/dL Globulin (1.7-4.1) g/dL Albumin/Globulin Ratio (1.0-2.8) Lipase (23-300) U/L Procalcitonin (<0.5) ng/mL SARS-CoV-2 (PCR) (Negative) 03/02/22 03/02/22 Range/Units 15:25 17:07 WBC (4.5-11.0) X10^3/uL RBC (4.5-5.9) X10^6/uL Hgb (13.5-17.5) g/dL Hct (41-53) % MCV (80-100) fL MCH (26-34) PG MCHC (30-36) % RDW (11.6-14.8) % Plt Count (150-400) X10^3/uL Neut % (Auto) (50-75) % Lymph % (Auto) (25-40) % [place]son % (Auto) (3-14) % Eos % (Auto) (2-4) % Baso % (Auto) (0-2) % Neut # (Auto) (8013-1587) /uL Lymph # (Auto) (4809-2593) /uL [place]son # (Auto) (0-900) /uL Eos # (Auto) (0-450) /uL Baso # (Auto) (0-100) /uL ESR (0-15) MM/HR PT (10.1-12.7) SECONDS INR (0.9-1.3) APTT (26-36) SECONDS Sodium (137-145) mmol/L Potassium (3.4-5.1) mmol/L Chloride (98-107) mmol/L Carbon Dioxide (22-32) mmol/L BUN (9-20) mg/dL Creatinine (0.66-1.25) mg/dL Estimated GFR (>60) mL/min BUN/Creatinine Ratio (6-22) Glucose (80-110) mg/dL Lactate (0.7-2.1) mmol/L Calcium (8.4-10.2) mg/dL Total Bilirubin (0.2-1.3) mg/dL AST (17-59) IU/L ALT (<50) IU/L Alkaline Phosphatase (38-126) U/L Total Creatine Kinase (55-170) U/L CK-MB (CK-2) CK-MB (CK-2) Rel Index Troponin I (0.01-0.034) ng/mL C-Reactive Protein (<1.0) mg/dL NT-Pro-B Natriuret Pep (<125) pg/mL Total Protein (6.3-8.2) g/dL Albumin (3.5-5.0) g/dL Globulin (1.7-4.1) g/dL Albumin/Globulin Ratio (1.0-2.8) Lipase (23-300) U/L Procalcitonin 0.12 (<0.5) ng/mL SARS-CoV-2 (PCR) Positive H (Negative) Urine Dip Bedside Urine Glucose Negative Bedside Urine Bilirubin - Negative Bedside Urine Ketone - Negative Urine Specific [place] 1.020 Bedside Urine Occult Blood - Negative Bedside Urine pH 6.0 Bedside Urine Protein +/- 15 Bedside Urine Urobilinogen +/- 1mg Bedside Urine Nitrite - Negative Bedside Urine Leukocytes - Negative Esterase MDM Narrative Medical decision making narrative: This is a 71-year-old male with history of bronchiectasis on 5 L home oxygen with history of mycobacterium and recurrent Pseudomonas, as well as coronary artery disease, AFib on Eliquis who presents to the emergency department with right-sided groin and flank pain, states this is similar to when he had a kidney infection in October of 2021. Patient was found to be COVID positive today on PCR. He did have any shortness of breath but does have rales on the left, patient had a chest/abdomen/pelvis CT which shows chronic bibasilar pneumonia, bilateral lower lobe bronchiectasis no acute abnormalities in abdomen or pelvis, nonobstructive left renal calculi, multiple left renal cysts, hepatic steatosis, chronic compression fractures as described, severe atherosclerotic calcifications of coronary arteries. Patient's lab work overall is reassuring, there is no leukocytosis, ESR is elevated at 36, INR is elevated at 1.5, sodium of 133, creatinine is elevated above his baseline at 1.77 with most recent of 1.2. Patient was given 1 L of lactated Ringer's for dehydration and elevated creatinine with reduced GFR of 40. Patient's BNP is 239 which is improved from his last at 463, CRP is elevated at 3.7. Procalcitonin 0.12, COVID PCR is positive. Consultation with Dr. Lemus from [facility], this is patient's alterations workroom clerk and he recommends Paxlovid administration at reduced dosing for his GFR and creatinine, instructed patient to hold his atorvastatin while on this medication for 3 subsequent days for a total of 8 days, encourage patient to half his Eliquis dosing for each dose and patient will have scheduled follow- up with Dr. Lemus next week. Patient was encouraged to follow-up with Dr. Pepper his PCP as well. Patient does not have an oxygen requirement at this time however his oxygen saturations are 90-91%. He does not have any significant respiratory distress, he has mild tachypnea, does not require oxygen, and appears to be tolerating his symptoms as best as possible. Patient was given strict return precautions and encouraged to go directly to [facility] if he has any worsening while he has COVID for direct admission. Patient states understanding, images were pushed to [facility] and his [employer] was able to view his images with me on a phone. Patient is appropriate and amenable to discharge home. Vital signs are stable on repeat examination is un remarkable. Patient has been informed of results. Patient has been given strict return to ER precautions for any new or worsening symptoms. Patient understands to follow up closely with outpatient providers as instructed. Patient understands plan and agrees to discharge home. All questions and concerns answered at this time. <Dario Tijerina MD - Last Filed: 03/03/22 07:09> Lab Data Labs: Lab Results 03/02/22 03/02/22 03/02/22 Range/Units 15:25 15:25 15:25 WBC 7.5 (4.5-11.0) X10^3/uL RBC 4.38 L (4.5-5.9) X10^6/uL Hgb 12.2 L (13.5-17.5) g/dL Hct 37.3 L (41-53) % MCV 85.3 (80-100) fL MCH 27.9 (26-34) PG MCHC 32.8 (30-36) % RDW 15.5 H (11.6-14.8) % Plt Count 169 (150-400) X10^3/uL Neut % (Auto) 65.7 (50-75) % Lymph % (Auto) 18.4 L (25-40) % [place]son % (Auto) 14.6 H (3-14) % Eos % (Auto) 0.8 L (2-4) % Baso % (Auto) 0.5 (0-2) % Neut # (Auto) 4900 (3534-6150) /uL Lymph # (Auto) 1400 (4434-9614) /uL [place]son # (Auto) 1100 H (0-900) /uL Eos # (Auto) 100 (0-450) /uL Baso # (Auto) 0 (0-100) /uL ESR (0-15) MM/HR PT 17.4 H (10.1-12.7) SECONDS INR 1.5 H (0.9-1.3) APTT 35 (26-36) SECONDS Sodium 133 L (137-145) mmol/L Potassium 4.5 (3.4-5.1) mmol/L Chloride 101 (98-107) mmol/L Carbon Dioxide 20 L (22-32) mmol/L BUN 26 H (9-20) mg/dL Creatinine 1.77 H (0.66-1.25) mg/dL Estimated GFR 40 L (>60) mL/min BUN/Creatinine Ratio 14.7 (6-22) Glucose 132 H (80-110) mg/dL Lactate (0.7-2.1) mmol/L Calcium 9.4 (8.4-10.2) mg/dL Total Bilirubin 0.4 (0.2-1.3) mg/dL AST 41 (17-59) IU/L ALT 22 (<50) IU/L Alkaline Phosphatase 55 (38-126) U/L Total Creatine Kinase (55-170) U/L CK-MB (CK-2) CK-MB (CK-2) Rel Index Troponin I (0.01-0.034) ng/mL C-Reactive Protein (<1.0) mg/dL NT-Pro-B Natriuret Pep (<125) pg/mL Total Protein 7.5 (6.3-8.2) g/dL Albumin 4.2 (3.5-5.0) g/dL Globulin 3.3 (1.7-4.1) g/dL Albumin/Globulin Ratio 1.3 (1.0-2.8) Lipase 119 (23-300) U/L Procalcitonin (<0.5) ng/mL SARS-CoV-2 (PCR) (Negative) 03/02/22 03/02/22 03/02/22 Range/Units 15:25 15:25 15:25 WBC (4.5-11.0) X10^3/uL RBC (4.5-5.9) X10^6/uL Hgb (13.5-17.5) g/dL Hct (41-53) % MCV (80-100) fL MCH (26-34) PG MCHC (30-36) % RDW (11.6-14.8) % Plt Count (150-400) X10^3/uL Neut % (Auto) (50-75) % Lymph % (Auto) (25-40) % [place] % (Auto) (3-14) % Eos % (Auto) (2-4) % Baso % (Auto) (0-2) % Neut # (Auto) (2733-6556) /uL Lymph # (Auto) (7316-4597) /uL [place]son # (Auto) (0-900) /uL Eos # (Auto) (0-450) /uL Baso # (Auto) (0-100) /uL ESR 36 H (0-15) MM/HR PT (10.1-12.7) SECONDS INR (0.9-1.3) APTT (26-36) SECONDS Sodium (137-145) mmol/L Potassium (3.4-5.1) mmol/L Chloride (98-107) mmol/L Carbon Dioxide (22-32) mmol/L BUN (9-20) mg/dL Creatinine (0.66-1.25) mg/dL Estimated GFR (>60) mL/min BUN/Creatinine Ratio (6-22) Glucose (80-110) mg/dL Lactate 1.6 (0.7-2.1) mmol/L Calcium (8.4-10.2) mg/dL Total Bilirubin (0.2-1.3) mg/dL AST (17-59) IU/L ALT (<50) IU/L Alkaline Phosphatase (38-126) U/L Total Creatine Kinase 45 L (55-170) U/L CK-MB (CK-2) TNP CK-MB (CK-2) Rel Index TNP Troponin I 0.013 (0.01-0.034) ng/mL C-Reactive Protein 3.7 H (<1.0) mg/dL NT-Pro-B Natriuret Pep 239 H (<125) pg/mL Total Protein (6.3-8.2) g/dL Albumin (3.5-5.0) g/dL Globulin (1.7-4.1) g/dL Albumin/Globulin Ratio (1.0-2.8) Lipase (23-300) U/L Procalcitonin (<0.5) ng/mL SARS-CoV-2 (PCR) (Negative) 03/02/22 03/02/22 Range/Units 15:25 17:07 WBC (4.5-11.0) X10^3/uL RBC (4.5-5.9) X10^6/uL Hgb (13.5-17.5) g/dL Hct (41-53) % MCV (80-100) fL MCH (26-34) PG MCHC (30-36) % RDW (11.6-14.8) % Plt Count (150-400) X10^3/uL Neut % (Auto) (50-75) % Lymph % (Auto) (25-40) % [place] % (Auto) (3-14) % Eos % (Auto) (2-4) % Baso % (Auto) (0-2) % Neut # (Auto) (4335-6722) /uL Lymph # (Auto) (6607-2772) /uL [place]son # (Auto) (0-900) /uL Eos # (Auto) (0-450) /uL Baso # (Auto) (0-100) /uL ESR (0-15) MM/HR PT (10.1-12.7) SECONDS INR (0.9-1.3) APTT (26-36) SECONDS Sodium (137-145) mmol/L Potassium (3.4-5.1) mmol/L Chloride (98-107) mmol/L Carbon Dioxide (22-32) mmol/L BUN (9-20) mg/dL Creatinine (0.66-1.25) mg/dL Estimated GFR (>60) mL/min BUN/Creatinine Ratio (6-22) Glucose (80-110) mg/dL Lactate (0.7-2.1) mmol/L Calcium (8.4-10.2) mg/dL Total Bilirubin (0.2-1.3) mg/dL AST (17-59) IU/L ALT (<50) IU/L Alkaline Phosphatase (38-126) U/L Total Creatine Kinase (55-170) U/L CK-MB (CK-2) CK-MB (CK-2) Rel Index Troponin I (0.01-0.034) ng/mL C-Reactive Protein (<1.0) mg/dL NT-Pro-B Natriuret Pep (<125) pg/mL Total Protein (6.3-8.2) g/dL Albumin (3.5-5.0) g/dL Globulin (1.7-4.1) g/dL Albumin/Globulin Ratio (1.0-2.8) Lipase (23-300) U/L Procalcitonin 0.12 (<0.5) ng/mL SARS-CoV-2 (PCR) Positive H (Negative) Urine Dip Bedside Urine Glucose Negative Bedside Urine Bilirubin - Negative Bedside Urine Ketone - Negative Urine Specific [place] 1.020 Bedside Urine Occult Blood - Negative Bedside Urine pH 6.0 Bedside Urine Protein +/- 15 Bedside Urine Urobilinogen +/- 1mg Bedside Urine Nitrite - Negative Bedside Urine Leukocytes - Negative Esterase Discharge Plan Departure Patient Disposition: Home Clinical Impression: COVID-19, Acute kidney injury Instructions: COVID-19 Activity Restrictions/Additional Instructions: *You have been diagnosed with [ Covid-19] Please decrease your apixaban/Eliquis dose by half and take 2.5 mg morning and night while you are taking this medication. Please hold your atorvastatin while you are taking this medication and for 3 days following. Please follow-up with your alterations workroom clerk, he will call you and set up an appointment for next week. Please also schedule follow-up appointment with Dr. Carolina pepper. Please come back to the emergency department if your oxygen level drops into the 80s and states there, if you have to stay on your oxygen at home to feel okay, or if you have any worsening of your symptoms. If your shortness of breath gets significant and you have concern for admission, please go directly to [facility] so that you can get into the right hospital from the get go. Thank you so much for coming in and I am sorry about your long wait today. I want you to stay hydrated and drink plenty of fluids with electrolytes in them, void often, and take pain medicine as needed for your symptoms. Try to keep your stool soft and avoid any strenuous activity for a few days. *What to do: *Please continue to take your regular medications as directed. [x ] New medication prescriptions sent to your pharmacy: [ [facility]] [ ] New medication written as a paper prescription [ ] No new medications given *Please follow up with your primary care provider in 2-3 days, call for an appointment. Let them know you were seen in the Emergency Department and that we asked that you be seen for follow-up. We will electronically transmit a record of today's note if your PCP is in our system *If you do not have a primary care provider please contact [phone] to establish care with one of the [facility] primary care providers. *Return to Emergency Department if you should have any new, worsening, or concerning symptoms, such as [fever greater than 101F, chills, worsening pain, persistent vomiting or other bothersome symptoms]. Prescriptions: New Paxlovid (EUA) 150-100 mg tablets,dose pack See Rx Instructions .ROUTE .COMPLEX Qty: 1 0RF Rx Instructions: orally per package directions Patient understands to hold his atorvastatin and reduce his Eliquis dosing by while on this medication. No Action prednisone 10 mg Tablet 10 mg PO DAILY omeprazole 40 mg Capsule,Delayed Release(Dr/Ec) 40 mg PO DAILY Eliquis 5 mg Tablet 5 mg PO BID cyclobenzaprine 5 mg tablet 10 mg PO Q8H PRN (Reason: muscle spasm/back pain) Qty: 10 0RF Rx Instructions: do not drive atorvastatin 80 mg Tablet 80 mg PO QPM carvedilol 25 mg Tablet 25 mg PO BID Rx Instructions: must administer with a meal/food azithromycin 250 mg Tablet 250 mg PO DAILY Rx Instructions: start on day 2 of therapy levalbuterol HCl [Xopenex] 0.63 mg/3 mL Solution For Nebulization 0.63 mg INHALATION TID alendronate [Fosamax] 70 mg Tablet 70 mg PO QWEEK amlodipine 10 mg Tablet 10 mg PO DAILY hydrochlorothiazide 12.5 mg Capsule 12.5 mg PO DAILY irbesartan 75 mg Tablet 75 mg PO ONCE PM zolpidem 5 mg Tablet 5 mg PO BEDTIME PRN (Reason: Sleep) fluticasone propionate 50 mcg/actuation [place],Suspension 1 spray INTRANASAL DAILY Rx Instructions: administer into each nostril tramadol 100 mg Tablet Extended Release 24 Hr 100 mg PO BEDTIME Advair HFA 115-21 mcg/actuation Hfa Aerosol Inhaler 2 puff INHALATION BID Tobramycin 75 mg Rx Instructions: Tobramycin 75mg/ml, 4ml BID via Nebulizer Referrals: Amado Lemus MD [Non-Staff] - Carolina Pepper MD [Primary Care Provider] - Visit Report Forms: Patient Portal/API <Dario Tijerina MD - Last Filed: 03/03/22 07:09> Cosign ED Attending Cosignature Attestation: I was immediately available in the department for consultation. ?This documentation has been reviewed and I agree with assessment and plan. Supervised by Dario Tijerina MD
--- NOTE | 2022-03-02 15:43 | DI.CT.S_ITS ---
PROCEDURE: CT CHEST ABD PEL W CON INDICATIONS: left pneumonia?, rt flank and groin pain TECHNIQUE: After the administration of intravenous contrast, axial sections acquired from the supraclavicular neck to the pubic symphysis. Coronal and sagittal reformats were performed. For radiation dose reduction, the following was used: automated exposure control, adjustment of mA and/or kV according to patient size. COMPARISON:[facility] [place], CR, XR LUMBAR SPINE 2 OR 3 VIEWS, 08/14/2019, 10:24. CT, CT ABDOMEN PELVIS W CON, 11/10/2019, 14:52. [facility], CT, CT ANGIO CHEST PE PROTOCOL, 10/11/2021, 19:53. [facility], CT, CT CHEST ABD PEL W CON, 11/16/2021, 3:40. FINDINGS: Image quality: Excellent. CHEST: Lower Neck: No enlarged lymph nodes. Thyroid: Within normal limits. Axillae: No enlarged lymph nodes. Chest Wall: Unremarkable. Lungs and Airways: Chronic bilateral basilar infiltrate and consolidation, consistent with chronic pneumonia. Overall, there is no significant change from the last exam. Bilateral bronchiectasis in lower lobes. Mild subpleural septal thickening. Pleura: No pneumothorax or pleural effusions. Heart: Heart size is normal. No pericardial effusion. Severe coronary artery calcification. Thoracic Vessels: The aorta and pulmonary arteries demonstrate normal size. Mediastinum and Phyllis: No enlarged lymph nodes. Esophagus: No wall thickening. No hiatal hernia. ABDOMEN: Liver: Normal size. Hepatic steatosis. Gallbladder: Unremarkable. Biliary ducts: Unremarkable. Pancreas: Unremarkable. Spleen: Unremarkable. Adrenal Glands: Unremarkable. Kidneys and Ureters: There is a 4 x 8 mm nonobstructive stone in mid left kidney demonstrating CT density 551 HU. A 3 mm nonobstructive stone is seen in the inferior pole of the left kidney. There is a large 5.6 x 5.8 x 6.5 cm simple appearing cyst in the inferior pole of the left kidney. Multiple small renal cortical cysts are noted in left kidney. Stomach and Bowel: Stomach, small bowel loops, and colon are unremarkable. There is a large amount of stool in colon. Normal appendix. Peritoneum: No abnormal intraperitoneal fluid. No free air. Ventral Wall: No hernia. Abdominal Nodes: No retroperitoneal or mesenteric adenopathy by size criteria. Vessels: Aorta and inferior vena cava are normal in size. PELVIS: Pelvic Organs: Unremarkable. Bladder: Unremarkable. Pelvic Nodes: No enlarged lymph nodes. Miscellaneous: No inguinal hernias are seen. Bones: Moderate compression fracture of T12 and mild compression fracture of L3, unchanged. Vertebroplasty of T12. IMPRESSION: 1. Chronic bibasilar pneumonia. 2. Bilateral lower lobe bronchiectasis. 3. No acute abnormalities in abdomen or pelvis. 4. Nonobstructive left renal calculi. 5. Multiple left renal cysts. 6. Hepatic steatosis. 7. Chronic compression fractures as described. 8. Severe atherosclerotic calcifications of coronary arteries. Dictated by: Samuel Aquino M.D. on 03/02/2022 at 17:47 Approved by: Samuel Aquino M.D. on 03/02/2022 at 17:55
[2022-03-02 15:54] LABS: Lactate (Lactic Acid) 1.6 mmol/L (0.7-2.1)
[2022-03-02 15:58] LABS: C-Reactive Protein Quant 3.7 mg/dL (<1.0); Creatine Kinase 45 U/L (55-170)
[2022-03-02] MEDS: LACTATED RINGERS 1,000 ML 1000 ML IV (16:01)
[2022-03-02 16:06] LABS: NT-proBNP (BNP-Adult 18+) 239 pg/mL (<125); Troponin I 0.013 ng/mL (0.01-0.034)
--- NOTE | 2022-03-02 16:55 | PC.NURSE ---
Labs sent down with IV insertion, called lab regarding the pending orders.
[2022-03-02 17:12] LABS: INR 1.5 (0.9-1.3); Prothrombin Time 17.4 SECONDS (10.1-12.7)
[2022-03-02 17:15] LABS: Erythrocyte Sedimentation Rate 36 MM/HR (0-15); PTT Partial Thromboplastin Tim 35 SECONDS (26-36)
[2022-03-02 17:16] VITALS: BP 142/83; PULSE 78; O2SAT 91
[2022-03-02 17:16] LABS: Alanine Aminotransferase 22 IU/L (<50); Albumin 4.2 g/dL (3.5-5.0); Albumin Globulin Ratio 1.3 (1.0-2.8); Alkaline Phosphatase 55 U/L (38-126); Aspartate Aminotransferase 41 IU/L (17-59); BUN Creatinine Ratio 14.7 (6-22); Bilirubin Total 0.4 mg/dL (0.2-1.3); Blood Urea Nitrogen 26 mg/dL (9-20); Calcium 9.4 mg/dL (8.4-10.2); Carbon Dioxide 20 mmol/L (22-32); Chloride 101 mmol/L (98-107); Estimated Glomerular Filt Rate 40 mL/min (>60); Globulin 3.3 g/dL (1.7-4.1); Glucose 132 mg/dL (80-110); HEMOLYSIS < 15 (0-50); Lipase 119 U/L (23-300); Potassium 4.5 mmol/L (3.4-5.1); Sodium 133 mmol/L (137-145); Total Protein 7.5 g/dL (6.3-8.2)
[2022-03-02 17:19] LABS: Add Manual Diff / Slide Review NO; Basophils Absolute Auto 0 /uL (0-100); Basophils Percent Auto 0.5 % (0-2); Eosinophils Absolute Auto 100 /uL (0-450); Eosinophils Percent Auto 0.8 % (2-4); Hematocrit 37.3 % (41-53); Hemoglobin 12.2 g/dL (13.5-17.5); Lymphocytes Absolute Auto 1400 /uL (1100-4500); Lymphocytes Percent Auto 18.4 % (25-40); Mean Corpuscular HGB Conc 32.8 % (30-36); Mean Corpuscular Hemoglobin 27.9 PG (26-34); Mean Corpuscular Volume 85.3 fL (80-100); Monocytes Absolute Auto 1100 /uL (0-900); Monocytes Percent Auto 14.6 % (3-14); Neutrophils Absolute Auto 4900 /uL (1500-7000); Neutrophils Percent Auto 65.7 % (50-75); Platelet Count 169 X10^3/uL (150-400); Red Blood Cell Count 4.38 X10^6/uL (4.5-5.9); Red Cell Distribution Width 15.5 % (11.6-14.8); White Blood Cell Count 7.5 X10^3/uL (4.5-11.0)
[2022-03-02 17:28] LABS: COVID19 - ADMIT (NP swab/PCR) POSITIVE (Negative)
[2022-03-02 17:30] VITALS: PULSE 78; O2SAT 92
[2022-03-02 17:33] LABS: Procalcitonin 0.12 ng/mL (<0.5)
[2022-03-02 18:00] VITALS: PULSE 79; O2SAT 95
[2022-03-02 18:30] VITALS: BP 140/81; PULSE 79; O2SAT 93
[2022-03-02 19:00] VITALS: BP 150/78; PULSE 77; O2SAT 94
== END 2022-03-02 19:25 | disposition home or self-care (01) ==
PROVIDERS: Emergency Medicine; Emergency Provider Nurse Practitioner Critical Care Medicine; PCP Internal Medicine
DX: U07.1 COVID-19 (principal); N17.9 Acute kidney failure, unspecified; J84.10 Pulmonary fibrosis, unspecified; J47.9 Bronchiectasis, uncomplicated; N20.0 Calculus of kidney; N28.1 Cyst of kidney, acquired; K76.0 Fatty (change of) liver, not elsewhere classified
CPT/HCPCS: 36415; 71260; 74177; 80053; 81003; 82550; 83605; 83690; 83880; 84145; 84484; 85025; 85610; 85651; 85730; 86140; 87040; 87635; 96361; 96374; 99284; C9803; J2405

== ENCOUNTER → 2023-06-29 12:02 | Outpatient (CLI) | payer OTHER, SELFPAY ==
--- NOTE | 2023-06-29 12:04 | DI.MRI.S_ITS ---
PROCEDURE: MR LUMBAR SPINE WO CON INDICATIONS: Low back pain, unspecified TECHNIQUE: Noncontrast sagittal T1 spin echo and T2 fast echo, sagittal STIR, and T2 fast spin echo through the lumbar spine. In cases with scoliosis, additional coronal T2 fast spin echo may be performed. COMPARISON: [facility], MR, MR LUMBAR SPINE WO CON, 08/21/2019, 15:50. [facility] [place], CR, XR LUMBAR SPINE 2 OR 3 VIEWS, 06/14/2023, 8:35. FINDINGS: Image quality: Excellent. Alignment and Curvature: There is minimal retrolisthesis seen at the L3-L4 and L4-L5 levels. Bone Marrow: Marrow is of normal overall signal. Multiple compression deformities are seen, yet without acute features. There is 30-40% loss of height at T12, with vertebroplasty cement. There is 10-20% loss of height anteriorly at L1 and L2. At L3, there is 30-40% loss of height centrally. At L4, there is 20-30% loss of height anteriorly. Spinal Cord: Conus medullaris terminates at the L1 level. Visualized cord demonstrates normal signal and size. Paraspinous Soft Tissues: No paravertebral masses. A water signal cyst is seen at the inferior aspect of the left kidney. T12-L1: No significant abnormality is seen. L1-L2: The disc height is well-preserved. Loss of disc signal is seen at this level. Mild generalized disc bulge is seen. Mild facet joint hypertrophy is seen. There is [id number] left-sided and no significant right-sided neural foraminal narrowing. Minimal central canal narrowing is seen. When comparison is made with the prior images, these findings are similar. L2-L3: The disc height is well-preserved. Loss of disc signal is seen at this level. Moderate generalized disc bulge is seen. There is a superimposed central disc protrusion. There is a focal annular fissure seen posteriorly. Mild facet joint hypertrophy is seen. Mild to moderate bilateral neural foraminal narrowing can be seen. Moderate central canal narrowing is seen. There is mild progression of degenerative change at this level compared to 2020. L3-L4: The disc height is well-preserved. Loss of disc signal is seen at this level. At least moderate disc bulge is seen. There is a superimposed central disc extrusion, with mild superior migration of the disc material. Moderate facet joint hypertrophy is seen. There is moderate right-sided and moderate to severe left-sided neural foraminal narrowing. There is a mild degree of compression seen upon the exiting left L3 nerve root. Moderate central canal narrowing is seen. These imaging findings have progressed compared to the prior study. L4-L5: Moderate loss of disc height and disc signal can be seen on the right side. Endplate irregularity is seen. Reactive marrow endplate changes are seen, which are hyperintense on T1-weighted and T2-weighted imaging and most consistent with fatty metaplasia (Modic type II changes). Partially bridging endplate osteophytes are seen on the right. Moderate generalized disc bulge is seen. There is a central disc protrusion. Mild to moderate facet hypertrophy is seen. There is moderate left-sided and moderate to severe right-sided neural foraminal narrowing. There is a mild degree of compression seen upon the exiting right L4 nerve root. Moderate central canal narrowing is seen. Compared to 2020, these degenerative changes are mildly progressed. L5-S1: The disc height and disk signal are relatively well-preserved. Mild disc bulge is seen, which is slightly eccentric to the left. Mild to moderate facet hypertrophy is seen. There is no right-sided neural foraminal narrowing. At least moderate left-sided neural foraminal narrowing is seen, with a mild degree of compression upon the exiting left L5 nerve root. Minimal central canal narrowing is seen. When comparison is made with the prior images, these findings are similar. IMPRESSION: Multiple levels of lumbar spine degenerative change can be seen, which are overall most prominent at L3-L4 and L4-L5. The degenerative changes are progressed at several levels compared to 2020. Multiple levels of compression deformity can be seen, yet without acute features. Prior vertebroplasty cement can be seen at T12. Dictated by: Carlitos Camp M.D. on 06/29/2023 at 16:24 Approved by: Carlitos Camp M.D. on 06/29/2023 at 16:31
== END ==
LOC: MRI 12:03
PROVIDERS: PCP Internal Medicine; Referring Provider Orthopaedic Surgery Orthopaedic Surgery of the Spine; Visit Provider Orthopaedic Surgery Orthopaedic Surgery of the Spine
DX: M47.817 Spondylosis without myelopathy or radiculopathy, lumbosacral region (principal); M47.816 Spondylosis without myelopathy or radiculopathy, lumbar region; M43.8X5 Other specified deforming dorsopathies, thoracolumbar region; M54.50 Low back pain, unspecified
CPT/HCPCS: 72148

== ENCOUNTER → 2024-03-12 08:35 | Outpatient (CLI) | payer OTHER, SELFPAY ==
--- NOTE | 2024-03-12 | DI.MRI.S_ITS ---
PROCEDURE: MR SHOULDER LT WO CON INDICATIONS: Pain in left shoulder TECHNIQUE: Noncontrast oblique coronal T2 fast spin echo with fat saturation, oblique sagittal T1 spin echo and T2 fast spin echo with fat saturation, axial T1 spin echo and T2 fast spin echo with fat saturation through the shoulder. COMPARISON: [facility] [place], CR, XR SHOULDER 2+ VIEWS LEFT, 03/05/2024, 10:02. FINDINGS: Image quality: Excellent. Rotator cuff: In the supraspinatus, there is focal near full-thickness tear at the most anterior footprint (series 8, image 5). Mild tendinosis of the supraspinatus and the infraspinatus. No tear of the infraspinatus. The teres minor is unremarkable. Mild tendinosis of the subscapularis, without tear. No muscle edema or significant fatty atrophy. Bones and bursae: The acromioclavicular joint is unremarkable. Type 1 acromion. No os acromiale. Moderate subacromial/subdeltoid bursitis. Mild subchondral cystic changes at the lesser tuberosity, reactive. No acute fracture. No focal chondral defect of the glenohumeral joint. Capsule and soft tissues: Circumferential labral tear. Mild tenosynovitis of the extra-articular biceps tendon. Low-grade tear of the extra-articular biceps tendon. Mild tendinosis of the intra-articular biceps tendon. Small glenohumeral effusion. Edema and thickening of the inferior glenohumeral ligament, suggestive of adhesive capsulitis. IMPRESSION: 1. Focal, near full-thickness tear at the most anterior footprint of the supraspinatus. 2. Circumferential labral tear 3. Mild tenosynovitis of the extra-articular biceps tendon with low-grade tear. 4. Findings suggestive of adhesive capsulitis. Dictated by: Johana Carey M.D. on 03/12/2024 at 10:24 Approved by: Johana Carey M.D. on 03/12/2024 at 10:34
== END ==
LOC: MRI 08:36
PROVIDERS: PCP Internal Medicine; Referring Provider Orthopaedic Surgery; Visit Provider Orthopaedic Surgery
DX: M75.112 Incomplete rotator cuff tear or rupture of left shoulder, not specified as traumatic (principal); S43.492A Other sprain of left shoulder joint, initial encounter; S46.212A Strain of muscle, fascia and tendon of other parts of biceps, left arm, initial encounter; M75.22 Bicipital tendinitis, left shoulder; M25.512 Pain in left shoulder
CPT/HCPCS: 73221

== ENCOUNTER 2024-05-10 11:43 | Emergency (ER) | payer OTHER, SELFPAY ==
[2024-05-10] VITALS (12 sets, daily range): BP systolic 137–183; BP diastolic 83–104; PULSE 98–117; RESP 18–37; TEMP 36.9; O2SAT 91–97; BMI 26.4
--- NOTE | 2024-05-10 11:56 | DI.RAD.S_ITS ---
PROCEDURE: XR CHEST 1V INDICATIONS: Cough TECHNIQUE: One view of the chest was acquired. COMPARISON: [facility], CR, XR CHEST 1V, 12/17/2021, 12:53. FINDINGS: Surgical changes and devices: None. Lungs and pleura: Left basilar atelectasis and or infiltrate. Diffuse chronic interstitial changes present. Low lung volumes accentuate pulmonary interstitium and heart size. Mediastinum: Mediastinal contours appear normal. Heart size is normal. Bones and chest wall: No suspicious bony lesions. Overlying soft tissues appear unremarkable. Generalized decreased osseous mineralization noted. IMPRESSION: Left basilar atelectasis and or infiltrate with background chronic interstitial changes. Approved by: Wilfrido Reis M.D. on 05/10/2024 at 11:45
[2024-05-10] MEDS: SODIUM CHLORIDE 0.9% 2,653.53 ML 884.51 ML IV (12:05)
[2024-05-10 12:07] LABS: Add Manual Diff / Slide Review NO; Basophils Absolute Auto 0 /uL (0-100); Basophils Percent Auto 0.4 % (0-2); Eosinophils Absolute Auto 100 /uL (0-450); Eosinophils Percent Auto 0.9 % (2-4); Hemoglobin 13.3 g/dL (13.5-17.5); Lymphocytes Absolute Auto 900 /uL (1100-4500); Lymphocytes Percent Auto 11.7 % (25-40); Mean Corpuscular HGB Conc 33.3 % (30-36); Mean Corpuscular Hemoglobin 31.2 PG (26-34); Mean Corpuscular Volume 93.6 fL (80-100); Monocytes Absolute Auto 800 /uL (0-900); Monocytes Percent Auto 9.8 % (3-14); Neutrophils Absolute Auto 6200 /uL (1500-7000); Neutrophils Percent Auto 77.2 % (50-75); Platelet Count 177 X10^3/uL (150-400); Red Blood Cell Count 4.27 X10^6/uL (4.5-5.9)
--- NOTE | 2024-05-10 12:09 | EKG_ITS ---
[address] [address] Test Date: 2024-05-10 Pat Name: Deangelo Hudson Department: 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
[2024-05-10 12:25] LABS: Alanine Aminotransferase 23 IU/L (<50); Albumin 4.1 g/dL (3.5-5.0); Albumin Globulin Ratio 1.3 (1.0-2.8); Alkaline Phosphatase 73 U/L (38-126); Aspartate Aminotransferase 27 IU/L (17-59); BUN Creatinine Ratio 15.2 (6-22); Bilirubin Total 0.7 mg/dL (0.2-1.3); Blood Urea Nitrogen 16 mg/dL (9-20); Calcium 9.9 mg/dL (8.4-10.2); Carbon Dioxide 24 mmol/L (22-32); Chloride 104 mmol/L (98-107); Creatine Kinase 38 U/L (55-170); Estimated Glomerular Filt Rate > 60 mL/min (>60); Globulin 3.2 g/dL (1.7-4.1); Glucose 131 mg/dL (80-110); HEMOLYSIS < 15 (0-50); Lactate (Lactic Acid) 1.6 mmol/L (0.7-2.1); Potassium 3.7 mmol/L (3.4-5.1); Sodium 137 mmol/L (137-145); Total Protein 7.3 g/dL (6.3-8.2)
[2024-05-10 12:34] LABS: NT-proBNP (BNP-Adult 18+) 310 pg/mL (<450)
[2024-05-10 12:37] LABS: Troponin I < 0.012 ng/mL (0.01-0.034)
[2024-05-10 12:42] LABS: Procalcitonin 0.165 ng/mL (<0.5)
[2024-05-10] MEDS: cefTRIAXone 1,000 MG in SODIUM CHLORIDE 0.9% 100 ML 200 MG IV (12:48)
--- NOTE | 2024-05-10 12:57 | PC.NURSE ---
PA stated to infuse only 2L; over 2 hours
[2024-05-10] MEDS: ALBUTEROL/IPRATROPIUM 3 ML AMPUL INH (13:00)
[2024-05-10 13:01] LABS: Appearance Urine UA CLEAR; Bilirubin Urine UA NEGATIVE (NEGATIVE); Color Urine UA YELLOW; Glucose Urine UA TRACE g/dL (Negative); Ketones Urine UA NEGATIVE (NEGATIVE); Leukocyte Esterase Urine UA NEGATIVE (NEGATIVE); Nitrite Urine UA NEGATIVE (Negative); Occult Blood Urine UA NEGATIVE (Negative); Protein Urine UA TRACE (Negative); Specific Gravity Urine UA 1.015 (1.000-1.035); pH Urine UA 6.5 (4.5-8.0)
[2024-05-10 13:03] LABS: Adenovirus Not Detected (Not Detect); B. parapertussis Not Detected (Not Detecte); Bordetella pertussis Not Detected (Not Detect); Chlamydophila pneumoniae Not Detected (Not Detect); Coronavirus 229E Not Detected (Not Detect); Coronavirus HKU1 Not Detected (Not Detect); Coronavirus NL 63 Not Detected (Not Detect); Coronavirus OC43 Not Detected (Not Detect); Human Metapneumovirus Not Detected (Not Detect); Human Rhinovirus/Enterovirus Not Detected (Not Detect); Influenza A Not Detected (Not Detect); Influenza B Not Detected (Not Detect); Mycoplasma pneumoniae Not Detected (Not Detect); Parainfluenza Virus 1 Not Detected (Not Detect); Parainfluenza Virus 2 Not Detected (Not Detect); Parainfluenza Virus 3 Not Detected (Not Detect); Parainfluenza Virus 4 Not Detected (Not Detect); Respiratory Syncytial Virus Not Detected (Not Detect); SARS- CoV-2 Not Detected (Not Detecte)
[2024-05-10 13:17] LABS: Bacteria Urine None Seen; Culture Indicated Urine Cult Not Indicated; RBC Urine None Seen (0-5/HPF); Squamous Epithelial Cell Urine None Seen (0-5/HPF); Urine Volume 10mL (spun); WBC Urine None Seen (0-5/HPF)
[2024-05-10] MEDS: AZITHROMYCIN 500 MG in DEXTROSE 5% IN WATER 250 ML 250 MG IV (13:44)
--- NOTE | 2024-05-10 13:46 | PC.NURSE ---
Pt ambulatory with steady gait. Denies any significant shortness of breath. Pt reports feels at baseline for home.
--- NOTE | 2024-05-10 14:12 | ED.SOB ---
HPI - SOB/Dyspnea <Ronal Jackson PA-C - Last Filed: 05/10/24 14:20> General Chief Complaint: Shortness of Breath/Dyspnea Stated Complaint: Fever over 100F since Time Seen by Provider: 05/10/24 11:47 Source: patient Mode of arrival: Ambulatory History of Present Illness HPI Narrative: This patient is a 73-year-old male that has had a subjective fever for the past 4 days. He states that he had his, ?shingles shot? approximately 1 week ago. The patient currently uses albuterol via nebulizer at home and states that he has had clear production with a cough for the past 3 days. He denies pedal edema, night sweats, chills, nausea, vomiting, PND, RÍOS, recent trauma, rash, chest pain or back pain. The patient has not seen his PCP she is for today's chief complaint. He also denies hemoptysis. Patient is currently taking Eliquis for atrial fibrillation. Related Data Home Medications Medication Instructions Recorded Confirmed apixaban 5 mg tablet (Eliquis) 5 mg PO BID 04/02/19 05/10/24 omeprazole 40 mg capsule,delayed 40 mg PO DAILY 04/02/19 10/12/21 release prednisone 10 mg tablet 10 mg PO DAILY 04/02/19 10/12/21 Tobramycin 10/12/21 alendronate 70 mg tablet (Fosamax) 70 mg PO QWEEK 10/12/21 10/12/21 amlodipine 10 mg tablet 10 mg PO DAILY 10/12/21 10/12/21 atorvastatin 80 mg tablet 80 mg PO QPM 10/12/21 10/12/21 carvedilol 25 mg tablet 25 mg PO BID 10/12/21 05/10/24 fluticasone propionate 115 2 puff inhalation BID 10/12/21 10/12/21 mcg-salmeterol 21 mcg/actuation HFA inhaler (Advair HFA) fluticasone propionate 50 1 spray intranasal DAILY 10/12/21 10/12/21 mcg/actuation nasal spray,suspension hydrochlorothiazide 12.5 mg capsule 12.5 mg PO DAILY 10/12/21 10/12/21 irbesartan 75 mg tablet 75 mg PO ONCE PM 10/12/21 10/12/21 levalbuterol HCl 0.63 mg/3 mL 0.63 mg inhalation TID 10/12/21 10/12/21 solution for nebulization (Xopenex) tramadol 100 mg tablet,extended 100 mg PO BEDTIME 10/12/21 10/12/21 release 24 hr zolpidem 5 mg tablet 5 mg PO BEDTIME PRN Sleep 10/12/21 10/12/21 Previous Rx's Medication Instructions Recorded cyclobenzaprine 5 mg tablet 10 mg (2 x 5 mg) PO Q8H PRN muscle 09/15/19 spasm/back pain #10 tabs nirmatrelvir 150 mg-ritonavir 100 See Rx Instructions PO .COMPLEX #1 03/02/22 mg tablets in a dose pack ea (Paxlovid) ipratropium 0.5 mg-albuterol 3 mg 3 ml inhalation Q4-6H PRN 05/10/24 (2.5 mg base)/3 mL nebulization shortness of breath #180 mL soln levofloxacin 750 mg tablet 750 mg PO DAILY #7 tabs 05/10/24 promethazine-DM 6.25 mg-15 mg/5 mL 10 ml PO TID PRN cough #180 mL 05/10/24 oral syrup Allergies Allergy/AdvReac Type Severity Reaction Status Date / Time amoxicillin AdvReac Mild NAUSEA Verified 05/10/24 11:54 levofloxacin AdvReac Mild GI UPSET Verified 05/10/24 11:54 Review of Systems <Ronal Jackson PA-C - Last Filed: 05/10/24 14:20> Review of Systems Narrative: General: See HPI Respiratory: See HPI All other review of systems have been reviewed and are ultimately negative unless otherwise stated in the HPI Patient History <Ronal Jacksno PA-C - Last Filed: 05/10/24 14:20> Medical History Mycobacterium chelonae infection Vasculitis Atypical chest pain Arthritis Pneumonia (~07/2013) BPH (benign prostatic hyperplasia) GERD (gastroesophageal reflux disease) Paroxysmal A-fib (03/09/18) Non-productive cough Dyspnea DJD (degenerative joint disease) Bronchiectasis Microscopic polyangiitis Coronary artery disease Kidney stone (~2015) Surgical History History of colonoscopy (~2015) History of coronary artery stent placement (~06/2012) Social History household members: spouse Smoking Status: Never smoker alcohol intake: current Smoking Status: Never smoker alcohol intake frequency: holidays/special occasions only Substance Use Type: does not use Exam <Ronal Jackson PA-C - Last Filed: 05/10/24 14:20> Initial Vital Signs Initial Vital Signs: Vital Signs Pulse Oximetry 97 05/10/24 11:49 Const General: cooperative, healthy appearing, comfortable, well developed and well groomed HENMT Head: normal to inspection, normocephalic and atraumatic Ears: hearing grossly normal bilaterally, external ears normal, TM's normal bilaterally and EAC's normal Nose: external nose normal and nares normal Mouth: oral mucosae normal, lip normal, tongue normal and oropharynx normal Throat: posterior oropharynx normal and tonsils normal Eyes General: Yes appearance normal, both eyes and all related structures Neck Neck: normal visual inspection, full ROM, no meningeal signs and trachea midline Resp Other: Scattered rhonchi throughout that is cleared with cough. Otherwise lung sounds are clear to auscultation throughout after DuoNeb x1. Cardio Rate: regular rate Rhythm: regular rhythm Heart Sounds: S1 normal and S2 normal Back/Spine/Pelvis Back: normal to inspection Skin General: no rashes or lesions noted, elasticity normal and turgor normal Neuro General: patient alert, patient awake, patient oriented x3, gait normal, moves all extremities, no meningeal signs, no focal motor deficits and CN's II-XI intact bilaterally Extrem General: normal to inspection, full ROM, capillary refill normal, normal exam except as noted, no joint enlargement, no clubbing, cyanosis or edema, no pedal edema and no calf tenderness Psych Appearance: grossly normal and well kempt <Phil Soriano DO - Last Filed: 05/10/24 14:20> Initial Vital Signs Initial Vital Signs: Vital Signs Pulse Oximetry 97 05/10/24 11:49 Course <Ronal Jackson PA-C - Last Filed: 05/10/24 14:20> Course Course Narrative: Patient was seen and examined. Labs were ordered from a sepsis rule out standpoint. CBC, lactic acid, BNP, troponin are all within normal limits. The one-view chest x-ray, according to the radiologist, revealed atelectasis versus left lower lobe infiltrate. The patient underwent a, road test in which the patient maintained an oxygen level of 96-97% on room air. He also received Rocephin and Zithromax intravenously. He also received DuoNeb x1. The patient had no deterioration in his overall condition during his ER stay. Results were discussed with the patient and he feels comfortable going home at this time. Additional Information: 12-lead EKG performed on 05/10/2024 at 12:09 p.m. reveals sinus tachycardia with a ventricular rate of 106 beats per minute. No ST, T-wave elevation, depression or ectopy noted per my interpretation. Orders Ordered: ED Orders 05/10/24 11:55 Complete Blood Count AUTO DIFF Stat Comprehensive Metabolic Panel Stat Lactate (Lactic Acid) Stat NT-proBNP (BNP-Adult 18+) Stat Procalcitonin Stat Troponin & CK Cardiac Panel Stat 05/10/24 11:56 XR chest 1V Stat 05/10/24 11:57 EKG-12 Lead Stat 05/10/24 12:11 Respiratory Panel (Film Array) Stat 05/10/24 12:40 Blood Culture Stat Urinalysis and Microscopic Stat Sodium Chloride (Normal Saline 0.9%) 2,653.53 mls @ 884.51 mls/hr 30 ml/kg infuse over 3 hr (2653.53 ml) IV NOW ONE Stop: 05/10/24 14:55 Last Admin: 05/10/24 12:05 Dose: 884.51 mls/hr Documented By: AWILDA Azithromycin 500 mg/ Dextrose 250 mls @ 250 mls/hr IV NOW ONE Stop: 05/10/24 14:44 Last Admin: 05/10/24 13:44 Dose: 250 mls/hr Documented By: Discontinued Medications Albuterol/Ipratropium (Albuterol/Ipratropium 3 Ml Ampul) 3 ml INH NOW ONE Stop: 05/10/24 12:58 Last Admin: 05/10/24 13:00 Dose: 3 ml Documented By: AWILDA Ceftriaxone Sodium 1,000 mg/ (Sodium Chloride) 100 mls @ 200 mls/hr IV NOW ONE Stop: 05/10/24 12:07 Last Infusion: 05/10/24 13:31 Dose: Infused Documented By: Admin: 05/10/24 12:48 Dose: 200 mls/hr Documented By: AWILDA Vital Signs Vital signs: Vital Signs - 8 hr 05/10/24 11:49 05/10/24 11:50 05/10/24 11:50 Temperature 98.4 F Pulse Rate 117 H 117 H Respiratory Rate 18 Blood Pressure 183/104 H Pulse Oximetry 97 95 96 Oxygen Delivery Method Room Air 05/10/24 11:50 05/10/24 11:52 05/10/24 11:52 Temperature Pulse Rate 114 H Respiratory Rate 28 H Blood Pressure 183/104 H 165/86 H Pulse Oximetry 93 Oxygen Delivery Method 05/10/24 12:00 05/10/24 12:00 05/10/24 12:30 Temperature Pulse Rate 109 H 104 H Respiratory Rate 26 H 33 H Blood Pressure 146/83 H Pulse Oximetry 94 91 Oxygen Delivery Method 05/10/24 12:31 05/10/24 12:31 05/10/24 13:00 Temperature Pulse Rate 108 H 101 H Respiratory Rate 37 H 28 H Blood Pressure 137/88 Pulse Oximetry 93 Oxygen Delivery Method 05/10/24 13:00 05/10/24 13:21 Temperature Pulse Rate 98 H Respiratory Rate 20 Blood Pressure 175/96 H Pulse Oximetry 93 Oxygen Delivery Method Room Air <Phil Soriano DO - Last Filed: 05/10/24 14:20> Orders Ordered: ED Orders 05/10/24 11:55 Complete Blood Count AUTO DIFF Stat Comprehensive Metabolic Panel Stat Lactate (Lactic Acid) Stat NT-proBNP (BNP-Adult 18+) Stat Procalcitonin Stat Troponin & CK Cardiac Panel Stat 05/10/24 11:56 XR chest 1V Stat 05/10/24 11:57 EKG-12 Lead Stat 05/10/24 12:11 Respiratory Panel (Film Array) Stat 05/10/24 12:40 Blood Culture Stat Urinalysis and Microscopic Stat Sodium Chloride (Normal Saline 0.9%) 2,653.53 mls @ 884.51 mls/hr 30 ml/kg infuse over 3 hr (2653.53 ml) IV NOW ONE Stop: 05/10/24 14:55 Last Admin: 05/10/24 12:05 Dose: 884.51 mls/hr Documented By: AWILDA Azithromycin 500 mg/ Dextrose 250 mls @ 250 mls/hr IV NOW ONE Stop: 05/10/24 14:44 Last Admin: 05/10/24 13:44 Dose: 250 mls/hr Documented By: KACIE Discontinued Medications Albuterol/Ipratropium (Albuterol/Ipratropium 3 Ml Ampul) 3 ml INH NOW ONE Stop: 05/10/24 12:58 Last Admin: 05/10/24 13:00 Dose: 3 ml Documented By: AWILDA Ceftriaxone Sodium 1,000 mg/ (Sodium Chloride) 100 mls @ 200 mls/hr IV NOW ONE Stop: 05/10/24 12:07 Last Infusion: 05/10/24 13:31 Dose: Infused Documented By: Admin: 05/10/24 12:48 Dose: 200 mls/hr Documented By: AWILDA Vital Signs Vital signs: Vital Signs - 8 hr 05/10/24 11:49 05/10/24 11:50 05/10/24 11:50 Temperature 98.4 F Pulse Rate 117 H 117 H Respiratory Rate 18 Blood Pressure 183/104 H Pulse Oximetry 97 95 96 Oxygen Delivery Method Room Air 05/10/24 11:50 05/10/24 11:52 05/10/24 11:52 Temperature Pulse Rate 114 H Respiratory Rate 28 H Blood Pressure 183/104 H 165/86 H Pulse Oximetry 93 Oxygen Delivery Method 05/10/24 12:00 05/10/24 12:00 05/10/24 12:30 Temperature Pulse Rate 109 H 104 H Respiratory Rate 26 H 33 H Blood Pressure 146/83 H Pulse Oximetry 94 91 Oxygen Delivery Method 05/10/24 12:31 05/10/24 12:31 05/10/24 13:00 Temperature Pulse Rate 108 H 101 H Respiratory Rate 37 H 28 H Blood Pressure 137/88 Pulse Oximetry 93 Oxygen Delivery Method 05/10/24 13:00 05/10/24 13:21 Temperature Pulse Rate 98 H Respiratory Rate 20 Blood Pressure 175/96 H Pulse Oximetry 93 Oxygen Delivery Method Room Air MDM - SOB/Dyspnea <Ronal Jackson PA-C - Last Filed: 05/10/24 14:20> Differential Diagnosis Differential diagnosis: Likely acute exacerbation of chronic obstructive airways disease, congestive heart failure, community acquired pneumonia, asthma with exacerbation and pulmonary embolism Medical Records Attestation: I reviewed the patient's medical records. Lab Data Attestation: I reviewed the patient's lab results. 05/10/24 11:55 05/10/24 11:55 Labs: Lab Results 05/10/24 05/10/24 05/10/24 Range/Units 11:55 12:11 12:40 WBC 8.0 (4.5-11.0) X10^3/uL RBC 4.27 L (4.5-5.9) X10^6/uL Hgb 13.3 L (13.5-17.5) g/dL Hct 40.0 L (41-53) % MCV 93.6 (80-100) fL MCH 31.2 (26-34) PG MCHC 33.3 (30-36) % RDW 16.0 H (11.6-14.8) % Plt Count 177 (150-400) X10^3/uL Neut % (Auto) 77.2 H (50-75) % Lymph % (Auto) 11.7 L (25-40) % [place] % (Auto) 9.8 (3-14) % Eos % (Auto) 0.9 L (2-4) % Baso % (Auto) 0.4 (0-2) % Neut # (Auto) 6200 (7633-2996) /uL Lymph # (Auto) 900 L (8055-5605) /uL [place] # (Auto) 800 (0-900) /uL Eos # (Auto) 100 (0-450) /uL Baso # (Auto) 0 (0-100) /uL Sodium 137 (137-145) mmol/L Potassium 3.7 (3.4-5.1) mmol/L Chloride 104 (98-107) mmol/L Carbon Dioxide 24 (22-32) mmol/L BUN 16 (9-20) mg/dL Creatinine 1.05 (0.66-1.25) mg/dL Estimated GFR > 60 (>60) mL/min BUN/Creatinine Ratio 15.2 (6-22) Glucose 131 H (80-110) mg/dL Lactate 1.6 (0.7-2.1) mmol/L Calcium 9.9 (8.4-10.2) mg/dL Total Bilirubin 0.7 (0.2-1.3) mg/dL AST 27 (17-59) IU/L ALT 23 (<50) IU/L Alkaline Phosphatase 73 (38-126) U/L Total Creatine Kinase 38 L (55-170) U/L Troponin I < 0.012 (0.01-0.034) ng/mL NT-Pro-B Natriuret Pep 310 (<450) pg/mL Total Protein 7.3 (6.3-8.2) g/dL Albumin 4.1 (3.5-5.0) g/dL Globulin 3.2 (1.7-4.1) g/dL Albumin/Globulin Ratio 1.3 (1.0-2.8) Procalcitonin 0.165 (<0.5) ng/mL Urine Color Yellow Urine Appearance Clear Urine pH 6.5 (4.5-8.0) Ur Specific [place] 1.015 (1.000-1.035) Urine Protein Trace H (Negative) Urine Glucose (UA) Trace H (Negative) g/dL Urine Ketones Negative (NEGATIVE) Urine Occult Blood Negative (Negative) Urine Nitrate Negative (Negative) Urine Bilirubin Negative (NEGATIVE) Urine Urobilinogen 1.0 (0.2) E.U./dL Ur Leukocyte Esterase Negative (NEGATIVE) Urine RBC None seen (0-5/HPF) Urine WBC None seen (0-5/HPF) Ur Squamous Epith Cells None seen (0-5/HPF) Urine Bacteria None seen (None) Ur Culture Indicated? Cult not indicated Vol Urine Centrifuged 10ml (spun) Chlamy pneumoniae PCR Not detected (Not Detect) Adenovirus (PCR) Not detected (Not Detect) B. pertussis DNA (PCR) Not detected (Not Detect) B.parapertussis DNA PCR Not detected (Not Detecte) Coronavirus OC43 (PCR) Not detected (Not Detect) Coronavirus HKU1 (PCR) Not detected (Not Detect) Coronavirus 229E (PCR) Not detected (Not Detect) SARS-CoV-2 (PCR) Not detected (Not Detecte) Coronavirus NL63 (PCR) Not detected (Not Detect) Human Metapneumovir PCR Not detected (Not Detect) Influenza Type A (PCR) Not detected (Not Detect) Influenza Type B (PCR) Not detected (Not Detect) M. pneumoniae (PCR) Not detected (Not Detect) Parainfluenza 1 (PCR) Not detected (Not Detect) Parainfluenza 2 (PCR) Not detected (Not Detect) Parainfluenza 3 (PCR) Not detected (Not Detect) Parainfluenza 4 (PCR) Not detected (Not Detect) RSV (PCR) Not detected (Not Detect) Entero/Rhino (PCR) Not detected (Not Detect) ECG Data Interpretation: See above MDM Narrative Medical decision making narrative: This is a 73-year-old male that presents today for a cough and subjective fever for the past 4 days. His respiratory panel did not reveal. His chest x-ray revealed atelectasis versus new left lower lobe infiltrate. Will start the patient on Levaquin, DuoNeb as well as promethazine DM. I do not believe he has overwhelming sepsis with a normal lactic acid and white blood cell count. Blood cultures are pending at this time. I also do not believe this is COVID-19, PE since the patient is already anticoagulated with Eliquis and he appears clinically stable for outpatient follow up. Patient understands the treatment plan. No additional questions at the time of discharge and he will follow up as requested. <Phil Soriano, - Last Filed: 05/10/24 14:20> Lab Data Labs: Lab Results 05/10/24 05/10/24 05/10/24 Range/Units 11:55 12:11 12:40 WBC 8.0 (4.5-11.0) X10^3/uL RBC 4.27 L (4.5-5.9) X10^6/uL Hgb 13.3 L (13.5-17.5) g/dL Hct 40.0 L (41-53) % MCV 93.6 (80-100) fL MCH 31.2 (26-34) PG MCHC 33.3 (30-36) % RDW 16.0 H (11.6-14.8) % Plt Count 177 (150-400) X10^3/uL Neut % (Auto) 77.2 H (50-75) % Lymph % (Auto) 11.7 L (25-40) % [place] % (Auto) 9.8 (3-14) % Eos % (Auto) 0.9 L (2-4) % Baso % (Auto) 0.4 (0-2) % Neut # (Auto) 6200 (4037-6749) /uL Lymph # (Auto) 900 L (3330-9245) /uL [place] # (Auto) 800 (0-900) /uL Eos # (Auto) 100 (0-450) /uL Baso # (Auto) 0 (0-100) /uL Sodium 137 (137-145) mmol/L Potassium 3.7 (3.4-5.1) mmol/L Chloride 104 (98-107) mmol/L Carbon Dioxide 24 (22-32) mmol/L BUN 16 (9-20) mg/dL Creatinine 1.05 (0.66-1.25) mg/dL Estimated GFR > 60 (>60) mL/min BUN/Creatinine Ratio 15.2 (6-22) Glucose 131 H (80-110) mg/dL Lactate 1.6 (0.7-2.1) mmol/L Calcium 9.9 (8.4-10.2) mg/dL Total Bilirubin 0.7 (0.2-1.3) mg/dL AST 27 (17-59) IU/L ALT 23 (<50) IU/L Alkaline Phosphatase 73 (38-126) U/L Total Creatine Kinase 38 L (55-170) U/L Troponin I < 0.012 (0.01-0.034) ng/mL NT-Pro-B Natriuret Pep 310 (<450) pg/mL Total Protein 7.3 (6.3-8.2) g/dL Albumin 4.1 (3.5-5.0) g/dL Globulin 3.2 (1.7-4.1) g/dL Albumin/Globulin Ratio 1.3 (1.0-2.8) Procalcitonin 0.165 (<0.5) ng/mL Urine Color Yellow Urine Appearance Clear Urine pH 6.5 (4.5-8.0) Ur Specific [place] 1.015 (1.000-1.035) Urine Protein Trace H (Negative) Urine Glucose (UA) Trace H (Negative) g/dL Urine Ketones Negative (NEGATIVE) Urine Occult Blood Negative (Negative) Urine Nitrate Negative (Negative) Urine Bilirubin Negative (NEGATIVE) Urine Urobilinogen 1.0 (0.2) E.U./dL Ur Leukocyte Esterase Negative (NEGATIVE) Urine RBC None seen (0-5/HPF) Urine WBC None seen (0-5/HPF) Ur Squamous Epith Cells None seen (0-5/HPF) Urine Bacteria None seen (None) Ur Culture Indicated? Cult not indicated Vol Urine Centrifuged 10ml (spun) Chlamy pneumoniae PCR Not detected (Not Detect) Adenovirus (PCR) Not detected (Not Detect) B. pertussis DNA (PCR) Not detected (Not Detect) B.parapertussis DNA PCR Not detected (Not Detecte) Coronavirus OC43 (PCR) Not detected (Not Detect) Coronavirus HKU1 (PCR) Not detected (Not Detect) Coronavirus 229E (PCR) Not detected (Not Detect) SARS-CoV-2 (PCR) Not detected (Not Detecte) Coronavirus NL63 (PCR) Not detected (Not Detect) Human Metapneumovir PCR Not detected (Not Detect) Influenza Type A (PCR) Not detected (Not Detect) Influenza Type B (PCR) Not detected (Not Detect) M. pneumoniae (PCR) Not detected (Not Detect) Parainfluenza 1 (PCR) Not detected (Not Detect) Parainfluenza 2 (PCR) Not detected (Not Detect) Parainfluenza 3 (PCR) Not detected (Not Detect) Parainfluenza 4 (PCR) Not detected (Not Detect) RSV (PCR) Not detected (Not Detect) Entero/Rhino (PCR) Not detected (Not Detect) Discharge Plan Departure Patient Disposition: Home Clinical Impression: Pneumonia Qualifiers: Pneumonia type: due to unspecified organism Laterality: left Lung location: lower lobe of lung Qualified Code(s): J18.9 - Pneumonia, unspecified organism Instructions: Pneumonia-Adult Activity Restrictions/Additional Instructions: Discontinue albuterol in your nebulizer and start DuoNeb as prescribed Increase clear fluid intake and rest Follow up with your PCP in 2-3 days as a recheck Return here immediately if worse or for any new, emergent concerns Prescriptions: New levofloxacin 750 mg tablet 750 mg PO DAILY Qty: 7 0RF ipratropium-albuterol 0.5 mg-3 mg(2.5 mg base)/3 mL solution for nebulization 3 ml inhalation Q4-6H PRN (Reason: shortness of breath) Qty: 180 0RF promethazine-DM 6.25-15 mg/5 mL syrup 10 ml PO TID PRN (Reason: cough) Qty: 180 0RF No Action prednisone 10 mg Tablet 10 mg PO DAILY omeprazole 40 mg Capsule,Delayed Release(Dr/Ec) 40 mg PO DAILY Eliquis 5 mg Tablet 5 mg PO BID cyclobenzaprine 5 mg tablet 10 mg PO Q8H PRN (Reason: muscle spasm/back pain) Qty: 10 0RF Rx Instructions: do not drive atorvastatin 80 mg Tablet 80 mg PO QPM carvedilol 25 mg Tablet 25 mg PO BID Rx Instructions: must administer with a meal/food levalbuterol HCl [Xopenex] 0.63 mg/3 mL Solution For Nebulization 0.63 mg INHALATION TID alendronate [Fosamax] 70 mg Tablet 70 mg PO QWEEK amlodipine 10 mg Tablet 10 mg PO DAILY hydrochlorothiazide 12.5 mg Capsule 12.5 mg PO DAILY irbesartan 75 mg Tablet 75 mg PO ONCE PM zolpidem 5 mg Tablet 5 mg PO BEDTIME PRN (Reason: Sleep) fluticasone propionate 50 mcg/actuation [place],Suspension 1 spray INTRANASAL DAILY Rx Instructions: administer into each nostril tramadol 100 mg Tablet Extended Release 24 Hr 100 mg PO BEDTIME Advair HFA 115-21 mcg/actuation Hfa Aerosol Inhaler 2 puff INHALATION BID Tobramycin 75 mg Rx Instructions: Tobramycin 75mg/ml, 4ml BID via Nebulizer Paxlovid 150-100 mg tablets,dose pack See Rx Instructions .ROUTE .COMPLEX Qty: 1 0RF Rx Instructions: orally per package directions Patient understands to hold his atorvastatin and reduce his Eliquis dosing by while on this medication. Referrals: Carolina Pepper MD [Primary Care Provider] - Stand Alone Forms: Patient Portal/API/Survey ED Sign-out <Phil Soriano DO - Last Filed: 05/10/24 14:20> Cosign ED Attending Cosignature Attestation: Dr Soriano Co-Sign Statement: I was available for consultation during this patient's emergency department visit. This chart is signed by myself for administrative purposes only. I did not have direct contact with this patient during this visit. They were seen independently by the APC.
--- NOTE | 2024-05-10 14:47 | PC.NURSE ---
left lower lobe crackles; pt states he started to feel unwell on Sunday--takes home albuterol w/ no improvement. Reported fever at home.
== END 2024-05-10 14:50 | disposition home or self-care (01) ==
PROVIDERS: Emergency Provider Physician Assistant; PCP Internal Medicine
DX: J18.9 Pneumonia, unspecified organism (principal)
CPT/HCPCS: 36415; 71045; 80053; 81001; 82550; 83605; 83880; 84145; 84484; 85025; 87040; 87633; 93005; 93010; 94667; 96361; 96365; 96367; 99284; J0696

== ENCOUNTER 2024-05-14 11:43 | Inpatient (IN) | payer OTHER, MEDICARE, SELFPAY ==
[2024-05-14] VITALS (89 sets, daily range): BP systolic 71–130; BP diastolic 48–86; PULSE 74–163; RESP 18–54; TEMP 35.8–37.8; O2SAT 91–96; BMI 26.4
--- NOTE | 2024-05-14 12:05 | DI.RAD.S_ITS ---
PROCEDURE: XR CHEST 1V INDICATIONS: Dyspnea TECHNIQUE: One view of the chest was acquired. COMPARISON: [facility], CR, XR CHEST 1V, 05/10/2024, 12:08. [facility], CR, XR CHEST 1V, 12/17/2021, 12:53. FINDINGS: Surgical changes and devices: None. Lungs and pleura: Low lung volumes. Streaky bibasilar opacities. Skin fold overlying the right chest wall. Questionable cavitating lesion in the left mid lung measuring 2 cm. Mediastinum: Mediastinal contours appear normal. Heart size is normal. Bones and chest wall: No suspicious bony lesions. Overlying soft tissues appear unremarkable. Colonic interposition between the liver and hemidiaphragm. IMPRESSION: Questionable cavitating lesion in the left mid lung measuring 2 cm. Consider confirmation with chest CT. Low lung volumes with streaky bibasilar atelectasis. Dictated by: Napoleon Carney M.D. on 05/14/2024 at 12:39 Approved by: Napoleon Carney M.D. on 05/14/2024 at 12:40
--- NOTE | 2024-05-14 12:05 | EKG_ITS ---
[place] [address] [address] [place] [id number] Test Date: 2024-05-14 Pat Name: Deangelo Hudson Department: Room: Gender: Male Quality Assurance Specialist: JEAN-PIERRE : 1950 Requested By: Order Number: [id number] Reading MD: Renzo Melendez Measurements Intervals [place] Rate: 157 P: VT: QRS: -36 QRSD: 84 T: 62 QT: 244 QTc: 394 Interpretive Statements Critical Test Result: High HR Supraventricular tachycardia Left axis deviation Electronically Signed On 05-14-2024 19:04:01 PST by Renzo Melendez
--- NOTE | 2024-05-14 12:08 | ED_ITS ---
HPI - Sepsis General Chief Complaint: Fever Mode of arrival: Ambulatory Limitations: no limitations Evaluation Sepsis Screen: Possible Severe Sepsis Risk Sepsis Infection Criteria Present: Documented Infection Narrative: Patient here with . Seen here last week and placed on antibiotics for pneumonia. However has worsened over the weekend. Vital signs noted. Hypotensive tachycardic. patient was placed on Levaquin. Has felt weak and tired and short of breath. Has seen tumor registrar in the past for unusual finding /spot on the lung according to . She was not sure what it was. No history of COPD or asthma. Patient History Medical History Mycobacterium chelonae infection Vasculitis Atypical chest pain Arthritis Pneumonia (~07/2013) BPH (benign prostatic hyperplasia) GERD (gastroesophageal reflux disease) Paroxysmal A-fib (03/09/18) Non-productive cough Dyspnea DJD (degenerative joint disease) Bronchiectasis Microscopic polyangiitis Coronary artery disease Kidney stone (~2015) Surgical History History of colonoscopy (~2015) History of coronary artery stent placement (~06/2012) Social History household members: spouse Smoking Status: Never smoker alcohol intake: current Smoking Status: Never smoker alcohol intake frequency: holidays/special occasions only Substance Use Type: does not use Exam Narrative Exam Narrative: GENERAL: in no distress, not toxic not dyspneic however, is pale appearing HEAD: Normocephalic. EYES: Pupils equal round ENT: Mucous membranes moist. NECK: Trachea midline. CARDIOVASCULAR: Regular rate and rhythm RESPIRATORY: diminished bilateral basilar lung sounds. patient is speaking full sentences GASTROINTESTINAL: Abdomen soft, non-tender EXTREMITIES: No gross deformities. BACK: No flank tenderness. NEURO: AOx4. SKIN: Warm and dry PSYCH: Not anxious, is cooperative Initial Vital Signs Initial Vital Signs: Vital Signs Temperature 99.5 F 05/14/24 11:55 Pulse Rate 163 H 05/14/24 11:55 Respiratory Rate 24 05/14/24 11:55 Blood Pressure 82/54 L 05/14/24 11:55 Pulse Oximetry 93 05/14/24 11:55 Oxygen Delivery Method Room Air 05/14/24 11:55 Course Orders Ordered: Acetaminophen (Acetaminophen 325 Mg Tablet) 650 mg PO Q6H PRN PRN Reason: Fever/Mild Pain (1-3) Last Admin: 05/17/24 10:51 Dose: 650 mg Documented By: Admin: 05/16/24 03:59 Dose: 650 mg Documented By: KENRICK Apixaban (Apixaban 5 Mg Tablet) 5 mg PO BID [facility] Last Admin: 05/18/24 08:08 Dose: 5 mg Documented By: Admin: 05/17/24 20:33 Dose: 5 mg Documented By: ERICKSON Atorvastatin Calcium (Atorvastatin 20 Mg Tablet) 80 mg PO BEDTIME [facility] Last Admin: 05/17/24 20:34 Dose: 80 mg Documented By: Admin: 05/16/24 21:49 Dose: 80 mg Documented By: Admin: 05/15/24 20:52 Dose: 80 mg Documented By: KENRICK Calcium Carbonate (Calcium Carbonate 500 Mg Tab) 1,000 mg PO Q4HR PRN PRN Reason: Dyspepsia Last Admin: 05/15/24 08:22 Dose: 1,000 mg Documented By: Admin: 05/15/24 01:14 Dose: 1,000 mg Documented By: DELIA Cyclobenzaprine HCl (Cyclobenzaprine 10 Mg Tablet) 10 mg PO BEDTIME [facility] Last Admin: 05/17/24 20:33 Dose: 10 mg Documented By: Admin: 05/16/24 21:50 Dose: 10 mg Documented By: Admin: 05/15/24 20:51 Dose: 10 mg Documented By: Admin: 05/14/24 20:08 Dose: 10 mg Documented By: DELIA Digoxin (Digoxin 0.125 Mg Tablet) 0.125 mg PO DAILY [facility] Last Admin: 05/18/24 08:15 Dose: 0.125 mg Documented By: GARY Diltiazem HCl (Diltiazem 30 Mg Tablet) 60 mg PO Q6HR [facility] Last Admin: 05/18/24 12:06 Dose: 60 mg Documented By: Admin: 05/18/24 06:16 Dose: 60 mg Documented By: Admin: 05/17/24 23:28 Dose: 60 mg Documented By: Admin: 05/17/24 17:20 Dose: 60 mg Documented By: Admin: 05/17/24 12:12 Dose: 60 mg Documented By: Admin: 05/17/24 06:54 Dose: 60 mg Documented By: Admin: 05/17/24 00:13 Dose: 60 mg Documented By: Admin: 05/16/24 17:57 Dose: 60 mg Documented By: Admin: 05/16/24 12:20 Dose: 60 mg Documented By: SE Diltiazem HCl 125 mg/ Sodium (Chloride) 125 mls @ 5 mls/hr IV TITRATE RAKESH; Protocol Last Titration: 05/16/24 08:00 Dose: 0 mg/hr, 0 mls/hr Documented By: Titration: 05/16/24 05:02 Dose: 10 mg/hr, 10 mls/hr Documented By: Titration: 05/15/24 23:00 Dose: 5 mg/hr, 5 mls/hr Documented By: Admin: 05/15/24 19:01 Dose: 10 mg/hr, 10 mls/hr Documented By: Titration: 05/15/24 19:01 Dose: Infused Documented By: Titration: 05/15/24 18:33 Dose: 10 mg/hr, 10 mls/hr Documented By: Titration: 05/15/24 10:56 Dose: 0 mg/hr, 0 mls/hr Documented By: Titration: 05/15/24 08:32 Dose: 10 mg/hr, 10 mls/hr Documented By: Titration: 05/15/24 05:18 Dose: 2.5 mg/hr, 2.5 mls/hr Documented By: Titration: 05/15/24 04:05 Dose: 5 mg/hr, 5 mls/hr Documented By: Titration: 05/15/24 02:37 Dose: 7 mg/hr, 7 mls/hr Documented By: Titration: 05/14/24 23:15 Dose: 10 mg/hr, 10 mls/hr Documented By: Titration: 05/14/24 21:12 Dose: 5 mg/hr, 5 mls/hr Documented By: Titration: 05/14/24 19:08 Dose: 10 mg/hr, 10 mls/hr Documented By: Admin: 05/14/24 18:46 Dose: 5 mg/hr, 5 mls/hr Documented By: PATRICE Cefepime HCl 2 gm/ Sodium (Chloride) 100 mls @ 200 mls/hr IV Q8H RAKESH Stop: 05/24/24 09:29 Last Infusion: 05/18/24 12:06 Dose: Infused Documented By: Admin: 05/18/24 08:09 Dose: 200 mls/hr Documented By: Infusion: 05/18/24 01:33 Dose: Infused Documented By: Admin: 05/18/24 00:54 Dose: 200 mls/hr Documented By: Infusion: 05/17/24 17:06 Dose: Infused Documented By: Admin: 05/17/24 16:36 Dose: 200 mls/hr Documented By: Infusion: 05/17/24 10:43 Dose: Infused Documented By: Admin: 05/17/24 08:15 Dose: 200 mls/hr Documented By: Infusion: 05/17/24 02:13 Dose: Infused Documented By: Admin: 05/17/24 01:12 Dose: 200 mls/hr Documented By: Infusion: 05/16/24 16:55 Dose: Infused Documented By: Admin: 05/16/24 16:25 Dose: 200 mls/hr Documented By: Infusion: 05/16/24 08:52 Dose: Infused Documented By: Admin: 05/16/24 08:22 Dose: 200 mls/hr Documented By: Infusion: 05/16/24 02:17 Dose: Infused Documented By: Admin: 05/16/24 01:16 Dose: 200 mls/hr Documented By: Infusion: 05/15/24 19:00 Dose: Infused Documented By: Admin: 05/15/24 16:58 Dose: 200 mls/hr Documented By: Infusion: 05/15/24 08:41 Dose: Infused Documented By: Admin: 05/15/24 08:11 Dose: 200 mls/hr Documented By: Infusion: 05/15/24 02:35 Dose: Infused Documented By: Admin: 05/15/24 00:45 Dose: 200 mls/hr Documented By: DELIA Magnesium Oxide (Magnesium Oxide 400 Mg Tablet) 400 mg PO DAILY [facility] Last Admin: 05/18/24 08:08 Dose: 400 mg Documented By: Admin: 05/17/24 10:52 Dose: 400 mg Documented By: GARY Metoprolol Succinate (Metoprolol Er 50 Mg Tablet) 100 mg PO DAILY [facility] Last Admin: 05/18/24 08:08 Dose: 100 mg Documented By: Admin: 05/17/24 08:17 Dose: 100 mg Documented By: Admin: 05/16/24 08:20 Dose: 100 mg Documented By: YOUSIF Naloxone HCl (Naloxone 0.4 Mg/Ml Vial) 0.2 mg IV Q2MIN PRN PRN Reason: Opiate Reversal Ondansetron HCl (Ondansetron 4 Mg/2 Ml Inj) 4 mg IV Q8HR PRN PRN Reason: Nausea And Vomiting Last Admin: 05/14/24 23:06 Dose: 4 mg Documented By: DELIA Pantoprazole Sodium (Pantoprazole Dr 40 Mg Tablet) 40 mg PO 0700 [facility] Last Admin: 05/18/24 06:17 Dose: 40 mg Documented By: Admin: 05/17/24 08:05 Dose: 40 mg Documented By: Admin: 05/16/24 08:26 Dose: 40 mg Documented By: Admin: 05/15/24 08:40 Dose: 40 mg Documented By: SE Prednisone (Prednisone 5 Mg Tablet) 10 mg PO DAILY [facility] Last Admin: 05/18/24 08:08 Dose: 10 mg Documented By: Admin: 05/17/24 08:18 Dose: 10 mg Documented By: Admin: 05/16/24 08:22 Dose: 10 mg Documented By: Admin: 05/15/24 08:10 Dose: 10 mg Documented By: PRESTON Sodium Chloride (Sodium Chloride 0.9% Flush) 10 ml IV BID [facility] Last Admin: 05/18/24 08:49 Dose: 10 ml Documented By: Admin: 05/17/24 20:34 Dose: 10 ml Documented By: Admin: 05/17/24 08:18 Dose: 10 ml Documented By: Admin: 05/16/24 21:51 Dose: 10 ml Documented By: Admin: 05/16/24 08:54 Dose: Not Given Documented By: Admin: 05/15/24 20:53 Dose: 10 ml Documented By: Admin: 05/15/24 08:26 Dose: 10 ml Documented By: Admin: 05/14/24 20:14 Dose: 10 ml Documented By: DELIA Sodium Chloride (Sodium Chloride 0.9% Flush) 10 ml IV PRN PRN PRN Reason: Flush Last Admin: 05/18/24 00:54 Dose: 10 ml Documented By: Admin: 05/16/24 16:26 Dose: 10 ml Documented By: Admin: 05/14/24 23:06 Dose: 10 ml Documented By: DELIA Sodium Chloride (Sodium Chloride 3 % 500 Ml) 3 ml INH RTBID [facility] Last Admin: 05/16/24 22:06 Dose: Not Given Documented By: KENRICK Tamsulosin HCl (Tamsulosin 0.4 Mg Capsule) 0.8 mg PO BEDTIME [facility] Last Admin: 05/17/24 20:33 Dose: 0.8 mg Documented By: Admin: 05/16/24 21:50 Dose: 0.8 mg Documented By: Admin: 05/15/24 20:52 Dose: 0.8 mg Documented By: Admin: 05/14/24 20:08 Dose: 0.8 mg Documented By: DELIA Tramadol HCl (Tramadol 50 Mg Tablet) 50 mg PO BID [facility] Last Admin: 05/18/24 08:08 Dose: 50 mg Documented By: Admin: 05/17/24 20:33 Dose: 50 mg Documented By: Admin: 05/17/24 08:17 Dose: 50 mg Documented By: Admin: 05/16/24 21:49 Dose: 50 mg Documented By: Admin: 05/16/24 08:21 Dose: 50 mg Documented By: Admin: 05/15/24 20:51 Dose: 50 mg Documented By: Admin: 05/15/24 08:08 Dose: 50 mg Documented By: Admin: 05/14/24 20:08 Dose: 50 mg Documented By: DELIA Discontinued Medications Acetaminophen (Acetaminophen 325 Mg Tablet) 975 mg PO NOW ONE Stop: 05/14/24 16:15 Last Admin: 05/14/24 16:25 Dose: 975 mg Documented By: TJ Apixaban (Apixaban 5 Mg Tablet) 2.5 mg PO BID [facility] Last Admin: 05/17/24 08:16 Dose: 2.5 mg Documented By: Admin: 05/16/24 21:50 Dose: 2.5 mg Documented By: Admin: 05/16/24 08:21 Dose: 2.5 mg Documented By: Admin: 05/15/24 20:51 Dose: 2.5 mg Documented By: Admin: 05/15/24 08:10 Dose: 2.5 mg Documented By: Admin: 05/14/24 20:08 Dose: 2.5 mg Documented By: DELIA Carvedilol (Carvedilol 12.5 Mg Tablet) 25 mg PO BID [facility] Last Admin: 05/15/24 08:11 Dose: 25 mg Documented By: Admin: 05/14/24 20:11 Dose: 25 mg Documented By: DELIA Digoxin (Digoxin 500 Mcg/2 Ml Ampul) 125 mcg IV NOW ONE Stop: 05/17/24 10:16 Last Admin: 05/17/24 10:51 Dose: 125 mcg Documented By: GARY Digoxin (Digoxin 500 Mcg/2 Ml Ampul) 250 mcg IV NOW ONE Stop: 05/17/24 15:40 Last Admin: 05/17/24 16:36 Dose: 250 mcg Documented By: GARY Digoxin (Digoxin 0.125 Mg Tablet) 0.125 mg PO DAILY@1700 RAKESH Diltiazem HCl (Diltiazem 25 Mg/5 Ml Sdv) 10 mg IV NOW ONE Stop: 05/14/24 18:05 Last Admin: 05/14/24 18:13 Dose: 10 mg Documented By: PATRICE Sodium Chloride (Normal Saline 0.9%) 1,000 mls @ 200 mls/hr IV CONT [facility] Last Infusion: 05/14/24 13:31 Dose: Infused Documented By: Admin: 05/14/24 12:30 Dose: 200 mls/hr Documented By: TJ Ceftriaxone Sodium 2,000 mg/ (Sodium Chloride) 100 mls @ 200 mls/hr IV NOW ONE Stop: 05/14/24 12:06 Last Infusion: 05/14/24 13:06 Dose: Infused Documented By: Admin: 05/14/24 12:28 Dose: 200 mls/hr Documented By: TJ Sodium Chloride (Normal Saline 0.9%) 2,653.53 mls @ 884.51 mls/hr 30 ml/kg infuse over 3 hr (2653.53 ml) IV NOW ONE Stop: 05/14/24 16:36 Last Infusion: 05/14/24 15:49 Dose: Infused Documented By: Admin: 05/14/24 13:47 Dose: 884.51 mls/hr Documented By: TJ Cefepime HCl 2 gm/ Sodium (Chloride) 100 mls @ 200 mls/hr IV NOW ONE Stop: 05/14/24 16:42 Last Infusion: 05/14/24 17:37 Dose: Infused Documented By: Admin: 05/14/24 17:04 Dose: 200 mls/hr Documented By: TJ Vancomycin HCl/Dextrose (Vancomycin) 2,000 mg in 400 mls @ 200 mls/hr IV NOW ONE Stop: 05/14/24 20:44 Last Infusion: 05/14/24 21:10 Dose: Infused Documented By: Admin: 05/14/24 19:02 Dose: 200 mls/hr Documented By: PATRICE Vancomycin HCl/Dextrose (Vancomycin) 1,500 mg in 300 mls @ 200 mls/hr IV Q24H RAKESH Last Infusion: 05/15/24 23:16 Dose: Infused Documented By: Admin: 05/15/24 20:42 Dose: 200 mls/hr Documented By: KENRICK Magnesium Sulfate (Magnesium Sulfate) 2 gm in 50 mls @ 25 mls/hr IV NOW ONE Stop: 05/14/24 20:55 Last Infusion: 05/14/24 22:32 Dose: Infused Documented By: DELIA Co-signed By: JULIO Admin: 05/14/24 19:54 Dose: 25 mls/hr Documented By: DELIA Co-signed By: RED Amiodarone HCl/Dextrose (Nexterone) 360 mg in 200 mls @ 33.333 mls/hr IV 1345 RAKESH; Protocol Stop: 05/16/24 19:44 Last Titration: 05/16/24 20:00 Dose: 0 mls/hr, 0 mls/hr Documented By: Admin: 05/16/24 14:12 Dose: 33.333 mls/hr, 33.33 mls/hr Documented By: SE Amiodarone HCl/Dextrose (Nexterone) 150 mg in 100 mls @ 600 mls/hr IV NOW ONE Stop: 05/16/24 13:54 Last Admin: 05/16/24 13:56 Dose: 600 mls/hr Documented By: SE Amiodarone HCl/Dextrose (Nexterone) 360 mg in 200 mls @ 16.7 mls/hr IV CONT RAKESH; Protocol Stop: 05/17/24 07:44 Last Titration: 05/17/24 10:52 Dose: Infused Documented By: Admin: 05/16/24 20:02 Dose: 16.7 mls/hr, 16.7 mls/hr Documented By: KENRICK Amiodarone HCl/Dextrose (Nexterone) 180 mg in 100 mls @ 16.7 mls/hr IV CONT [facility]; Protocol Stop: 05/17/24 13:45 Last Infusion: 05/17/24 14:12 Dose: Infused Documented By: Admin: 05/17/24 08:04 Dose: 16.7 mls/hr Documented By: GARY Magnesium Chloride (Magnesium Chloride 64 Mg Tablet) 128 mg PO NOW ONE Stop: 05/16/24 07:01 Last Admin: 05/16/24 08:19 Dose: 128 mg Documented By: YOUSIF Metoprolol Tartrate (Metoprolol Tartrate 5 Mg/5 Ml Inj) 5 mg IV Q5M PRN PRN Reason: HR over 115 Stop: 05/15/24 09:56 Metoprolol Tartrate (Metoprolol Ir 25 Mg Tablet) 25 mg PO BID [facility] Last Admin: 05/15/24 10:54 Dose: 25 mg Documented By: SE Metoprolol Tartrate (Metoprolol Tartrate 5 Mg/5 Ml Inj) 5 mg IV NOW ONE Stop: 05/15/24 15:46 Last Admin: 05/15/24 15:49 Dose: 5 mg Documented By: SE Metoprolol Tartrate (Metoprolol Ir 25 Mg Tablet) 25 mg PO NOW ONE Stop: 05/15/24 16:10 Last Admin: 05/15/24 16:30 Dose: 25 mg Documented By: SE Metoprolol Tartrate (Metoprolol Ir 25 Mg Tablet) 50 mg PO BID [facility] Last Admin: 05/15/24 20:52 Dose: 50 mg Documented By: KENRICK Metoprolol Tartrate (Metoprolol Tartrate 5 Mg/5 Ml Inj) 5 mg IV NOW ONE Stop: 05/16/24 16:53 Last Admin: 05/16/24 17:01 Dose: 5 mg Documented By: SE Pantoprazole Sodium (Pantoprazole 40 Mg Vial) 40 mg IV NOW ONE Stop: 05/14/24 14:20 Last Admin: 05/14/24 14:23 Dose: 40 mg Documented By: TJ Potassium Chloride (Potassium Chloride 20 Meq Tab) 40 meq PO NOW ONE Stop: 05/14/24 18:29 Last Admin: 05/14/24 18:49 Dose: 40 meq Documented By: CW Potassium Chloride (Potassium Chloride 20 Meq Tab) 20 meq PO NOW ONE Stop: 05/17/24 10:18 Last Admin: 05/17/24 10:52 Dose: 20 meq Documented By: GARY Sodium Chloride (Sodium Chloride 3 % 500 Ml) 3 ml INH BID [facility]AKESH Last Admin: 05/16/24 10:00 Dose: 3 ml Documented By: Admin: 05/15/24 21:07 Dose: Not Given Documented By: Admin: 05/15/24 15:19 Dose: 3 ml Documented By: MS Vancomycin HCl (Vancomycin Per Pharmacy) 1 request [facility] [place] [place] NOW PRN PRN Reason: Shortness Of Breath Vancomycin HCl (Vancomycin Trough) 1 request [facility] [place] [place] 1929 ONE Stop: 05/17/24 19:31 Vancomycin HCl (Vancomycin Peak) 1 request [facility] [place] [place] 2229 [facility] Vital Signs Vital signs: Vital Signs - 8 hr 05/14/24 11:55 05/14/24 12:01 05/14/24 12:02 Temperature 99.5 F Pulse Rate 163 H 75 158 H Respiratory Rate 24 Blood Pressure 82/54 L Pulse Oximetry 93 95 95 Oxygen Delivery Method Room Air 05/14/24 12:02 05/14/24 12:10 05/14/24 12:10 Temperature Pulse Rate 158 H Respiratory Rate 26 H Blood Pressure 75/55 L 104/73 Pulse Oximetry 93 Oxygen Delivery Method 05/14/24 12:15 05/14/24 12:15 05/14/24 12:20 Temperature Pulse Rate 158 H 156 H Respiratory Rate 28 H 26 H Blood Pressure 106/72 Pulse Oximetry 91 91 Oxygen Delivery Method 05/14/24 12:20 05/14/24 12:25 05/14/24 12:25 Temperature Pulse Rate 160 H Respiratory Rate 30 H Blood Pressure 99/72 91/54 L Pulse Oximetry 95 Oxygen Delivery Method 05/14/24 12:30 05/14/24 12:30 05/14/24 12:33 Temperature Pulse Rate 156 H 153 H Respiratory Rate 23 Blood Pressure 71/48 L Pulse Oximetry 94 95 Oxygen Delivery Method 05/14/24 12:33 05/14/24 12:35 05/14/24 12:35 Temperature Pulse Rate 153 H Respiratory Rate 26 H Blood Pressure 93/63 109/79 Pulse Oximetry 95 Oxygen Delivery Method 05/14/24 12:40 05/14/24 12:40 05/14/24 12:50 Temperature Pulse Rate 150 H Respiratory Rate 26 H Blood Pressure 118/82 86/59 L Pulse Oximetry 93 Oxygen Delivery Method 05/14/24 12:50 05/14/24 13:00 05/14/24 13:00 Temperature 99.1 F Pulse Rate 151 H 150 H Respiratory Rate Blood Pressure 118/74 Pulse Oximetry 93 95 Oxygen Delivery Method 05/14/24 13:10 05/14/24 13:10 05/14/24 13:15 Temperature Pulse Rate 149 H 150 H Respiratory Rate 25 H Blood Pressure 122/80 Pulse Oximetry 94 92 Oxygen Delivery Method 05/14/24 13:20 05/14/24 13:20 05/14/24 13:30 Temperature Pulse Rate 149 H 151 H Respiratory Rate 29 H Blood Pressure 103/76 Pulse Oximetry 95 92 Oxygen Delivery Method 05/14/24 13:30 05/14/24 13:40 05/14/24 13:40 Temperature Pulse Rate 150 H Respiratory Rate 31 H Blood Pressure 111/72 96/68 Pulse Oximetry 96 Oxygen Delivery Method 05/14/24 13:45 05/14/24 13:50 05/14/24 13:50 Temperature Pulse Rate 151 H 150 H Respiratory Rate 26 H 27 H Blood Pressure 103/76 Pulse Oximetry 94 96 Oxygen Delivery Method 05/14/24 14:00 05/14/24 14:00 05/14/24 14:10 Temperature Pulse Rate 150 H 149 H Respiratory Rate 26 H 27 H Blood Pressure 108/77 Pulse Oximetry 95 95 Oxygen Delivery Method 05/14/24 14:10 05/14/24 14:15 05/14/24 14:21 Temperature Pulse Rate 149 H 148 H Respiratory Rate Blood Pressure 109/78 Pulse Oximetry 94 93 Oxygen Delivery Method 05/14/24 14:21 05/14/24 14:37 05/14/24 14:39 Temperature Pulse Rate 141 H 149 H Respiratory Rate 23 Blood Pressure 104/58 L Pulse Oximetry 96 96 Oxygen Delivery Method 05/14/24 14:39 05/14/24 14:40 05/14/24 14:40 Temperature Pulse Rate 149 H Respiratory Rate 23 Blood Pressure 92/67 109/73 Pulse Oximetry 95 Oxygen Delivery Method 05/14/24 14:45 05/14/24 14:50 05/14/24 14:50 Temperature Pulse Rate 149 H 149 H Respiratory Rate 22 25 H Blood Pressure 114/81 Pulse Oximetry 93 94 Oxygen Delivery Method 05/14/24 15:00 05/14/24 15:00 05/14/24 15:10 Temperature Pulse Rate 151 H 150 H Respiratory Rate 22 32 H Blood Pressure 107/82 Pulse Oximetry 94 Oxygen Delivery Method 05/14/24 15:10 05/14/24 15:15 05/14/24 15:20 Temperature 99.4 F Pulse Rate 149 H 149 H Respiratory Rate 35 H Blood Pressure 109/86 Pulse Oximetry 95 96 Oxygen Delivery Method Room Air 05/14/24 15:20 05/14/24 15:30 05/14/24 15:30 Temperature Pulse Rate 149 H Respiratory Rate 24 Blood Pressure 110/77 124/84 Pulse Oximetry 95 Oxygen Delivery Method 05/14/24 15:40 05/14/24 15:40 05/14/24 15:45 Temperature Pulse Rate 149 H 149 H Respiratory Rate 23 Blood Pressure 128/84 Pulse Oximetry 96 95 Oxygen Delivery Method Room Air 05/14/24 16:25 Temperature 100.1 F H Pulse Rate Respiratory Rate Blood Pressure Pulse Oximetry Oxygen Delivery Method Sepsis Evaluation (ED) Triage Screening Sepsis Screen: Possible Severe Sepsis Risk Level 1 - Infection Sepsis Infection Criteria Present: Documented Infection Response It is my opinion that his patient have a likely infectious etiology for meeting sepsis criteria: Does Fluid calculation based on 30 mL/kg within 1hr of criteria: ABW used Antibiotics initiated within 1 hr of Sepis dx: Yes Tissue Perfusion Reassessed within 6 hrs of infusion start time: Yes Date of Tissue Perfusion Reassessment completed: 05/14/24 Time Tissue Perfusion Reassessment completed: 17:10 MDM - Sepsis Lab Data 05/18/24 05:20 05/18/24 05:20 Labs: Lab Results 05/14/24 05/14/24 Range/Units 12:11 14:11 WBC 10.6 (4.5-11.0) X10^3/uL RBC 4.21 L (4.5-5.9) X10^6/uL Hgb 12.8 L (13.5-17.5) g/dL Hct 39.3 L (41-53) % MCV 93.5 (80-100) fL MCH 30.3 (26-34) PG MCHC 32.4 (30-36) % RDW 15.9 H (11.6-14.8) % Plt Count 216 (150-400) X10^3/uL Neut % (Auto) Not Reportable Lymph % (Auto) Not Reportable [place] % (Auto) Not Reportable Eos % (Auto) Not Reportable Baso % (Auto) Not Reportable Lymph # (Auto) Not Reportable [place] # (Auto) Not Reportable Baso # (Auto) Not Reportable Total Counted 100 Seg Neutrophils % 71.0 H (38-70) % Band Neutrophils % 2.0 L (3-7) % Lymphocytes % (Manual) 20.0 L (25-45) % Monocytes % (Manual) 7.0 (2-11) % Neutrophils # (Manual) 7738 H (7348-0587) /uL RBC Morphology See below Anisocytosis 1+ H Sodium 138 (137-145) mmol/L Potassium 3.7 (3.4-5.1) mmol/L Chloride 108 H (98-107) mmol/L Carbon Dioxide 21 L (22-32) mmol/L BUN 20 (9-20) mg/dL Creatinine 1.28 H (0.66-1.25) mg/dL Estimated GFR 58 L (>60) mL/min BUN/Creatinine Ratio 15.6 (6-22) Glucose 117 H (80-110) mg/dL Lactate 2.0 (0.7-2.1) mmol/L Calcium 10.4 H (8.4-10.2) mg/dL Magnesium 1.5 L (1.6-2.3) mg/dL Total Bilirubin 0.5 (0.2-1.3) mg/dL AST 30 (17-59) IU/L ALT 27 (<50) IU/L Alkaline Phosphatase 81 (38-126) U/L Total Creatine Kinase 61 (55-170) U/L Troponin I 0.055 H 0.052 H (0.01-0.034) ng/mL Total Protein 6.9 (6.3-8.2) g/dL Albumin 3.9 (3.5-5.0) g/dL Globulin 3.0 (1.7-4.1) g/dL Albumin/Globulin Ratio 1.3 (1.0-2.8) Procalcitonin 0.118 (<0.5) ng/mL Urine Dip Bedside Urine Glucose Negative Bedside Urine Bilirubin - Negative Bedside Urine Ketone - Negative Urine Specific [place] 1.015 Bedside Urine Occult Blood - Negative Bedside Urine pH 6.0 Bedside Urine Protein - Negative Bedside Urine Urobilinogen - Negative Bedside Urine Nitrite - Negative Bedside Urine Leukocytes - Negative Esterase Imaging Data Chest x-ray: Radiologist's Impression: [address] [address] XRay Report Signed Patient: Deangelo Hudson MR#: [id number] : 1950 Acct:[id number] Age/Sex: 73 / M Date of Service: 05/14/24 Loc: ED Accession Number: [id number] Procedure: XR chest 1V Ordering Provider: Dario Tijerina MD PROCEDURE: XR CHEST 1V INDICATIONS: Dyspnea TECHNIQUE: One view of the chest was acquired. COMPARISON: [facility], CR, XR CHEST 1V, 05/10/2024, 12:08. [facility], CR, XR CHEST 1V, 12/17/2021, 12:53. FINDINGS: Surgical changes and devices: None. Lungs and pleura: Low lung volumes. Streaky bibasilar opacities. Skin fold overlying the right chest wall. Questionable cavitating lesion in the left mid lung measuring 2 cm. Mediastinum: Mediastinal contours appear normal. Heart size is normal. Bones and chest wall: No suspicious bony lesions. Overlying soft tissues appear unremarkable. Colonic interposition between the liver and hemidiaphragm. IMPRESSION: Questionable cavitating lesion in the left mid lung measuring 2 cm. Consider confirmation with chest CT. Low lung volumes with streaky bibasilar atelectasis. Dictated by: Napoleon Carney M.D. on 05/14/2024 at 12:39 Approved by: Napoleon Carney M.D. on 05/14/2024 at 12:40 CT scan - chest: Radiologist's Impression: [address] [address] [address] Scan Report Signed Patient: Deangelo Hudson MR#: [id number] : 1950 Acct:[id number] Age/Sex: 73 / M Date of Service: 05/14/24 Loc: ED Accession Number: [id number] Procedure: CT angio chest PE protocol Ordering Provider: Dario Tijerina MD PROCEDURE: CT ANGIO CHEST PE PROTOCOL INDICATIONS: Dyspnea TECHNIQUE: After the administration of intravenous contrast, 2 mm thick sections acquired from the pulmonary apices to the posterior costophrenic angles. 3-dimensional maximum intensity projection (MIP) coronal and sagittal reformats were then acquired through the thorax. For radiation dose reduction, the following was used: automated exposure control, adjustment of mA and/or kV according to patient size. COMPARISON: [facility], CT, CT ANGIO CHEST PE PROTOCOL, 10/11/2021, 19:53. FINDINGS: Image quality: Diagnostic. Pulmonary arteries: Pulmonary arteries are normal in size, and demonstrate no intraluminal filling defects to suggest central pulmonary embolism. Lower Neck: No enlarged lymph nodes. Thyroid: No thyroid nodules which require sonographic follow up, per consensus guidelines. Axillae: No enlarged lymph nodes. Chest Wall: Unremarkable. Bones: Partially visualized vertebral augmentation of the lower thoracic spine period. Lungs and Pleura: No pneumothorax or pleural effusions. Dependent consolidation of the lower lobes, with associated bronchial thickening and bronchiectasis. Biapical scarring. Heart: Heart size is enlarged, with three-vessel coronary calcifications. No pericardial effusion. Thoracic Vessels: No aortic aneurysm. Mediastinum and Phyllis: No enlarged lymph nodes. Esophagus: No wall thickening. No hiatal hernia. Upper Abdomen: Reflux of contrast into the IVC, indicating elevated heart pressures. IMPRESSION: No pulmonary embolus. Dependent consolidation of the lower lobes, with associated bronchiectasis and bronchial thickening. Findings are concerning for aspiration pneumonia versus bronchial pneumonia. Correlate with risk factors for aspiration, and consider speech pathology referral. Reflux of contrast into the IVC, indicating elevated right heart pressures. Dictated by: Napoleon Carney M.D. on 05/14/2024 at 14:53 Approved by: Napoleon Carney M.D. on 05/14/2024 at 14:56 [facility] Narrative Medical decision making narrative: Patient here with . Seen here last week and placed on antibiotics for pneumonia. However has worsened over the weekend. Vital signs noted. Hypotensive tachycardic. patient was placed on Levaquin. Has felt weak and tired and short of breath. Has seen tumor registrar in the past for unusual finding /spot on the lung according to . She was not sure what it was. No history of COPD or asthma. After history and exam CBC CMP procalcitonin lactic acid blood culture Rocephin pantoprazole Tylenol chest x-ray CT chest [facility] Medical records reviewed: seen here last week for pneumonia Differential considered: Includes but not limited to pneumonia sepsis Lab Test results independently reviewed as above. Pertinent findings: WBC 10.6 bands 2.0 sodium 138 potassium 3.7 BUN 20 creatinine 1.28 lactic acid 2.0 glucose 117 troponin 0.052 /0.055 procalcitonin 0.118 Independently reviewed EKG Sinus tachycardia rate 157, reviewed with cardiology services. Imaging studies independently reviewed: chest x-ray questionable cavitating lesion left mid lung CT chest dependent consolidation lower lobes aspiration pneumonia versus bronchial pneumonia Consultations: 12:20 p.m.. Reviewed EKG with Cardiology Dr. Spivey. He feels this is sinus tachycardia P waves noted. Treat for underlying sepsis pneumonia fluids. Do not started Adenocard or Cardizem or cardiovert at this time. 4:[address] Melendez has been at bedside to see patient. He will review with Pulmonary Services. He would like CT KUB and cefepime ordered 5:[address] Melendez will admit to ICU Treatments: Rocephin Tylenol pantoprazole normal saline Re-evaluations: patient feeling much better on supplemental oxygen. Blood pressure has improved 128/84 pulse has come down 149 95% room air. Tylenol given. at bedside. They do agree for admission. Discussion: appropriate for admission for sepsis / community-acquired pneumonia. Antibiotics have been started. Sepsis criteria fluids started. Diagnosis: sepsis, community-acquired pneumonia Critical Care Time Critical Care Time Attestation: Critical Care Time 35 minutes: Critical care time is separate from other billable procedures. This critical care time includes consultation with family and other consulting doctors, review of records, and interpretation of data from labs, EKGs, imaging, etc. Discharge Plan Departure Patient Disposition: Admitted As Inpatient Clinical Impression: Sepsis Qualifiers: Sepsis type: sepsis due to unspecified organism Sepsis acute organ dysfunction status: unspecified Qualified Code(s): A41.9 - Sepsis, unspecified organism Community acquired pneumonia Qualifiers: Laterality: unspecified laterality Qualified Code(s): J18.9 - Pneumonia, unspecified organism Admit Date/Time: 11/20/24 17:08 Admit Provider: Renzo Melendez
[2024-05-14 12:20] LABS: Hematocrit 39.3 % (41-53); Hemoglobin 12.8 g/dL (13.5-17.5); Mean Corpuscular HGB Conc 32.4 % (30-36); Mean Corpuscular Hemoglobin 30.3 PG (26-34); Mean Corpuscular Volume 93.5 fL (80-100); Platelet Count 216 X10^3/uL (150-400); Red Blood Cell Count 4.21 X10^6/uL (4.5-5.9); Red Cell Distribution Width 15.9 % (11.6-14.8); White Blood Cell Count 10.6 X10^3/uL (4.5-11.0)
[2024-05-14 12:22] LABS: Add Manual Diff / Slide Review YES
[2024-05-14] MEDS: cefTRIAXone 2,000 MG in SODIUM CHLORIDE 0.9% 100 ML 200 MG IV (12:28)
[2024-05-14] MEDS: SODIUM CHLORIDE 0.9% 1,000 ML 200 ML IV (12:30)
[2024-05-14 12:31] LABS: Alanine Aminotransferase 27 IU/L (<50); Albumin 3.9 g/dL (3.5-5.0); Albumin Globulin Ratio 1.3 (1.0-2.8); Alkaline Phosphatase 81 U/L (38-126); Aspartate Aminotransferase 30 IU/L (17-59); BUN Creatinine Ratio 15.6 (6-22); Bilirubin Total 0.5 mg/dL (0.2-1.3); Blood Urea Nitrogen 20 mg/dL (9-20); Calcium 10.4 mg/dL (8.4-10.2); Carbon Dioxide 21 mmol/L (22-32); Chloride 108 mmol/L (98-107); Creatine Kinase 61 U/L (55-170); Estimated Glomerular Filt Rate 58 mL/min (>60); Glucose 117 mg/dL (80-110); HEMOLYSIS < 15 (0-50); Potassium 3.7 mmol/L (3.4-5.1); Sodium 138 mmol/L (137-145); Total Protein 6.9 g/dL (6.3-8.2)
--- NOTE | 2024-05-14 12:35 | PC.NURSE ---
Patient arrives here today with sob and generally just feeling unwell, in room patient is tachycardic in the 150's and hypotensive systolic in the 70's, provider Breezy at bedside, patient could not tolerate being laid back so reverse trendelenburg was used, patient is currently systolic 109 with fluids and abx going in. patient was reporting headache so this RN placed a cool rag and dimmed the lights, Bassam Krishnamurthy at bedside
[2024-05-14 12:43] LABS: Troponin I 0.055 ng/mL (0.01-0.034)
[2024-05-14 12:47] LABS: Procalcitonin 0.118 ng/mL (<0.5)
[2024-05-14 12:57] LABS: Anisocytosis 1+; Neutrophils Absolute Manual 7738 /uL (3000-5900); Total Cells Counted 100
[2024-05-14] MEDS: SODIUM CHLORIDE 0.9% 2,653.53 ML 884.51 ML IV (13:47)
--- NOTE | 2024-05-14 14:19 | DI.CT.S_ITS ---
PROCEDURE: CT ANGIO CHEST PE PROTOCOL INDICATIONS: Dyspnea TECHNIQUE: After the administration of intravenous contrast, 2 mm thick sections acquired from the pulmonary apices to the posterior costophrenic angles. 3-dimensional maximum intensity projection (MIP) coronal and sagittal reformats were then acquired through the thorax. For radiation dose reduction, the following was used: automated exposure control, adjustment of mA and/or kV according to patient size. COMPARISON: [facility], CT, CT ANGIO CHEST PE PROTOCOL, 10/11/2021, 19:53. FINDINGS: Image quality: Diagnostic. Pulmonary arteries: Pulmonary arteries are normal in size, and demonstrate no intraluminal filling defects to suggest central pulmonary embolism. Lower Neck: No enlarged lymph nodes. Thyroid: No thyroid nodules which require sonographic follow up, per consensus guidelines. Axillae: No enlarged lymph nodes. Chest Wall: Unremarkable. Bones: Partially visualized vertebral augmentation of the lower thoracic spine period. Lungs and Pleura: No pneumothorax or pleural effusions. Dependent consolidation of the lower lobes, with associated bronchial thickening and bronchiectasis. Biapical scarring. Heart: Heart size is enlarged, with three-vessel coronary calcifications. No pericardial effusion. Thoracic Vessels: No aortic aneurysm. Mediastinum and Phyllis: No enlarged lymph nodes. Esophagus: No wall thickening. No hiatal hernia. Upper Abdomen: Reflux of contrast into the IVC, indicating elevated heart pressures. IMPRESSION: No pulmonary embolus. Dependent consolidation of the lower lobes, with associated bronchiectasis and bronchial thickening. Findings are concerning for aspiration pneumonia versus bronchial pneumonia. Correlate with risk factors for aspiration, and consider speech pathology referral. Reflux of contrast into the IVC, indicating elevated right heart pressures. Dictated by: Napoleon Carney M.D. on 05/14/2024 at 14:53 Approved by: Napoleon Carney M.D. on 05/14/2024 at 14:56
[2024-05-14] MEDS: PANTOPRAZOLE 40 MG VIAL IV (14:23)
[2024-05-14 15:01] LABS: Troponin I 0.052 ng/mL (0.01-0.034)
--- NOTE | 2024-05-14 15:41 | EKG_ITS ---
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 Similar to prior tracing. In review of prior tracings this is likely due to atrial fibrillation. Electronically Signed On 05-14-2024 19:05:19 PST by Renzo Melendez
--- NOTE | 2024-05-14 16:16 | PC.NURSE ---
Patient remains tachycardic in the 150's provider Brennick ordered new EKG, sepsis ordered fluids are finished and patient has left upper airway crackles, right side is diminished and clear. Currently reporting no pain. Patient temp is 100.3, tylenol ordered see MAR
[2024-05-14] MEDS: ACETAMINOPHEN 325 MG TABLET 975 MG PO (16:25)
--- NOTE | 2024-05-14 16:40 | DI.CT.S_ITS ---
PROCEDURE: CT KIDNEY URETER BLADDER (KUB) INDICATIONS: flank pain TECHNIQUE: Axial sections were acquired from the lung bases to the pubic symphysis. Coronal and sagittal reformats were performed. For radiation dose reduction, the following was used: automated exposure control, adjustment of mA and/or kV according to patient size. COMPARISON: None. FINDINGS: Lower thorax: Bibasilar atelectasis and or infiltrate with chronic interstitial changes and bronchiectasis. Dense coronary artery vascular calcification. Liver: Normal in size and attenuation. No contour deformity present. Biliary system: No calcified cholelithiasis or pericholecystic inflammation. No intra or extrahepatic bile duct dilatation. Pancreas: Unremarkable without mass or inflammation evident. Spleen: Normal in size and density. Adrenals: Normal morphology and density. Reproductive system: Unremarkable as visualized. Urinary system: No evidence of hydronephrosis bilaterally. 7.3 cm left renal cyst. No renal calculi. Contrast in the collecting system and bladder related to prior contrast study. Bladder unremarkable. Gastrointestinal system: The bowel is unremarkable without evidence of bowel obstruction or inflammation. The stomach appears unremarkable. Appendix: No findings to suggest acute appendicitis. Peritoneal spaces: No mesenteric or retroperitoneal adenopathy. No free air. No free fluid. Vasculature: Aortic atherosclerotic vascular calcification noted without evidence of aneurysm. Abdominal wall: Abdominal wall intact without evidence of ventral or inguinal hernias. Musculoskeletal: Normal bone mineralization. No acute fractures. Degenerative disc disease and arthropathy. IMPRESSION: Left renal cyst. Otherwise, unremarkable kidneys, collecting system and bladder. No calculi or hydronephrosis. No obstructive uropathy. Bibasilar atelectasis and or infiltrate with chronic interstitial changes and bronchiectasis. Approved by: Wilfrido Reis M.D. on 05/14/2024 at 16:52
--- NOTE | 2024-05-14 16:46 | P.CALLCOV_ITS ---
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 He was here 4 days ago with similar presentation, was treated with levofloxacin and discharged home. He has continued to have fever over the last few days along with indigestion and some nausea, vague abdominal pain. He has a history of nephrolithiasis. Currently recommend fluids for tachycardia in the 150s, medications to slow his HR down as prior EKGs here show afib. Also recommend CT abdomen and pelvis without contast to rule out obstructing stone and formal UA to rule out urinary source. I will also discuss with pulmonary combat information center officer given his prior history to see if he needs higher level of care and more urgent availability for bronchoscopy given his past history. Disposition will either be admission here for ongoing management of sepsis or recommendation for transfer for higher level facility.
[2024-05-14] MEDS: CEFEPIME 2 GM in SODIUM CHLORIDE 0.9% 100 ML IV (17:04)
--- NOTE | 2024-05-14 17:26 | PM.HP.1 ---
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 He was here 4 days ago with similar presentation, was treated with levofloxacin and discharged home. He has continued to have fever over the last few days along with indigestion and some nausea, vague abdominal pain. He has a history of nephrolithiasis. He denies weight gain, leg edema, orthopnea. Denies diarrhea or emesis. Denies recent sick contacts or recent travel. In the ER patient tachycardic in the 150s, borderline fever. CTA negative for PE but shows bronchiectasis with possible infection. CT abdomen with stable left renal cyst and no hydronephrosis. Cr slightly up at 1.28, calcium high at 10.4. Initial trop 0.056 improved on repeat. EKG shows an SVT. Patient has prior EKGs with afib. He was given IV Fluids, ceftriaxone in the ER. I evaluated and asked for cefepime with his prior pseudomonas, and for CT imaging. Discussed with pulmonary whom did not recommend bronchoscopy at this time. Recommended sputum culture, cefepime and vancomycin empirically. He was admitted to the ICU given his tachycardia in the setting of presumed sepsis. [facility] Medical History (Updated 05/14/24 @ 16:22 by Dario Tijerina MD) Mycobacterium chelonae infection Vasculitis Atypical chest pain Arthritis Pneumonia (~07/2013) BPH (benign prostatic hyperplasia) GERD (gastroesophageal reflux disease) Paroxysmal A-fib (03/09/18) Non-productive cough Dyspnea DJD (degenerative joint disease) Bronchiectasis Microscopic polyangiitis Coronary artery disease Kidney stone (~2015) Surgical History History of colonoscopy (~2015) History of coronary artery stent placement (~06/2012) Social History household members: spouse Smoking Status: Never smoker alcohol intake: current Meds Home Medications and Allergies Home Medications Medication Instructions Recorded Confirmed Type omeprazole 40 mg capsule,delayed 40 mg PO DAILY 04/02/19 05/14/24 History release prednisone 10 mg tablet 10 mg PO DAILY 04/02/19 05/14/24 History alendronate 70 mg tablet (Fosamax) 70 mg PO QWEEK 10/12/21 05/14/24 History atorvastatin 80 mg tablet 80 mg PO QPM 10/12/21 05/14/24 History carvedilol 25 mg tablet 25 mg PO BID 10/12/21 05/14/24 History fluticasone propionate 115 2 puff inhalation BID 10/12/21 05/14/24 History mcg-salmeterol 21 mcg/actuation HFA inhaler (Advair HFA) fluticasone propionate 50 1 spray intranasal BID 10/12/21 05/14/24 History mcg/actuation nasal spray,suspension levalbuterol HCl 0.63 mg/3 mL 0.63 mg inhalation TID 10/12/21 05/14/24 History solution for nebulization (Xopenex) tramadol 100 mg tablet,extended 100 mg PO BEDTIME 10/12/21 05/14/24 History release 24 hr levofloxacin 750 mg tablet 750 mg PO DAILY #7 tabs 05/10/24 05/14/24 Rx amlodipine 2.5 mg tablet 2.5 mg PO DAILY 05/14/24 05/14/24 History apixaban 2.5 mg tablet (Eliquis) 2.5 mg PO BID 05/14/24 05/14/24 History azithromycin 250 mg tablet 250 mg PO DAILY 05/14/24 05/14/24 History cyclobenzaprine 5 mg tablet 10 mg PO BEDTIME 05/14/24 05/14/24 History lisinopril 2.5 mg tablet 2.5 mg PO DAILY 05/14/24 05/14/24 History tamsulosin 0.4 mg capsule 0.8 mg PO ONCE PM 05/14/24 05/14/24 History Allergies Allergy/AdvReac Type Severity Reaction Status Date / Time amoxicillin AdvReac Mild NAUSEA Verified 05/14/24 11:59 levofloxacin AdvReac Mild GI UPSET Verified 05/10/24 11:54 Review of Systems Review of Systems Narrative: All other systems reviewed with the patient and are negative unless otherwise stated. Exam Vital Signs (past 8 hours): - 05/14/24 11:55 05/14/24 12:01 05/14/24 12:02 Temperature 99.5 F Pulse Rate 163 H 75 158 H Respiratory Rate 24 Blood Pressure 82/54 L Pulse Oximetry 93 95 95 Oxygen Delivery Method Room Air 05/14/24 12:02 05/14/24 12:10 05/14/24 12:10 Temperature Pulse Rate 158 H Respiratory Rate 26 H Blood Pressure 75/55 L 104/73 Pulse Oximetry 93 Oxygen Delivery Method 05/14/24 12:15 05/14/24 12:15 05/14/24 12:20 Temperature Pulse Rate 158 H 156 H Respiratory Rate 28 H 26 H Blood Pressure 106/72 Pulse Oximetry 91 91 Oxygen Delivery Method 05/14/24 12:20 05/14/24 12:25 05/14/24 12:25 Temperature Pulse Rate 160 H Respiratory Rate 30 H Blood Pressure 99/72 91/54 L Pulse Oximetry 95 Oxygen Delivery Method 05/14/24 12:30 05/14/24 12:30 05/14/24 12:33 Temperature Pulse Rate 156 H 153 H Respiratory Rate 23 Blood Pressure 71/48 L Pulse Oximetry 94 95 Oxygen Delivery Method 05/14/24 12:33 05/14/24 12:35 05/14/24 12:35 Temperature Pulse Rate 153 H Respiratory Rate 26 H Blood Pressure 93/63 109/79 Pulse Oximetry 95 Oxygen Delivery Method 05/14/24 12:40 05/14/24 12:40 05/14/24 12:50 Temperature Pulse Rate 150 H Respiratory Rate 26 H Blood Pressure 118/82 86/59 L Pulse Oximetry 93 Oxygen Delivery Method 05/14/24 12:50 05/14/24 13:00 05/14/24 13:00 Temperature 99.1 F Pulse Rate 151 H 150 H Respiratory Rate Blood Pressure 118/74 Pulse Oximetry 93 95 Oxygen Delivery Method 05/14/24 13:10 05/14/24 13:10 05/14/24 13:15 Temperature Pulse Rate 149 H 150 H Respiratory Rate 25 H Blood Pressure 122/80 Pulse Oximetry 94 92 Oxygen Delivery Method 05/14/24 13:20 05/14/24 13:20 05/14/24 13:30 Temperature Pulse Rate 149 H 151 H Respiratory Rate 29 H Blood Pressure 103/76 Pulse Oximetry 95 92 Oxygen Delivery Method 05/14/24 13:30 05/14/24 13:40 05/14/24 13:40 Temperature Pulse Rate 150 H Respiratory Rate 31 H Blood Pressure 111/72 96/68 Pulse Oximetry 96 Oxygen Delivery Method 05/14/24 13:45 05/14/24 13:50 05/14/24 13:50 Temperature Pulse Rate 151 H 150 H Respiratory Rate 26 H 27 H Blood Pressure 103/76 Pulse Oximetry 94 96 Oxygen Delivery Method 05/14/24 14:00 05/14/24 14:00 05/14/24 14:10 Temperature Pulse Rate 150 H 149 H Respiratory Rate 26 H 27 H Blood Pressure 108/77 Pulse Oximetry 95 95 Oxygen Delivery Method 05/14/24 14:10 05/14/24 14:15 05/14/24 14:21 Temperature Pulse Rate 149 H 148 H Respiratory Rate Blood Pressure 109/78 Pulse Oximetry 94 93 Oxygen Delivery Method 05/14/24 14:21 05/14/24 14:37 05/14/24 14:39 Temperature Pulse Rate 141 H 149 H Respiratory Rate 23 Blood Pressure 104/58 L Pulse Oximetry 96 96 Oxygen Delivery Method 05/14/24 14:39 05/14/24 14:40 05/14/24 14:40 Temperature Pulse Rate 149 H Respiratory Rate 23 Blood Pressure 92/67 109/73 Pulse Oximetry 95 Oxygen Delivery Method 05/14/24 14:45 05/14/24 14:50 05/14/24 14:50 Temperature Pulse Rate 149 H 149 H Respiratory Rate 22 25 H Blood Pressure 114/81 Pulse Oximetry 93 94 Oxygen Delivery Method 05/14/24 15:00 05/14/24 15:00 05/14/24 15:10 Temperature Pulse Rate 151 H 150 H Respiratory Rate 22 32 H Blood Pressure 107/82 Pulse Oximetry 94 Oxygen Delivery Method 05/14/24 15:10 05/14/24 15:15 05/14/24 15:20 Temperature 99.4 F Pulse Rate 149 H 149 H Respiratory Rate 35 H Blood Pressure 109/86 Pulse Oximetry 95 96 Oxygen Delivery Method Room Air 05/14/24 15:20 05/14/24 15:30 05/14/24 15:30 Temperature Pulse Rate 149 H Respiratory Rate 24 Blood Pressure 110/77 124/84 Pulse Oximetry 95 Oxygen Delivery Method 05/14/24 15:40 05/14/24 15:40 05/14/24 15:45 Temperature Pulse Rate 149 H 149 H Respiratory Rate 23 Blood Pressure 128/84 Pulse Oximetry 96 95 Oxygen Delivery Method Room Air 05/14/24 15:50 05/14/24 15:50 05/14/24 16:00 Temperature Pulse Rate 149 H 149 H Respiratory Rate 25 H Blood Pressure 122/84 Pulse Oximetry 95 95 Oxygen Delivery Method 05/14/24 16:00 05/14/24 16:10 05/14/24 16:10 Temperature Pulse Rate 150 H Respiratory Rate 24 Blood Pressure 98/68 122/83 Pulse Oximetry 94 Oxygen Delivery Method 05/14/24 16:15 05/14/24 16:20 05/14/24 16:20 Temperature Pulse Rate 151 H 150 H Respiratory Rate 23 27 H Blood Pressure 111/81 Pulse Oximetry 94 95 Oxygen Delivery Method 05/14/24 16:25 05/14/24 16:30 05/14/24 16:30 Temperature 100.1 F H Pulse Rate 152 H Respiratory Rate Blood Pressure 112/84 Pulse Oximetry Oxygen Delivery Method 05/14/24 16:40 05/14/24 16:40 05/14/24 16:45 Temperature Pulse Rate 152 H 152 H Respiratory Rate Blood Pressure 100/73 Pulse Oximetry 96 94 Oxygen Delivery Method 05/14/24 16:55 05/14/24 16:55 05/14/24 17:00 Temperature Pulse Rate 152 H Respiratory Rate 24 Blood Pressure 113/85 117/75 Pulse Oximetry 94 Oxygen Delivery Method 05/14/24 17:00 05/14/24 17:10 05/14/24 17:10 Temperature Pulse Rate 152 H 153 H Respiratory Rate 27 H 25 H Blood Pressure 122/74 Pulse Oximetry 94 94 Oxygen Delivery Method 05/14/24 17:15 05/14/24 17:22 Temperature 99.3 F Pulse Rate 152 H Respiratory Rate 26 H Blood Pressure Pulse Oximetry 94 Oxygen Delivery Method Room Air Oxygen Delivery Method Room Air Narrative Exam Narrative: General:? Patient is well developed and well nourished, in no distress at this time. HEENT:? Normocephalic, atraumatic, extraocular muscles intact, oral pharynx is clear and mucous membranes are moist. Neck: supple and symmetric, trachea is midline, no cervical adenopathy. Negative for JVD Chest:? Normal AP diameter and contour without kyphoscoliosis, no tachypnea, equal chest rise bilaterally. Lungs:? bibasilar rhonchi bilaterally, no wheezing. Cardio:?very tachycardic, regular, no m/r/g Abdomen: S NT ND. Musculoskeletal:? Muscle strength and tone are equal within normal limits, no deformity. Extremities: No edema or joint effusions. No cyanosis or clubbing. Skin:? Pale,? Warm to touch,dry and intact without rashes, ulcerations or petechiae.? Neuro:? Alert and orientated x3,? sensation to touch intact in all extremities, no gross deficits noted of cranial nerves. Psych:? Patient has a well-kept appearance, appropriate affect, mental status attitude thought context and judgment are appropriate for age. Objective ECG Impression: Supraventricular tachycardia, likely atrial fibrillation but too fast to tell and rate is regular. Labs 05/14/24 12:11 05/14/24 12:11 Labs: Laboratory Results - last 24 hr 05/14/24 05/14/24 12:11 14:11 WBC 10.6 RBC 4.21 L Hgb 12.8 L Hct 39.3 L MCV 93.5 MCH 30.3 MCHC 32.4 RDW 15.9 H Plt Count 216 Neut % (Auto) Not Reportable Lymph % (Auto) Not Reportable [place] % (Auto) Not Reportable Eos % (Auto) Not Reportable Baso % (Auto) Not Reportable Lymph # (Auto) Not Reportable [place] # (Auto) Not Reportable Baso # (Auto) Not Reportable Total Counted 100 Seg Neutrophils % 71.0 H Band Neutrophils % 2.0 L Lymphocytes % (Manual) 20.0 L Monocytes % (Manual) 7.0 Neutrophils # (Manual) 7738 H RBC Morphology See below Anisocytosis 1+ H Sodium 138 Potassium 3.7 Chloride 108 H Carbon Dioxide 21 L BUN 20 Creatinine 1.28 H Estimated GFR 58 L BUN/Creatinine Ratio 15.6 Glucose 117 H Lactate 2.0 Calcium 10.4 H Total Bilirubin 0.5 AST 30 ALT 27 Alkaline Phosphatase 81 Total Creatine Kinase 61 Troponin I 0.055 H 0.052 H Total Protein 6.9 Albumin 3.9 Globulin 3.0 Albumin/Globulin Ratio 1.3 Procalcitonin 0.118 Assessment & Plan Assessment & Plan narrative: 1. Rule out Sepsis secondary to presumed bacterial pneumonia in the setting of chronic bronchiectasis with JOHNNA. - SOFA score 1 currently with JOHNNA. - history of mycobacterial and pseudomonas infections of his lungs. - given failure of levaquin, presume recurrent pseudomonas - continue cefepime and vancomycin for now, pending MRSA swab - discussed with pulmonology Dr. Armas, pulmonology will try to see patient tomorrow but recommended above antibiotics for now, sputum cultures, and no increase in prednisone currently. No need for bronchoscopy at this time. 2. Atrial fibrillation, unknown type, with rapid ventricular response - gave 1 dose of IV diltiazem with slight improvement in rate, more apparent is his afib. Will start diltiazem infusion. Continue IV fluids as he appears volume down currently. If remains hypotensive consider amiodarone. - continue home coreg for now. - continue home eliquis, unclear why he is on 2.5 mg BID at this time. Consider increasing back to 5 mg BID. Patient thinks it was reduced by PCP. - add on Mg level - K 3.7 will give 40 meq. 3. Mild hypercalemia - likely volume depleted, continue NS in setting of possible sepsis noted above. 4. 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 Hx of nonobstructive CAD, with myocardial injury - EKG without evidence for ischemia, no chest pain, troponin downtrended. ACS likely ruled out Code: Full, surrogate is patient's spouse DVT: Lovenox daily I have utilized all available immediate resources to obtain, update, or review the patient's current medications. Dispo: patient admitted under inpatient status to the ICU. Likely discharge home in 2-3 days depending on above hospital course. Additional history obtained via discussions with the ER provider. These discussions contributed to the creation of the above assessment and plan. I have reviewed patient's presenting documentation, labs, and imaging personally. I spent 40 minutes providing critical care management this patient. This excludes time spent in performing separately billed procedures. Time-Based Coding :: [TOTAL MINUTES] spent with patient and on the chart (including review of chart, obtaining history, exam, reviewing outside data, placing orders, documenting exam and treatment plan, and counseling patient) on [DATE].
--- NOTE | 2024-05-14 18:06 | EKG_ITS ---
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 Electronically Signed On 05-14-2024 19:05:57 PST by Renzo Melendez
[2024-05-14] MEDS: dilTIAZem 25 MG/5 ML SDV 10 MG IV (18:13)
[2024-05-14] MEDS: dilTIAZem 125 MG in SODIUM CHLORIDE 0.9% 100 ML IV (18:46)
[2024-05-14 18:49] LABS: Magnesium 1.5 mg/dL (1.6-2.3)
[2024-05-14] MEDS: POTASSIUM CHLORIDE 20 MEQ TAB 40 MEQ PO (18:49)
[2024-05-14] MEDS: VANCOMYCIN 2,000 MG/400 ML PIGGYBACK 200 MG IV (19:02)
[2024-05-14 19:24] LABS: MRSA (Nasal) PCR NOT DETECTED (Not Detect)
[2024-05-14] MEDS: MAGNESIUM SULFATE 2 GM/50 ML PIGGYBACK IV (19:54)
[2024-05-14] MEDS: TAMSULOSIN 0.4 MG CAPSULE 0.8 MG PO (20:08)
[2024-05-14] MEDS: CYCLOBENZAPRINE 10 MG TABLET PO (20:08)
[2024-05-14] MEDS: APIXABAN 5 MG TABLET 2.5 MG PO (20:08)
[2024-05-14] MEDS: TRAMADOL 50 MG TABLET PO (20:08)
[2024-05-14] MEDS: carvediloL 12.5 MG TABLET 25 MG PO (20:11)
[2024-05-14] MEDS: SODIUM CHLORIDE 0.9% FLUSH 10 ML IV ×2 (20:14→23:06)
[2024-05-14] MEDS: ONDANSETRON 4 MG/2 ML INJ IV (23:06)
[2024-05-15] VITALS (103 sets, daily range): BP systolic 95–147; BP diastolic 60–108; PULSE 74–169; RESP 16–53; TEMP 36–36.6; O2SAT 92–99
[2024-05-15] MEDS: CEFEPIME 2 GM in SODIUM CHLORIDE 0.9% 100 ML IV ×3 (00:45→16:58)
[2024-05-15] MEDS: CALCIUM CARBONATE 500 MG TAB 1000 MG PO ×2 (01:14→08:22)
[2024-05-15 04:59] LABS: Add Manual Diff / Slide Review NO; Basophils Absolute Auto 0 /uL (0-100); Basophils Percent Auto 0.3 % (0-2); Eosinophils Absolute Auto 0 /uL (0-450); Eosinophils Percent Auto 0.6 % (2-4); Hematocrit 35.1 % (41-53); Hemoglobin 11.4 g/dL (13.5-17.5); Lymphocytes Absolute Auto 1000 /uL (1100-4500); Mean Corpuscular HGB Conc 32.6 % (30-36); Mean Corpuscular Hemoglobin 30.7 PG (26-34); Mean Corpuscular Volume 94.3 fL (80-100); Monocytes Absolute Auto 400 /uL (0-900); Monocytes Percent Auto 5.1 % (3-14); Neutrophils Absolute Auto 6300 /uL (1500-7000); Platelet Count 190 X10^3/uL (150-400); Red Blood Cell Count 3.72 X10^6/uL (4.5-5.9); White Blood Cell Count 7.8 X10^3/uL (4.5-11.0)
[2024-05-15 05:18] LABS: Alanine Aminotransferase 22 IU/L (<50); Albumin 3.4 g/dL (3.5-5.0); Albumin Globulin Ratio 1.3 (1.0-2.8); Alkaline Phosphatase 70 U/L (38-126); Aspartate Aminotransferase 24 IU/L (17-59); BUN Creatinine Ratio 15.9 (6-22); Bilirubin Total 0.5 mg/dL (0.2-1.3); Blood Urea Nitrogen 18 mg/dL (9-20); Calcium 9.6 mg/dL (8.4-10.2); Carbon Dioxide 18 mmol/L (22-32); Chloride 114 mmol/L (98-107); Estimated Glomerular Filt Rate > 60 mL/min (>60); Globulin 2.7 g/dL (1.7-4.1); Glucose 132 mg/dL (80-110); HEMOLYSIS < 15 (0-50); Magnesium 1.9 mg/dL (1.6-2.3); Potassium 4.4 mmol/L (3.4-5.1); Sodium 139 mmol/L (137-145); Total Protein 6.1 g/dL (6.3-8.2)
--- NOTE | 2024-05-15 07:53 | P.PN_ITS ---
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 He was here 4 days ago with similar presentation, was treated with levofloxacin and discharged home. He has continued to have fever over the last few days along with indigestion and some nausea, vague abdominal pain. He has a history of nephrolithiasis. He denies weight gain, leg edema, orthopnea. Denies diarrhea or emesis. Denies recent sick contacts or recent travel. In the ER patient tachycardic in the 150s, borderline fever. CTA negative for PE but shows bronchiectasis with possible infection. CT abdomen with stable left renal cyst and no hydronephrosis. Cr slightly up at 1.28, calcium high at 10.4. Initial trop 0.056 improved on repeat. EKG shows an SVT. Patient has prior EKGs with afib. He was given IV Fluids, ceftriaxone in the ER. I evaluated and asked for cefepime with his prior pseudomonas, and for CT imaging. Discussed with pulmonary whom did not recommend bronchoscopy at this time. Recommended sputum culture, cefepime and vancomycin empirically. He was admitted to the ICU given his tachycardia in the setting of presumed sepsis. S: He felt well at home for about 2 days and then became quite weak and was having a cough and fevers. Overnight, he feels somewhat improved on antibiotics. He has been in atrial fibrillation with a rapid response but denies any palpitations. No chest pain. He was minimally responsive to diltiazem as a drip. Exam Vital Signs (past 8 hours): - 05/15/24 00:00 05/15/24 00:00 05/15/24 00:00 Pulse Rate 84 Respiratory Rate 22 Blood Pressure 101/71 Pulse Oximetry 93 94 Oxygen Delivery Method Nasal Cannula Oxygen Flow Rate 2 2 05/15/24 00:15 05/15/24 00:30 05/15/24 00:30 Pulse Rate 92 H 89 Respiratory Rate 21 21 Blood Pressure 131/74 Pulse Oximetry 94 95 Oxygen Delivery Method Oxygen Flow Rate 05/15/24 00:45 05/15/24 01:00 05/15/24 01:00 Pulse Rate 129 H 80 Respiratory Rate 44 H 26 H Blood Pressure 106/75 106/75 Pulse Oximetry 94 95 Oxygen Delivery Method Oxygen Flow Rate 05/15/24 01:15 05/15/24 01:30 05/15/24 01:30 Pulse Rate 95 H 86 Respiratory Rate 37 H 24 Blood Pressure 141/74 H Pulse Oximetry 93 93 Oxygen Delivery Method Oxygen Flow Rate 05/15/24 01:45 05/15/24 02:00 05/15/24 02:00 Pulse Rate 96 H 128 H Respiratory Rate 32 H 28 H Blood Pressure 146/79 H Pulse Oximetry 95 94 Oxygen Delivery Method Oxygen Flow Rate 05/15/24 02:15 05/15/24 02:30 05/15/24 02:30 Pulse Rate 89 78 Respiratory Rate 23 21 Blood Pressure 123/70 Pulse Oximetry 96 96 Oxygen Delivery Method Oxygen Flow Rate 05/15/24 02:45 05/15/24 03:00 05/15/24 03:00 Pulse Rate 88 132 H Respiratory Rate 36 H 28 H Blood Pressure 120/78 Pulse Oximetry 96 96 Oxygen Delivery Method Oxygen Flow Rate 05/15/24 03:15 05/15/24 03:30 05/15/24 03:46 Pulse Rate 78 79 83 Respiratory Rate 22 22 Blood Pressure Pulse Oximetry 95 96 95 Oxygen Delivery Method Oxygen Flow Rate 05/15/24 04:00 05/15/24 04:00 05/15/24 04:00 Pulse Rate Respiratory Rate Blood Pressure 135/75 Pulse Oximetry 96 Oxygen Delivery Method Nasal Cannula Nasal Cannula Oxygen Flow Rate 2 05/15/24 04:00 05/15/24 04:15 05/15/24 04:30 Pulse Rate 79 78 Respiratory Rate 21 21 Blood Pressure 142/79 H Pulse Oximetry 95 96 Oxygen Delivery Method Oxygen Flow Rate 05/15/24 04:30 05/15/24 04:45 05/15/24 05:00 Pulse Rate 94 H 76 Respiratory Rate 30 H 25 H Blood Pressure 115/71 Pulse Oximetry 96 97 Oxygen Delivery Method Oxygen Flow Rate 2 05/15/24 05:00 05/15/24 05:15 05/15/24 05:30 Pulse Rate 75 75 75 Respiratory Rate 21 21 21 Blood Pressure Pulse Oximetry 97 97 96 Oxygen Delivery Method Oxygen Flow Rate 05/15/24 05:30 05/15/24 05:45 05/15/24 06:00 Pulse Rate 75 Respiratory Rate 21 Blood Pressure 126/75 143/80 H Pulse Oximetry 97 Oxygen Delivery Method Oxygen Flow Rate 2 2 05/15/24 06:00 05/15/24 06:15 Pulse Rate 75 75 Respiratory Rate 21 20 Blood Pressure Pulse Oximetry 97 97 Oxygen Delivery Method Oxygen Flow Rate Oxygen Delivery Method Nasal Cannula Oxygen Flow Rate 2 Narrative Exam Narrative: NAD, alert and oriented. Fluent speech. He appears a little lethargic. Lungs are clear, normal rate and effort. Some anterior rales in the right upper lung. Heart is regular, no murmur gallop or rub. Abdomen is soft, non distended. Extremities are free of edema. Objective Labs 05/15/24 04:10 05/15/24 04:10 Labs: Laboratory Results - last 24 hr 05/14/24 05/14/24 05/14/24 12:11 14:11 17:49 WBC 10.6 RBC 4.21 L Hgb 12.8 L Hct 39.3 L MCV 93.5 MCH 30.3 MCHC 32.4 RDW 15.9 H Plt Count 216 Neut % (Auto) Not Reportable Lymph % (Auto) Not Reportable [place] % (Auto) Not Reportable Eos % (Auto) Not Reportable Baso % (Auto) Not Reportable Neut # (Auto) Lymph # (Auto) Not Reportable [place] # (Auto) Not Reportable Eos # (Auto) Baso # (Auto) Not Reportable Total Counted 100 Seg Neutrophils % 71.0 H Band Neutrophils % 2.0 L Lymphocytes % (Manual) 20.0 L Monocytes % (Manual) 7.0 Neutrophils # (Manual) 7738 H RBC Morphology See below Anisocytosis 1+ H Sodium 138 Potassium 3.7 Chloride 108 H Carbon Dioxide 21 L BUN 20 Creatinine 1.28 H Estimated GFR 58 L BUN/Creatinine Ratio 15.6 Glucose 117 H Lactate 2.0 Calcium 10.4 H Magnesium 1.5 L Total Bilirubin 0.5 AST 30 ALT 27 Alkaline Phosphatase 81 Total Creatine Kinase 61 Troponin I 0.055 H 0.052 H Total Protein 6.9 Albumin 3.9 Globulin 3.0 Albumin/Globulin Ratio 1.3 Procalcitonin 0.118 Nasal Screen MRSA (PCR) Not detected 05/15/24 04:10 WBC 7.8 RBC 3.72 L Hgb 11.4 L Hct 35.1 L MCV 94.3 MCH 30.7 MCHC 32.6 RDW 16.0 H Plt Count 190 Neut % (Auto) 81.0 H Lymph % (Auto) 13.0 L [place] % (Auto) 5.1 Eos % (Auto) 0.6 L Baso % (Auto) 0.3 Neut # (Auto) 6300 Lymph # (Auto) 1000 L [place] # (Auto) 400 Eos # (Auto) 0 Baso # (Auto) 0 Total Counted Seg Neutrophils % Band Neutrophils % Lymphocytes % (Manual) Monocytes % (Manual) Neutrophils # (Manual) RBC Morphology Anisocytosis Sodium 139 Potassium 4.4 Chloride 114 H Carbon Dioxide 18 L BUN 18 Creatinine 1.13 Estimated GFR > 60 BUN/Creatinine Ratio 15.9 Glucose 132 H Lactate Calcium 9.6 Magnesium 1.9 Total Bilirubin 0.5 AST 24 ALT 22 Alkaline Phosphatase 70 Total Creatine Kinase Troponin I Total Protein 6.1 L Albumin 3.4 L Globulin 2.7 Albumin/Globulin Ratio 1.3 Procalcitonin Nasal Screen MRSA (PCR) [facility] Medical History Mycobacterium chelonae infection Vasculitis Atypical chest pain Arthritis Pneumonia (~07/2013) BPH (benign prostatic hyperplasia) GERD (gastroesophageal reflux disease) Paroxysmal A-fib (03/09/18) Non-productive cough Dyspnea DJD (degenerative joint disease) Bronchiectasis Microscopic polyangiitis Coronary artery disease Kidney stone (~2015) Surgical History History of colonoscopy (~2015) History of coronary artery stent placement (~06/2012) Social History household members: spouse Smoking Status: Never smoker alcohol intake: current Assessment & Plan Assessment & Plan narrative: 1. Sepsis secondary to presumed bacterial pneumonia in the setting of chronic bronchiectasis with JOHNNA. Present on admission and improved. - SOFA score 1 currently with JOHNNA. - history of mycobacterial and pseudomonas infections of his lungs. - given failure of levaquin, presume recurrent pseudomonas - continue cefepime and vancomycin for now, pending MRSA swab - discussed with pulmonology Dr. Armas, pulmonology will try to see patient tomorrow but recommended above antibiotics for now, sputum cultures, and no increase in prednisone currently. No need for bronchoscopy at this time. - continue antibiotics and send sputum culture today. 2. Bacterial pneumonia, present on admission and improving 3. Chronic bronchiectasis, present on admission and active. 5. JOHNNA, present on admission and improving. Creatinine is 1.13 today. 6. Atrial fibrillation (PAF), with rapid ventricular response. Present on admission and improved. - gave 1 dose of IV diltiazem with slight improvement in rate, more apparent is his afib. Will start diltiazem infusion. Continue IV fluids as he appears volume down currently. If remains hypotensive consider amiodarone. - continue home coreg for now. - continue home eliquis, unclear why he is on 2.5 mg BID at this time. Consider increasing back to 5 mg BID. Patient thinks it was reduced by PCP. - add on Mg level - K 3.7 will give 40 meq. - we will stop Coreg and diltiazem drip and try IV metoprolol on oral metoprolol for rate control. 7. Mild hypercalemia, present on admission and improved. - likely volume depleted, continue NS in setting of possible sepsis noted above. 8. ANCA MPO vasculitis, present on admission and active. - continue home prednisone 10 mg daily 9. Hx of nonobstructive CAD, with demand ischemia, present on admission and improved. - EKG without evidence for ischemia, no chest pain, troponin downtrended. ACS likely ruled out PLAN: -continue antibiotics -continue IV fluids -monitor blood cultures -monitor sputum culture -wean O2 as able -trend troponin, consider echo. -monitor electrolytes and replace as needed. -trial of metoprolol for rate control and stop diltiazem drip. Code: Full, surrogate is patient's spouse DVT: Lovenox daily CLIFF is 05/17. Dispo: patient admitted under inpatient status to the ICU. Likely discharge home in 2-3 days depending on above hospital course. Time-Based Coding :: [TOTAL MINUTES] spent with patient and on the chart (including review of chart, obtaining history, exam, reviewing outside data, placing orders, documenting exam and treatment plan, and counseling patient) on [DATE].
[2024-05-15] MEDS: TRAMADOL 50 MG TABLET PO ×2 (08:08→20:51)
[2024-05-15] MEDS: predniSONE 5 MG TABLET 10 MG PO (08:10)
[2024-05-15] MEDS: APIXABAN 5 MG TABLET 2.5 MG PO ×2 (08:10→20:51)
[2024-05-15] MEDS: carvediloL 12.5 MG TABLET 25 MG PO (08:11)
[2024-05-15] MEDS: SODIUM CHLORIDE 0.9% FLUSH 10 ML IV ×2 (08:26→20:53)
[2024-05-15] MEDS: PANTOPRAZOLE DR 40 MG TABLET PO (08:40)
[2024-05-15] MEDS: METOPROLOL IR 25 MG TABLET PO ×2 (10:54→16:30)
--- NOTE | 2024-05-15 12:20 | CM.DANOTE ---
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 Per chart, pt lives independently in [place] with spouse Pat Krishnamurthy. Per RN, pt is a kind and pleasant man. HR better. anticipate no obvious CM needs. Per hospitalist in morning rounds, afib with RVR better, likely dc in a day or so. plan to continue with IV abx, fluids, and wean O2 at able. P: anticipate return home with spouse support when medically stable. No identified barriers to safe dc home at this time. CM team will continue to follow as needed MILAN Moody Discharge Planning/Care Management CM Discharge Assessment Start: 05/15/24 12:17 Freq: Status: Active Protocol: Document 05/15/24 12:17 (Rec: 05/15/24 12:20 [id number]) Discharge Planning Assessment Assigned Frog Catcher MILAN Downs DPOA/Assigned Designee Name Pat Krishnamurthy, spouse Contact Information [phone] Advance Directives? No Prior Living Arrangements House Household Members spouse Type of transporation used prior to Drives own vehicle admit Independent with ADL's Yes Is patient alert and oriented? Yes Barriers to Discharge No Discharge Plan Home Transportation Arrangement family in POV Referrals Initiated None needed Review Status In Process Please Provide Date Initial DC 05/15/24 Assessment Was Performed Next Review Type Continued Stay Review
--- NOTE | 2024-05-15 12:23 | PM.CN ---
History of Present Illness Consult details Date Patient Seen: 05/15/24 Chief complaint: rapid heart rate, fever Reason for consult: Bronchiectasis Requesting provider: Grant Aj Narrative: ID&CC: Mr. Hudson is a 73-year-old man admitted for sepsis and persistent bronchiectasis exacerbation History of present illness and reason for consult: Deangelo Hudson is a 73-year-old never smoker with a history of bronciectasis, pseudomonal bronchopulmonary infection, history of bronchopulmonary mycobacterium chelonae, microscopic polyangiitis, chronic prednisone, coronary disease, paroxysmal atrial fibrillation and anticoagulation with apixaban for whom Dr. Aj has requested consultation and evaluation of patient's persistent bronchiectasis exacerbation associated illness. Chart reviewed, Mr. Hudson and family interviewed today. He reports at baseline usually feels relatively well, does bronchial clearance medication including by his report nebulized saline and question fredrick flutter valve daily, will expectorate sputum that will be white or a little bit green colored, however about 10-14 days ago, started feeling unwell, possible slight change in mucus production. Presented on 05/10 with 4-5 day history of fever and feeling unwell, possible coincidence of symptoms with shingles vaccination. Notation shows SpO2 = 91-97% during the visit, viral any T respiratory negative, chest x-ray showing left basilar atelectasis, suggestion of chronic interstitial changes. He was given dose of ceftriaxone 1 g, azithromycin 500 mg and prescribed levofloxacin, albuterol-ipratropium. Return to the ED yesterday, heart rate 163, AFib, blood pressure 82/54 and SpO2 = 93% on air. CT pulmonary angiogram which I personally reviewed shows lower lobe airspace consolidation, bronchiectasis, bronchial thickening no PE. He was started on cefepime, vancomycin and was admitted with the diagnoses of sepsis, pneumonia and bronchiectasis exacerbation. Lab evaluation has shown blood culture 05/10 no growth, blood culture 05/14 no growth to date. WBC this morning 7.8, yesterday 10.6, hemoglobin 11.4, procalcitonin 0.118 yesterday. On review and exam with him today, he is breathing comfortably without supplemental oxygen supine in bed, reports that he is feeling better. He was able to produce expectorated sputum this morning. Had previously been followed at [facility] by Dr. Lemus, although not in some time with by his report the main diagnosis of MPA an apparent low-dose prednisone dependence as well as bronchiectasis. He does follow a bronchial clearance routine which sounds like nebulized saline and a flutter valve. He last required IV antibiotics in 2021. He is baseline independent of all activities of daily living. Has not had recent pulmonary function testing or pulmonary clinic visit. Meds Home Medications and Allergies Home Medications Medication Instructions Recorded Confirmed Type omeprazole 40 mg capsule,delayed 40 mg PO DAILY 04/02/19 05/14/24 History release prednisone 10 mg tablet 10 mg PO DAILY 04/02/19 05/14/24 History alendronate 70 mg tablet (Fosamax) 70 mg PO QWEEK 10/12/21 05/14/24 History atorvastatin 80 mg tablet 80 mg PO QPM 10/12/21 05/14/24 History carvedilol 25 mg tablet 25 mg PO BID 10/12/21 05/14/24 History fluticasone propionate 115 2 puff inhalation BID 10/12/21 05/14/24 History mcg-salmeterol 21 mcg/actuation HFA inhaler (Advair HFA) fluticasone propionate 50 1 spray intranasal BID 10/12/21 05/14/24 History mcg/actuation nasal spray,suspension levalbuterol HCl 0.63 mg/3 mL 0.63 mg inhalation TID 10/12/21 05/14/24 History solution for nebulization (Xopenex) tramadol 100 mg tablet,extended 100 mg PO BEDTIME 10/12/21 05/14/24 History release 24 hr levofloxacin 750 mg tablet 750 mg PO DAILY #7 tabs 05/10/24 05/14/24 Rx amlodipine 2.5 mg tablet 2.5 mg PO DAILY 05/14/24 05/14/24 History apixaban 2.5 mg tablet (Eliquis) 2.5 mg PO BID 05/14/24 05/14/24 History azithromycin 250 mg tablet 250 mg PO DAILY 05/14/24 05/14/24 History cyclobenzaprine 5 mg tablet 10 mg PO BEDTIME 05/14/24 05/14/24 History lisinopril 2.5 mg tablet 2.5 mg PO DAILY 05/14/24 05/14/24 History tamsulosin 0.4 mg capsule 0.8 mg PO ONCE PM 05/14/24 05/14/24 History Allergies Allergy/AdvReac Type Severity Reaction Status Date / Time amoxicillin AdvReac Mild NAUSEA Verified 05/14/24 11:59 levofloxacin AdvReac Mild GI UPSET Verified 05/10/24 11:54 Exam Vital Signs (past 8 hours): - 05/15/24 04:30 05/15/24 04:30 05/15/24 04:45 Temperature Pulse Rate 94 H 76 Respiratory Rate 30 H 25 H Blood Pressure 142/79 H Pulse Oximetry 96 97 Oxygen Delivery Method Oxygen Flow Rate Fraction of Inspired Oxygen 05/15/24 05:00 05/15/24 05:00 05/15/24 05:15 Temperature Pulse Rate 75 75 Respiratory Rate 21 21 Blood Pressure 115/71 Pulse Oximetry 97 97 Oxygen Delivery Method Oxygen Flow Rate 2 Fraction of Inspired Oxygen 05/15/24 05:30 05/15/24 05:30 05/15/24 05:45 Temperature Pulse Rate 75 75 Respiratory Rate 21 21 Blood Pressure 126/75 Pulse Oximetry 96 97 Oxygen Delivery Method Oxygen Flow Rate 2 Fraction of Inspired Oxygen 05/15/24 06:00 05/15/24 06:00 05/15/24 06:15 Temperature Pulse Rate 75 75 Respiratory Rate 21 20 Blood Pressure 143/80 H Pulse Oximetry 97 97 Oxygen Delivery Method Oxygen Flow Rate 2 Fraction of Inspired Oxygen 05/15/24 06:30 05/15/24 06:30 05/15/24 06:45 Temperature Pulse Rate 82 74 Respiratory Rate 24 20 Blood Pressure 113/74 Pulse Oximetry 95 98 Oxygen Delivery Method Oxygen Flow Rate Fraction of Inspired Oxygen 05/15/24 07:00 05/15/24 07:00 05/15/24 07:15 Temperature Pulse Rate 75 77 Respiratory Rate 21 21 Blood Pressure 136/75 Pulse Oximetry 97 97 Oxygen Delivery Method Oxygen Flow Rate Fraction of Inspired Oxygen 05/15/24 07:30 05/15/24 07:31 05/15/24 07:31 Temperature Pulse Rate 150 H 134 H Respiratory Rate Blood Pressure 146/78 H Pulse Oximetry 95 94 Oxygen Delivery Method Oxygen Flow Rate Fraction of Inspired Oxygen 05/15/24 07:45 05/15/24 08:00 05/15/24 08:00 Temperature Pulse Rate 126 H 131 H Respiratory Rate Blood Pressure Pulse Oximetry 97 95 97 Oxygen Delivery Method Nasal Cannula Oxygen Flow Rate 2 Fraction of Inspired Oxygen 05/15/24 08:00 05/15/24 08:15 05/15/24 08:30 Temperature Pulse Rate 131 H Respiratory Rate Blood Pressure 97/75 95/61 Pulse Oximetry 97 Oxygen Delivery Method Oxygen Flow Rate Fraction of Inspired Oxygen 05/15/24 08:30 05/15/24 08:45 05/15/24 09:00 Temperature Pulse Rate 132 H 136 H Respiratory Rate Blood Pressure 97/68 Pulse Oximetry 95 96 Oxygen Delivery Method Oxygen Flow Rate Fraction of Inspired Oxygen 05/15/24 09:00 05/15/24 09:13 05/15/24 09:13 Temperature Pulse Rate 132 H 131 H Respiratory Rate Blood Pressure 116/65 Pulse Oximetry 96 96 Oxygen Delivery Method Oxygen Flow Rate Fraction of Inspired Oxygen 05/15/24 09:15 05/15/24 09:30 05/15/24 09:44 Temperature Pulse Rate 130 H 122 H Respiratory Rate Blood Pressure Pulse Oximetry 96 97 96 Oxygen Delivery Method Nasal Cannula Oxygen Flow Rate 2 Fraction of Inspired Oxygen 28 05/15/24 09:45 05/15/24 10:00 05/15/24 10:00 Temperature 97.3 F L Pulse Rate 98 H 130 H Respiratory Rate 18 Blood Pressure 116/71 Pulse Oximetry 96 96 Oxygen Delivery Method Oxygen Flow Rate Fraction of Inspired Oxygen 05/15/24 10:15 05/15/24 10:30 05/15/24 10:45 Temperature Pulse Rate 75 89 92 H Respiratory Rate Blood Pressure Pulse Oximetry 97 95 96 Oxygen Delivery Method Oxygen Flow Rate Fraction of Inspired Oxygen 05/15/24 11:00 05/15/24 11:00 05/15/24 11:15 Temperature Pulse Rate 93 H 94 H Respiratory Rate Blood Pressure 125/81 Pulse Oximetry 95 96 Oxygen Delivery Method Oxygen Flow Rate Fraction of Inspired Oxygen 05/15/24 11:30 05/15/24 11:45 05/15/24 12:00 Temperature 97.8 F Pulse Rate 91 H 90 Respiratory Rate 16 Blood Pressure 123/75 Pulse Oximetry 95 94 Oxygen Delivery Method Oxygen Flow Rate Fraction of Inspired Oxygen 05/15/24 12:00 Temperature Pulse Rate 88 Respiratory Rate Blood Pressure Pulse Oximetry 92 Oxygen Delivery Method Oxygen Flow Rate Fraction of Inspired Oxygen Fraction of Inspired Oxygen 28 SaO2/FiO2 Ratio 342 Oxygen Delivery Method Nasal Cannula Oxygen Flow Rate 2 Objective Labs 05/15/24 04:10 05/15/24 04:10 Labs: Laboratory Results - last 24 hr 05/14/24 05/14/24 05/14/24 12:11 14:11 17:49 WBC RBC Hgb Hct MCV MCH MCHC RDW Plt Count Neut % (Auto) Lymph % (Auto) [place] % (Auto) Eos % (Auto) Baso % (Auto) Neut # (Auto) Lymph # (Auto) [place] # (Auto) Eos # (Auto) Baso # (Auto) Total Counted 100 Seg Neutrophils % 71.0 H Band Neutrophils % 2.0 L Lymphocytes % (Manual) 20.0 L Monocytes % (Manual) 7.0 Neutrophils # (Manual) 7738 H RBC Morphology See below Anisocytosis 1+ H Sodium 138 Potassium 3.7 Chloride 108 H Carbon Dioxide 21 L BUN 20 Creatinine 1.28 H Estimated GFR 58 L BUN/Creatinine Ratio 15.6 Glucose 117 H Lactate 2.0 Calcium 10.4 H Magnesium 1.5 L Total Bilirubin 0.5 AST 30 ALT 27 Alkaline Phosphatase 81 Total Creatine Kinase 61 Troponin I 0.055 H 0.052 H Total Protein 6.9 Albumin 3.9 Globulin 3.0 Albumin/Globulin Ratio 1.3 Procalcitonin 0.118 Nasal Screen MRSA (PCR) Not detected 05/15/24 04:10 WBC 7.8 RBC 3.72 L Hgb 11.4 L Hct 35.1 L MCV 94.3 MCH 30.7 MCHC 32.6 RDW 16.0 H Plt Count 190 Neut % (Auto) 81.0 H Lymph % (Auto) 13.0 L [place] % (Auto) 5.1 Eos % (Auto) 0.6 L Baso % (Auto) 0.3 Neut # (Auto) 6300 Lymph # (Auto) 1000 L [place] # (Auto) 400 Eos # (Auto) 0 Baso # (Auto) 0 Total Counted Seg Neutrophils % Band Neutrophils % Lymphocytes % (Manual) Monocytes % (Manual) Neutrophils # (Manual) RBC Morphology Anisocytosis Sodium 139 Potassium 4.4 Chloride 114 H Carbon Dioxide 18 L BUN 18 Creatinine 1.13 Estimated GFR > 60 BUN/Creatinine Ratio 15.9 Glucose 132 H Lactate Calcium 9.6 Magnesium 1.9 Total Bilirubin 0.5 AST 24 ALT 22 Alkaline Phosphatase 70 Total Creatine Kinase Troponin I Total Protein 6.1 L Albumin 3.4 L Globulin 2.7 Albumin/Globulin Ratio 1.3 Procalcitonin Nasal Screen MRSA (PCR) [facility], LAT[facility] Medical History (Updated 05/15/24 @ 12:47 by Bj Piedra MD) Mycobacterium chelonae infection Vasculitis Atypical chest pain Arthritis Pneumonia (~07/2013) BPH (benign prostatic hyperplasia) GERD (gastroesophageal reflux disease) Paroxysmal A-fib (03/09/18) Non-productive cough Dyspnea DJD (degenerative joint disease) Bronchiectasis Microscopic polyangiitis Coronary artery disease Kidney stone (~2015) Surgical History History of colonoscopy (~2015) History of coronary artery stent placement (~06/2012) Social History household members: spouse Tobacco & Substance Use Smoking Status: Never smoker alcohol intake: current Assessment & Plan Assessment and plan (1) Community acquired pneumonia: Problem details: In immune suppressed host, combination with acute bronchiectasis exacerbation, Pseudomonas versus other potential antibiotic resistant infection suspected Qualifiers: Laterality: unspecified laterality Qualified Code(s): J18.9 - Pneumonia, unspecified organism Status: Acute Plan: I discussed with Mr. Hudson that he should continue usual bronchial clearance daily maneuvers, 3% saline nebulized followed by flutter valve 2 times daily. Recommend 10-14 day course of appropriate antibiotics, consider id consult for logistics of outpatient infusion. Follow-up respiratory culture, if nondiagnostic and patient improving, if MRSA NAAT negative, recommend IV anti pseudomonal antibiotic (cefepime versus other) for the duration. He should follow-up in Pulmonary Clinic here to make sure he has continued improvement and for evaluation of his lung function. He communicated an understanding of my recommendations. Plan/recommendations: -follow respiratory culture -MRSA NAAT to evaluate for likelihood of MRSA infection -consider IVIG x1 -schedule nebulized 3% saline followed by flutter valve use for bronchial clearance every morning and every evening -CONTINUE CEFEPIME IV, VANCOMYCIN IV EMPIRIC, RECOMMEND 10-14 DAY TOTAL -if sputum culture showing no MRSA, discontinue vancomycin -continue outpatient dose prednisone -follow-up in Pulmonary Clinic in 2-3 weeks Time-Based Coding :: 55 minutes spent with patient and on the chart (including personal review and interpretation of xrays and CT chest, review of chart, obtaining history, exam, reviewing outside data, placing orders, documenting exam and treatment plan, and counseling patient) today, 05/15/2024. PROFEE Charge Codes Inpatient or Observation consultation: [id number]
[2024-05-15] MEDS: SODIUM CHLORIDE 3 % 500 ML INH (15:19)
[2024-05-15] MEDS: METOPROLOL TARTRATE 5 MG/5 ML INJ IV (15:49)
[2024-05-15] MEDS: dilTIAZem 125 MG in SODIUM CHLORIDE 0.9% 100 ML 10 MG IV (19:01)
[2024-05-15] MEDS: VANCOMYCIN 1,500 MG/300 ML PIGGYBACK 200 MG IV (20:42)
[2024-05-15] MEDS: CYCLOBENZAPRINE 10 MG TABLET PO (20:51)
[2024-05-15] MEDS: METOPROLOL IR 25 MG TABLET 50 MG PO (20:52)
[2024-05-15] MEDS: ATORVASTATIN 20 MG TABLET 80 MG PO (20:52)
[2024-05-15] MEDS: TAMSULOSIN 0.4 MG CAPSULE 0.8 MG PO (20:52)
[2024-05-16] VITALS (101 sets, daily range): BP systolic 119–152; BP diastolic 70–97; PULSE 77–157; RESP 18–55; TEMP 35.9–36.8; O2SAT 91–96
[2024-05-16] MEDS: CEFEPIME 2 GM in SODIUM CHLORIDE 0.9% 100 ML IV ×3 (01:16→16:25)
[2024-05-16] MEDS: ACETAMINOPHEN 325 MG TABLET 650 MG PO (03:59)
[2024-05-16 04:59] LABS: Add Manual Diff / Slide Review NO; Basophils Absolute Auto 0 /uL (0-100); Basophils Percent Auto 0.3 % (0-2); Eosinophils Absolute Auto 100 /uL (0-450); Eosinophils Percent Auto 1.3 % (2-4); Hematocrit 34.4 % (41-53); Lymphocytes Absolute Auto 1000 /uL (1100-4500); Lymphocytes Percent Auto 12.1 % (25-40); Mean Corpuscular HGB Conc 31.9 % (30-36); Mean Corpuscular Hemoglobin 29.9 PG (26-34); Mean Corpuscular Volume 93.7 fL (80-100); Monocytes Absolute Auto 600 /uL (0-900); Monocytes Percent Auto 6.6 % (3-14); Neutrophils Absolute Auto 6800 /uL (1500-7000); Neutrophils Percent Auto 79.7 % (50-75); Platelet Count 190 X10^3/uL (150-400); Red Blood Cell Count 3.67 X10^6/uL (4.5-5.9); Red Cell Distribution Width 15.7 % (11.6-14.8); White Blood Cell Count 8.5 X10^3/uL (4.5-11.0)
[2024-05-16 05:03] LABS: Alanine Aminotransferase 19 IU/L (<50); Albumin 3.2 g/dL (3.5-5.0); Albumin Globulin Ratio 1.1 (1.0-2.8); Alkaline Phosphatase 67 U/L (38-126); Aspartate Aminotransferase 20 IU/L (17-59); BUN Creatinine Ratio 14.9 (6-22); Bilirubin Total 0.4 mg/dL (0.2-1.3); Blood Urea Nitrogen 14 mg/dL (9-20); Calcium 9.6 mg/dL (8.4-10.2); Carbon Dioxide 22 mmol/L (22-32); Chloride 110 mmol/L (98-107); Estimated Glomerular Filt Rate > 60 mL/min (>60); Globulin 2.8 g/dL (1.7-4.1); Glucose 102 mg/dL (80-110); HEMOLYSIS < 15 (0-50); Magnesium 1.7 mg/dL (1.6-2.3); Sodium 138 mmol/L (137-145)
[2024-05-16] MEDS: MAGNESIUM CHLORIDE 64 MG TABLET 128 MG PO (08:19)
[2024-05-16] MEDS: METOPROLOL ER 50 MG TABLET 100 MG PO (08:20)
[2024-05-16] MEDS: TRAMADOL 50 MG TABLET PO ×2 (08:21→21:49)
[2024-05-16] MEDS: APIXABAN 5 MG TABLET 2.5 MG PO ×2 (08:21→21:50)
[2024-05-16] MEDS: predniSONE 5 MG TABLET 10 MG PO (08:22)
[2024-05-16] MEDS: PANTOPRAZOLE DR 40 MG TABLET PO (08:26)
--- NOTE | 2024-05-16 08:57 | PM.PN.1 ---
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 He was here 4 days ago with similar presentation, was treated with levofloxacin and discharged home. He has continued to have fever over the last few days along with indigestion and some nausea, vague abdominal pain. He has a history of nephrolithiasis. He denies weight gain, leg edema, orthopnea. Denies diarrhea or emesis. Denies recent sick contacts or recent travel. In the ER patient tachycardic in the 150s, borderline fever. CTA negative for PE but shows bronchiectasis with possible infection. CT abdomen with stable left renal cyst and no hydronephrosis. Cr slightly up at 1.28, calcium high at 10.4. Initial trop 0.056 improved on repeat. EKG shows an SVT. Patient has prior EKGs with afib. He was given IV Fluids, ceftriaxone in the ER. I evaluated and asked for cefepime with his prior pseudomonas, and for CT imaging. Discussed with pulmonary whom did not recommend bronchoscopy at this time. Recommended sputum culture, cefepime and vancomycin empirically. He was admitted to the ICU given his tachycardia in the setting of presumed sepsis. He was seen by Pulmonary on May 15 with recommendations for hypertonic nebs twice a day, and at least 10 days of IV cefepime if MRSA screen is negative. A midline was placed and we are beginning to plan for home IV antibiotics. Unfortunately he was had recalcitrant AF with RVR. There are no recent echos. He has had minimal response to a diltiazem drip and was started on escalating doses of metoprolol yesterday. S: He was doing well but remains in AFib at a rate of 130. He denies dyspnea, or palpitations. He was having minimal cough. Midline is in place. Exam Vital Signs (past 8 hours): - 05/16/24 01:00 05/16/24 01:00 05/16/24 01:15 Pulse Rate 94 H 92 H Respiratory Rate 25 H 19 Blood Pressure 133/76 Pulse Oximetry 95 95 Oxygen Delivery Method Oxygen Flow Rate 05/16/24 01:30 05/16/24 01:45 05/16/24 02:00 Pulse Rate 90 86 Respiratory Rate 20 18 Blood Pressure 123/74 Pulse Oximetry 95 95 Oxygen Delivery Method Oxygen Flow Rate 05/16/24 02:00 05/16/24 02:15 05/16/24 02:30 Pulse Rate 87 87 90 Respiratory Rate 26 H 22 19 Blood Pressure Pulse Oximetry 95 95 95 Oxygen Delivery Method Oxygen Flow Rate 05/16/24 02:45 05/16/24 03:00 05/16/24 03:00 Pulse Rate 88 90 Respiratory Rate 18 19 Blood Pressure 131/87 Pulse Oximetry 95 96 Oxygen Delivery Method Oxygen Flow Rate 05/16/24 03:00 05/16/24 03:15 05/16/24 03:30 Pulse Rate 89 92 H Respiratory Rate 20 21 Blood Pressure Pulse Oximetry 95 94 Oxygen Delivery Method Nasal Cannula Oxygen Flow Rate 05/16/24 03:45 05/16/24 04:00 05/16/24 04:00 Pulse Rate 129 H 116 H Respiratory Rate 24 19 Blood Pressure 143/77 H Pulse Oximetry 95 95 Oxygen Delivery Method Oxygen Flow Rate 05/16/24 04:00 05/16/24 04:15 05/16/24 04:30 Pulse Rate 122 H 106 H Respiratory Rate 20 21 Blood Pressure Pulse Oximetry 95 94 95 Oxygen Delivery Method Nasal Cannula Oxygen Flow Rate 1 05/16/24 04:45 05/16/24 04:59 05/16/24 05:00 Pulse Rate 135 H 126 H Respiratory Rate 23 18 Blood Pressure 140/77 Pulse Oximetry 95 95 Oxygen Delivery Method Oxygen Flow Rate 05/16/24 05:00 05/16/24 05:15 05/16/24 05:30 Pulse Rate 107 H 123 H 136 H Respiratory Rate 18 23 22 Blood Pressure Pulse Oximetry 95 96 96 Oxygen Delivery Method Oxygen Flow Rate 05/16/24 05:45 05/16/24 06:00 05/16/24 06:00 Pulse Rate 126 H 109 H Respiratory Rate 18 22 Blood Pressure 128/76 Pulse Oximetry 95 95 Oxygen Delivery Method Oxygen Flow Rate 05/16/24 06:15 05/16/24 06:30 05/16/24 06:45 Pulse Rate 139 H 96 H 114 H Respiratory Rate 36 H 19 21 Blood Pressure Pulse Oximetry 95 95 95 Oxygen Delivery Method Oxygen Flow Rate 05/16/24 07:00 05/16/24 07:00 05/16/24 07:15 Pulse Rate 126 H 125 H Respiratory Rate 21 21 Blood Pressure 144/77 H Pulse Oximetry 95 94 Oxygen Delivery Method Oxygen Flow Rate 05/16/24 07:30 05/16/24 07:45 05/16/24 08:00 Pulse Rate 137 H 117 H 122 H Respiratory Rate 35 H 24 23 Blood Pressure Pulse Oximetry 95 95 94 Oxygen Delivery Method Oxygen Flow Rate 05/16/24 08:00 05/16/24 08:15 05/16/24 08:30 Pulse Rate 130 H 131 H Respiratory Rate 21 33 H Blood Pressure 149/76 H Pulse Oximetry 95 95 Oxygen Delivery Method Oxygen Flow Rate 05/16/24 08:45 Pulse Rate 135 H Respiratory Rate 40 H Blood Pressure Pulse Oximetry 95 Oxygen Delivery Method Oxygen Flow Rate Fraction of Inspired Oxygen 28 SaO2/FiO2 Ratio 342 Oxygen Delivery Method Nasal Cannula Oxygen Flow Rate 1 Narrative Exam Narrative: NAD, alert and oriented. Fluent speech. Lungs are clear, normal rate and effort. Heart is irregular and tachycardic. Abdomen is soft, non distended. Extremities are free of edema. Objective Labs 05/16/24 04:30 05/16/24 04:30 Labs: Laboratory Results - last 24 hr 05/16/24 04:30 WBC 8.5 RBC 3.67 L Hgb 11.0 L Hct 34.4 L MCV 93.7 MCH 29.9 MCHC 31.9 RDW 15.7 H Plt Count 190 Neut % (Auto) 79.7 H Lymph % (Auto) 12.1 L [place] % (Auto) 6.6 Eos % (Auto) 1.3 L Baso % (Auto) 0.3 Neut # (Auto) 6800 Lymph # (Auto) 1000 L [place] # (Auto) 600 Eos # (Auto) 100 Baso # (Auto) 0 Sodium 138 Potassium 4.0 Chloride 110 H Carbon Dioxide 22 BUN 14 Creatinine 0.94 Estimated GFR > 60 BUN/Creatinine Ratio 14.9 Glucose 102 Calcium 9.6 Magnesium 1.7 Total Bilirubin 0.4 AST 20 ALT 19 Alkaline Phosphatase 67 Total Protein 6.0 L Albumin 3.2 L Globulin 2.8 Albumin/Globulin Ratio 1.1 [facility] Medical History Mycobacterium chelonae infection Vasculitis Atypical chest pain Arthritis Pneumonia (~07/2013) BPH (benign prostatic hyperplasia) GERD (gastroesophageal reflux disease) Paroxysmal A-fib (03/09/18) Non-productive cough Dyspnea DJD (degenerative joint disease) Bronchiectasis Microscopic polyangiitis Coronary artery disease Kidney stone (~2015) Surgical History History of colonoscopy (~2015) History of coronary artery stent placement (~06/2012) Social History household members: spouse Smoking Status: Never smoker alcohol intake: current Assessment & Plan Assessment & Plan narrative: 1. Sepsis secondary to presumed bacterial pneumonia in the setting of chronic bronchiectasis with JOHNNA. Present on admission and improved. - SOFA score 1 currently with JOHNNA. - history of mycobacterial and pseudomonas infections of his lungs. - given failure of levaquin, presume recurrent pseudomonas - continue cefepime and vancomycin for now, pending MRSA swab - discussed with pulmonology Dr. Armas, pulmonology will try to see patient tomorrow but recommended above antibiotics for now, sputum cultures, and no increase in prednisone currently. No need for bronchoscopy at this time. - continue antibiotics and send sputum culture today. 2. Bacterial pneumonia, present on admission and improving 3. Chronic bronchiectasis, present on admission and active. 5. JOHNNA, present on admission and improving. Creatinine is 1.13 today. 6. Atrial fibrillation (PAF), with rapid ventricular response. Present on admission and improved. - gave 1 dose of IV diltiazem with slight improvement in rate, more apparent is his afib. Will start diltiazem infusion. Continue IV fluids as he appears volume down currently. If remains hypotensive consider amiodarone. - continue home coreg for now. - continue home eliquis, unclear why he is on 2.5 mg BID at this time. Consider increasing back to 5 mg BID. Patient thinks it was reduced by PCP. - add on Mg level - K 3.7 will give 40 meq. - we will stop Coreg and diltiazem drip and try IV metoprolol on oral metoprolol for rate control. 7. Mild hypercalemia, present on admission and improved. - likely volume depleted, continue NS in setting of possible sepsis noted above. 8. ANCA MPO vasculitis, present on admission and active. - continue home prednisone 10 mg daily 9. Hx of nonobstructive CAD, with demand ischemia, present on admission and improved. - EKG without evidence for ischemia, no chest pain, troponin downtrended. ACS likely ruled out PLAN: -continue antibiotics, cefepime and stopped vancomycin as MRSA screen was negative. -discontinue IV fluids -monitor blood cultures, remained negative. -monitor sputum culture, Sputum culture remains negative as well. -wean O2 as able -trend troponin, obtain echo. -monitor electrolytes and replace as needed. -increase beta blockade with metoprolol extended release 100 mg this morning. May get a 2nd dose later today. We will stop diltiazem drip and add oral diltiazem if needed. -begin logistics for home IV antibiotics, cefepime 2 g q.12 hours for a total antibiotic course of 10 days as recommended by Pulmonary. Code: Full, surrogate is patient's spouse DVT: Lovenox daily CLIFF is 05/17. Dispo: Home with IV antibiotics. Time-Based Coding :: [TOTAL MINUTES] spent with patient and on the chart (including review of chart, obtaining history, exam, reviewing outside data, placing orders, documenting exam and treatment plan, and counseling patient) on [DATE].
[2024-05-16] MEDS: SODIUM CHLORIDE 3 % 500 ML INH (10:00)
--- NOTE | 2024-05-16 11:29 | CM.DPNOTE ---
Addendum entered by MILAN Grayson 05/16/24 13:57: ADD: According to Ilya at [facility], patient's co-pay is $55 per week. RN at [facility] anticipates having availability for teach Thursday 05/17. Transferred call into patient's room to discuss details further. Original Note: DCP Cont Patient discussed with Dr Aj; Pulmonary has been consulted and recommendation is for home IV antibiotics, cefepime 2 g q.12 hours for a total antibiotic course of 10 days as recommended. Discussed plan with patient who reports having had home infusion in the past, agency unknown, patient w/no agency preference. Faxed new referral to [facility] [phone]. Placed call to Dr Piedra, [place]. Reviewed outpatient IV abx plan and Dr Piedra agreeable to follow these outpatient orders. Placed call to Ilya [facility], who plans to alert the office so that review can begin allison. CLIFF 05/17. NICHOL
[2024-05-16] MEDS: dilTIAZem 30 MG TABLET 60 MG PO ×2 (12:20→17:57)
[2024-05-16] MEDS: AMIODARONE 150 MG/100 ML 600 MG IV (13:56)
[2024-05-16] MEDS: AMIODARONE 360 MG/200 ML PIGGYBACK 33.33 MG IV (14:12)
[2024-05-16] MEDS: SODIUM CHLORIDE 0.9% FLUSH 10 ML IV ×2 (16:26→21:51)
[2024-05-16] MEDS: METOPROLOL TARTRATE 5 MG/5 ML INJ IV (17:01)
[2024-05-16] MEDS: AMIODARONE 360 MG/200 ML PIGGYBACK 16.7 MG IV (20:02)
[2024-05-16] MEDS: ATORVASTATIN 20 MG TABLET 80 MG PO (21:49)
[2024-05-16] MEDS: CYCLOBENZAPRINE 10 MG TABLET PO (21:50)
[2024-05-16] MEDS: TAMSULOSIN 0.4 MG CAPSULE 0.8 MG PO (21:50)
[2024-05-17] VITALS (111 sets, daily range): BP systolic 100–156; BP diastolic 58–92; PULSE 69–154; RESP 15–62; TEMP 36.1–36.6; O2SAT 87–96
[2024-05-17] MEDS: dilTIAZem 30 MG TABLET 60 MG PO ×5 (00:13→23:28)
[2024-05-17] MEDS: CEFEPIME 2 GM in SODIUM CHLORIDE 0.9% 100 ML IV ×3 (01:12→16:36)
[2024-05-17 04:52] LABS: Alanine Aminotransferase 20 IU/L (<50); Albumin 3.2 g/dL (3.5-5.0); Albumin Globulin Ratio 1.1 (1.0-2.8); Alkaline Phosphatase 67 U/L (38-126); Aspartate Aminotransferase 21 IU/L (17-59); BUN Creatinine Ratio 14.4 (6-22); Bilirubin Total 0.4 mg/dL (0.2-1.3); Blood Urea Nitrogen 13 mg/dL (9-20); Carbon Dioxide 26 mmol/L (22-32); Chloride 107 mmol/L (98-107); Estimated Glomerular Filt Rate > 60 mL/min (>60); Glucose 110 mg/dL (80-110); HEMOLYSIS < 15 (0-50); Magnesium 1.7 mg/dL (1.6-2.3); Potassium 3.6 mmol/L (3.4-5.1); Sodium 134 mmol/L (137-145); Total Protein 6.2 g/dL (6.3-8.2)
[2024-05-17 04:58] LABS: Add Manual Diff / Slide Review NO; Basophils Absolute Auto 0 /uL (0-100); Basophils Percent Auto 0.3 % (0-2); Eosinophils Absolute Auto 100 /uL (0-450); Eosinophils Percent Auto 1.5 % (2-4); Hematocrit 36.8 % (41-53); Hemoglobin 12.1 g/dL (13.5-17.5); Lymphocytes Absolute Auto 1000 /uL (1100-4500); Lymphocytes Percent Auto 11.4 % (25-40); Mean Corpuscular Hemoglobin 30.8 PG (26-34); Mean Corpuscular Volume 93.4 fL (80-100); Monocytes Absolute Auto 600 /uL (0-900); Monocytes Percent Auto 6.5 % (3-14); Neutrophils Absolute Auto 7300 /uL (1500-7000); Neutrophils Percent Auto 80.3 % (50-75); Platelet Count 191 X10^3/uL (150-400); Red Blood Cell Count 3.93 X10^6/uL (4.5-5.9); Red Cell Distribution Width 15.5 % (11.6-14.8)
[2024-05-17] MEDS: AMIODARONE 180 MG/100 ML PIGGYBACK 16.7 MG IV (08:04)
[2024-05-17] MEDS: PANTOPRAZOLE DR 40 MG TABLET PO (08:05)
--- NOTE | 2024-05-17 08:06 | DI.ECHO.S_ITS ---
[facility] : : [address] : : [place] : : [id number] : : Phone: [phone] Echocardiogram Report + + :Name: MELITA ONTIVEROS Study Date: 05/17/2024 Height: 72 in : :[facility] ReadingLocation: Weight: 190 lb : : Gender: Male BSA: 2.1 m2 : :: 1950 Age: 73 yrs BP: 144/92 mmHg: :Reason For Study: ATRIAL FIBRILLATION AND DYSPNEA : :Ordering Physician: IVÁN, : :EVELIO Performed By: Jayde Cheatham : :Referring: EVELIO MINOR : + + Interpretation Summary 1) Normal left ventricular thickness, size, wall motion, and systolic function (EF 60-65%). 2) Normal right ventricular size and function. 3) No significant valvular abnormalities. 4) No prior Echo available for comparison. Procedure: A two-dimensional transthoracic echocardiogram with color flow and Doppler was performed. The study quality was technically difficult. A contrast injection of Definity was performed to improve assessment of LV function. There is no prior echocardiogram noted for this patient. The patient was in atrial fibrillation with heart rates between 82-108 bpm during the exam. Left Ventricle: The left ventricle is normal in size. Proximal septal thickening is noted. There is normal left ventricular wall thickness. The ejection fraction is estimated to be 60-65%. Left ventricular systolic function appears normal without focal wall motion abnormalities. Diastolic function could not be accurately assessed due to atrial fibrillation. Right Ventricle: The right ventricle is normal in size and function. Atria: The left atrium is moderately dilated. Right atrial size is normal. There is no Doppler evidence for an interatrial shunt. Mitral Valve: The mitral valve leaflets appear mildly thickened, but open well. There is trace mitral regurgitation. Aortic Valve: The aortic valve is trileaflet. The aortic valve opens well. There is no aortic valve stenosis. No aortic regurgitation is present. Tricuspid Valve: The tricuspid valve is normal in structure and function. There is mild tricuspid regurgitation. Right ventricular systolic pressure is estimated to be 16 mmHg plus the clinically estimated CVP which cannot be estimated on this exam. Pulmonic Valve: The pulmonic valve leaflets are thin and pliable; valve motion is normal. There is no pulmonic valvular regurgitation. Great Vessels: The aortic root is normal size. The dimensions of the ascending aorta are normal. The inferior vena cava was not visualized. Pericardium/ Pleura There is no pericardial effusion. There is no pleural effusion. MMode/2D Measurements & Calculations LVIDd: 4.8 cm LVOT diam: 2.3 cm LVIDs: 3.0 cm Ao root diam: 3.7 cm FS: 37.0 % asc Aorta Diam: 3.5 cm IVSd: 0.98 cm Ao Arch Diam (Prox Trans): 3.0 cm LVPWd: 0.98 cm LV clayton. diameter/BSA (cm/m^2): 2.3 LV sys. diameter/BSA (cm/m^2): 1.4 LA A2 area: 21.8 cm2 RA long axis: 5.5 cm LA A4 area: 23.1 cm2 RA area: 15.8 cm2 LA length (vol): 5.8 cm RA vol: 38.4 ml LA vol: 73.7 ml RA : 18.4 ml/m2 LA vol index: 35.4 ml/m2 RVD1 (basal): 3.3 cm TAPSE: 1.6 cm Doppler Measurements & Calculations Ao V2 max: 128.1 cm/sec LVOT Max Severiano: 97.8 cm/sec Ao V2 mean: 93.3 cm/sec LV V1 max P.8 mmHg Ao max P.6 mmHg LV V1 VTI: 16.5 cm Ao mean P.8 mmHg SIMON(I,D): 3.4 cm2 Ao V2 VTI: 20.8 cm SIMON(V,D): 3.3 cm2 sev ratio: 0.79 SIMON indexed to BSA (cm^2/m^2): 1.6 MV E max severiano: 83.6 cm/sec TR max severiano: 202.2 cm/sec MV A max severiano: 1.4 cm/sec TR max P.4 mmHg MV E/A: 58.5 PA V2 max: 73.4 cm/sec Med Peak E' Severiano: 12.8 cm/sec PA V2 mean: 52.1 cm/sec E/E' med: 6.5 PA mean P.2 mmHg Lat Peak E' Severiano: 9.6 cm/sec PA pr(Accel): 34.5 mmHg E/E' lat: 8.7 E/e' average: 7.6 MV dec time: 0.13 sec SV(LVOT): 71.3 ml Reading Physician:01:04 PM
[2024-05-17] MEDS: APIXABAN 5 MG TABLET 2.5 MG PO (08:16)
[2024-05-17] MEDS: TRAMADOL 50 MG TABLET PO ×2 (08:17→20:33)
[2024-05-17] MEDS: METOPROLOL ER 50 MG TABLET 100 MG PO (08:17)
[2024-05-17] MEDS: SODIUM CHLORIDE 0.9% FLUSH 10 ML IV ×2 (08:18→20:34)
[2024-05-17] MEDS: predniSONE 5 MG TABLET 10 MG PO (08:18)
[2024-05-17] MEDS: ACETAMINOPHEN 325 MG TABLET 650 MG PO (10:51)
[2024-05-17] MEDS: DIGOXIN 500 MCG/2 ML AMPUL 125 MCG IV (10:51)
[2024-05-17] MEDS: POTASSIUM CHLORIDE 20 MEQ TAB PO (10:52)
[2024-05-17] MEDS: MAGNESIUM OXIDE 400 MG TABLET PO (10:52)
--- NOTE | 2024-05-17 11:28 | CM.DPNOTE ---
DCP Note BLEACH PLANT OPERATOR reviewed EMR. Per provider in morning rounds/RN report, pt in rapid afib with RVR today, on an amiodarone drip. Echo pending. Per provider, likely here until Sunday. Per RN, pt weaker than normal and likely could benefit from PT after he is off the drip. BLEACH PLANT OPERATOR spoke with Ilya from [facility] to update him that pt will not be discharged until Sunday at earliest. Ilya will work on getting nursing SOC scheduled for Sunday, time pending. BLEACH PLANT OPERATOR met with pt in room. Updated pt on plan. Pt in agreement. Deny other questions or needs at this time. Reports feeling much worse today than yesterday. P: anticipate return home with [facility] for IV Cefepime managed by [facility], stop date 05/24. CM team will follow for need for PT eval as pt medically improves. CM team will continue to coordinate with IV mk as needed. Continue to follow closely MILAN Moody
--- NOTE | 2024-05-17 15:24 | PM.PN.1 ---
Subjective Subjective Interval history: 73-year-old male with chronic bronchiectasis, history of pseudomonal bronchopulmonary infection, history of bronchopulmonary mycobacterium chelonae, microscopic polyangiitis, chronic prednisone treatment, coronary artery disease, paroxysmal atrial fibrillation on chronic anticoagulation with Eliquis admitted with sepsis, community-acquired pneumonia and AFib with RVR. Patient reports that he is feeling worse today than yesterday. He has had a deep dry cough. He states he feels more congested in his chest today a bit more pressure/tightness. He describes some pain around a 1 to 2/10. He also has headache. He had been hoping to go home today but realizes that he can not. He had been on diltiazem without significant improvement. He was then given IV and p.o. metoprolol without improvement. He is now on an amiodarone infusion as well. He continues to have difficulty with rate control. Exam Vital Signs (past 8 hours): - 05/17/24 07:30 05/17/24 07:45 05/17/24 08:00 Temperature Pulse Rate 113 H 122 H Respiratory Rate 21 18 Blood Pressure Pulse Oximetry 91 90 L 93 Oxygen Delivery Method Room Air Oxygen Flow Rate 0 05/17/24 08:00 05/17/24 08:01 05/17/24 08:01 Temperature Pulse Rate 102 H 102 H Respiratory Rate 25 H 25 H Blood Pressure 152/73 H Pulse Oximetry 92 91 Oxygen Delivery Method Oxygen Flow Rate 05/17/24 08:15 05/17/24 08:17 05/17/24 08:30 Temperature Pulse Rate 140 H 130 H 137 H Respiratory Rate 34 H 37 H Blood Pressure 152/68 H Pulse Oximetry 91 90 L Oxygen Delivery Method Oxygen Flow Rate 05/17/24 08:45 05/17/24 08:47 05/17/24 08:50 Temperature 97.0 F L Pulse Rate 134 H 100 H Respiratory Rate 47 H Blood Pressure 144/92 H Pulse Oximetry 90 L Oxygen Delivery Method Oxygen Flow Rate 05/17/24 09:00 05/17/24 09:00 05/17/24 09:15 Temperature Pulse Rate 118 H 130 H Respiratory Rate 32 H 43 H Blood Pressure 147/85 H Pulse Oximetry 93 91 Oxygen Delivery Method Oxygen Flow Rate 05/17/24 09:30 05/17/24 09:45 05/17/24 10:00 Temperature Pulse Rate 129 H 123 H Respiratory Rate 28 H 30 H Blood Pressure 144/92 H Pulse Oximetry 93 93 Oxygen Delivery Method Oxygen Flow Rate 05/17/24 10:00 05/17/24 10:15 05/17/24 10:30 Temperature Pulse Rate 102 H 103 H 93 H Respiratory Rate 27 H 31 H 23 Blood Pressure Pulse Oximetry 90 L 93 92 Oxygen Delivery Method Oxygen Flow Rate 05/17/24 10:45 05/17/24 11:00 05/17/24 11:00 Temperature Pulse Rate 122 H 126 H Respiratory Rate 34 H 27 H Blood Pressure 156/72 H Pulse Oximetry 92 94 Oxygen Delivery Method Oxygen Flow Rate 05/17/24 11:00 05/17/24 11:15 05/17/24 11:30 Temperature Pulse Rate 111 H 138 H Respiratory Rate 26 H 62 H Blood Pressure Pulse Oximetry 91 87 L Oxygen Delivery Method Room Air Oxygen Flow Rate 05/17/24 11:45 05/17/24 12:00 05/17/24 12:00 Temperature Pulse Rate 119 H 104 H Respiratory Rate 24 27 H Blood Pressure Pulse Oximetry 92 93 93 Oxygen Delivery Method Room Air Oxygen Flow Rate 0 05/17/24 12:01 05/17/24 12:01 05/17/24 12:12 Temperature Pulse Rate 120 H 100 H Respiratory Rate 27 H Blood Pressure 132/61 132/61 Pulse Oximetry 93 Oxygen Delivery Method Oxygen Flow Rate 05/17/24 12:15 05/17/24 12:30 05/17/24 12:45 Temperature Pulse Rate 134 H 123 H 104 H Respiratory Rate 23 20 22 Blood Pressure Pulse Oximetry 93 92 92 Oxygen Delivery Method Oxygen Flow Rate 05/17/24 12:56 05/17/24 12:56 05/17/24 13:00 Temperature 97.9 F Pulse Rate 121 H Respiratory Rate 24 Blood Pressure 117/58 L Pulse Oximetry 94 Oxygen Delivery Method Oxygen Flow Rate 05/17/24 13:00 05/17/24 13:00 05/17/24 13:23 Temperature Pulse Rate 113 H 154 H Respiratory Rate 22 Blood Pressure 110/65 Pulse Oximetry 93 Oxygen Delivery Method Oxygen Flow Rate 05/17/24 13:30 05/17/24 13:45 05/17/24 14:00 Temperature Pulse Rate 129 H 127 H 132 H Respiratory Rate 32 H 21 20 Blood Pressure Pulse Oximetry 96 92 91 Oxygen Delivery Method Oxygen Flow Rate 05/17/24 14:00 05/17/24 14:15 05/17/24 14:30 Temperature Pulse Rate 99 H 85 Respiratory Rate 23 28 H Blood Pressure 122/84 Pulse Oximetry 92 89 L Oxygen Delivery Method Oxygen Flow Rate 05/17/24 14:45 05/17/24 15:00 05/17/24 15:00 Temperature Pulse Rate 86 86 Respiratory Rate 22 23 Blood Pressure 100/62 Pulse Oximetry 88 L 90 L Oxygen Delivery Method Oxygen Flow Rate Fraction of Inspired Oxygen 28 SaO2/FiO2 Ratio 342 Oxygen Delivery Method Room Air Oxygen Flow Rate 0 Narrative Exam Narrative: GEN: Middle-aged male, Alert and oriented x 3, NAD HEENT:NC, Face symmetric CHEST: Respiratory excursions symmetric, coarse with scattered fine crackles bilaterally CV: Tachycardic, irregularly irregular, no M/R/G ABD: Soft, NT/ND, BT present in all 4 quadrants, no organomegaly or masses EXTR: warm, well perfused, no C/C/E SKIN: warm and dry, no rash NEURO: Alert and oriented x 3, nonfocal Objective Labs 05/17/24 04:10 05/17/24 04:10 Labs: Laboratory Results - last 24 hr 05/17/24 04:10 WBC 9.0 RBC 3.93 L Hgb 12.1 L Hct 36.8 L MCV 93.4 MCH 30.8 MCHC 33.0 RDW 15.5 H Plt Count 191 Neut % (Auto) 80.3 H Lymph % (Auto) 11.4 L Morris % (Auto) 6.5 Eos % (Auto) 1.5 L Baso % (Auto) 0.3 Neut # (Auto) 7300 H Lymph # (Auto) 1000 L Morris # (Auto) 600 Eos # (Auto) 100 Baso # (Auto) 0 Sodium 134 L Potassium 3.6 Chloride 107 Carbon Dioxide 26 BUN 13 Creatinine 0.90 Estimated GFR > 60 BUN/Creatinine Ratio 14.4 Glucose 110 Calcium 10.0 Magnesium 1.7 Total Bilirubin 0.4 AST 21 ALT 20 Alkaline Phosphatase 67 Total Protein 6.2 L Albumin 3.2 L Globulin 3.0 Albumin/Globulin Ratio 1.1 [facility] Medical History Mycobacterium chelonae infection Vasculitis Atypical chest pain Arthritis Pneumonia (~07/2013) BPH (benign prostatic hyperplasia) GERD (gastroesophageal reflux disease) Paroxysmal A-fib (03/09/18) Non-productive cough Dyspnea DJD (degenerative joint disease) Bronchiectasis Microscopic polyangiitis Coronary artery disease Kidney stone (~2015) Surgical History History of colonoscopy (~2015) History of coronary artery stent placement (~06/2012) Social History household members: spouse Smoking Status: Never smoker alcohol intake: current Assessment & Plan Assessment & Plan narrative: 1. Community-acquired pneumonia Continues cefepime. MRSA screen was negative and vancomycin was discontinued. Sputum culture was negative. He reports he has very little sputum production at this time. Continues on supplemental oxygen. 2. AFib with RVR Poorly controlled with diltiazem p.o., metoprolol p.o., and amiodarone infusion. Will add a dose of IV digoxin this morning. Decrease the dose to 0.125 given potential increased dig levels with amiodarone use. Will monitor response. His potassium level remains less than 4. Will continue to supplement. Will also give additional magnesium for a goal of Mag level of 2.0 3. Chronic bronchiectasis He is followed at [facility] 4. JOHNNA Resolved. Creatinine is 0.90 today. 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 Nonobstructive coronary artery disease Currently stable and asymptomatic Code status Full Prophylaxis On apixaban Disposition Pending Time-Based Coding :: [TOTAL MINUTES] spent with patient and on the chart (including review of chart, obtaining history, exam, reviewing outside data, placing orders, documenting exam and treatment plan, and counseling patient) on [DATE].
[2024-05-17] MEDS: DIGOXIN 500 MCG/2 ML AMPUL 250 MCG IV (16:36)
[2024-05-17] MEDS: TAMSULOSIN 0.4 MG CAPSULE 0.8 MG PO (20:33)
[2024-05-17] MEDS: APIXABAN 5 MG TABLET PO (20:33)
[2024-05-17] MEDS: CYCLOBENZAPRINE 10 MG TABLET PO (20:33)
[2024-05-17] MEDS: ATORVASTATIN 20 MG TABLET 80 MG PO (20:34)
[2024-05-18] VITALS (76 sets, daily range): BP systolic 108–155; BP diastolic 57–80; PULSE 63–98; RESP 17–54; TEMP 36.1–37.4; O2SAT 87–96
[2024-05-18] MEDS: SODIUM CHLORIDE 0.9% FLUSH 10 ML IV ×3 (00:54→20:32)
[2024-05-18] MEDS: CEFEPIME 2 GM in SODIUM CHLORIDE 0.9% 100 ML IV ×3 (00:54→17:04)
[2024-05-18 06:11] LABS: Add Manual Diff / Slide Review NO; Basophils Absolute Auto 0 /uL (0-100); Basophils Percent Auto 0.3 % (0-2); Eosinophils Absolute Auto 100 /uL (0-450); Eosinophils Percent Auto 1.4 % (2-4); Hematocrit 35.8 % (41-53); Hemoglobin 11.7 g/dL (13.5-17.5); Lymphocytes Absolute Auto 1000 /uL (1100-4500); Lymphocytes Percent Auto 11.1 % (25-40); Mean Corpuscular HGB Conc 32.7 % (30-36); Mean Corpuscular Hemoglobin 30.5 PG (26-34); Mean Corpuscular Volume 93.4 fL (80-100); Monocytes Absolute Auto 700 /uL (0-900); Monocytes Percent Auto 7.5 % (3-14); Neutrophils Absolute Auto 7100 /uL (1500-7000); Neutrophils Percent Auto 79.7 % (50-75); Platelet Count 190 X10^3/uL (150-400); Red Blood Cell Count 3.83 X10^6/uL (4.5-5.9); Red Cell Distribution Width 15.5 % (11.6-14.8)
[2024-05-18] MEDS: dilTIAZem 30 MG TABLET 60 MG PO ×3 (06:16→17:04)
[2024-05-18] MEDS: PANTOPRAZOLE DR 40 MG TABLET PO (06:17)
[2024-05-18 06:21] LABS: BUN Creatinine Ratio 16.2 (6-22); Blood Urea Nitrogen 17 mg/dL (9-20); Carbon Dioxide 27 mmol/L (22-32); Chloride 105 mmol/L (98-107); Estimated Glomerular Filt Rate > 60 mL/min (>60); Glucose 92 mg/dL (80-110); HEMOLYSIS < 15 (0-50); Magnesium 1.7 mg/dL (1.6-2.3); Potassium 3.6 mmol/L (3.4-5.1); Sodium 133 mmol/L (137-145)
[2024-05-18] MEDS: MAGNESIUM OXIDE 400 MG TABLET PO (08:08)
[2024-05-18] MEDS: APIXABAN 5 MG TABLET PO ×2 (08:08→20:28)
[2024-05-18] MEDS: TRAMADOL 50 MG TABLET PO ×2 (08:08→20:28)
[2024-05-18] MEDS: predniSONE 5 MG TABLET 10 MG PO (08:08)
[2024-05-18] MEDS: METOPROLOL ER 50 MG TABLET 100 MG PO (08:08)
[2024-05-18] MEDS: DIGOXIN 0.125 MG TABLET PO (08:15)
--- NOTE | 2024-05-18 13:57 | P.PN_ITS ---
Subjective Subjective Interval history: 73-year-old male with chronic bronchiectasis, history of pseudomonal bronchopulmonary infection, history of bronchopulmonary mycobacterium chelonae, microscopic polyangiitis, chronic prednisone treatment, coronary artery disease, paroxysmal atrial fibrillation on chronic anticoagulation with Eliquis admitted with sepsis, community-acquired pneumonia and AFib with RVR. He is presently hospital day 4. Yesterday, patient converted back to sinus rhythm after receiving IV digoxin. He states now that he is back in a sinus rhythm, he does feel better. He continues to have significant chest congestion. Continues to have a deep dry cough. Exam Vital Signs (past 8 hours): - 05/18/24 06:00 05/18/24 06:00 05/18/24 06:15 Temperature Pulse Rate 78 78 Respiratory Rate 25 H 17 Blood Pressure 129/69 Pulse Oximetry 94 94 Oxygen Delivery Method Oxygen Flow Rate 05/18/24 06:16 05/18/24 06:30 05/18/24 06:45 Temperature Pulse Rate 78 79 78 Respiratory Rate 23 21 Blood Pressure 126/69 Pulse Oximetry 92 92 Oxygen Delivery Method Oxygen Flow Rate 05/18/24 07:00 05/18/24 07:00 05/18/24 07:15 Temperature Pulse Rate 80 80 Respiratory Rate 22 21 Blood Pressure 124/62 Pulse Oximetry 92 92 Oxygen Delivery Method Oxygen Flow Rate 05/18/24 07:30 05/18/24 07:45 05/18/24 08:00 Temperature Pulse Rate 82 91 H Respiratory Rate 25 H 45 H Blood Pressure Pulse Oximetry 92 92 Oxygen Delivery Method Nasal Cannula Oxygen Flow Rate 05/18/24 08:00 05/18/24 08:00 05/18/24 08:01 Temperature Pulse Rate 81 Respiratory Rate 27 H Blood Pressure 142/74 H Pulse Oximetry 92 92 Oxygen Delivery Method Nasal Cannula Oxygen Flow Rate 1 05/18/24 08:01 05/18/24 08:08 05/18/24 08:15 Temperature Pulse Rate 80 98 H 79 Respiratory Rate 31 H 23 Blood Pressure 142/74 H Pulse Oximetry 90 L 93 Oxygen Delivery Method Oxygen Flow Rate 05/18/24 08:30 05/18/24 08:45 05/18/24 08:49 Temperature Pulse Rate 74 72 72 Respiratory Rate 24 25 H Blood Pressure Pulse Oximetry 92 93 Oxygen Delivery Method Oxygen Flow Rate 05/18/24 09:00 05/18/24 09:15 05/18/24 09:30 Temperature 98.6 F Pulse Rate 73 74 68 Respiratory Rate 24 23 31 H Blood Pressure Pulse Oximetry 92 90 L 90 L Oxygen Delivery Method Oxygen Flow Rate 05/18/24 09:45 05/18/24 10:00 05/18/24 10:15 Temperature Pulse Rate 71 68 72 Respiratory Rate 24 31 H 34 H Blood Pressure Pulse Oximetry 89 L 89 L 91 Oxygen Delivery Method Oxygen Flow Rate 05/18/24 10:30 05/18/24 10:45 05/18/24 11:00 Temperature Pulse Rate 72 77 75 Respiratory Rate 30 H 40 H 33 H Blood Pressure Pulse Oximetry 89 L 87 L 94 Oxygen Delivery Method Oxygen Flow Rate 05/18/24 11:04 05/18/24 11:15 05/18/24 11:30 Temperature Pulse Rate 76 79 Respiratory Rate 31 H 27 H Blood Pressure Pulse Oximetry 95 94 94 Oxygen Delivery Method Nasal Cannula Oxygen Flow Rate 1 05/18/24 11:45 05/18/24 12:00 05/18/24 12:05 Temperature 98.0 F Pulse Rate 80 81 Respiratory Rate 27 H 25 H Blood Pressure 153/71 H Pulse Oximetry 95 93 Oxygen Delivery Method Oxygen Flow Rate 05/18/24 12:05 05/18/24 12:06 05/18/24 12:15 Temperature Pulse Rate 83 77 81 Respiratory Rate 22 42 H Blood Pressure 153/71 H Pulse Oximetry 92 93 Oxygen Delivery Method Oxygen Flow Rate 05/18/24 12:30 05/18/24 12:45 05/18/24 13:00 Temperature Pulse Rate 88 83 83 Respiratory Rate 27 H 36 H 32 H Blood Pressure Pulse Oximetry 91 88 L 91 Oxygen Delivery Method Oxygen Flow Rate 05/18/24 13:15 05/18/24 13:30 Temperature Pulse Rate 81 79 Respiratory Rate 25 H 26 H Blood Pressure Pulse Oximetry 92 92 Oxygen Delivery Method Oxygen Flow Rate Fraction of Inspired Oxygen 28 SaO2/FiO2 Ratio 342 Oxygen Delivery Method Nasal Cannula Oxygen Flow Rate 1 Narrative Exam Narrative: GEN: Middle-aged male, Alert and oriented x 3, NAD HEENT:NC, Face symmetric CHEST: Respiratory excursions symmetric, coarse but clear bilaterally CV: RRR, no M/R/G ABD: Soft, NT/ND, BT present in all 4 quadrants, no organomegaly or masses EXTR: warm, well perfused, no C/C/E SKIN: warm and dry, no rash NEURO: Alert and oriented x 3, nonfocal Objective Labs 05/18/24 05:20 05/18/24 05:20 Labs: Laboratory Results - last 24 hr 05/18/24 05:20 WBC 9.0 RBC 3.83 L Hgb 11.7 L Hct 35.8 L MCV 93.4 MCH 30.5 MCHC 32.7 RDW 15.5 H Plt Count 190 Neut % (Auto) 79.7 H Lymph % (Auto) 11.1 L Titus % (Auto) 7.5 Eos % (Auto) 1.4 L Baso % (Auto) 0.3 Neut # (Auto) 7100 H Lymph # (Auto) 1000 L Titus # (Auto) 700 Eos # (Auto) 100 Baso # (Auto) 0 Sodium 133 L Potassium 3.6 Chloride 105 Carbon Dioxide 27 BUN 17 Creatinine 1.05 Estimated GFR > 60 BUN/Creatinine Ratio 16.2 Glucose 92 Calcium 10.0 Magnesium 1.7 PFSH Medical History Mycobacterium chelonae infection Vasculitis Atypical chest pain Arthritis Pneumonia (~07/2013) BPH (benign prostatic hyperplasia) GERD (gastroesophageal reflux disease) Paroxysmal A-fib (03/09/18) Non-productive cough Dyspnea DJD (degenerative joint disease) Bronchiectasis Microscopic polyangiitis Coronary artery disease Kidney stone (~2015) Surgical History History of colonoscopy (~2015) History of coronary artery stent placement (~06/2012) Social History household members: spouse Smoking Status: Never smoker alcohol intake: current Assessment & Plan Assessment & Plan narrative: 1. Community-acquired pneumonia Continues cefepime due to previous history of Pseudomonas pneumonia. MRSA screen was negative and vancomycin was discontinued. Sputum culture was negative. He reports he has very little sputum production at this time. Continues on supplemental oxygen. 2. Paroxysmal AFib with RVR Responded well and converted to sinus rhythm with the addition of digoxin. Remains on diltiazem 60 mg every 6 hours and digoxin 0.125 mg daily. Also continues Toprol-XL 100 mg daily. Blood pressure remains mildly hypertensive. Will obtain a chest x-ray to evaluate for evidence of volume overload given his ongoing complaint of chest congestion. 3. Chronic bronchiectasis He is followed at [facility] 4. JOHNNA Resolved. 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 Nonobstructive coronary artery disease Currently stable and asymptomatic Code status Full Prophylaxis On apixaban Disposition Plan discharge home tomorrow with IV cefepime. His midline IV access was lost and will need to be replaced tomorrow as there is no vascular access here today. Time-Based Coding :: [TOTAL MINUTES] spent with patient and on the chart (including review of chart, obtaining history, exam, reviewing outside data, placing orders, documenting exam and treatment plan, and counseling patient) on [DATE].
--- NOTE | 2024-05-18 14:02 | DI.RAD.S_ITS ---
PROCEDURE: XR CHEST 2V INDICATIONS: SOB, reassess pneumonia, eval for pulmonary edema TECHNIQUE: 2 views of the chest were acquired. COMPARISON: [facility], CR, XR CHEST 1V, 05/14/2024, 12:13. FINDINGS: Surgical changes and devices: None. Lungs and pleura: Low lung volumes with bibasilar streaky opacities. No pleural effusions or pneumothorax. Mediastinum: Mediastinal contours are normal. Heart size is normal. Bones and chest wall: No suspicious bony abnormalities. Soft tissues appear unremarkable. IMPRESSION: Low lung volumes. Bibasilar streaky opacities consistent with atelectasis versus aspiration. Approved by: Isabelle Olivo M.D.,Ph.D. on 05/18/2024 at 14:34
--- NOTE | 2024-05-18 14:31 | CM.DPNOTE ---
DCP Cont Reviewed chart. Patient discussed in multidisciplinary rounds. Patient's midline came out and will need to be replaced Saturday 05/19. CLIFF 05/19. Placed call to [facility] and spoke with director of retail operations charge nurse Maeve. Patient is on their schedule for Saturday 05/19, RN can complete the initial teach in the hospital or in patient's home in [place]. Updated that new line placement expected Sunday AM. Plan remains discharge home w/sp, [facility] to manage IV cefepime 2g Q12 x10 days total (stop date 05/24). CM team following clinical course closely. Coordinate with [facility] Saturday 05/19. NICHOL
[2024-05-18] MEDS: TAMSULOSIN 0.4 MG CAPSULE 0.8 MG PO (20:27)
[2024-05-18] MEDS: CYCLOBENZAPRINE 10 MG TABLET PO (20:28)
[2024-05-18] MEDS: ATORVASTATIN 20 MG TABLET 80 MG PO (20:28)
[2024-05-19] VITALS (31 sets, daily range): BP systolic 112–134; BP diastolic 62–82; PULSE 66–88; RESP 17–38; TEMP 36.4–37.1; O2SAT 92–99
[2024-05-19] MEDS: dilTIAZem 30 MG TABLET 60 MG PO ×3 (00:08→12:56)
[2024-05-19] MEDS: CEFEPIME 2 GM in SODIUM CHLORIDE 0.9% 100 ML IV ×2 (00:08→10:43)
[2024-05-19 04:29] LABS: Add Manual Diff / Slide Review NO; Basophils Absolute Auto 0 /uL (0-100); Basophils Percent Auto 0.2 % (0-2); Eosinophils Absolute Auto 100 /uL (0-450); Hematocrit 36.8 % (41-53); Hemoglobin 11.9 g/dL (13.5-17.5); Lymphocytes Absolute Auto 1100 /uL (1100-4500); Lymphocytes Percent Auto 11.7 % (25-40); Mean Corpuscular HGB Conc 32.4 % (30-36); Mean Corpuscular Volume 92.6 fL (80-100); Monocytes Absolute Auto 800 /uL (0-900); Monocytes Percent Auto 8.2 % (3-14); Neutrophils Absolute Auto 7400 /uL (1500-7000); Neutrophils Percent Auto 78.9 % (50-75); Platelet Count 199 X10^3/uL (150-400); Red Blood Cell Count 3.97 X10^6/uL (4.5-5.9); Red Cell Distribution Width 15.3 % (11.6-14.8); White Blood Cell Count 9.3 X10^3/uL (4.5-11.0)
[2024-05-19 04:49] LABS: BUN Creatinine Ratio 16.2 (6-22); Blood Urea Nitrogen 16 mg/dL (9-20); Calcium 10.3 mg/dL (8.4-10.2); Carbon Dioxide 28 mmol/L (22-32); Chloride 102 mmol/L (98-107); Estimated Glomerular Filt Rate > 60 mL/min (>60); Glucose 121 mg/dL (80-110); HEMOLYSIS < 15 (0-50); Sodium 132 mmol/L (137-145)
[2024-05-19] MEDS: PANTOPRAZOLE DR 40 MG TABLET PO (06:04)
[2024-05-19] MEDS: TRAMADOL 50 MG TABLET PO (08:16)
[2024-05-19] MEDS: predniSONE 5 MG TABLET 10 MG PO (08:17)
[2024-05-19] MEDS: MAGNESIUM OXIDE 400 MG TABLET PO (08:17)
[2024-05-19] MEDS: APIXABAN 5 MG TABLET PO (08:17)
[2024-05-19] MEDS: DIGOXIN 0.125 MG TABLET PO (08:17)
[2024-05-19] MEDS: METOPROLOL ER 50 MG TABLET 100 MG PO (08:17)
[2024-05-19] MEDS: SODIUM CHLORIDE 0.9% FLUSH 10 ML IV (10:44)
--- NOTE | 2024-05-19 10:56 | CM.DPNOTE ---
Addendum entered by MILAN Moody 05/19/24 13:50: provider/[facility] confirmed Q8 for IV cefapime. PIG CONVEYOR OPERATOR faxed mid-line report to [facility]. DC Sum pending. will send dc sum when available. DORON Original Note: DCP Note PIG CONVEYOR OPERATOR reviewed EMR. per hospitalist, pt cleared to dc today if [facility] can open. Per RN, new midline/PICC placed this morning. Per Ilya at [facility], nursing scheduled to start in the home at 2:15pm. need new mid/PICC report and dc sum when available. PIG CONVEYOR OPERATOR met with pt in room and updated him on [facility] SOC in room. in agreement with plan. deny other questions at this time. spouse will plan to pick pt up around 1300. PIG CONVEYOR OPERATOR updated RN/Provider on [facility] SOC. confirmed in agreement with plan. P: dc today to home in [place] with spouse to assist. [facility] to follow for IV cefapime 2g stop date 05/24, SOC today at 1425 in the home. CM team will send iv access report/dc sum when available. CM team will continue to follow as needed MILAN Moody
--- NOTE | 2024-05-19 13:08 | PC.NURSE ---
Pt agreeable to discharge. Education provided to pt on medications, stroke s/s, fall safety, and appointment at home at discharge with infusion nurse. Midline left in place for outpatient IV antibiotics, heparin locked. Pt wheeled via w/c by PCT at approximately 1310.
--- NOTE | 2024-05-20 08:08 | PM.DS.1 ---
History of Present Illness History of Present Illness Chief complaint: rapid heart rate, fever Narrative: From H&P: 73 M with PMH of bronchiectasis, prior complex infectious history including mycobacterium, and recurrent pseudomonas, non-obstructive CAD, ANCA MPO vasculitis on chronic prednisone therapy, HTN, atrial fibrillation who presents with fever, shortness of breath, and indigestion. He was here 4 days ago with similar presentation, was treated with levofloxacin and discharged home. He has continued to have fever over the last few days along with indigestion and some nausea, vague abdominal pain. He has a history of nephrolithiasis. He denies weight gain, leg edema, orthopnea. Denies diarrhea or emesis. Denies recent sick contacts or recent travel. In the ER patient tachycardic in the 150s, borderline fever. CTA negative for PE but shows bronchiectasis with possible infection. CT abdomen with stable left renal cyst and no hydronephrosis. Cr slightly up at 1.28, calcium high at 10.4. Initial trop 0.056 improved on repeat. EKG shows an SVT. Patient has prior EKGs with afib. He was given IV Fluids, ceftriaxone in the ER. I evaluated and asked for cefepime with his prior pseudomonas, and for CT imaging. Discussed with pulmonary whom did not recommend bronchoscopy at this time. Recommended sputum culture, cefepime and vancomycin empirically. He was admitted to the ICU given his tachycardia in the setting of presumed sepsis. Discharge Providers Provider Date of admission: 05/14/24 17:08 Discharge Date: 05/19/24 Primary care physician: Carolina Pepper MD Consults: Pulmonary, Dr. Piedra. Discharge provider: Grant Aj MD Summary Hospital Course Discharge Diagnosis: 1. Bacterial pneumonia, present on admission and improved. Continues cefepime due to previous history of Pseudomonas pneumonia. MRSA screen was negative and vancomycin was discontinued. Sputum culture was negative. He reports he has very little sputum production at this time. Continues on supplemental oxygen. 2. Paroxysmal AFib with RVR, new and resolved. Responded well and converted to sinus rhythm with the addition of digoxin. Remains on diltiazem 60 mg every 6 hours and digoxin 0.125 mg daily. Also continues Toprol-XL 100 mg daily. Blood pressure remains mildly hypertensive. Will obtain a chest x-ray to evaluate for evidence of volume overload given his ongoing complaint of chest congestion. 3. Chronic bronchiectasis, present on admission and active. He is followed at [facility] [place] (Dr. Ray Sweeney). 4. JOHNNA, present on admission and resolved. Resolved. 5. Anca MPO vasculitis, present on admission and stable. Remains on his usual outpatient prednisone dose of 10 mg daily 6. Nonobstructive coronary artery disease, present on admission stable. Currently stable and asymptomatic Hospital Course: The patient was admitted with acute hypoxic respiratory failure and pneumonia and treated with cefepime. He initially was on vancomycin but an MRSA screen was negative. The patient had slow improvement. He was seen by Pulmonary who recommended a full 10 day course of IV antibiotics given his recent failure after a short time on oral antibiotics. The patient had a midline placed which ultimately failed and was replaced with a PICC line in the day of discharge. His symptoms of general fatigue improved over the course of his stay. He was felt to be stable for discharge on May 19 and we will continue cefepime 2 g Q 8 hours at home, this is being facilitated by infusion solutions. His course was complicated by atrial fibrillation, paroxysmal. He would AFib with RVR which was largely asymptomatic. This is refractory to diltiazem IV and orally as well as IV and oral beta blockade. An amiodarone infusion was also tried without success and ultimately digoxin was given with a spontaneous cardioversion shortly after. Status at Discharge Cognitive/behavioral status at discharge: oriented Functional status at discharge: independent ambulation Overall status at discharge: patient is back to baseline Time Spent with Patient Time spent: Greater than 30 minutes Exam Vital Signs (past 8 hours): Fraction of Inspired Oxygen 28 SaO2/FiO2 Ratio 342 Oxygen Delivery Method Room Air Oxygen Flow Rate 0 Narrative Exam Narrative: NAD, alert and oriented. Fluent speech. Lungs are clear, normal rate and effort. Heart is regular, no murmur gallop or rub. Abdomen is soft, non distended. Extremities are free of edema. Objective ECG Impression: Similar to prior tracing, likely afib with RVR based on prior tracings. Labs 05/19/24 04:00 05/19/24 04:00 [facility] Medical History Mycobacterium chelonae infection Vasculitis Atypical chest pain Arthritis Pneumonia (~07/2013) BPH (benign prostatic hyperplasia) GERD (gastroesophageal reflux disease) Paroxysmal A-fib (03/09/18) Non-productive cough Dyspnea DJD (degenerative joint disease) Bronchiectasis Microscopic polyangiitis Coronary artery disease Kidney stone (~2015) Surgical History History of colonoscopy (~2015) History of coronary artery stent placement (~06/2012) Social History household members: spouse Smoking Status: Never smoker alcohol intake: current Discharge Assessment & Plan Assessment and Plan Assessment: 1. Bacterial pneumonia, present on admission and improved. Continues cefepime due to previous history of Pseudomonas pneumonia. MRSA screen was negative and vancomycin was discontinued. Sputum culture was negative. He reports he has very little sputum production at this time. Continues on supplemental oxygen. 2. Paroxysmal AFib with RVR, new and resolved. Responded well and converted to sinus rhythm with the addition of digoxin. Remains on diltiazem 60 mg every 6 hours and digoxin 0.125 mg daily. Also continues Toprol-XL 100 mg daily. Blood pressure remains mildly hypertensive. Will obtain a chest x-ray to evaluate for evidence of volume overload given his ongoing complaint of chest congestion. 3. Chronic bronchiectasis, present on admission and active. He is followed at [facility] (Dr. Ray Sweeney). 4. JOHNNA, present on admission and resolved. Resolved. 5. Anca MPO vasculitis, present on admission and stable. Remains on his usual outpatient prednisone dose of 10 mg daily 6. Nonobstructive coronary artery disease, present on admission stable. Currently stable and asymptomatic Plan of Treatment: Discharge home to complete a full 10 days' course of cefepime IV. PICC line in place. Antibiotics are being followed outpatient by Dr. Piedra (Pulmonary). Discharge Plan Discharge Plan Patient Disposition: Home Provider Discharge Comment: Stable for discharge home with IV antibiotics with infusion solutions, total of 10 day course. Nursing Discharge Comment: [facility] will see you in your home today around 2:15pm Discharge orders & Medications Prescriptions: New metoprolol succinate 50 mg Tablet Extended Release 24 Hr 100 mg PO DAILY Qty: 30 0RF cefepime 2 gram Recon Soln 2 gm IV Q8H Qty: 15 0RF digoxin 125 mcg (0.125 mg) Tablet 0.125 mg PO DAILY Qty: 14 0RF Continued Eliquis 2.5 mg tablet 2.5 mg PO BID cyclobenzaprine 5 mg tablet 10 mg PO BEDTIME Rx Instructions: do not drive azithromycin 250 mg tablet 250 mg PO DAILY amlodipine 2.5 mg tablet 2.5 mg PO DAILY tamsulosin 0.4 mg capsule 0.8 mg PO ONCE PM lisinopril 2.5 mg tablet 2.5 mg PO DAILY prednisone 10 mg Tablet 10 mg PO DAILY omeprazole 40 mg Capsule,Delayed Release(Dr/Ec) 40 mg PO DAILY atorvastatin 80 mg Tablet 80 mg PO QPM carvedilol 25 mg Tablet 25 mg PO BID Rx Instructions: must administer with a meal/food levalbuterol HCl [Xopenex] 0.63 mg/3 mL Solution For Nebulization 0.63 mg INHALATION TID alendronate [Fosamax] 70 mg Tablet 70 mg PO QWEEK Rx Instructions: Mondays fluticasone propionate 50 mcg/actuation [place],Suspension 1 spray INTRANASAL BID Rx Instructions: administer into each nostril tramadol 100 mg Tablet Extended Release 24 Hr 100 mg PO BEDTIME fluticasone propion-salmeterol [Advair HFA] 115-21 mcg/actuation Hfa Aerosol Inhaler 2 puff INHALATION BID Discontinued levofloxacin 750 mg tablet 750 mg PO DAILY Qty: 7 0RF Follow up/Referrals: Bj Piedra MD [Physician] - Carolina Pepper MD [Primary Care Provider] - Diet/Activity/Treatments Diet: Regular Skin/Wound/Dressing Care Report to your healthcare provider any signs of infection, such as:: chills, fever and night sweats Visit Report/Discharge Packet Instructions: DI for Pneumonia -- Adult, Digoxin, Metoprolol Stand Alone Forms: Patient Portal/API, Stroke Signs & Symptoms Discharge Data Primary Care Provider: Carolina Pepper Quality MIPS - DC The patient has a history of heart transplant or Left Ventricular Assist Device (LVAD). If yes, STOP here.: No The patient has current or prior documentation of left ventricular ejection fraction (LVEF) less than or equal to 40%, or moderate or severely depressed left ventricular systolic function.: No
== END 2024-05-19 13:10 | disposition home or self-care (01) | DRG 190 ==
LOC: ED 16:22 → AC 17:09 → ICU 17:19
PROVIDERS: Family Medicine; Admitting Provider Internal Medicine; Emergency Provider Emergency Medicine; PCP Internal Medicine; Referring Provider Emergency Medicine; Visit Provider Internal Medicine
DX: J47.0 Bronchiectasis with acute lower respiratory infection (principal); J96.01 Acute respiratory failure with hypoxia; N17.9 Acute kidney failure, unspecified; I47.10 Supraventricular tachycardia, unspecified; J15.1 Pneumonia due to Pseudomonas; I77.82 Antineutrophilic cytoplasmic antibody [ANCA] vasculitis; E83.52 Hypercalcemia; I48.0 Paroxysmal atrial fibrillation; I25.10 Atherosclerotic heart disease of native coronary artery without angina pectoris; K21.9 Gastro-esophageal reflux disease without esophagitis; N40.0 Benign prostatic hyperplasia without lower urinary tract symptoms; Z87.442 Personal history of urinary calculi; Z79.52 Long term (current) use of systemic steroids; Z79.01 Long term (current) use of anticoagulants; Z86.79 Personal history of other diseases of the circulatory system
CPT/HCPCS: 36415; 71045; 71046; 71275; 74176; 80048; 80053; 81003; 82550; 83605; 83735; 84145; 84484; 85007; 85025; 87040; 87070; 87077; 87186; 87205; 87797; 93005; 93306; 94667; 94762; 96361; 96365; 96367; 96375; 99284; 99291; J0282; J0692; J0696; J1160; J2405; J2470; J3475; Q9967

== ENCOUNTER → 2024-07-09 10:55 | Outpatient (CLI) | payer OTHER, SELFPAY ==
[2024-05-14 17:17] VITALS: BMI 26.4
== END ==
PROVIDERS: PCP Internal Medicine; Visit Provider Student in an Organized Health Care Education/Training Program
DX: J47.9 Bronchiectasis, uncomplicated (principal)
CPT/HCPCS: 87070; 87205

== ENCOUNTER → 2025-01-09 11:57 | Outpatient (CLI) | payer OTHER, SELFPAY ==
[2024-05-14 17:17] VITALS: BMI 26.4
--- NOTE | 2025-01-09 11:59 | DI.MG.S_ITS ---
MM diagnostic mammo BI: 01/09/2025. BI-RADS: 2 CLINICAL: 74-year old male for bilateral diagnostic mammogram. Current reported family history of breast cancer: mother. The patient reports a palpable abnormality (6 months) in the left breast and pain (6 months) in both breasts. PRIOR EXAMS No prior examinations available. MAMMOGRAPHY TECHNIQUE: 2D and 3D (tomosynthesis) digital mammographic views obtained, with additional images as needed for full coverage. Current study was also evaluated with a Computer Aided Detection (CAD) system. DENSITY B. There are scattered areas of fibroglandular density. MAMMOGRAPHY FINDINGS Right: Central, Retroareolar, Far Anterior depth: Correlating with pain/tenderness, there is an asymmetry consistent with gynecomastia. There is mild to moderate dendritic pattern gynecomastia. Left: Upper at 12:00, Retroareolar, Far Anterior depth: Underlying surface marker and correlating with patient concern of palpable lump and pain/tenderness, there is an asymmetry consistent with gynecomastia. There is moderate to marked dendritic pattern gynecomastia. IMPRESSION: * No evidence of malignancy with benign findings. RECOMMENDATIONS * Clinical follow-up is recommended, and further management of palpable abnormalities or other focal signs or symptoms should be based on the results of clinical evaluation. If palpable abnormality or other concerning symptom persists or progresses, further clinical evaluation should be considered. * Clinical follow up is also recommended for the patient's gynecomastia, with evaluation for etiologies including medication/drug-related factors, hormonal or systemic disorders. COMMENTS: Findings and recommendations were conveyed to the patient during today's evaluation. OVERALL ASSESSMENT CATEGORY BI-RADS-2: Benign. ELECTRONICALLY SIGNED: Zulay Patterson M.D. on 01/09/2025 at 01:15:32 PM PT Interpreting Station ID: [id number]
== END ==
LOC: MAMMO 11:58
PROVIDERS: PCP Internal Medicine; Referring Provider Internal Medicine; Visit Provider Internal Medicine
DX: N64.4 Mastodynia (principal); N62 Hypertrophy of breast; Z80.3 Family history of malignant neoplasm of breast
CPT/HCPCS: 77066; G0279